=== PATIENT | female | born 1940 | race Caucasian/White ===

== ENCOUNTER → 2017-04-11 | Outpatient (CLI) | payer MEDICARE, OTHER ==
[2017-04-11 16:28] LABS: Basophils # (A) 0.1 k/uL (0-0.2); Basophils % (A) 1 %; CH 31.7; CHCM 34.2; Eosinophils # (A) 0.3 k/uL (0-0.7); Eosinophils % (A) 4 %; HCT 37.7 % (34.0-46.0); HDW 2.63; HGB 12.8 gm/dL (11.4-16.0); Luc % (Auto) 2; Lymphocytes # (A) 2.8 k/uL (1.0-4.8); Lymphocytes % (A) 29 %; MCH 31.7 pg (25.0-35.0); MCV 93.2 fL (80.0-100.0); Mean Platelet Volume 7.6; Monocytes # (A) 0.4 k/uL (0-1.0); Monocytes % (A) 4 %; Neutrophils # (A) 5.7 k/uL (1.3-7.7); Neutrophils % (A) 60 %; RBC 4.05 m/uL (3.80-5.40); RDW 12.9 % (11.5-15.5); WBC 9.5 k/uL (3.8-10.6); WBC (Perox) 10.11
[2017-04-11 16:34] LABS: Calcium 9.4 mg/dL (8.4-10.2); Magnesium 2.3 mg/dL (1.6-2.3); Potassium 4.2 mmol/L (3.5-5.1)
== END ==
LOC: LABWHC1 15:55
PROVIDERS: ATTEND Internal Medicine
DX: R19.7 Diarrhea, unspecified (principal)
CPT/HCPCS: 36415; 80048; 83735; 84450; 84460; 85025; 87045; 87046; 87328; 87329

== ENCOUNTER → 2017-05-02 | Outpatient (CLI) | payer MEDICARE, OTHER ==
--- NOTE | 2017-05-02 16:53 | US ---
EXAMINATION TYPE: US abdomen complete DATE OF EXAM: 05/02/2017 COMPARISON: NONE CLINICAL HISTORY: R94.5 abnormal liver study results. EXAM MEASUREMENTS: Liver Length: 14.2 cm Gallbladder Wall: 0.3 cm CBD: 0.5 cm Spleen: 10.2 cm Right Kidney: 10.4 x4.3 x 4.3 cm Left Kidney: 10.8 x 4.9 x 5.4 cm Pancreas: visualized portions wnl Liver: There is some mild fatty infiltration liver with diminished attenuation Gallbladder: small stones/sludge seen without shadowing Evidence for sonographic Ornelas's sign: No CBD: wnl Spleen: wnl Right Kidney: cyst measures 1.9 x 1.7 x 1.9 cm Left Kidney: No hydronephrosis or masses seen Upper IVC: wnl Abd Aorta: wnl IMPRESSION: 1. Gallbladder sludge and/or small stones. 2. Mild fatty infiltration of liver
== END | disposition home or self-care (01) ==
LOC: RADUSWWP 06:55
PROVIDERS: ATTEND Internal Medicine
DX: K82.9 Disease of gallbladder, unspecified (principal); K76.0 Fatty (change of) liver, not elsewhere classified
CPT/HCPCS: 76700

== ENCOUNTER → 2017-05-10 | Outpatient (CLI) | payer MEDICARE, OTHER ==
--- NOTE | 2017-05-10 17:28 | NM ---
EXAMINATION TYPE: NM hepatobiliary w EF DATE OF EXAM: 05/10/2017 COMPARISON: NONE HISTORY: Gallstone ileus. TECHNIQUE: After the intravenous administration of 5.5 mCi Tc 99m Mebrofenin hepatobiliary scintigrap hy is performed. Immediate images post injection. FINDINGS: There is satisfactory initial accumulation of tracer by the liver. The gallbladder is visualized wit hin 46 minutes. The small bowel activity is noted within 24 minutes. At one hour 8 ounces of oral e nsure plus is given to mimic CCK and gallbladder ejection fraction is calculated at 66 %, in the norm al range. Therefore there is no scintigraphic evidence of cystic or common bile duct obstruction to suggest acute cholecystitis or gallbladder dyskinesia. IMPRESSION: NORMAL NASAL MEDICINE ABOUT A BILIARY SCAN WITH EJECTION FRACTION CALCULATION.
== END | disposition home or self-care (01) ==
LOC: RADNMMAIN 14:24
PROVIDERS: ATTEND Internal Medicine
DX: K56.3 Gallstone ileus (principal)
CPT/HCPCS: 78226; A9537

== ENCOUNTER → 2017-11-22 | Outpatient (CLI) | payer MEDICARE, OTHER ==
--- NOTE | 2017-11-22 15:42 | XR ---
EXAMINATION TYPE: XR chest 2V DATE OF EXAM: 11/22/2017 COMPARISON: Chest x-ray September 12, 2016 HISTORY: Chest pain TECHNIQUE: Frontal and lateral views of the chest are obtained. FINDINGS: There is chronic minimal change without suspicious focal air space opacity, pleural effusi on, or pneumothorax seen. The cardiac silhouette size remains within normal limits with atherosclero tic aorta. The osseous structures are demineralized. Underlying scoliosis is noted. Multilevel spur ring is redemonstrated. IMPRESSION: No acute cardiopulmonary process. No significant change from prior.
== END | disposition home or self-care (01) ==
LOC: RADXRMAIN 15:22
PROVIDERS: ATTEND Internal Medicine
DX: R07.9 Chest pain, unspecified (principal)
CPT/HCPCS: 71046

== ENCOUNTER → 2018-04-02 | Outpatient (CLI) | payer MEDICARE, OTHER ==
--- NOTE | 2018-04-02 13:49 | XR ---
Cervical spine HISTORY: Neck pain, spondylosis 5 views of the cervical spine and 6 images There is multilevel spondylosis. Cervical vertebral bodies show preserved height, alignment, bone min eralization is mildly reduced. Loss of disc height hasn't at C5-6 and C6-7. Facet arthropathy changes are noted. Mild foraminal encroachment present at C5-6 and C6-7. Odontoid view is limited. Calcifica tions likely present within the carotid arteries. IMPRESSION: Degenerative disc disease, facet arthropathy.
== END ==
LOC: RADXRMAIN 13:16
PROVIDERS: ATTEND Internal Medicine
DX: M50.30 Other cervical disc degeneration, unspecified cervical region (principal); M46.92 Unspecified inflammatory spondylopathy, cervical region
CPT/HCPCS: 72050

== ENCOUNTER → 2018-04-12 | Outpatient (CLI) | payer MEDICARE, OTHER ==
--- NOTE | 2018-04-12 14:00 | MR ---
EXAMINATION TYPE: MR cervical spine wo con DATE OF EXAM: 04/12/2018 COMPARISON: CTA neck 10/05/2016, cervical spine 04/02/2018 HISTORY: Spondylosis with Myelopathy cervical region TECHNIQUE: Multiplanar, multisequence images of the cervical spine were acquired. C2-C3: There is a chronic odontoid fracture present. Alignment is near anatomic. Loss of disc height and signal is present, there is associated spondylosis. No significant spinal stenosis. No significan t disc herniation or foraminal encroachment. C3-C4: No significant foraminal encroachment or central stenosis. No sizable disc herniation. There i s some loss of disc signal compatible disc desiccation and degenerative disc disease. C4-C5: Loss of disc signal is compatible with disc desiccation, minimal posterior broad-based disc bu lge causes slight anterior mass effect on the thecal sac, there is only mild central stenosis. Latera l extension of endplate disc complex encroaches mildly on the foramina. C5-C6: Posterior broad-based disc bulge causes anterior mass effect on the thecal sac and likely cont act the anterior cervical cord, there is some deformity of the cord suspected, lateral extension of d isc complex causes bilateral foraminal encroachment. There is loss of disc height and signal, endplat e discogenic marrow signal changes present with associated spondylosis. C6-C7: Posterior extension of endplate disc complex may contact the anterior cervical cord, lateral e xtension of endplate disc complex causes bilateral foraminal encroachment left greater than right. Th ere is moderate central stenosis. C7-T1: Broad-based posterior disc bulge causes minimal anterior mass effect on the thecal sac. No sig nificant foraminal encroachment or central stenosis. Cervical segments are intact. There is normal alignment. Cervical spinal cord is of normal signal. Craniovertebral junction relationships are within normal limits. Lipoma present in the posterior le ft neck musculature. IMPRESSION: Degenerative disc disease, multilevel foraminal encroachment. Facet arthropathy. Chronic odontoid fra cture is present at the base of the dens.
== END | disposition home or self-care (01) ==
LOC: RADMRIMAIN 09:52
PROVIDERS: ATTEND Internal Medicine
DX: S12.110A Anterior displaced Type II dens fracture, initial encounter for closed fracture (principal); M50.00 Cervical disc disorder with myelopathy, unspecified cervical region; M46.92 Unspecified inflammatory spondylopathy, cervical region
CPT/HCPCS: 72141

== ENCOUNTER → 2018-11-29 | Outpatient (CLI) | payer MEDICARE ==
[~2018-11-29] MED LIST: REGADENOSON 0.4 MG/5 ML SYRINGE IV ONE
--- NOTE | 2018-11-29 11:51 | NM ---
EXAMINATION TYPE: NM stress lexiscan cardiolite DATE OF EXAM: 11/29/2018 COMPARISON: Prior cardiac stress test September 18, 2013 HISTORY: Chest pain per order. Family history of heart attack, personal history of hypertension, hype rcholesteremia, and diabetes. TECHNIQUE: After the intravenous administration of 10.4 mCi Tc 99m Sestamibi - Cardiolite resting SP ECT images acquired 50 minutes post injection. The patient received 0.4mg Lexiscan, 25.7 mCi Tc 99m Sestamibi - Stress images obtained [address] injection FINDINGS: Review of stress and rest SPECT images demonstrates no distinct perfusion abnormality. Gated analysi s shows normal wall motion with an estimated left ventricular ejection fraction of 72 %. IMPRESSION: No scintigraphic evidence for reversible ischemia. No significant change from prior.
--- NOTE | 2018-11-30 07:44 | EST ---
EXERCISE STRESS DATE OF SERVICE: 11/29/2018 AGE: 78 SEX: Female HT: 63" WT: 175 pounds PROTOCOL: Lexiscan Cardiolite STAGE: DURATION OF EXERCISE: HEART RATE REST: 86 BLOOD PRESSURE REST: 170/80 MAXIMUM HEART RATE ACHIEVED: 99 MAXIMUM BLOOD PRESSURE: 175/74 85% MPHR: 120 100% MPHR: 141 METS: INDICATIONS: Chest pain. CLINICAL INFORMATION: Baseline EKG revealed normal sinus rhythm with poor R-wave progression over precordial leads. With Lexiscan administration, the heart rate changed from 86 to 99 beats per minute. Blood pressure changed from 170/80 to 175/74. EKG remained unremarkable and patient did not have any significant symptoms. By EKG criteria, this is an unremarkable Lexiscan stress test with minor resting EKG changes. The nuclear scan results which are more pertinent, will be reported by the radiologist. ALINA / LALO: [id number] /
== END | disposition home or self-care (01) ==
LOC: RADNMMAIN 07:28
PROVIDERS: ATTEND Internal Medicine
DX: R07.9 Chest pain, unspecified (principal)
CPT/HCPCS: 93017; 78452; A9500; J2785

== ENCOUNTER → 2019-03-29 | Outpatient (CLI) | payer MEDICARE, OTHER ==
--- NOTE | 2019-03-29 11:10 | XR ---
EXAMINATION TYPE: XR knee complete RT DATE OF EXAM: 03/29/2019 CLINICAL HISTORY: pain TECHNIQUE: Three views of the right knee are obtained. COMPARISON: None. FINDINGS: There is no acute fracture/dislocation. The tri-compartment joint spaces appear mildly na rrowed. The overlying soft tissue appears unremarkable. IMPRESSION: There is no acute fracture or dislocation.ICD 10 NO FRACTURE, INITIAL EVALUATION
== END ==
LOC: RADXRMAIN 10:06
PROVIDERS: ATTEND Internal Medicine
DX: M25.561 Pain in right knee (principal)

== ENCOUNTER → 2020-04-06 | Outpatient (CLI) | payer MEDICARE, OTHER ==
[2020-04-06 11:23] LABS: Basophils % (A) 0 %; Eosinophils # (A) 0.3 k/uL (0-0.7); Eosinophils % (A) 4 %; HCT 40.8 % (34.0-46.0); HGB 13.4 gm/dL (11.4-16.0); Lymphocytes # (A) 1.6 k/uL (1.0-4.8); Lymphocytes % (A) 19 %; MCH 31.2 pg (25.0-35.0); MCHC 32.9 g/dL (31.0-37.0); MCV 94.8 fL (80.0-100.0); Monocytes # (A) 0.3 k/uL (0-1.0); Monocytes % (A) 3 %; Neutrophils % (A) 72 %; Platelet Count 272 k/uL (150-450); WBC 8.3 k/uL (3.8-10.6)
[2020-04-06 16:28] LABS: Albumin 4.5 g/dL (3.80-4.90); Albumin/Globulin Ratio 2.5 (1.60-3.17); Anion Gap 9.8 mmol/L (4.00-12.00); Calcium 9.9 mg/dL (8.7-10.3); Carbon Dioxide 25.2 mmol/L (21.6-31.8); Chol/HDL Ratio 2.62; Globulin 1.8 g/dL (1.6-3.3); LDL Cholesterol,Calculated 57.4 mg/dL (0.0-131.0); Non-African American GFR(CKD) 60.4 (60.0-200.0); Potassium 4.4 mmol/L (3.5-5.5); Total Bilirubin 0.5 mg/dL (0.2-1.2); Total Protein 6.3 g/dL (6.2-8.2); VLDL Calculation 31.6 mg/dL (5.00-40.00)
== END | disposition home or self-care (01) ==
LOC: LABWHC1 10:09
PROVIDERS: ATTEND Internal Medicine
DX: I10 Essential (primary) hypertension (principal); E78.2 Mixed hyperlipidemia; E11.9 Type 2 diabetes mellitus without complications
CPT/HCPCS: 36415; 80053; 80061; 83036; 84443; 85025

== ENCOUNTER → 2020-07-20 | Outpatient (CLI) | payer MEDICARE, OTHER ==
--- NOTE | 2020-07-20 16:43 | XR ---
EXAMINATION TYPE: XR cervical spine w flex/ext DATE OF EXAM: 07/20/2020 COMPARISON: 04/02/2018 HISTORY: Right-sided neck pain, history of arthritis TECHNIQUE: 5 view cervical spine supplemented with flexion and extension views. FINDINGS: Note is made of some calcification likely within the right carotid bifurcation region. Face t degenerative changes are present. There is severe foraminal stenosis at C5-6 on the right. Slightly less severe foraminal stenosis is present C3-6-7 on the right. Moderate foraminal narrowing at C4-5 is present on the right. Moderate foraminal narrowing at C5-6 C6-7 on the left is evident. Disc space narrowing is present C5-6 C6-7. There is a grade 1 spondylolisthesis of C4 anteriorly on C5 of 0.5 c m anterior listhesis. The prevertebral space appears normal. Anterior vertebral body spurring is pres ent throughout the cervical spine. Flexion and extension the vertebral body alignment is unchanged from neutral position. 2 views of the odontoid remaining limited. IMPRESSION: 1. Spondylolisthesis of C4 anteriorly on C5. 2. Vertebral body alignment remains stable in flexion and extension views. 3. Advanced degenerative disc changes C5-6 C6-7. 3. Severe foraminal stenosis on the right at C5-6 C6-7 and moderate on the left C5-6 C6-7.
== END | disposition home or self-care (01) ==
LOC: RADXRMAIN 11:18
PROVIDERS: ATTEND Internal Medicine
DX: M48.02 Spinal stenosis, cervical region (principal); M43.12 Spondylolisthesis, cervical region; M50.30 Other cervical disc degeneration, unspecified cervical region
CPT/HCPCS: 72052

== ENCOUNTER → 2020-08-19 | Outpatient (CLI) | payer MEDICARE, OTHER ==
[2020-08-19 08:29] VITALS: BP 152/78; PULSE 88; RESP 20; TEMP 98.2
--- NOTE | 2020-08-19 08:45 | P.PAINCN ---
History of Present Illness - Reason for Consult Consult date: 08/19/20 - History of Present Illness This is the initial consultation visit for this 79 years old female with a chronic history of neck pain, started more than few years ago, she denies any initiating event, no history of trauma or heavy lifting or falling, but she report, that over the last few weeks she started complaining of neck pain with radiation to the right upper extremity associated with numbness and tingling sensation, the pain is constant and increases with any activity interference the quality of life, she is currently on [place] 5/325 when necessary, and she continued to have severe pain, she denies any motor or sensory deficit she denies any fever or night sweats, and no change in the bowel movement or urination Past Medical History Past Medical History: Diabetes Mellitus, GERD/Reflux, Hyperlipidemia, Hypertension, Osteoarthritis (OA) History of Any Multi-Drug Resistant Organisms: None Reported Past Surgical History: Appendectomy, Hysterectomy, Joint Replacement, Orthopedic Surgery, Tonsillectomy Additional Past Surgical History / Comment(s): LT. HIP REPL. Past Anesthesia/Blood Transfusion Reactions: Motion Sickness Additional Past Anesthesia/Blood Transfusion Reaction / Comm: slow to wake up Past Psychological History: No Psychological Hx Reported Smoking Status: Never smoker Past Alcohol Use History: None Reported Past Drug Use History: None Reported - Past Family History Mother Family Medical History: Chest Pain / Angina, Myocardial Infarction ([place]) Additional Family Medical History / Comment(s): PTS MOTHER Medications and Allergies Home Medications Medication Instructions Recorded Confirmed Type Aspirin 81 mg PO HS 06/11/14 08/19/20 History Simvastatin 40 mg PO HS 06/11/14 08/19/20 History metFORMIN HCL [Glucophage] 500 mg PO BID 06/11/14 08/19/20 History Losartan/Hydrochlorothiazide 1 tab PO DAILY 09/12/16 08/19/20 History [Losartan-Hctz 100-25 mg Tab] Biotin 10,000 mcg PO DAILY 08/19/20 08/19/20 History Cholecalciferol [Vitamin D3 (25 2,000 unit PO DAILY 08/19/20 08/19/20 History Mcg = 1000 Iu)] Cyanocobalamin (Vitamin B-12) 1,000 mcg PO DAILY 08/19/20 08/19/20 History [Vitamin B-12] HYDROcodone/APAP 5-325MG [[place] 1 tab PO Q6HR PRN 08/19/20 08/19/20 History 5-325] Triamterene-Hctz 37.5-25Mg 1 cap PO DAILY 08/19/20 08/19/20 History [Dyazide 37.5-25 Capsule] Valsartan 160 mg PO DAILY 08/19/20 08/19/20 History Allergies Allergy/AdvReac Type Severity Reaction Status Date / Time No Known Allergies Allergy Verified 08/19/20 08:19 Physical Exam Vitals: Vital Signs Temp Pulse Resp BP Pulse Ox 08/19/20 08:21 98.2 F 88 20 152/78 97 Intake and Output 08/18/20 08/19/20 08/19/20 22:59 06:59 14:59 Other: Weight 79.832 kg Physical Examinations : -Constitutiona : Cooperative , not in acute distress . -HEENT : nech : supple , no Lymphadenopathy , normal thyroid size . : eyes : no ptosis , no icterus, no photophobia . : ENT : normal of hearing , normal oropharynx , no Thrush . - Respiratory : Chest clear to auscultations Bilaterally , no wheezing , no Rhonchi . - Cardiovascula : regular rate and rhythem , S1 , S2 , no S3 , no S4. - Gastrointestina : abdomen soft no tenderness , bowel sounds , no organomegally . - Genitourinary : Defferred . - neurologic : Cranial nerve II to XII intact , no focal neurological deffecit . -psychatric : alert , oriented X 3 , appropriate affect , intact judgment and insight . -Lymphatic : no Lymphadenopathy . - musculoskeltal : Cervical Spine motor stregnth in the deltoid and biceps, normal right side , normal Left side motor stregnth biceps and the wrist extensors normal right side ,normal left side . motor stregnth in the triceps muscle . normal Right side , normal Left side deep tendon reflexes normal at the biceps , normal at Brachioradialis , normal at triceps. cervical facet loading test= Positive Bilaterally Spurling test= positive on the right side Neck distraction test= positive on the right side. Rocky sign= positive on the right side. Lumber spine moter stegnth lower extremities ,thigh and legs 5/5 Right side , 5/5 Left side Results Comments: MRI of the cervical spine multilevel cervical degenerative disc disease and multilevel cervical spondylosis with facet arthropathy Assessment and Plan Plan: Assessment and plan=1-cervical radiculopathy. 2-cervical degenerative disc disease. 3-cervical spondylosis with cervical facet arthropathy without myelopathy. Patient could benefit from cervical epidural steroid injection at C7-T1 (right paramedian approach ) Procedure risk and benefits and alternatives discussed with the patient she agreed with the preceding Time with Patient: Greater than 30 PQRS Measure Charge Sheet Measure #130: Documentation of Current Meds in Medical Chart: Patient's medications documented in chart Measure #226: Tobacco Use: Screen & Cessation Intervention: Pt not a tobacco user Measure #111: Pneumonia Vaccination: Pneumococcal vaccine NOT administered or previously given Measure #47: Advance Care Plan: Advance care planning discussed & documented, pt chose/unable to give Measure #412: Opioid Treatment Agreement: No documentation of signed opioid treatment agreement Measure #408: Opioid Therapy Follow-up Evaluation: Patient had NO f/u eval minimum every 3 months during opioid therapy Measure #317: Preventitive Care & Scrn High Bld Press & F/U: Pre-hypertensive or hypertensive BP documented, pt will f/u with PCP Measure #128: Body Mass Index (BMI) Screening & Follow-up: BMI documented ABOVE normal parameters - f/u documented Measure #131: Pain Assessment & Follow-up: Pain positive & plan documented, Follow-up scheduled Measure #431: Unhealthy Alcohol Use Preventative Care & Scrn: Patient not identified as an unhealthy alcohol user PQRS Narrative: Smoking Status Never smoker Blood Pressure 152/78 Pain Intensity [Neck] 5 Pain Intensity [Right Arm] 6 Scale Used Numeric (1 - 10) Hx Alcohol Use (MH) No Home Medications: Ambulatory Orders Aspirin 81 mg PO HS 06/11/14 Simvastatin 40 mg PO HS 06/11/14 metFORMIN HCL [Glucophage] 500 mg PO BID 06/11/14 Losartan/Hydrochlorothiazide [Losartan-Hctz 100-25 mg Tab] 1 tab PO DAILY 09/12/16 Biotin 10,000 mcg PO DAILY 08/19/20 Cholecalciferol [Vitamin D3 (25 Mcg = 1000 Iu)] 2,000 unit PO DAILY 08/19/20 Cyanocobalamin (Vitamin B-12) [Vitamin B-12] 1,000 mcg PO DAILY 08/19/20 HYDROcodone/APAP 5-325MG [[place] 5-325] 1 tab PO Q6HR PRN 08/19/20 Triamterene-Hctz 37.5-25Mg [Dyazide 37.5-25 Capsule] 1 cap PO DAILY 08/19/20 Valsartan 160 mg PO DAILY 08/19/20
== END | disposition home or self-care (01) ==
LOC: PNWHC3 08:11
PROVIDERS: ATTEND Specialist
DX: M47.22 Other spondylosis with radiculopathy, cervical region (principal); M50.10 Cervical disc disorder with radiculopathy, unspecified cervical region; M46.92 Unspecified inflammatory spondylopathy, cervical region; E11.9 Type 2 diabetes mellitus without complications; K21.9 Gastro-esophageal reflux disease without esophagitis; E78.5 Hyperlipidemia, unspecified; I10 Essential (primary) hypertension; M19.90 Unspecified osteoarthritis, unspecified site; Z79.82 Long term (current) use of aspirin; Z79.84 Long term (current) use of oral hypoglycemic drugs; Z79.899 Other long term (current) drug therapy
CPT/HCPCS: 99211

== ENCOUNTER 2020-09-08 11:59 | Day surgery (SDC) | payer MEDICARE, OTHER ==
[2020-09-04 14:11] VITALS: BMI 31.1
[~2020-09-08 11:59] MED LIST changes: +LACTATED RINGERS 1,000 ML IV SCH; -REGADENOSON 0.4 MG/5 ML SYRINGE IV ONE
[2020-09-08 12:14] VITALS: RESP 18; TEMP 98
[2020-09-08] MEDS ORDERED: LACTATED RINGERS 1,000 ML IV ONE (12:14)
[2020-09-08] MEDS ORDERED: LIDOCAINE 1% (10MG/ML) FOR IV START INTRADERMA ONE (12:15)
[2020-09-08 12:24] LABS: Glucose,Whole Blood 113 mg/dL (75-99)
[2020-09-08] MEDS ORDERED: fentaNYL (PF) 50 MCG/ML 2 ML AMP ONE (13:04)
[2020-09-08] MEDS ORDERED: DEXAMETHASONE SOD PHOSPHATE 10 MG/ML 1 ML VIAL ONE (13:04)
[2020-09-08] MEDS ORDERED: MIDAZOLAM 2 MG/2 ML VIAL ONE (13:04)
[2020-09-08] MEDS ORDERED: IOPAMIDOL M200 10 ML VIAL ONE (13:04)
--- NOTE | 2020-09-08 13:15 | P.PCN ---
Date of Procedure: 09/08/20 Procedure(s) Performed: . PROCEDURE 1. Cervical epidural steroid injection under fluoroscopic guidance, C7-T1 (fluoroscopy images available in the radiology department ) 2. Cervical epidurogram. PREOPERATIVE DIAGNOSIS: 1- Cervical Degenerative Disc Diseases 2- Cervical radiculopathy., 3-cervical spondylosis with cervical Facet arthropathy without myelopathy POSTOPERATIVE DIAGNOSIS: : 1- Cervical Degenerative Disc Diseases , 2- Cervical radiculopathy. 3-,cervical spondylosis with cervical Facet arthropathy without myelopathy ANESTHESIA: Local anesthesia with lidocaine 1 % , and moderate sedation, with Versed 1 mg and Fentanyl 50 mcg. EBL 0 PROCEDURE INDICATION: The patient with neck pain and radiculitis unresponsive to conservative treatment consents for procedure. PROCEDURE DESCRIPTION / TECHNIQUE: The patient was seen and identified in the preoperative area. Risks, benefits, complications, including but not limited to infections ,bleeding , allergic reactions to the medications ,and not complete pain releife, and alternatives were discussed with the patient, the patient agreed to proceed with the procedure and signed the consent. Patient was taken to the OR and time out was completed. The patient was placed in the prone position on the procedure table. A pillow w as placed under the patients chest to increase the cervical interlaminar space. The cervical area was prepped and draped in the usual sterile fashion. Vital signs were closely monitored during the procedure. Conscious sedation was used during the procedure to decrease patients anxiety. Using anterior-posterior fluoroscopy, the C7-T1 interlaminar space was identified and the skin over this site was marked and then infiltrated with 1% lidocaine subcutaneously. Subsequently, a 20-gauge 3-1/2-inch Tuohy epidural needle was inserted and advanced toward the epidural space by means of the ``hanging-drop technique and guided by AP and lateral fluoroscopy. The correct needle position in the epidural space was verified with the injection of 2 mL of the water soluble contrast dye Isovue-200 and observing an excellent epidurogram with the epidural spread of the dye, after negative aspiration for blood and CSF and in the absence of paresthesias. Again after negative aspiration, mixture containing 10 mg Dexamethasone and 2 ml of preservative- free normal saline injected and a washout of epidurogram was seen. Needle was withdrawn intact, skin was cleansed, and bandages were applied. Complications= none. Disposition= patient was placed in supine position and transferred to the recovery room area in stable condition and there was no evidence of upper or lower extremity motor or sensory deficit after the procedure patient was discharged from recovery room after discharge criteria met and home discharge instructions was given by the staff and patient will follow with the pain clinic in 2-4 weeks
[2020-09-08 13:24] VITALS: PULSE 73
[2020-09-08 13:46] VITALS: BP 135/77
[2020-09-08] MEDS ORDERED: IV FLUID CONTINUATION 1,000 ML IV ONE (13:47)
--- NOTE | 2020-09-08 14:52 | FL ---
EXAMINATION TYPE: FL guided pain mgmt statistic DATE OF EXAM: 09/08/2020 FLUOROSCOPY Fluoroscopy time of 2 seconds was used during cervical epidural steroid injection. 1 image/s documen t/s the procedure.
== END 2020-09-08 13:57 | disposition home or self-care (01) ==
LOC: ORPAIN 11:59
PROVIDERS: ATTEND Specialist
DX: M47.22 Other spondylosis with radiculopathy, cervical region (principal); M50.10 Cervical disc disorder with radiculopathy, unspecified cervical region
CPT/HCPCS: 62321; J2250; J1100; J3010; Q9966

== ENCOUNTER 2020-10-06 11:44 | Day surgery (SDC) | payer MEDICARE, OTHER ==
[2020-10-05 09:39] VITALS: BMI 31.1
[2020-10-06 12:08] VITALS: TEMP 97.2
[2020-10-06] MEDS ORDERED: SODIUM CHLORIDE 0.9% (PF) 10 ML VIAL ONE (12:15)
[2020-10-06] MEDS ORDERED: IOPAMIDOL-370 125ML BTL ONE (12:15)
[2020-10-06] MEDS ORDERED: DEXAMETHASONE SOD PHOSPHATE 10 MG/ML 1 ML VIAL ONE (12:15)
--- NOTE | 2020-10-06 12:32 | P.PCN ---
Date of Procedure: 10/06/20 Description of Procedure: Diagnosis: Cervical radiculopathy Cervical degenerative disc disease POSTOPERATIVE DIAGNOSIS: Diagnoses: Cervical radiculopathy Cervical degenerative disc disease PROCEDURE Cervical Epidural steroid injection under fluoroscopic guidance at the C7-T1 interspace using right paramedian approach Cervical epidurogram ANESTHESIA: Local with 1% lidocaine 3 ml Fluoroscopy was used for the procedure and images were saved in the radiology portion of the chart. EBL: Minimal PROCEDURE INDICATION: The patient presents with cervical radicular symptoms unresponsive to conservative treatment. This is the second cervical epidural steroid injection. PROCEDURE DESCRIPTION / TECHNIQUE: The patient was seen and identified in the preoperative area. Risks, benefits, complications including but not limited to infections ,bleeding ,allergic reaction to the medications ,nerve damage and incomplete pain relief, and alternatives were discussed with the patient. The patient agreed to proceed with the procedure and signed the consent. IV was started, and vital signs were sta ble. Patient was taken to the OR and time out was completed. The patient was placed in the prone position on procedure table and a pillow was placed under the chest area. The cervical area was prepped and draped in the usual sterile fashion. Conscious sedation was used during the procedure to decrease patients anxiety. Vital signs was monitored during the entire procedure. Using anterior-posterior fluoroscopy, the C7-T1 interlaminar space was identified and the skin over this site was marked and then infiltrated with 1% lidocaine subcutaneously. Subsequently, a 20-gauge Tuohy epidural needle was inserted and advanced toward the epidural space using the loss of resistance technique and guided by AP and 50 oblique fluoroscopy. The correct needle position in the epidural space was verified. After negative aspiration for blood and CSF and in the absence of paresthesias, Isovue 200 2 mL's was injected under live fluoroscopy with good epidural spread. After negative aspiration, a 5 ml mixture containing 10 mg of dexamethasone, 4 mL of preservative free normal saline. Needle was withdrawn intact, skin was cleansed, and bandages were applied. COMPLICATIONS: None DISPOSITION / PLANS: The patient was placed in a supine position and transferred to the recovery area in a stable condition for observation. There was no evidence of lower extremity motor or sensory deficit after the procedure. Patient was discharged from the recovery room after meeting discharge criteria. Home discharge instructions were given to the patient by the staff. The patient will be scheduled a follow up in the clinic in 2-4 weeks.
--- NOTE | 2020-10-06 12:42 | FL ---
Fluoroscopy INDICATION: Pain FINDINGS: Fluoroscopy time: 20 seconds. Images obtained: 2. IMPRESSIONS: 1. Documentation of fluoroscopy.
[2020-10-06 12:44] VITALS: RESP 20
[2020-10-06 12:55] VITALS: BP 161/76; PULSE 70
== END 2020-10-06 12:58 | disposition home or self-care (01) ==
LOC: ORPAIN 11:44
PROVIDERS: ATTEND Anesthesiology
DX: M50.10 Cervical disc disorder with radiculopathy, unspecified cervical region (principal)
CPT/HCPCS: 62321; J1100; Q9967

== ENCOUNTER → 2020-11-04 | Outpatient (CLI) | payer MEDICARE, OTHER ==
[2020-11-04 11:27] VITALS: BP 144/80; PULSE 78; RESP 18; TEMP 98.3
--- NOTE | 2020-11-04 12:00 | P.PN ---
Subjective Progress Note Date: 11/04/20 This is follow up visit for this 80 years old female with a chronic history of neck pain, started more than few years ago, she denies any initiating event, she is diagnosed with cervical radiculopathy and cervical degenerative disc disease and cervical spondylosis and cervical facet arthropathy, recently we have done cervical epidural steroid injections 2 she reported that she had only short- term benefit after each injection she gets relief only for 2-3 days, and she continued to have severe pain, she denies any motor or sensory deficit she denies any fever or night sweats, and no change in the bowel movement or urination Objective - Vital Signs Vital signs: Vital Signs Temp 98.3 F 11/04/20 11:21 Pulse 78 11/04/20 11:21 Resp 18 11/04/20 11:21 BP 144/80 11/04/20 11:21 Pulse Ox 96 11/04/20 11:21 - Exam -Constitutiona : Cooperative , not in acute distress . -HEENT : nech : supple , no Lymphadenopathy , normal t hyroid size . : eyes : no ptosis , no icterus, no photophobia . - neurologic : Cranial nerve II to XII intact , no focal neurological deffecit . -psychatric : alert , oriented X 3 , appropriate affect , intact judgment and insight . -Lymphatic : no Lymphadenopathy . - musculoskeltal : Cervical Spine motor stregnth in the deltoid and biceps, normal right side , normal Left side motor stregnth biceps and the wrist extensors normal right side ,normal left side . motor stregnth in the triceps muscle . normal Right side , normal Left side deep tendon reflexes normal at the biceps , normal at Brachioradialis , normal at triceps. cervical facet loading test= Positive Bilaterally Spurling test= positive on the right side Neck distraction test= positive on the right side. Rocky sign= positive on the right side. Lumber spine moter stegnth lower extremities ,thigh and legs 5/5 Right side , 5/5 Left side Assessment and Plan Plan: Assessment and plan= 1-cervical radiculopathy. 2-cervical degenerative disc disease. 3-cervical spondylosis with cervical facet arthropathy without myelopathy. Patient had short term benefit from cervical epidural steroid injection x2 Patient to be good candidate for diagnostic medial branch blocks of the Area on the right side C3, C4, C5,, C6 and possible RFA if she had positive results Time with Patient: Greater than 30 PQRS Measure Charge Sheet Measure #130: Documentation of Current Meds in Medical Chart: Patient's medications documented in chart Measure #226: Tobacco Use: Screen & Cessation Intervention: Pt not a tobacco user Measure #111: Pneumonia Vaccination: Pneumococcal vaccine NOT administered or previously given Measure #47: Advance Care Plan: Advance care planning discussed & documented, pt chose/unable to give Measure #412: Opioid Treatment Agreement: No documentation of signed opioid treatment agreement Measure #408: Opioid Therapy Follow-up Evaluation: Patient had NO f/u eval minimum every 3 months during opioid therapy Measure #317: Preventitive Care & Scrn High Bld Press & F/U: Pre-hypertensive or hypertensive BP documented, pt will f/u with PCP Measure #128: Body Mass Index (BMI) Screening & Follow-up: BMI documented ABOVE normal parameters - f/u documented Measure #131: Pain Assessment & Follow-up: Pain positive & plan documented, Follow-up scheduled Measure #431: Unhealthy Alcohol Use Preventative Care & Scrn: Patient not identified as an unhealthy alcohol user PQRS Narrative: Time with Patient: Less than 30
== END | disposition home or self-care (01) ==
LOC: PNWHC3 10:33
PROVIDERS: ATTEND Specialist
DX: M50.10 Cervical disc disorder with radiculopathy, unspecified cervical region (principal); M47.22 Other spondylosis with radiculopathy, cervical region
CPT/HCPCS: 99211

== ENCOUNTER 2020-12-03 08:09 | Day surgery (SDC) | payer MEDICARE, OTHER ==
[2020-11-27 14:06] VITALS: BMI 21.9
[2020-12-03 08:42] VITALS: RESP 16; TEMP 97.8
[2020-12-03 08:42] LABS: Glucose,Whole Blood 133 mg/dL (75-99)
[2020-12-03] MEDS ORDERED: LIDOCAINE 1% (10MG/ML) FOR IV START INTRADERMA ONE (08:42)
[2020-12-03] MEDS ORDERED: ROPIVACAINE 5MG/ML 20ML VIAL ONE (09:01)
[2020-12-03] MEDS ORDERED: methylPREDNISolone ACETATE 40 MG/ML 1 ML VIAL ONE (09:01)
[2020-12-03] MEDS ORDERED: MIDAZOLAM 2 MG/2 ML VIAL ONE (09:01)
[2020-12-03] MEDS ORDERED: fentaNYL (PF) 50 MCG/ML 2 ML AMP ONE (09:01)
--- NOTE | 2020-12-03 09:22 | P.PCN ---
Date of Procedure: 12/03/20 Procedure(s) Performed: PREOPERATIVE DIAGNOSIS: Cervical Spondylosis with Facet Arthropathy.without myelopathy POSTOPERATIVE DIAGNOSIS: Cervical Spondylosis Facet Arthropathy. Without myelopathy PROCEDURES: Diagnostic right. C3, C4 , C5 , and C6 medial branch blocks, with fluoroscopic guidance (fluoroscopy images available in radiology department ) ( to target the facet joint at right C3-4 , C4- 5 , C5- 6 ) ANESTHESIA: moderate sedation with Versed 2 mg , and fentanyl 50 micrograms EBL: Minimal PROCEDURE INDICATION: The patient with neck pain secondary to cervical arthropathy unresponsive to more conservative treatments. PROCEDURE DESCRIPTION / TECHNIQUE: The patient was seen and identified in the preoperative area. Risks, benefits, complications, and alternatives were discussed with the patient, the patient agreed to proceed with the procedure and signed the consent. IV was started. Vital signs remained stable throughout the procedure. Patient was taken to the OR and time out was completed. The patient was placed i n the prone position on the procedure table. A pillow was placed under the patients chest to increase the cervical interlaminar space. The cervical area was prepped and draped in the usual sterile fashion. Critical pause was taken. Vital signs were closely monitored during the procedure. Conscious sedation was used during the procedure to decrease patients anxiety. Using cross-table lateral fluoroscopy, the centroid of the trapezoid of right C3, C4 , C5 and C6, was identified, marked, and localized with 1% lidocaine 1 ml at each level for skin and Sub Q infiltrations . Subsequently, a 25 G 4 spinal needle was advanced guided by fluoroscopy to the centroid of the trapezoid of Right C3, C4 , C5, C6 . [place] tip position was confirmed at the centroid of the trapezoids of Right C3 , C4 , C5 ,C6 with anteroposterior fluoroscopy. Subsequently, 2 ml of preservative-free Ropivacaine 0.5% mixed with Depo-Medrol 40 mg and half ml of the mixture was injected after negative aspiration for blood and CSF. [place] was then removed intact. COMPLICATIONS: No acute complications. DISPOSITION / PLANS: The patient was placed in a supine position and transferred to the recovery area in a stable condition for observation and was discharged from the recovery room after meeting discharge criteria. Home discharge instructions given to the patient by the staff. The patient was reexamined prior to discharge. The patient will schedule a follow up in the clinic in 2-4 weeks.
[2020-12-03] MEDS ORDERED: IV FLUID CONTINUATION 800 ML IV ONE (09:26)
--- NOTE | 2020-12-03 09:51 | FL ---
EXAMINATION TYPE: FL guided pain mgmt statistic DATE OF EXAM: 12/03/2020 CLINICAL HISTORY: Neck pain. TECHNIQUE: Fluoroscopy. COMPARISON: None. FINDINGS: Fluoroscopic guidance was provided during pain relief procedure performed by Dr. Butler . A total of 10 seconds of fluoroscopic time was utilized during the procedure and two spot images a re acquired. Images acquired shows needle localization at several levels in the mid cervical spine. IMPRESSION: As Above.
[2020-12-03 09:52] VITALS: BP 127/74; PULSE 74
== END 2020-12-03 09:46 | disposition home or self-care (01) ==
LOC: ORPAIN 08:09
PROVIDERS: ATTEND Specialist
DX: M47.812 Spondylosis without myelopathy or radiculopathy, cervical region (principal); E11.9 Type 2 diabetes mellitus without complications
CPT/HCPCS: 64490; 64491; 64492; J2250; J1030; J3010; J2795

== ENCOUNTER 2020-12-17 09:07 | Day surgery (SDC) | payer MEDICARE, OTHER ==
[2020-12-15 11:30] VITALS: BMI 30.9
[2020-12-17 09:24] VITALS: TEMP 96.8
[2020-12-17 09:30] LABS: Glucose,Whole Blood 116 mg/dL (75-99)
[2020-12-17] MEDS ORDERED: LACTATED RINGERS 1,000 ML IV ONE (09:30)
[2020-12-17] MEDS ORDERED: LIDOCAINE 1% (10MG/ML) FOR IV START INTRADERMA ONE (09:30)
[2020-12-17] MEDS ORDERED: MIDAZOLAM 2 MG/2 ML VIAL ONE (10:00)
[2020-12-17] MEDS ORDERED: ROPIVACAINE 5MG/ML 20ML VIAL ONE (10:00)
[2020-12-17] MEDS ORDERED: DEXAMETHASONE SOD PHOSPHATE 10 MG/ML 1 ML VIAL ONE (10:00)
--- NOTE | 2020-12-17 10:16 | P.PCN ---
Date of Procedure: 12/17/20 Surgeon: Jenae Caraballo Pathology: none sent Condition: stable Disposition: PACU Description of Procedure: PREOPERATIVE DIAGNOSIS: Cervical Spondylosis with Facet Arthropathy.without myelopathy POSTOPERATIVE DIAGNOSIS: Cervical Spondylosis Facet Arthropathy. Without myelopathy PROCEDURES: Diagnostic right. C3, C4 , C5 , and C6 medial branch blocks, with fluoroscopic guidance (fluoroscopy images available in radiology department ) ( to target the facet joint at right C3-4 , C4- 5 , C5- 6 ) ANESTHESIA: moderate sedation with Versed 2 mg EBL: Minimal PROCEDURE INDICATION: The patient with neck pain secondary to cervical arthropathy unresponsive to more conservative treatments. PROCEDURE DESCRIPTION / TECHNIQUE: The patient was seen and identified in the preoperative area. Risks, benefits, complications, and alternatives were discussed with the patient, the patient agreed to proceed with the procedure and signed the consent. IV was started. Vital signs remained stable throughout the procedure. Patient was taken to the OR and time out was completed. The patient was placed in the supine position on the procedure table. . The cervical area was prepped and draped in the usual sterile fashion. Critical pause was taken. Vital signs were closely monitored during the procedure. Conscious sedation was used during the procedure to decrease patients anxiety. Using cross-table lateral fluoroscopy, the center of the trapezoid of right C3, C4 , C5 and C6, was identified, marked, and localized with 1% lidocaine 1 ml at each level for skin and Sub Q infiltrations . Subsequently, a 25 G 4 spinal needle was advanced guided by fluoroscopy to the centroid of the trapezoid of Right C3, C4 , C5, C6 . [place] tip position was confirmed at the centroid of the trapezoids of Right C3 , C4 , C5 ,C6 with anteroposterior fluoroscopy. Subsequently, 2 ml of preservative-free Ropivacaine 0.5% mixed with decadron 10 mg and half ml of the mixture was injected after negative aspiration for blood and CSF in each needle. [place] were then removed intact. COMPLICATIONS: No acute complications. DISPOSITION / PLANS: The patient was placed in a supine position and transferred to the recovery area in a stable condition for observation and was discharged from the recovery room after meeting discharge criteria. Home discharge instruc tions given to the patient by the staff. The patient was reexamined prior to discharge. The patient will schedule a follow up in the clinic in 2-4 weeks.
[2020-12-17] MEDS ORDERED: IV FLUID CONTINUATION 1,000 ML IV ONE ×3 (10:17)
[2020-12-17 10:35] VITALS: BP 137/76; PULSE 83; RESP 16
--- NOTE | 2020-12-17 12:40 | FL ---
EXAMINATION TYPE: FL guided pain mgmt statistic DATE OF EXAM: 12/17/2020 FLUOROSCOPY Fluoroscopy time of 8 seconds was used during right-sided cervical facet injection. 3 image/s docume nt/s the procedure.
== END 2020-12-17 10:52 | disposition home or self-care (01) ==
LOC: ORPAIN 09:07
PROVIDERS: ATTEND Anesthesiology
DX: M47.812 Spondylosis without myelopathy or radiculopathy, cervical region (principal); I10 Essential (primary) hypertension; E11.9 Type 2 diabetes mellitus without complications
CPT/HCPCS: 64490; 64491; 64492; J2250; J1100; J2795; 99152

== ENCOUNTER → 2021-01-11 | Outpatient (CLI) | payer MEDICARE, OTHER ==
[2021-01-11 10:58] VITALS: BP 165/91; PULSE 94; RESP 16; TEMP 97.7
--- NOTE | 2021-01-11 11:02 | P.PN ---
Subjective Progress Note Date: 01/11/21 This is an 80-year-old lady with history of chronic neck pain with radiation to the right shoulder. The patient received cervical epidural steroid injection which did not improve her pain however she did have a diagnostic cervical medial branch block for levels C3, C4, C5, and C6 on the right side which gave her at least 70% of pain relief as she states. Right now is much better than before .Patient denies new-onset weakness, bowel/bladder incontinence, or any other signs or symptoms of cauda equina syndrome. There are no signs of acute intoxication, and no indications of medication diversion or overuse. In addition to above, 13-point review of systems is also negative for chest pain, shortness of breath, changes in vision, changes in hearing, new onset weakness, abdominal pain, diarrhea, extreme fatigue, malaise, fever, skin changes, homicidal or suicidal ideation, or bowel or bladder incontinence. Vital Signs: Reviewed in EMR Gen: AAOx3, NAD HEENT: PERRLA,hearing grossly normal Pulm: resp unlabored Neck: supple, trachea midline Neuro exam of the upper extremities: Normal muscle strength bilaterally and symmetrically Straight leg raising test: Raphael's test: Range of motion of the cervical spine: Decreased right neck rotation due to pain on the right side of her neck Facet loading test: Tenderness in the paravertebral musculature: Positive tenderness in the cervical paravertebral musculature on the right side Neuro: CN II-XII grossly intact, Imaging: Reviewed in EMR/chart Assessment: Cervical spondylosis without myelopathy Plan: 1. Explanation: Opioid and psychological risk scores were reviewed. Diagnoses, prognoses, and multiple treatment options including but not limited to physical therapy, interventional therapies, adjuvant medical therapies, narcotic medication therapies, and surgery were discussed with the patient and all questions were answered to the patient's satisfaction. 2. Opioid agreement: Signed with the patient and the patient is warned not to use opioids while driving or before driving and not to combine opioids with benzodiazepines or alcohol. 3. Counseling: The patient was counseled extensively on SMOKING CESSATION, BODY MASS INDEX, EXERCISE. Specifically, the patient was instructed regarding the importance of smoking cessation, obesity, and exercise in the context of both chronic pain and overall health. 4. Procedures: We will schedule the patient to have right cervical medial branch RFA on levels C3, C4, C5, and C6. We will postpone this procedure until her pain starts to get worse. 5. Consultations: None 6. Investigations: None 7. Medications: None 8. Disposition: We will proceed with the above-mentioned procedure 9. Maps were reviewed and were appropriate. Objective - Vital Signs Vital signs: Vital Signs Temp 97.7 F 01/11/21 10:53 Pulse 94 01/11/21 10:53 Resp 16 01/11/21 10:53 BP 165/91 01/11/21 10:53 Pulse Ox 96 01/11/21 10:53
== END | disposition home or self-care (01) ==
LOC: PNWHC3 10:38
PROVIDERS: ATTEND Anesthesiology
DX: M47.812 Spondylosis without myelopathy or radiculopathy, cervical region (principal)
CPT/HCPCS: 99211

== ENCOUNTER 2021-04-05 08:35 | Day surgery (SDC) | payer MEDICARE, OTHER ==
[2021-03-31 13:27] VITALS: BMI 30.9
[~2021-04-05 08:35] MED LIST changes: +ALPRAZolam 0.25 MG TAB PO PRN; +ALPRAZolam 0.5 MG TAB PO PRN; +ASPIRIN 325 MG TAB PO STA; +ATORVASTATIN 80 MG TAB PO STA; +HEPARIN SODIUM,PORCINE 10,000 UNIT in SODIUM CHLORIDE 0.9% 1,000 ML IRRIGATION PRN; +HEPARIN SODIUM,PORCINE 2,500 UNIT in SODIUM CHLORIDE 0.9% 250 ML IRRIGATION PRN; -LACTATED RINGERS 1,000 ML IV SCH; +NITROGLYCERIN SL TABS 0.4 MG TAB SUBLINGUAL PRN; +SODIUM CHLORIDE 0.9% 1,000 ML in EMPTY BAG 1 BAG IV ONE
[2021-04-05] MEDS ORDERED: SODIUM CHLORIDE 0.9% 1,000 ML IV ONE (08:44)
[2021-04-05 09:01] VITALS: RESP 16; TEMP 98.1
[2021-04-05 09:01] LABS: Glucose,Whole Blood 132 mg/dL (75-99)
[2021-04-05] MEDS ORDERED: LIDOCAINE 1% INJ 10MG/ML (20 ML MDV) ONE (11:08)
[2021-04-05] MEDS ORDERED: VERAPAMIL 2.5 MG/ML 2 ML AMP ONE (11:08)
[2021-04-05] MEDS: MIDAZOLAM 2 MG/2 ML VIAL IV ONE ×2 (11:20→11:25)
[2021-04-05] MEDS ORDERED: LIDOCAINE 1% INJ 10MG/ML (20 ML MDV) SQ ONE (11:23)
[2021-04-05] MEDS: VERAPAMIL SYRINGE (5 MG/10 ML) INTRAARTER ONE ×2 (11:25→11:38)
[2021-04-05] MEDS ORDERED: HEPARIN SODIUM 1,000 UN/ML (10ML VL) ONE (11:27)
[2021-04-05] MEDS ORDERED: IOPAMIDOL-370 100ML BTL INJ ONE (11:38)
[2021-04-05] MEDS ORDERED: RX INFO: IV CONTRAST WAS GIVEN 1 EACH MISC MISCELLANE PRN (11:53)
[2021-04-05] MEDS ORDERED: SODIUM CHLORIDE 0.9% 1,000 ML IV SCH (12:00)
--- NOTE | 2021-04-05 14:09 | US ---
EXAMINATION TYPE: US carotid duplex BILAT DATE OF EXAM: 04/05/2021 COMPARISON: NONE CLINICAL HISTORY: preop cardiac surgery. Exam done portable. EXAM MEASUREMENTS: RIGHT: Peak Systolic Velocity (PSV) cm/sec ----- Right CCA: 74.3 ----- Right ICA: 95.2 ----- Right ECA: 86.0 ICA/CCA ratio: 1.3 RIGHT: End Diastole cm/sec ----- Right CCA: 8.5 ----- Right ICA: 20.2 ----- Right ECA: 0.0 LEFT: Peak Systolic Velocity (PSV) cm/sec ----- Left CCA: 76.3 ----- Left ICA: 111.3 ----- Left ECA: 51.3 ICA/CCA ratio: 1.5 LEFT: End Diastole cm/sec ----- Left CCA: 10.4 ----- Left ICA: 24.6 ----- Left ECA: 4.5 VERTEBRALS (direction of flow): Right Vertebral: Antegrade Left Vertebral: Antegrade Rhythm: Normal No significant stenosis. No elevated velocities Grayscale images show no significant plaque. Velocity measurements and ratios within normal limits. IMPRESSION: No hemodynamically significant stenosis in either internal carotid artery. Criteria for Assigning % of Stenosis / Diameter reduction (Estimation based on the indirect measurements of the internal carotid artery velocities (ICA PSV). 1. Normal (no stenosis)=ICA PSV < 125 cm/s: ratio < 2.0: ICA EDV<40 cm/s. 2. Less than 50% stenosis=ICA PSV < 125 cm/s: ratio < 2.0: ICA EDV<40 cm/s. 3. 50 to 69% stenosis=ICA PSV of 125 to 230 cm/s: ration 2.0 ? 4.0: ICA EDV 40-100 cm/s. 4. Greater than 70% stenosis to near occlusion= ICA PSV > 230 cm/s: ratio > 4.0: ICA EDV > 100 cm/s. 5. Near occlusion= ICA PSV velocities may be low or undetectable: variable ratio and ICA EDV. 6. Total occlusion=unable to detect flow.
--- NOTE | 2021-04-05 14:30 | P.CNPUL ---
History of Present Illness Consult date: 04/05/21 Requesting physician: Frederic Mercado Reason for consult: other Chief complaint: Preop clearance. History of present illness: Pulmonary consult dated 04/05/2021. 80-year-old female, with history of hypertension and hyperlipidemia, we'll apparently was initially seen by cardiology for shortness of breath. She had these complaints with minimal exertion. She denied any exertional chest pain. She might have some heaviness as well as shortness of breath. Anyway, she had a catheterization today, the results of which are not known. The actual results of the catheterization are not currently dictated. She apparently is going to have surgery 1 day next week. The cardiothoracic surgeon, asked me to see the patient for she was discharged from the extended stay area. The patient has no history of any lung issues. She is a lifelong nonsmoker. She denies any asthma, COPD, emphysema, chronic bronchitis, etc. She does not cough or wheeze. She does bring up any phlegm. Does not history of hemoptysis. She had a preoperative spirometry, which showed excellent lung function. Based on the FEV1, and the MVV, the patient is not at any increased operative risk for general anesthetic. I also took the time to explain our role in the process, including getting her off life support machine after surgery, and then seeing her on a daily basis until discharge to make sure that her lung health is excellent. Review of Systems REVIEW OF SYSTEMS: CONSTITUTIONAL: [Negative.] NEUROLOGIC: [ Negative.] HEENT: [ Negative.] CARDIAC: Exertional chest heaviness. PULMONARY: Exertional shortness of breath. GI: [Negative.] : [Negative.] RHEUMATOLOGIC: [ Negative.] IMMUNOLOGIC: [ Negative.] ENDOCRINE: [Negative. ] DERMATOLOGIC: [Negative.] Past Medical History Past Medical History: Diabetes Mellitus, Deep Vein Thrombosis (DVT), GERD/Reflux, Hyperlipidemia, Hypertension, Osteoarthritis (OA) Additional Past Medical History / Comment(s): "borderline cholesterol","prediabetes",DVT at age 20s or 30s History of Any Multi-Drug Resistant Organisms: None Reported Past Surgical History: Appendectomy, Hysterectomy, Joint Replacement, Orthopedic Surgery, Tonsillectomy Additional Past Surgical History / Comment(s): LT. HIP REPLACEMENT, ORIF rt ankle, Leopoldo cataracts,partial hysterectomy Past Anesthesia/Blood Transfusion Reactions: Previous Problems w/ Anesthesia, Motion Sickness Additional Past Anesthesia/Blood Transfusion Reaction / Comment(s): slow to wake up Smoking Status: Never smoker - Past Family History Mother Family Medical History: No Reported History Additional Family Medical History / Comment(s): . Medications and Allergies Home Medications Medication Instructions Recorded Confirmed Type Aspirin 81 mg PO HS 06/11/14 04/05/21 History Simvastatin 40 mg PO HS 06/11/14 04/05/21 History metFORMIN HCL [Glucophage] 500 mg PO BID 06/11/14 04/05/21 History Biotin 10,000 mcg PO DAILY 08/19/20 04/05/21 History Cholecalciferol [Vitamin D3 (25 2,000 unit PO DAILY 08/19/20 04/05/21 History Mcg = 1000 Iu)] Cyanocobalamin (Vitamin B-12) 1,000 mcg PO DAILY 08/19/20 04/05/21 History [Vitamin B-12] HYDROcodone/APAP 5-325MG [[place] 1 tab PO Q6HR PRN 08/19/20 03/31/21 History 5-325] Valsartan [Diovan] 160 mg PO DAILY 03/31/21 04/05/21 History Allergies Allergy/AdvReac Type Severity Reaction Status Date / Time No Known Allergies Allergy Verified 03/31/21 13:20 Physical Exam Osteopathic Statement: *. No significant issues noted on an osteopathic structural exam other than those noted in the History and Physical/Consult. Vitals: Vital Signs Temp Pulse Resp BP BP Pulse Ox 04/05/21 08:56 98.1 F 74 16 193/84 223/95 99 Intake and Output 04/04/21 04/05/21 04/05/21 22:59 06:59 14:59 Intake Total 350 Balance 350 Intake: IV 350 Other: Weight 79.6 kg No acute distress, oriented 3. HEENT examination is grossly unremarkable. Mucous membranes are moist. No oral lesions. Neck supple. Full range of motion. No adenopathy thyromegaly or neck vein distention. Cardiovascular examination reveals regular rhythm rate. S1-S2 normal. No S3 or S4. No discernible murmur noted. Heart rate 74 bpm. Lungs reveal clear breath sounds. Her sounds are equal bilaterally. No a dventitious lung sounds including wheezes rhonchi or crackles. Room air saturation 99%. Abdomen soft bowel sounds are heard. No masses or tenderness. Extremities are intact. No cyanosis clubbing or edema. Skin is without rash or lesion. Neurologic examination is brief but nonfocal. Results - Laboratory Findings Abnormal lab findings: Abnormal Labs 04/05/21 08:57 POC Glucose (mg/dL) 132 H Assessment and Plan Assessment: Symptomatic coronary artery disease with anticipated bypass grafting next week. Catheterization report is pending. No history of any lung disease including emphysema, asthma, chronic bronchitis, or COPD. History of lifelong nontobacco use. History of hypertension. History of hyperlipidemia. History of diabetes mellitus. Preoperative spirometry, that would suggest the patient's at no increased operative risk for general anesthetic based on the FEV1 and the MVV. Plan: Plan dated 04/05/2021. The patient's bedside spirometry was reviewed. Based on the FEV1, the MVV, the patient's no increased operative risk. She is a lifelong nontobacco user. She has no history of any lung disease. I explained our role in the process including getting her off the ventilator, after the operation, and then also following her on a daily basis, to make sure she doesn't develop any lung issues such as pneumonia, pleural effusion, atelectasis, or lobar collapse. I did make sure that the surgeon knew that she was at no increased operative risk. Time with Patient: Greater than 30
--- NOTE | 2021-04-05 15:53 | XR ---
EXAMINATION TYPE: XR chest 2V DATE OF EXAM: 04/05/2021 COMPARISON: 11/22/2017 HISTORY: Preoperative study for CABG TECHNIQUE: Frontal and lateral views of the chest are obtained. FINDINGS: Heart size is within normal limits. Low lung volumes. Multiple overlying leads. Atheroscle rotic aortic knob. Mild chronic interstitial prominence suggestive of chronic interstitial lung saini es. This has increased since prior exam. No focal consolidation, pneumothorax or pleural effusion. IMPRESSION: 1. Low lung volumes. Multiple overlying leads. 2. Minimal chronic interstitial lung prominence may represent chronic interstitial lung changes.
[2021-04-05 15:56] LABS: INR 0.9 (<1.2); Partial Thromboplastin Time 23.5 sec (22.0-30.0); Prothrombin Time 10.2 sec (9.0-12.0)
--- NOTE | 2021-04-05 17:37 | P.GSCN ---
History of Present Illness Consult date: 04/05/21 Reason for Consult: Symptomatic multivessel coronary artery disease. Requesting physician: Frederic Mercado History of present illness: This is an 80-year-old female patient who follows with Dr. Mary Shipman on an outpatient basis for her primary care service. She also follows with Dr. Mercado from [facility] for her cardiology needs. She has a past medical history significant for hypertension, hyperlipidemia, diabetes mellitus type 2 and family history of early onset coronary artery disease with both of her brothers passing away from [facility] in their early 50s. Recently, the patient has had symptoms of shortness of breath with walking and has had to take frequent rest periods. The patient reports that her shortness of breath has progressively been getting worse over the last couple of months. She denies any complaints of chest pain, nausea, vomiting, dizziness, orthopnea, presyncope or syncope. Due to her complaints of shortness of breath she underwent a nuclear Lexiscan Cardiolite stress test at Dr. Harris's office on 03/16/2021 which showed abnormal myocardial perfusion imaging with evidence of partially reversible defect involving the distal anterior/apical segment of the LV. It also showed an overall normal left ventricular systolic function with an ejection fraction of 62%. For further evaluation on 03/18/2021 she underwent a 2-D echocardiogram which demonstrated a normal left ventricular size with mildly decreased systolic function with an ejection fraction of 45%, mild aortic valve regurgitation, mild mitral valve regurgitation and mild tricuspid valve regurgitation. The 2-D echo cardiogram also demonstrated a moderately increased pulmonary artery systolic pressure of 48 mmHg. Subsequently, due to the patient's progressive complaints of shortness of breath and her stress test results she was recommended to undergo a cardiac catheterization which was performed today 04/05/[address] Mercado. The heart catheterization results showed multivessel coronary artery disease. Due to the findings on the heart catheterization a consult was placed to Dr. Eliud Vazquez from cardiothoracic surgery for further evaluation and treatment recommendations including myocardial revascularization surgery. Review of Systems A 14 point review of systems was completed and was negative except as mentioned in the HPI. Past Medical History Past Medical History: Diabetes Mellitus, Deep Vein Thrombosis (DVT), GERD/Reflux, Hyperlipidemia, Hypertension, Osteoarthritis (OA) Additional Past Medical History / Comment(s): "borderline cholesterol","prediabetes",DVT at age 20s or 30s History of Any Multi-Drug Resistant Organisms: None Reported Past Surgical History: Appendectomy, Hysterectomy, Joint Replacement, Orthopedic Surgery, Tonsillectomy Additional Past Surgical History / Comment(s): LT. HIP REPLACEMENT, ORIF rt ankle, Leopoldo cataracts,partial hysterectomy Past Anesthesia/Blood Transfusion Reactions: Previous Problems w/ Anesthesia, Motion Sickness Additional Past Anesthesia/Blood Transfusion Reaction / Comm: slow to wake up Past Psychological History: No Psychological Hx Reported Smoking Status: Never smoker Past Alcohol Use History: Rare Past Drug Use History: None Reported - Past Family History Mother Family Medical History: Myocardial Infarction (CO) Additional Family Medical History / Comment(s): Her mother at age 69 from a CO Brother(s) Family Medical History: Myocardial Infarction (CO) Additional Family Medical History / Comment(s): Two of her brothers in their early 50's from CO's. Daughter(s) Family Medical History: CVA/TIA (father from a CVA at age 86.) Medications and Allergies Home Medications Medication Instructions Recorded Confirmed Type Aspirin 81 mg PO HS 06/11/14 04/05/21 History Simvastatin 40 mg PO HS 06/11/14 04/05/21 History metFORMIN HCL [Glucophage] 500 mg PO BID 06/11/14 04/05/21 History Biotin 10,000 mcg PO DAILY 08/19/20 04/05/21 History Cholecalciferol [Vitamin D3 (25 2,000 unit PO DAILY 08/19/20 04/05/21 History Mcg = 1000 Iu)] Cyanocobalamin (Vitamin B-12) 1,000 mcg PO DAILY 08/19/20 04/05/21 History [Vitamin B-12] HYDROcodone/APAP 5-325MG [[place] 1 tab PO Q6HR PRN 08/19/20 03/31/21 History 5-325] Valsartan [Diovan] 160 mg PO DAILY 03/31/21 04/05/21 History Allergies Allergy/AdvReac Type Severity Reaction Status Date / Time No Known Allergies Allergy Verified 03/31/21 13:20 Surgical - Exam Vital Signs Temp Pulse Resp BP Pulse Ox 98.1 F 74 16 223/95 99 04/05/21 08:56 04/05/21 08:56 04/05/21 08:56 04/05/21 08:56 04/05/21 08:56 CONSTITUTIONAL: Laying in bed in the extended stay, appears comfortable, cooperative, no apparent acute distress. HEENT: Pupils are round and equally reacting to light. No scleral icterus. No JVD, neck is supple. Normocephalic. Mucous membranes are pink and moist. RESPIRATORY: Lungs sounds essentially clear throughout. No wheezes, rhonchi or crackles. Respirations are symmetrical, and nonlabored. CARDIOVASCULAR: S1, S2 present, negative for S3, gallop or murmur. Regular rate and rhythm, sinus rhythm on remote telemetry heart rate 74 BPM. Palpable peripheral pulses bilaterally. GASTROINTESTINAL: Abdomen soft, nontender, nondistended. Active bowel sounds present 4 quadrants. Tolerating diet. No guarding or rigidity no organomegaly appreciated. INTEGUMENTARY: Skin is warm and dry. No clubbing or cyanosis is present. NEUROLOGIC: Cranial nerves II through XII intact. No focal deficits. MUSKULOSKELETAL: Able to move all extremities, strength equal bilaterally. PSYCHIATRIC: Alert and oriented to person place and time, appropriate affect, intact judgment and insight. Results - Labs Abnormal Lab Results - Last 24 Hours (Table) 04/05/21 04/05/21 Range/Units 08:57 15:11 POC Glucose (mg/dL) 132 H (75-99) mg/dL Crossmatch See Detail - Imaging Chest x-ray: report reviewed, image reviewed Additional studies: Cardiac catheterization films and 2-D echocardiogram results reviewed by Dr. Eliud Vazquez. Assessment and Plan Assessment: 1. Symptomatic multivessel coronary artery disease 2. History of hypertension 3. History of hyperlipidemia 4. History of diabetes mellitus type 2 with a most recent hemoglobin A1c of 5.9% 5. Lifetime nonsmoker 6. History of early onset coronary artery disease with both of her brothers having myocardial infarctions in their early 50s Plan: The patient was seen and examined at her bedside in the extended stay unit. Her chart and diagnostics were reviewed. She was seen and examined by Dr. Eliud Vazquez from cardiothoracic surgery. Preoperative testing and preoperative teaching was initiated. Treatment options were discussed with the patient by Dr. Vazquez including myocardial revascularization surgery. Risks and benefits of myocardial revascularization were discussed with the patient including the STS risk score. Knowing and understanding the risks of myocardial r evascularization surgery the patient wishes to proceed with the surgical option and will be scheduled for myocardial revascularization surgery on 04/13/2021 with left internal mammary artery, and endoscopic vein harvest. Continue to maximize medical therapy with aspirin, statin and beta jannette. A 5 m walk test will be completed once the patient is ambulatory. Dr. Goldman from pulmonary medicine has been consulted for preoperative pulmonary clearance. Continue to encourage use of her incentive spirometry 10 times every hour while awake. More recommendations to follow based on patient's clinical course. We will repeat her 2-D echocardiogram today for evaluation of her LV function and valves. Thank you Dr. Mercado for this consult and we look forward to working with you in the care of this patient. Time with Patient: Greater than 30
--- NOTE | 2021-04-05 18:28 | CC ---
CARDIAC CATHETERIZATION REPORT DATE OF SERVICE: 04/05/2021 PERFORMING PHYSICIAN: Frederic Mercado M.D. PROCEDURES PERFORMED: 1. Selective right and left coronary angiogram. 2. Left heart catheterization. INDICATION: This is an 80-year-old female patient with hypertension and dyslipidemia who was seen in the office recently for shortness of breath with exertion. She underwent a myocardial perfusion imaging stress test that revealed an anterior ischemia. Because of that, heart catheterization was performed. Also she underwent an echocardiogram with Doppler and that revealed mildly impaired LV function with EF around 45%. Because of that, heart catheterization was advised. APPROACH: Right radial artery. COMPLICATIONS: None. LEVEL OF SEDATION: Moderate, with sedation length of 16 minutes. PROCEDURE DESCRIPTION: After obtaining informed consent, the patient was brought to the cardiac lab instructor. The right radial artery was cannulated using micropuncture technique, and the micropuncture wire passed easily. Then I placed a 6-Irish sheath. I gave the patient 2 mg of verapamil IA and 6000 units of heparin IV. Selective right and left coronary angiogram was performed with JR4 and JL3.5 catheters. Left heart catheterization was performed using the JR4 catheter which crossed the aortic valve. Then I did pull back across the valve. The procedure was completed without any complication. SELECTIVE CORONARY ANGIOGRAM: 1. The right coronary artery is a moderate-caliber vessel. It is a dominant vessel. The RCA has mild to moderate diffuse disease only. Distally it bifurcates into PDA and PLV branches, and both appeared to be angiographically normal. 2. The left main is a large left main. The distal left main has an eccentric plaque that appeared to be in the range of 50% to 60% and was identified mainly on the AP caudal and SYRIAN caudal view. The left main gives rise to the left circumflex as well as LAD. 3. The left circumflex is a large-caliber vessel. It is a codominant vessel. The ostial left circumflex is involved in the plaque from the left main and the ostial left circumflex appeared to be diseased in the range of 80% to 90%. The mid left circumflex appeared to have mild disease only and gives rise to the first obtuse marginal branch, which has intermediate ostial lesion. The distal left circumflex appeared to have mild disease only and bifurcates into PDA and PLV branches; both appeared to have mild disease only. 4. The LAD. The proximal LAD appeared to have mild disease only. It gives rise to the first diagonal branch which is a moderate-caliber vessel with moderate disease in the mid portion. The mid LAD after the first diagonal branch appeared to be subtotally occluded. The LAD seems to be underfilled and seems to be slightly smaller. The LAD distally appeared to have mild disease only with possible competitive flow from the right coronary artery. 5. HEMODYNAMICS: The LVEDP was about 12 mmHg without significant gradient across the aortic valve. CONCLUSION: 1. Calcified right and left coronary systems. 2. Complex calcified lesion involving the distal left main coronary artery and involving the ostial LCX. The lesion in the left main appeared to be in the range of 50% to 60%. and the ostial left circumflex about 80% to 90%. 3. Subtotally occluded mid left anterior descending artery. 4. Normal LVEDP. POST-PROCEDURE MANAGEMENT: 1. We will consult surgeon for evaluation for coronary artery bypass grafting. 2. Aggressive cholesterol control. 3. Follow up with the patient. MMODL / IJN: [id number] /
[2021-04-05 20:15] VITALS: BP 162/80; PULSE 79
[2021-04-05] MEDS ORDERED: ATORVASTATIN 80 MG TAB PO SCH (21:00)
[2021-04-06] MEDS ORDERED: METOPROLOL SUCCINATE (ER) 25 MG TAB.ER.24H PO SCH (09:00)
--- NOTE | 2021-04-06 11:14 | ECHOF ---
Referral Reason:preop cabg MEASUREMENTS -------- HEIGHT: 160.0 cm WEIGHT: 79.4 kg BP: RVIDd: 3.5 cm (< 3.3) IVSd: 1.3 cm (0.6 - 1.1) LVIDd: 3.8 cm (3.9 - 5.3) LVPWd: 1.3 cm (0.6 - 1.1) IVSs: 1.9 cm LVIDs: 2.2 cm LVPWs: 1.7 cm LAESV Index (A-L): 19.72 ml/m Ao Diam: 2.5 cm (2.0 - 3.7) AV Cusp: 1.5 cm (1.5 - 2.6) MV EXCURSION: 15.856 mm (> 18.000) MV EF SLOPE: 63 mm/s (70 - 150) EPSS: 0.3 cm MV E Shad: 0.75 m/s MV DecT: 214 ms MV A Shad: 1.13 m/s MV E/A Ratio: 0.67 RAP: 5.00 mmHg RVSP: 24.12 mmHg FINDINGS -------- Sinus rhythm. This was a technically difficult study with suboptimal views. The left ventricular size is normal. There is mild concentric left ventricular hypertrophy. Overa ll left ventricular systolic function is mild-moderately impaired with, an EF between 40 - 45 %. Mi d anteroseptal LV wall motion is hypokinetic. Apical lateral LV wall motion is hypokinetic. Api eric inferior LV wall motion is hypokinetic. Apical septum LV wall motion is hypokinetic. The right ventricle is mildly enlarged. Normal LA size by volume 22+/-6 ml/m2. The right atrial size is normal. 5.0mg of Lumason was utilized for enhancement of images Interatrial and interventricular septum intact. The aortic valve was not well visualized. There is no evidence of aortic regurgitation. There is no evidence of aortic stenosis. Mild mitral regurgitation is present. Mild tricuspid regurgitation present. There is no evidence of pulmonary hypertension. The right v entricular systolic pressure, as measured by Doppler, is 24.12mmHg. There is no pulmonic regurgitation present. The aortic root size is normal. IVC Not well visulized. There is no pericardial effusion. CONCLUSIONS -------- 1. The left ventricular size is normal. 2. There is mild concentric left ventricular hypertrophy. 3. Overall left ventricular systolic function is mild-moderately impaired with, an EF between 40 - 45 %. 4. Mid anteroseptal LV wall motion is hypokinetic. 5. Apical lateral LV wall motion is hypokinetic. 6. Apical inferior LV wall motion is hypokinetic. 7. Apical septum LV wall motion is hypokinetic. 8. The right ventricle is mildly enlarged. 9. Mild mitral regurgitation is present. 10. Mild tricuspid regurgitation present. [employer]: Dolores Coon RDCS
--- NOTE | 2021-04-07 09:39 | P.VSCSTY ---
Greater Saphenous Vein Mapping This is bilateral lower extremity greater saphenous vein mapping. Date of service: 04/05/2021 Vein quality and ultrasound appearance: We see no intraluminal thrombus or wall changes.. Vein size groin right : 6.5 x 6.5 groin left: 6.8 x 5.8 High thigh right: 6.8 x 5.9 high thigh left: 5.0 x 4.1 Mid thigh right: 3.2 x 3.1 mid thigh left: 3.2 x 2.9 Above-knee right: 3.0 x 3.2 above- knee left: 3.5 x 3.3 Below knee right: 2.8 x 2.3 below-knee left:2.3 x 2.5 Mid calf right: 2.7 x 2.4 mid calf left: 2.4 x 2.1 Ankle right: 1.9 x 1.8 ankle left: 1.9 x 1.6 Impression: Usable bilateral greater saphenous vein. Ankle level is a bit small on both sides..
== END 2021-04-05 17:35 | disposition home or self-care (01) ==
LOC: CATHCVL 08:35
PROVIDERS: ATTEND Internal Medicine Interventional Cardiology
DX: I25.110 Atherosclerotic heart disease of native coronary artery with unstable angina pectoris (principal); I25.84 Coronary atherosclerosis due to calcified coronary lesion; R94.39 Abnormal result of other cardiovascular function study; R93.1 Abnormal findings on diagnostic imaging of heart and coronary circulation; I10 Essential (primary) hypertension; E11.51 Type 2 diabetes mellitus with diabetic peripheral angiopathy without gangrene; Z20.822 Contact with and (suspected) exposure to COVID-19; E78.00 Pure hypercholesterolemia, unspecified; E78.5 Hyperlipidemia, unspecified; K21.9 Gastro-esophageal reflux disease without esophagitis; M19.90 Unspecified osteoarthritis, unspecified site; Z82.49 Family history of ischemic heart disease and other diseases of the circulatory system; Z86.718 Personal history of other venous thrombosis and embolism; Z90.89 Acquired absence of other organs; Z90.710 Acquired absence of both cervix and uterus; Z96.642 Presence of left artificial hip joint; Z98.890 Other specified postprocedural states; Z98.42 Cataract extraction status, left eye; Z98.41 Cataract extraction status, right eye; Z82.3 Family history of stroke; Z79.84 Long term (current) use of oral hypoglycemic drugs; Z79.82 Long term (current) use of aspirin; Z79.899 Other long term (current) drug therapy
CPT/HCPCS: 94150; 93458; 83735; 85610; 85730; 87635; 71046; 93970; 93880; C8929; C1894; J2250; J2001; J1644; Q9950; Q9967; 86850; 86900; 86901; 86920; 93306

== ENCOUNTER → 2021-04-09 | Outpatient (CLI) | payer MEDICARE, OTHER ==
[2021-04-09 12:49] LABS: Appearance,Urine Cloudy (Clear); Bacteria,Urine Rare /hpf; Bilirubin,Urine Negative (Negative); Blood,Urine Negative (Negative); Color,Urine Light Yellow; Glucose,Urine (UA) Negative (Negative); Ketones,Urine Negative (Negative); Leukocyte Esterase,Urine Moderate (Negative); Mucus,Urine Rare /hpf; Nitrite,Urine Positive (Negative); PH, Urine 5.5 (5.0-8.0); Protein,Urine Negative (Negative); Specific Gravity,Urine 1.014 (1.001-1.035); Squamous Epithelial Cell,Urine 1 /hpf (0-4); Urobilinogen,Urine <2.0 mg/dL (<2.0); WBC,Urine 28 /hpf (0-5)
--- NOTE | 2021-04-09 15:11 | P.PN ---
Progress Note - Text Progress Note Date: 04/09/21 A 5 m walk test was completed with the patient, time 1:2.05 seconds, time 2: 2.15 seconds, time 3: 2.38 seconds. An STS risk score was calculated in discussed with the patient by Dr. Eliud Vazquez.
[2021-04-09 21:25] LABS: Hepatitis A Antibody IgM Non-Reactive (Non-Reactive); Hepatitis B Core IgM Non-Reactive (Non-Reactive); Hepatitis B Surface Antigen Non-Reactive (Non-Reactive); Hepatitis C IgG Antibody Non-Reactive (Non-Reactive)
== END | disposition home or self-care (01) ==
LOC: LABPAT 11:07
PROVIDERS: ATTEND Surgery
DX: I25.10 Atherosclerotic heart disease of native coronary artery without angina pectoris (principal); Z79.899 Other long term (current) drug therapy; Z79.01 Long term (current) use of anticoagulants; Z87.440 Personal history of urinary (tract) infections
CPT/HCPCS: 36415; 80074; 81001; 86850; 86900; 86901; 86920; 87070; 87077; 87086; 87186

== ENCOUNTER 2021-04-13 05:34 | Inpatient (IN) | payer MEDICARE, OTHER ==
[~2021-04-13 05:34] MED LIST changes: +ALBUMIN HUMAN 25% 50 ML IV ONE; +ALBUMIN HUMAN 5% 500 ML IVPB ONE; -ALPRAZolam 0.25 MG TAB PO PRN; -ALPRAZolam 0.5 MG TAB PO PRN; +ASPIRIN 325 MG TAB PO ONE; -ASPIRIN 325 MG TAB PO STA; +ATORVASTATIN 10 MG TAB PO ONE; -ATORVASTATIN 80 MG TAB PO STA; +CALCIUM CHLORIDE 100 MG/ML 10 ML SYRINGE IV ONE; +CHLORHEXIDINE GLUCONATE 15 ML CUP MUCOUS MEM ONE; +CLEVIDIPINE BUTYRATE 25 MG in EMPTY BAG 1 BAG IV ONE; +ELECTROLYTE-A SOLUTION 1,000 ML with POTASSIUM CHLORIDE 100 MEQ, MAGNESIUM SULFATE 16 M... IV SCH; +HEPARIN SODIUM 1,000 UN/ML (10ML VL) IV ONE; -HEPARIN SODIUM,PORCINE 10,000 UNIT in SODIUM CHLORIDE 0.9% 1,000 ML IRRIGATION PRN; -HEPARIN SODIUM,PORCINE 2,500 UNIT in SODIUM CHLORIDE 0.9% 250 ML IRRIGATION PRN; +HEPARIN SODIUM,PORCINE 5,000 UNIT in SODIUM CHLORIDE 0.9% 500 ML 500 ML IV ONE; +INSULIN REGULAR 100 UNIT in SODIUM CHLORIDE 0.9% 100 ML IV ONE; +LACTATED RINGERS 1,000 ML IV ONE; +MAGNESIUM SULFATE MG 500 MG/ML IV ONE; +MANNITOL 25% 12.5 GM/50 ML VIAL IV ONE; +METOPROLOL TARTRATE 12.5 MG TAB PO ONE; +NITROGLYCERIN SL TABS 0.4 MG TAB SUBLINGUAL ONE; -NITROGLYCERIN SL TABS 0.4 MG TAB SUBLINGUAL PRN; +NITROGLYCERIN-D5W PMX 25 MG/250 ML BTL IV ONE; +NITROGLYCERIN-D5W PMX 50 MG in DEXTROSE/WATER 1 250ML.BAG IV ONE; +NOREPINEPHRINE 4 MG in SODIUM CHLORIDE 0.9% 250 ML IV ONE; +PAPAVERINE 360 MG in SODIUM CHLORIDE 0.9% 90 ML IV ONE; +PHENYLEPHRINE 10 MG/ML VIAL IV ONE; +PHENYLEPHRINE 40 MG in SODIUM CHLORIDE 0.9% 250 ML IV ONE; +PROTAMINE SULFATE 10 MG/ML 25 ML VIAL IV ONE; +PROTAMINE SULFATE 250 MG in EMPTY BAG 1 BAG IV ONE; +SODIUM BICARB 8.4% 50 ML SYR (1 MEQ/ML) IV ONE; +SODIUM CHLORIDE 0.9% 1,000 ML IV ONE; -SODIUM CHLORIDE 0.9% 1,000 ML in EMPTY BAG 1 BAG IV ONE; +TRANEXAMIC ACID 2,000 MG in SODIUM CHLORIDE 0.9% 80 ML IV ONE; +propofoL 1,000 MG/100 ML VIAL IV ONE
[2021-04-13] MEDS ORDERED: ELECTROLYTE-A SOLUTION 1,000 ML with POTASSIUM CHLORIDE 40 MEQ, MAGNESIUM SULFATE 16 ME... IV SCH ×5 (06:00)
[2021-04-13 06:26] LABS: Glucose,Whole Blood 148 mg/dL (75-99)
[2021-04-13] MEDS ORDERED: LIDOCAINE 1% (10MG/ML) FOR IV START INTRADERMA ONE (06:26)
[2021-04-13] MEDS ORDERED: CALCIUM CHLORIDE 100 MG/ML 10 ML SYRINGE ONE (08:04)
[2021-04-13] MEDS ORDERED: HEPARIN SODIUM,PORCINE 10,000 UNIT/ML 1 ML VIAL ONE (08:04)
[2021-04-13] MEDS ORDERED: SODIUM CHLORIDE 0.9% 250 ML BAG ONE (08:04)
[2021-04-13] MEDS ORDERED: LIDOCAINE 2% SYG (PF) 100 MG/5 ML ONE (08:04)
[2021-04-13] MEDS ORDERED: fentaNYL (PF) 50 MCG/ML 2 ML AMP ONE (08:04)
[2021-04-13] MEDS ORDERED: VECURONIUM 10 MG VIAL IV ONE (08:04)
[2021-04-13] MEDS ORDERED: TRANEXAMIC ACID 1,000 MG/10 ML VIAL ONE (08:04)
[2021-04-13] MEDS ORDERED: MIDAZOLAM 2 MG/2 ML VIAL ONE (08:04)
[2021-04-13] MEDS ORDERED: PHENYLEPHRINE-0.9% NACL SYG 1,000 MCG/10 ML SYRINGE ONE (08:04)
[2021-04-13] MEDS ORDERED: fentaNYL (PF) 50 MCG/ML 50 ML VIAL ONE (08:04)
[2021-04-13] MEDS ORDERED: ALBUMIN HUMAN 5% (25gm) 500 ML VIAL IVPB ONE (08:04)
[2021-04-13] MEDS ORDERED: MAGNESIUM SULFATE 4 MEQ/ML 10ML VIAL ONE (08:04)
[2021-04-13] MEDS ORDERED: PROTAMINE SULFATE 10 MG/ML 25 ML VIAL IV ONE (08:04)
[2021-04-13 08:33] LABS: ABG Base Excess -2.7 mmol/L; ABG Glucose Whole Blood 144 mg/dL (75-99); ABG HCO3 23 mmol/L (21-25); ABG Hematocrit 34 % (34.0-46.0); ABG Ionized Calcium 4.8 mg/dL (4.5-5.3); ABG Lactic Acid Whole Blood 1.6 mmol/L (0.5-1.6); ABG PCO2 41 mmHg (35-45); ABG PH 7.35 (7.35-7.45); ABG Potassium Whole Blood 4.3 mmol/L (3.4-4.5); ABG Sodium Whole Blood 142 mmol/L (135-146); ABG TCO2 24 mmol/L (19-24)
[2021-04-13] MEDS: ceFAZolin 1,000 MG in SODIUM CHLORIDE 0.9% IRRIGATIO 1,000 ML IRRIGATION ONE ×2 (10:24→14:36)
[2021-04-13 10:37] LABS: ABG Base Excess -3.1 mmol/L; ABG Glucose Whole Blood 130 mg/dL (75-99); ABG HCO3 22 mmol/L (21-25); ABG Hematocrit 30 % (34.0-46.0); ABG Ionized Calcium 4.6 mg/dL (4.5-5.3); ABG Lactic Acid Whole Blood 1.7 mmol/L (0.5-1.6); ABG PCO2 38 mmHg (35-45); ABG PH 7.37 (7.35-7.45); ABG PO2 182 mmHg (83-108); ABG Potassium Whole Blood 4.3 mmol/L (3.4-4.5); ABG Sodium Whole Blood 140 mmol/L (135-146); ABG TCO2 23 mmol/L (19-24)
[2021-04-13 11:46] LABS: ABG Base Excess -4.7 mmol/L; ABG Glucose Whole Blood 150 mg/dL (75-99); ABG HCO3 22 mmol/L (21-25); ABG Hematocrit 27 % (34.0-46.0); ABG Ionized Calcium 4.5 mg/dL (4.5-5.3); ABG Lactic Acid Whole Blood 1.2 mmol/L (0.5-1.6); ABG Oxygen Saturation 99.8 % (94-97); ABG PCO2 44 mmHg (35-45); ABG PO2 204 mmHg (83-108); ABG Potassium Whole Blood 4.1 mmol/L (3.4-4.5); ABG Sodium Whole Blood 141 mmol/L (135-146); ABG TCO2 23 mmol/L (19-24)
[2021-04-13 12:08] LABS: ABG Base Excess -1.8 mmol/L; ABG Glucose Whole Blood 135 mg/dL (75-99); ABG HCO3 23 mmol/L (21-25); ABG Lactic Acid Whole Blood 1.4 mmol/L (0.5-1.6); ABG PCO2 38 mmHg (35-45); ABG PH 7.39 (7.35-7.45); ABG Potassium Whole Blood 3.9 mmol/L (3.4-4.5); ABG Sodium Whole Blood 140 mmol/L (135-146); ABG TCO2 24 mmol/L (19-24)
[2021-04-13 12:42] LABS: ABG Glucose Whole Blood 141 mg/dL (75-99); ABG HCO3 24 mmol/L (21-25); ABG Ionized Calcium 4.1 mg/dL (4.5-5.3); ABG Oxygen Saturation 99.9 % (94-97); ABG PCO2 44 mmHg (35-45); ABG PH 7.34 (7.35-7.45); ABG PO2 225 mmHg (83-108); ABG Potassium Whole Blood 5.4 mmol/L (3.4-4.5); ABG Sodium Whole Blood 140 mmol/L (135-146); ABG TCO2 25 mmol/L (19-24)
[2021-04-13 13:11] LABS: ABG Base Excess -0.8 mmol/L; ABG Glucose Whole Blood 147 mg/dL (75-99); ABG HCO3 25 mmol/L (21-25); ABG Ionized Calcium 4.1 mg/dL (4.5-5.3); ABG PCO2 43 mmHg (35-45); ABG PH 7.36 (7.35-7.45); ABG PO2 310 mmHg (83-108); ABG Potassium Whole Blood 5.4 mmol/L (3.4-4.5); ABG Sodium Whole Blood 141 mmol/L (135-146); ABG TCO2 26 mmol/L (19-24)
[2021-04-13 14:13] LABS: ABG PO2 >420 mmHg (83-108)
[2021-04-13 14:15] LABS: ABG Hematocrit 22 % (34.0-46.0); ABG PO2 >420 mmHg (83-108)
[2021-04-13 14:16] LABS: ABG Hematocrit 21 % (34.0-46.0)
[2021-04-13 14:18] LABS: ABG Hematocrit 20 % (34.0-46.0); ABG Lactic Acid Whole Blood 2.2 mmol/L (0.5-1.6)
[2021-04-13] MEDS ORDERED: VANCOMYCIN 1,000 MG VIAL MISCELLANE ONE (14:30)
[2021-04-13 14:36] LABS: ABG Base Excess -3.2 mmol/L; ABG Glucose Whole Blood 190 mg/dL (75-99); ABG HCO3 22 mmol/L (21-25); ABG Ionized Calcium 4.7 mg/dL (4.5-5.3); ABG PCO2 40 mmHg (35-45); ABG PH 7.35 (7.35-7.45); ABG PO2 335 mmHg (83-108); ABG Potassium Whole Blood 4.4 mmol/L (3.4-4.5); ABG Sodium Whole Blood 143 mmol/L (135-146); ABG TCO2 23 mmol/L (19-24)
[2021-04-13 14:43] LABS: ABG Hematocrit 22 % (34.0-46.0); ABG Lactic Acid Whole Blood 2.2 mmol/L (0.5-1.6)
[2021-04-13] MEDS ORDERED: Potassium Replacement Protocol 1 EACH MISC MISCELLANE PRN (14:59)
[2021-04-13] MEDS ORDERED: Phosphorus Replacement Protoco 1 EACH MISC MISCELLANE PRN (14:59)
[2021-04-13] MEDS ORDERED: BENZOCAINE/MENTHOL LOZENG 1 EACH LOZENGE MUCOUS MEM PRN (14:59)
[2021-04-13] MEDS ORDERED: MORPHINE SULFATE 2 MG/ML SYRINGE IVP PRN (14:59)
[2021-04-13] MEDS ORDERED: AMIODARONE 360 MG in DEXTROSE 5% IN WATER 200 ML IV PRN ×2 (14:59)
[2021-04-13] MEDS ORDERED: Magnesium Replacement Protocol 1 EACH MISC MISCELLANE PRN (14:59)
[2021-04-13] MEDS ORDERED: CALCIUM GLUCONATE 2 GM in SODIUM CHLORIDE 0.9% 100 ML IVPB PRN (14:59)
[2021-04-13] MEDS ORDERED: IPRATROPIUM-ALBUTEROL 3 ML NEB INHALATION PRN (14:59)
[2021-04-13] MEDS ORDERED: hydrALAZINE HCL 20 MG/ML 1 ML VIAL IVP PRN (14:59)
[2021-04-13] MEDS ORDERED: METOCLOPRAMIDE 5 MG/ML 2 ML VIAL IVP PRN (14:59)
[2021-04-13] MEDS ORDERED: DEXMEDETOMIDINE/0.9% NACL(PMX) 400 MCG in EMPTY BAG 1 BAG IV SCH (15:00)
[2021-04-13] MEDS ORDERED: NITROGLYCERIN-D5W PMX 50 MG in DEXTROSE/WATER 1 250ML.BAG IV SCH (15:00)
[2021-04-13 15:26] LABS: Glucose,Whole Blood 217 mg/dL (75-99)
[2021-04-13] MEDS: SODIUM CHLORIDE 0.9% 1,000 ML IV SCH (15:30)
[2021-04-13] MEDS: INSULIN REGULAR 100 UNIT in SODIUM CHLORIDE 0.9% 100 ML IV SCH (15:35)
[2021-04-13] MEDS: ALBUMIN HUMAN 5% 250 ML in EMPTY BAG 1 BAG IVPB PRN ×2 (15:40→16:10)
--- NOTE | 2021-04-13 16:03 | P.CNPUL ---
History of Present Illness Consult date: 04/13/21 Requesting physician: Eliud Vazquez Chief complaint: Symptomatic multivessel coronary artery disease History of present illness: 80-year-old white female patient of Dr. Shipman, overweight recently saw in consultation during her previous admission when she was hospitalized for symptoms of exertional shortness of breath that was progressive in nature. And patient had a nuclear Lexiscan Cardiolite stress test at Dr. Mercado's office on 03/16/2021 that showed abnormal myocardial perfusion imaging with evidence of partially reversible defect involving the distal anterior/apical segment of the LV. 2-D echocardiogram was completed on 03/18/2021 that showed a preserved left ventricular systolic function with an ejection fraction of 45%, mild aortic valve regurg, mild MR, and mild TR. Patient underwent cardiac catheterization by Dr. Mercado on 04/05/2021 that showed multivessel coronary artery disease, and due to the findings of the heart catheterization, patient was referred to CT surgery for myocardial revascularization surgery. On 04/13/2021 patient underwent MENESES to the LAD, SVG to the RCA, SVG to the OM 1 with endoscopic vein harvesting of bilateral lower extremities, and exclusion of the left atrial appendage and intraoperative transesophageal echocardiogram. Preop FEV1 was reviewed showing FEV1 of 1.96 L or 106% of predicted with FVC of 2.3 L or 92% of predicted, FEV1 to FVC ratio 115, and MVV of 73.5, consistent with normal spirometry. Patient is a lifetime nonsmoker, her past medical history significant for diabetes mellitus type 2, hypertension, hyperlipidemia, GERD, osteoarthritis, and previous history of DVT. Patient is seen in the postoperative period in the intensive care unit intubated and sedated. Patient is currently on assist control with a rate of 12, tidal vital was 400, FiO2 of 100% and PEEP of 8. Her rate was increased to 20 at the bedside Postoperative blood gas and chest x-ray is pending, hemodynamically patient is requiring small amount of Bladimir-Synephrine currently infusing at 0.06 mics/per kilo per minute. On nitroglycerin is at 5 mics per kilo per minute, Diprivan and is at 20 mics per kilo per minute, and 0.9 normal saline at 50 ML per hour, PA pressures 28/11, CVP is 8, cardiac output is 4.4, and cardiac index is 2.4. Intraoperatively patient received 3 L and crystalloids, 1.2 L in Cell Saver and 1.5 L of 5% albumin. Currently blood pressure is 79/38. External pacemaker set to VVI backup mode with a rate of 80, and intrinsic rhythm is sinus rhythm Review of Systems All systems: negative Constitutional: Denies chills, Denies fever Eyes: denies blurred vision, denies pain Ears, nose, mouth and throat: Denies headache, Denies sore throat Cardiovascular: Reports decreased exercise tolerance, Reports dyspnea on exertion, Denies chest pain, Denies shortness of breath Respiratory: Denies cough Gastrointestinal: Denies abdominal pain, Denies diarrhea, Denies nausea, Denies vomiting Genitourinary: Denies dysuria, Denies hematuria Musculoskeletal: Denies myalgias Integumentary: Denies pruritus, Denies rash Neurological: Denies numbness, Denies weakness Psychiatric: Denies anxiety, Denies depression Endocrine: Denies fatigue, Denies weight change Past Medical History Past Medical History: Diabetes Mellitus, Deep Vein Thrombosis (DVT), GERD/Reflux, Hyperlipidemia, Hypertension, Osteoarthritis (OA) Additional Past Medical History / Comment(s): "borderline cholesterol", DVT in her 20's or 30's, SOB w/exertion @times recently, fully vaccinated for covid History of Any Multi-Drug Resistant Organisms: None Reported Past Surgical History: Appendectomy, Heart Catheterization, Hysterectomy, Joint Replacement, Orthopedic Surgery, Tonsillectomy Additional Past Surgical History / Comment(s): LT. HIP REPLACEMENT, ORIF rt ankle, Leopoldo cataracts Past Anesthesia/Blood Transfusion Reactions: Previous Problems w/ Anesthesia, Motion Sickness Additional Past Anesthesia/Blood Transfusion Reaction / Comment(s): slow to wake up Smoking Status: Never smoker - Past Family History Mother Family Medical History: Myocardial Infarction (PA) Additional Family Medical History / Comment(s): Her mother at age 69 from a PA Brother(s) Family Medical History: Myocardial Infarction (PA) Additional Family Medical History / Comment(s): Two of her brothers in their early 50's from PA's. Daughter(s) Family Medical History: CVA/TIA Medications and Allergies Home Medications Medication Instructions Recorded Confirmed Type Aspirin 81 mg PO 06/11/14 04/13/21 History Simvastatin 40 mg PO 06/11/14 04/13/21 History metFORMIN HCL [Glucophage] 500 mg PO BID 06/11/14 04/13/21 History Biotin 10,000 mcg PO DAILY 08/19/20 04/13/21 History Cholecalciferol [Vitamin D3 (25 2,000 unit PO DAILY 08/19/20 04/13/21 History Mcg = 1000 Iu)] Cyanocobalamin (Vitamin B-12) 1,000 mcg PO DAILY 08/19/20 04/13/21 History [Vitamin B-12] HYDROcodone/APAP 5-325MG [[place] 1 tab PO Q6HR PRN 08/19/20 04/13/21 History 5-325] Valsartan [Diovan] 160 mg PO DAILY 03/31/21 04/13/21 History Metoprolol Succinate [Toprol XL] 12.5 mg PO DAILY #7 tab 04/06/21 04/13/21 Rx Ciprofloxacin HCl [Cipro] 500 mg PO BID 04/13/21 04/13/21 History Allergies Allergy/AdvReac Type Severity Reaction Status Date / Time No Known Allergies Allergy Verified 04/13/21 06:08 Physical Exam Vitals: Vital Signs Temp Pulse Resp BP BP Pulse Ox 04/13/21 06:06 97.8 F 71 16 183/73 177/78 97 Intake and Output 04/13/21 04/13/21 04/13/21 06:59 14:59 22:59 Intake Total 300 53 Output Total 1900 Balance 300 -1847 Intake: IV 300 53 Output: Urine 700 Estimated Blood Loss 1200 Other: Weight 79.7 kg GENERAL EXAM: Sedated, intubated 80-year-old white female on assist-control mode of ventilation with FiO2 100% and PEEP of 8, comfortable in no apparent distress. HEAD: Normocephalic/atraumatic. EYES: Normal reaction of pupils, equal size. Conjunctiva pink, sclera white. NOSE: Clear with pink turbinates. THROAT: No erythema or exudates. NECK: No masses, no JVD, no thyroid enlargement, no adenopathy. CHEST: No chest wall deformity. Symmetrical expansion. Midsternal incision clean dry and intact, covered with a surgical dressing, chest tube sites are clean dry and intact. 2 mediastinal and left pleural chest tubes in place with no evidence of air leak, to wall suction, and small amount of sanguinous output in the Pleur-evac's LUNGS: Equal air entry with no crackles, wheeze, rhonchi or dullness. CVS: Regular rate and rhythm, normal S1 and S2, no gallops, no murmurs, no rubs ABDOMEN: Soft, nontender. No hepatosplenomegaly, normal bowel sounds, no guarding or rigidity. EXTREMITIES: No clubbing, no edema, no cyanosis, 2+ pulses and upper and lower extremities. Incisions on bilateral lower extremities are clean dry and intact, patient has a SCDs on bilateral lower extremities MUSCULOSKELETAL: Muscle strength and tone normal. SPINE: No scoliosis or deformity SKIN: No rashes CENTRAL NERVOUS SYSTEM: Sedated, intubated No focal deficits, tone is normal in all 4 extremities. Results - Laboratory Findings ABG ABG pH 7.35 (7.35-7.45) 04/13/21 14:38 ABG pCO2 40 mmHg (35-45) 04/13/21 14:38 ABG pO2 335 mmHg (83-108) H 04/13/21 14:38 ABG O2 Saturation 100.0 % (94-97) H 04/13/21 14:38 PT/INR, D-dimer PT Cancelled 04/05/21 15:11 INR Cancelled 04/05/21 15:11 Abnormal lab findings: Abnormal Labs 04/05/21 04/13/21 04/13/21 15:11 06:24 08:35 ABG pH ABG pO2 >420 H ABG Total CO2 ABG O2 Saturation 100.0 H ABG Hematocrit ABG Potassium ABG Ionized Calcium ABG Glucose 144 H ABG Lactic Acid Hemoglobin 11.2 L POC Glucose (mg/dL) 148 H Arterial Blood Potassium Arterial Blood Glucose 144 H Crossmatch See Detail 04/13/21 04/13/21 04/13/21 10:39 11:47 12:10 ABG pH 7.30 L ABG pO2 182 H 204 H >420 H ABG Total CO2 ABG O2 Saturation 100.0 H 99.8 H 100.0 H ABG Hematocrit 30 L 27 L 22 L ABG Potassium ABG Ionized Calcium 4.0 L ABG Glucose 130 H 150 H 135 H ABG Lactic Acid 1.7 H Hemoglobin 9.7 L 8.9 L 7.0 L* POC Glucose (mg/dL) Arterial Blood Potassium Arterial Blood Glucose 130 H 150 H 135 H Crossmatch 04/13/21 04/13/21 04/13/21 12:44 13:13 14:38 ABG pH 7.34 L ABG pO2 225 H 310 H 335 H ABG Total CO2 25 H 26 H ABG O2 Saturation 99.9 H 100.0 H 100.0 H ABG Hematocrit 21 L 20 L* 22 L ABG Potassium 5.4 H 5.4 H ABG Ionized Calcium 4.1 L 4.1 L ABG Glucose 141 H 147 H 190 H ABG Lactic Acid 2.0 H 2.2 H* 2.2 H* Hemoglobin 6.8 L* 6.6 L* 7.1 L POC Glucose (mg/dL) Arterial Blood Potassium 5.4 H 5.4 H Arterial Blood Glucose 141 H 147 H 190 H Crossmatch - Diagnostic Findings Chest x-ray: report reviewed, image reviewed Additional studies: Echocardiogram reviewed, PFT reviewed, chest x-ray reviewed Assessment and Plan Plan: Assessment: #1. Symptomatic multivessel coronary artery disease, status post three-vessel bypass grafting with MENESES to the LAD, SVG to the RCA, and SVG to the OM 1, with endoscopic vein harvest in bilateral lower extremities, and exclusion of the le ft atrial appendage and intraoperative CHANDRA, postop day 0 #2. Routine postoperative ventilator management, and we anticipate extubating within 6 hours of all our exit time. #3. Postoperative blood loss anemia, normal outcome of coronary artery bypass grafting #4. Diabetes modest type II #5. Hypertension #6. Hyperlipidemia #7. Lifetime nonsmoker, preop FEV1 was 1.96 L or 106% of predicted, normal PFT #8. History of familial early onset coronary artery disease Plan: Postop blood gas and chest x-ray pending Increased rate to 20 Hemodynamically patient is requiring small amount of vasopressor support, we will give another 5% albumin Postoperative lab work is pending, patient will likely require blood transfusion We'll proceed with waking the patient up and proceeding with spontaneous breathing trial and extubation Continue with breathing treatments every 4 hours while on the vent and 4 times a day after extubation Incentive spirometer to the bedside after extubation GI and DVT prophylaxis per CT surgery Continue close monitoring in the intensive care unit Follow-up labs and chest x-ray in the morning I performed a history & physical examination of the patient and discussed their management with my nurse practitioner, Mackenzie Leroy. I reviewed the nurse practitioner's note and agree with the documented findings and plan of care. Lung sounds are positive for diminished breath sounds. The findings and the impression was discussed with the patient. I attest to the documentation by the nurse practitioner. Time with Patient: Greater than 30
[2021-04-13 16:04] LABS: Basophils % (A) 0 %; Eosinophils # (A) 0.1 k/uL (0-0.7); Eosinophils % (A) 1 %; HCT 20.8 % (34.0-46.0); Lymphocytes # (A) 1.5 k/uL (1.0-4.8); Lymphocytes % (A) 19 %; MCH 31.9 pg (25.0-35.0); MCHC 33.6 g/dL (31.0-37.0); MCV 94.8 fL (80.0-100.0); Mean Platelet Volume 8.3; Monocytes # (A) 0.2 k/uL (0-1.0); Monocytes % (A) 3 %; Neutrophils # (A) 5.9 k/uL (1.3-7.7); Neutrophils % (A) 76 %; RDW 12.8 % (11.5-15.5); WBC 7.7 k/uL (3.8-10.6)
[2021-04-13 16:04] LABS: ABG Base Excess -3.6 mmol/L; ABG HCO3 22 mmol/L (21-25); ABG Oxygen Saturation 99.8 % (94-97); ABG PCO2 39 mmHg (35-45); ABG PH 7.36 (7.35-7.45); ABG PO2 >400 mmHg (83-108); ABG TCO2 23 mmol/L (19-24)
[2021-04-13 16:04] LABS: Ionized Calcium 4.9 mg/dL (4.5-5.3)
[2021-04-13 16:06] LABS: Allen Test Performed? No
[2021-04-13 16:10] LABS: ALT 12 U/L (4-34); AST 38 U/L (14-36); African American GFR (CKD) >90 (>60 ml/min/1.73 sqM); Albumin 3.2 g/dL (3.5-5.0); Alkaline Phosphatase 28 U/L (38-126); Anion Gap 7 mmol/L; Blood Urea Nitrogen 16 mg/dL (7-17); Calcium 8.1 mg/dL (8.4-10.2); Carbon Dioxide 22 mmol/L (22-30); Chloride 112 mmol/L (98-107); Glucose 182 mg/dL (74-99); Magnesium 2.8 mg/dL (1.6-2.3); Non-African American GFR(CKD) 84 (>60 ml/min/1.73 sqM); Sodium 141 mmol/L (137-145); Total Bilirubin 0.5 mg/dL (0.2-1.3); Total Protein 4.6 g/dL (6.3-8.2)
[2021-04-13 16:14] LABS: Potassium 4.3 mmol/L (3.5-5.1)
[2021-04-13 16:17] LABS: INR 1.2 (<1.2); Partial Thromboplastin Time 32.5 sec (22.0-30.0); Prothrombin Time 12.6 sec (9.0-12.0)
[2021-04-13 16:17] LABS: Glucose,Whole Blood 161 mg/dL (75-99)
[2021-04-13 16:22] LABS: Platelet Count 88 k/uL (150-450)
[2021-04-13] MEDS: CLEVIDIPINE BUTYRATE 25 MG in EMPTY BAG 1 BAG IV SCH ×2 (16:23→17:40)
[2021-04-13] MEDS: IPRATROPIUM-ALBUTEROL 3 ML NEB INHALATION SCH ×2 (16:28→19:23)
--- NOTE | 2021-04-13 16:32 | XR ---
EXAMINATION TYPE: XR chest 1V portable DATE OF EXAM: 04/13/2021 COMPARISON: 04/05/2021 HISTORY: Postoperative cardiac surgery TECHNIQUE: Single frontal view of the chest is obtained. FINDINGS: Status post median sternotomy. Endotracheal tube and enteric catheter are seen. Right inter nal jugular Whitakers-Geovanny catheter is seen. Heart size is within normal limits. Atherosclerotic aorta. Pa tchy left basilar airspace opacity with [id number] pleural effusion. No right pleural effusion . No pneumothorax. IMPRESSION: 1. Endotracheal tube, enteric catheter and Whitakers-Geovanny catheter are seen. 2. Status post median sternotomy. 3. Left basilar airspace opacity with small to moderate left pleural effusion.
--- NOTE | 2021-04-13 16:46 | P.ANPRN ---
Procedure Note - Anesthesia - CHANDRA Intraop Pre Bypass CHANDRA Intraop - Anesthesia Indication: Coronary artery bypass grafting, ischemia monitoring Date of Procedure: 04/13/21 Pre-operative Diagnosis: Coronary artery disease Post-operative Diagnosis: Coronary artery disease Surgeon: Eliud Vazquez Ejection Fraction: Normal (50-55%) Regional Wall Motion Abnormalities: Other (Mile Inferoseptal hypokinesia) Left Ventricle Hypertrophy: Yes (Mild) R. Ventricle Function: Normal Anatomy: Trileaflet Aortic Stenosis: None Aortic Regurgitation: None Mitral Stenosis: None Mitral Regurgitation: Trace Tricuspid Stenosis: None Tricuspid Regurgitation: Trace Pulmonic Stenosis: None Pulmonic Regurgitation: Trace R. Atrial Dilation: No R. 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 Atrial Dilation: No Aortic Dissection: No Aortic Calcification: None Plural Effusion: None - CHANDRA Intraop Post Bypass CHANDRA Intraop Post Bypass Procedure Performed: Coronary artery bypass grafting Ejection Fraction: Normal (50-55%) Regional Wall Motion Abnormalities: Other (Mild inferoseptal hypokinesis) R. Ventricle Function: Normal Aortic Valve: Unchanged Mitral Valve: Unchanged Tricuspid: Unchanged Pulmonic: Unchanged Aortic Dissection: No
[2021-04-13 16:59] LABS: Glucose,Whole Blood 128 mg/dL (75-99)
[2021-04-13] MEDS: HEPARIN SODIUM,PORCINE/PF 5,000 UNIT/0.5 ML SYRINGE SQ SCH ×2 (17:20→23:55)
[2021-04-13 17:55] LABS: Basophils % (A) 0 %; Eosinophils # (A) 0.1 k/uL (0-0.7); Eosinophils % (A) 1 %; Lymphocytes # (A) 0.8 k/uL (1.0-4.8); Lymphocytes % (A) 12 %; MCH 33.3 pg (25.0-35.0); MCHC 35.7 g/dL (31.0-37.0); MCV 93.4 fL (80.0-100.0); Monocytes # (A) 0.3 k/uL (0-1.0); Monocytes % (A) 4 %; Neutrophils # (A) 5.4 k/uL (1.3-7.7); Neutrophils % (A) 82 %; RBC 2.06 m/uL (3.80-5.40); RDW 12.7 % (11.5-15.5); WBC 6.6 k/uL (3.8-10.6)
[2021-04-13 18:00] LABS: HCT 19.3 % (34.0-46.0); HGB 6.9 gm/dL (11.4-16.0); Platelet Count 81 k/uL (150-450)
[2021-04-13 18:18] LABS: Glucose,Whole Blood 197 mg/dL (75-99)
[2021-04-13] MEDS: ACETAMINOPHEN IV (For NPO) 1,000 MG in EMPTY BAG 1 BAG IVPB SCH ×2 (18:28→23:55)
[2021-04-13 19:17] LABS: Glucose,Whole Blood 201 mg/dL (75-99)
[2021-04-13 20:10] LABS: Glucose,Whole Blood 201 mg/dL (75-99)
[2021-04-13] MEDS ORDERED: METOPROLOL TARTRATE 12.5 MG TAB PO SCH (21:00)
[2021-04-13 21:18] LABS: Glucose,Whole Blood 187 mg/dL (75-99)
[2021-04-13 21:42] LABS: ABG Base Excess -3.4 mmol/L; ABG HCO3 23 mmol/L (21-25); ABG Oxygen Saturation 97.7 % (94-97); ABG PCO2 43 mmHg (35-45); ABG PH 7.33 (7.35-7.45); ABG PO2 102 mmHg (83-108); ABG TCO2 24 mmol/L (19-24); Allen Test Performed? Yes
[2021-04-13 22:12] LABS: Glucose,Whole Blood 174 mg/dL (75-99)
[2021-04-13 22:19] LABS: Basophils % (A) 0 %; Eosinophils % (A) 0 %; HCT 25.7 % (34.0-46.0); Lymphocytes # (A) 0.4 k/uL (1.0-4.8); Lymphocytes % (A) 4 %; MCH 30.2 pg (25.0-35.0); MCV 91.6 fL (80.0-100.0); Mean Platelet Volume 10.9; Monocytes # (A) 0.2 k/uL (0-1.0); Monocytes % (A) 2 %; Neutrophils # (A) 8.8 k/uL (1.3-7.7); Neutrophils % (A) 93 %; Platelet Count 96 k/uL (150-450); WBC 9.5 k/uL (3.8-10.6)
[2021-04-13 22:31] LABS: HGB 8.5 gm/dL (11.4-16.0)
[2021-04-13 23:27] LABS: Glucose,Whole Blood 122 mg/dL (75-99)
[2021-04-14] MEDS: HYDROcodone/APAP 5-325MG 1 EACH TAB PO PRN ×3 (00:20→17:07)
[2021-04-14 00:34] LABS: Glucose,Whole Blood 140 mg/dL (75-99)
[2021-04-14 02:04] LABS: Glucose,Whole Blood 111 mg/dL (75-99)
[2021-04-14 02:50] LABS: Glucose,Whole Blood 122 mg/dL (75-99)
[2021-04-14] MEDS ORDERED: HYDROcodone/APAP 5-325MG 1 EACH TAB PO PRN (02:50)
[2021-04-14 04:27] LABS: Glucose,Whole Blood 133 mg/dL (75-99)
[2021-04-14 04:35] LABS: Basophils % (A) 0 %; Eosinophils % (A) 0 %; HCT 23.6 % (34.0-46.0); HGB 8.2 gm/dL (11.4-16.0); Lymphocytes # (A) 0.4 k/uL (1.0-4.8); Lymphocytes % (A) 4 %; MCH 31.4 pg (25.0-35.0); MCHC 34.8 g/dL (31.0-37.0); MCV 90.4 fL (80.0-100.0); Mean Platelet Volume 10.5; Monocytes # (A) 0.3 k/uL (0-1.0); Monocytes % (A) 4 %; Neutrophils # (A) 7.7 k/uL (1.3-7.7); Neutrophils % (A) 91 %; RBC 2.61 m/uL (3.80-5.40); RDW 14.6 % (11.5-15.5); WBC 8.4 k/uL (3.8-10.6)
[2021-04-14 04:37] LABS: Platelet Count 90 k/uL (150-450)
[2021-04-14 04:48] LABS: ALT 12 U/L (4-34); AST 43 U/L (14-36); African American GFR (CKD) >90 (>60 ml/min/1.73 sqM); Albumin 3.5 g/dL (3.5-5.0); Alkaline Phosphatase 38 U/L (38-126); Anion Gap 6 mmol/L; Blood Urea Nitrogen 14 mg/dL (7-17); Calcium 8.5 mg/dL (8.4-10.2); Carbon Dioxide 23 mmol/L (22-30); Chloride 112 mmol/L (98-107); Glucose 121 mg/dL (74-99); Magnesium 2.2 mg/dL (1.6-2.3); Non-African American GFR(CKD) 82 (>60 ml/min/1.73 sqM); Potassium 4.1 mmol/L (3.5-5.1); Sodium 141 mmol/L (137-145); Total Bilirubin 0.4 mg/dL (0.2-1.3); Total Protein 4.9 g/dL (6.3-8.2)
[2021-04-14 05:14] LABS: Glucose,Whole Blood 118 mg/dL (75-99)
[2021-04-14 05:54] LABS: Glucose,Whole Blood 118 mg/dL (75-99)
[2021-04-14] MEDS: ALBUMIN HUMAN 5% 250 ML in EMPTY BAG 1 BAG IVPB PRN (06:30)
[2021-04-14] MEDS ORDERED: ACETAMINOPHEN TAB 325 MG TAB PO PRN (06:51)
[2021-04-14] MEDS ORDERED: METOCLOPRAMIDE 5 MG/ML 2 ML VIAL IVP STA (07:02)
[2021-04-14 07:04] LABS: Glucose,Whole Blood 114 mg/dL (75-99)
[2021-04-14] MEDS: IPRATROPIUM-ALBUTEROL 3 ML NEB INHALATION SCH ×4 (07:26→20:22)
--- NOTE | 2021-04-14 07:56 | P.PN ---
Subjective Progress Note Date: 04/14/21 Principal diagnosis: Symptomatic multivessel coronary artery disease. Previous medical history of hypertension, hyperlipidemia, type 2 diabetes, lifetime nonsmoker, remote history of DVT, family history of premature coronary artery disease with both brothers from myocardial infarction in their early 50s. Preoperative E. coli urinary tract infection POD #1 coronary artery bypass graft 3 with left internal mammary artery to the left anterior descending artery, reverse saphenous vein graft to the first obtuse marginal coronary artery, reverse saphenous vein graft to the right coronary artery, exclusion of the left atrial appendage using a 35 mm AtriClip, bilateral endoscopic vein harvesting, graft flow measurements using the [employer] system, intraoperative transesophageal echocardiogram and epi-aortic scanning Postoperative acute blood loss anemia and thrombocytopenia, expected given hemodilution and cardiopulmonary bypass pump Confusion, felt to be secondary to cardiopulmonary bypass pump versus slow to wake up from anesthesia which the patient does have a history of The patient is currently sitting up in a recliner in no acute distress in the i ntensive care unit. She was successfully extubated last night at 21:55. She denies any pain or shortness of breath at this time. The patient is a bit confused, however she does move all extremities, has equal strength bilaterally, and follows all commands appropriately. She remains in normal sinus rhythm and hemodynamically stable. Currently she is off any pressors or inotropes. She was on and off Cleviprex last night for hypertension. She did get 1 unit packed red blood cells last night for a hemoglobin 6.9, currently 8.2 this morning. She is actively using incentive spirometer when encouraged, only obtaining 500 mL. Mediastinal, left pleural chest tube, right internal jugular [place]/Cordis, right radial arterial lines all remaining present. No other new concerns. Objective - Vital Signs Vital signs: Vital Signs Temp 98.6 F 04/14/21 04:00 Pulse 81 04/14/21 07:00 Resp 10 L 04/14/21 07:00 BP 129/51 04/13/21 20:55 Pulse Ox 94 L 04/14/21 07:00 Intake & Output 04/13/21 04/14/21 04/14/21 18:59 06:59 18:59 Intake Total 650.697 5143.215 63.646 Output Total 2600 1305 50 Balance -2201.641 1033.215 13.646 Weight 83.8 kg Intake: IV 369 1208 59 .9NS 180 550 50 .9NS Cardiac Output 50 150 0.9NS Pressure Bag 36 108 9 ACETAMINOPHEN IV (For NPO 100 ) 1,000 mg In Empty Bag 1 bag @ 400 mls/hr IVPB Q6HR [facility] Rx#:[id number] Albumin Human 5% 250 ml 250 In Empty Bag 1 bag @ 250 mls/hr IVPB Q1HR PRN Rx#: [id number] ceFAZolin 2 gm In Sodium 50 Chloride 0.9% 50 ml @ 100 mls/hr IVPB Q8HR [facility] Rx# :[id number] Intake, IV Titration 29.359 100.215 4.646 Amount Clevidipine Butyrate 25 5.733 42.267 mg In Empty Bag 1 bag @ 1 MG/HR 2 mls/hr IV .Q24H [facility] Rx#:[id number] Insulin Regular 100 unit 5.892 57.948 4.646 In Sodium Chloride 0.9% 100 ml @ Per Protocol IV .Q0M [facility] Rx#:[id number] propofoL 1,000 mg In 17.734 Empty Bag 1 bag @ Titrate IV .Q0M [facility] Rx#: [id number] Oral 720 Blood Product 0 310 Rc As-1 Unit 0 310 [id number] Output: Chest Tube Drainage 430 120 Left Pleural Chest Tube 240 50 Mediastinal Chest Tube X 190 70 2 Urine 970 1185 50 Estimated Blood Loss 1200 Other: Voiding Method Indwelling Catheter Indwelling Catheter ABP, PAP, CO, CI - Last Documented Arterial Blood Pressure 147/55 Pulmonary Artery Pressure 25/10 Cardiac Output 4.9 Cardiac Index 2.7 - Exam CONSTITUTIONAL: Appears comfortable, cooperative, no acute distress RESPIRATORY: Lungs sounds diminished bilaterally. Respirations even, nonl abored. Currently on 10 L high flow nasal cannula with oxygen saturation 96%. Able to achieve 500 mL on incentive spirometry. Weak cough. CARDIOVASCULAR: S1, S2 present. Regular rate and rhythm, sinus rhythm on telemetry. Sternum stable. Palpable peripheral pulses bilaterally. No edema present. No calf pain or tenderness noted. Heart hugger in place with patient demonstrating appropriate use. Antiembolism stockings, SCDs present. GASTROINTESTINAL: Abdomen soft, nontender, nondistended. Hypoactive bowel sounds present 4 quadrants. Tolerating clear liquids. Positive belching, negative flatus. GENITOURINARY: Cramer present draining clear, yellow urine. Output overnight 50-125 mL per hour, 1135 mL in the last 12 hours INTEGUMENTARY: Skin is warm and dry with evidence of good perfusion. Anterior chest incision well approximated and covered with dry intact dressing. Bila teral EVH sites well approximated without redness or drainage. NEUROLOGIC: Cranial nerves II through XII intact MUSKULOSKELETAL: Able to move all extremities, strength equal bilaterally, gait normal PSYCHIATRIC: Alert and oriented to person only INVASIVE LINES AND TUBES: Mediastinal/left pleural chest tubes present and connected to wall suction, no air leaks present. Mediastinal tube with 50 mL serosanguineous drainage overnight, 400 mL since surgery. Left pleural chest tube with 40 mL serosanguineous drainage overnight, 400 mL since surgery. Atrial epicardial pacemaker wires present, grounded. Right internal jugular [place]/Cordis, right radial arterial line present. Last CO/CI 4.9/2.7, PA 24/8, CVP 4. - Allied health notes Allied health notes reviewed: nursing - Labs CBC & Chem 7: 04/14/21 04:25 04/14/21 04:25 Labs: Abnormal Lab Results - Last 24 Hours (Table) 04/05/21 04/13/21 04/13/21 Range/Units 15:11 08:35 10:39 RBC (3.80-5.40) m/uL Hgb (11.4-16.0) gm/dL Hct (34.0-46.0) % Plt Count (150-450) k/uL Neutrophils # (1.3-7.7) k/uL Lymphocytes # (1.0-4.8) k/uL PT (9.0-12.0) sec INR (<1.2) APTT (22.0-30.0) sec Fibrinogen (200-500) mg/dL ABG pH (7.35-7.45) ABG pO2 >420 H 182 H (83-108) mmHg ABG Total CO2 (19-24) mmol/L ABG O2 Saturation 100.0 H 100.0 H (94-97) % ABG Hematocrit 30 L (34.0-46.0) % ABG Potassium (3.4-4.5) mmol/L ABG Ionized Calcium (4.5-5.3) mg/dL ABG Glucose 144 H 130 H (75-99) mg/dL ABG Lactic Acid 1.7 H (0.5-1.6) mmol/L Hemoglobin 11.2 L 9.7 L (11.4-16.0) gm/dL Chloride (98-107) mmol/L Glucose (74-99) mg/dL POC Glucose (mg/dL) (75-99) mg/dL Calcium (8.4-10.2) mg/dL Magnesium (1.6-2.3) mg/dL AST (14-36) U/L Alkaline Phosphatase (38-126) U/L Total Protein (6.3-8.2) g/dL Albumin (3.5-5.0) g/dL Arterial Blood Potassium (3.4-4.5) mmol/L Arterial Blood Glucose 144 H 130 H (75-99) mg/dL Crossmatch See Detail 04/13/21 04/13/21 04/13/21 Range/Units 11:47 12:10 12:44 RBC (3.80-5.40) m/uL Hgb (11.4-16.0) gm/dL Hct (34.0-46.0) % Plt Count (150-450) k/uL Neutrophils # (1.3-7.7) k/uL Lymphocytes # (1.0-4.8) k/uL PT (9.0-12.0) sec INR (<1.2) APTT (22.0-30.0) sec Fibrinogen (200-500) mg/dL ABG pH 7.30 L 7.34 L (7.35-7.45) ABG pO2 204 H >420 H 225 H (83-108) mmHg ABG Total CO2 25 H (19-24) mmol/L ABG O2 Saturation 99.8 H 100.0 H 99.9 H (94-97) % ABG Hematocrit 27 L 22 L 21 L (34.0-46.0) % ABG Potassium 5.4 H (3.4-4.5) mmol/L ABG Ionized Calcium 4.0 L 4.1 L (4.5-5.3) mg/dL ABG Glucose 150 H 135 H 141 H (75-99) mg/dL ABG Lactic Acid 2.0 H (0.5-1.6) mmol/L Hemoglobin 8.9 L 7.0 L* 6.8 L* (11.4-16.0) gm/dL Chloride (98-107) mmol/L Glucose (74-99) mg/dL POC Glucose (mg/dL) (75-99) mg/dL Calcium (8.4-10.2) mg/dL Magnesium (1.6-2.3) mg/dL AST (14-36) U/L Alkaline Phosphatase (38-126) U/L Total Protein (6.3-8.2) g/dL Albumin (3.5-5.0) g/dL Arterial Blood Potassium 5.4 H (3.4-4.5) mmol/L Arterial Blood Glucose 150 H 135 H 141 H (75-99) mg/dL Crossmatch 04/13/21 04/13/21 04/13/21 Range/Units 13:13 14:38 14:59 RBC 2.20 L (3.80-5.40) m/uL Hgb 7.0 L (11.4-16.0) gm/dL Hct 20.8 L (34.0-46.0) % Plt Count 88 L (150-450) k/uL Neutrophils # (1.3-7.7) k/uL Lymphocytes # (1.0-4.8) k/uL PT (9.0-12.0) sec INR (<1.2) APTT (22.0-30.0) sec Fibrinogen (200-500) mg/dL ABG pH (7.35-7.45) ABG pO2 310 H 335 H (83-108) mmHg ABG Total CO2 26 H (19-24) mmol/L ABG O2 Saturation 100.0 H 100.0 H (94-97) % ABG Hematocrit 20 L* 22 L (34.0-46.0) % ABG Potassium 5.4 H (3.4-4.5) mmol/L ABG Ionized Calcium 4.1 L (4.5-5.3) mg/dL ABG Glucose 147 H 190 H (75-99) mg/dL ABG Lactic Acid 2.2 H* 2.2 H* (0.5-1.6) mmol/L Hemoglobin 6.6 L* 7.1 L (11.4-16.0) gm/dL Chloride (98-107) mmol/L Glucose (74-99) mg/dL POC Glucose (mg/dL) (75-99) mg/dL Calcium (8.4-10.2) mg/dL Magnesium (1.6-2.3) mg/dL AST (14-36) U/L Alkaline Phosphatase (38-126) U/L Total Protein (6.3-8.2) g/dL Albumin (3.5-5.0) g/dL Arterial Blood Potassium 5.4 H (3.4-4.5) mmol/L Arterial Blood Glucose 147 H 190 H (75-99) mg/dL Crossmatch 04/13/21 04/13/21 04/13/21 Range/Units 15:22 16:00 16:00 RBC (3.80-5.40) m/uL Hgb (11.4-16.0) gm/dL Hct (34.0-46.0) % Plt Count (150-450) k/uL Neutrophils # (1.3-7.7) k/uL Lymphocytes # (1.0-4.8) k/uL PT 12.6 H (9.0-12.0) sec INR 1.2 H (<1.2) APTT 32.5 H (22.0-30.0) sec Fibrinogen (200-500) mg/dL ABG pH (7.35-7.45) ABG pO2 (83-108) mmHg ABG Total CO2 (19-24) mmol/L ABG O2 Saturation (94-97) % ABG Hematocrit (34.0-46.0) % ABG Potassium (3.4-4.5) mmol/L ABG Ionized Calcium (4.5-5.3) mg/dL ABG Glucose (75-99) mg/dL ABG Lactic Acid (0.5-1.6) mmol/L Hemoglobin (11.4-16.0) gm/dL Chloride 112 H (98-107) mmol/L Glucose 182 H (74-99) mg/dL POC Glucose (mg/dL) 217 H (75-99) mg/dL Calcium 8.1 L (8.4-10.2) mg/dL Magnesium 2.8 H (1.6-2.3) mg/dL AST 38 H (14-36) U/L Alkaline Phosphatase 28 L (38-126) U/L Total Protein 4.6 L (6.3-8.2) g/dL Albumin 3.2 L (3.5-5.0) g/dL Arterial Blood Potassium (3.4-4.5) mmol/L Arterial Blood Glucose (75-99) mg/dL Crossmatch 04/13/21 04/13/21 04/13/21 Range/Units 16:01 16:06 16:57 RBC (3.80-5.40) m/uL Hgb (11.4-16.0) gm/dL Hct (34.0-46.0) % Plt Count (150-450) k/uL Neutrophils # (1.3-7.7) k/uL Lymphocytes # (1.0-4.8) k/uL PT (9.0-12.0) sec INR (<1.2) APTT (22.0-30.0) sec Fibrinogen (200-500) mg/dL ABG pH (7.35-7.45) ABG pO2 >400 H (83-108) mmHg ABG Total CO2 (19-24) mmol/L ABG O2 Saturation 99.8 H (94-97) % ABG Hematocrit (34.0-46.0) % ABG Potassium (3.4-4.5) mmol/L ABG Ionized Calcium (4.5-5.3) mg/dL ABG Glucose (75-99) mg/dL ABG Lactic Acid (0.5-1.6) mmol/L Hemoglobin (11.4-16.0) gm/dL Chloride (98-107) mmol/L Glucose (74-99) mg/dL POC Glucose (mg/dL) 161 H 128 H (75-99) mg/dL Calcium (8.4-10.2) mg/dL Magnesium (1.6-2.3) mg/dL AST (14-36) U/L Alkaline Phosphatase (38-126) U/L Total Protein (6.3-8.2) g/dL Albumin (3.5-5.0) g/dL Arterial Blood Potassium (3.4-4.5) mmol/L Arterial Blood Glucose (75-99) mg/dL Crossmatch 04/13/21 04/13/21 04/13/21 Range/Units 17:35 17:35 18:17 RBC 2.06 L (3.80-5.40) m/uL Hgb 6.9 L* (11.4-16.0) gm/dL Hct 19.3 L* (34.0-46.0) % Plt Count 81 L (150-450) k/uL Neutrophils # (1.3-7.7) k/uL Lymphocytes # 0.8 L (1.0-4.8) k/uL PT (9.0-12.0) sec INR (<1.2) APTT (22.0-30.0) sec Fibrinogen 193 L (200-500) mg/dL ABG pH (7.35-7.45) ABG pO2 (83-108) mmHg ABG Total CO2 (19-24) mmol/L ABG O2 Saturation (94-97) % ABG Hematocrit (34.0-46.0) % ABG Potassium (3.4-4.5) mmol/L ABG Ionized Calcium (4.5-5.3) mg/dL ABG Glucose (75-99) mg/dL ABG Lactic Acid (0.5-1.6) mmol/L Hemoglobin (11.4-16.0) gm/dL Chloride (98-107) mmol/L Glucose (74-99) mg/dL POC Glucose (mg/dL) 197 H (75-99) mg/dL Calcium (8.4-10.2) mg/dL Magnesium (1.6-2.3) mg/dL AST (14-36) U/L Alkaline Phosphatase (38-126) U/L Total Protein (6.3-8.2) g/dL Albumin (3.5-5.0) g/dL Arterial Blood Potassium (3.4-4.5) mmol/L Arterial Blood Glucose (75-99) mg/dL Crossmatch 04/13/21 04/13/21 04/13/21 Range/Units 19:05 20:08 21:16 RBC (3.80-5.40) m/uL Hgb (11.4-16.0) gm/dL Hct (34.0-46.0) % Plt Count (150-450) k/uL Neutrophils # (1.3-7.7) k/uL Lymphocytes # (1.0-4.8) k/uL PT (9.0-12.0) sec INR (<1.2) APTT (22.0-30.0) sec Fibrinogen (200-500) mg/dL ABG pH (7.35-7.45) ABG pO2 (83-108) mmHg ABG Total CO2 (19-24) mmol/L ABG O2 Saturation (94-97) % ABG Hematocrit (34.0-46.0) % ABG Potassium (3.4-4.5) mmol/L ABG Ionized Calcium (4.5-5.3) mg/dL ABG Glucose (75-99) mg/dL ABG Lactic Acid (0.5-1.6) mmol/L Hemoglobin (11.4-16.0) gm/dL Chloride (98-107) mmol/L Glucose (74-99) mg/dL POC Glucose (mg/dL) 201 H 201 H 187 H (75-99) mg/dL Calcium (8.4-10.2) mg/dL Magnesium (1.6-2.3) mg/dL AST (14-36) U/L Alkaline Phosphatase (38-126) U/L Total Protein (6.3-8.2) g/dL Albumin (3.5-5.0) g/dL Arterial Blood Potassium (3.4-4.5) mmol/L Arterial Blood Glucose (75-99) mg/dL Crossmatch 04/13/21 04/13/21 04/13/21 Range/Units 21:40 22:05 22:10 RBC 2.80 L (3.80-5.40) m/uL Hgb 8.5 L D (11.4-16.0) gm/dL Hct 25.7 L (34.0-46.0) % Plt Count 96 L (150-450) k/uL Neutrophils # 8.8 H (1.3-7.7) k/uL Lymphocytes # 0.4 L (1.0-4.8) k/uL PT (9.0-12.0) sec INR (<1.2) APTT (22.0-30.0) sec Fibrinogen (200-500) mg/dL ABG pH 7.33 L (7.35-7.45) ABG pO2 (83-108) mmHg ABG Total CO2 (19-24) mmol/L ABG O2 Saturation 97.7 H (94-97) % ABG Hematocrit (34.0-46.0) % ABG Potassium (3.4-4.5) mmol/L ABG Ionized Calcium (4.5-5.3) mg/dL ABG Glucose (75-99) mg/dL ABG Lactic Acid (0.5-1.6) mmol/L Hemoglobin (11.4-16.0) gm/dL Chloride (98-107) mmol/L Glucose (74-99) mg/dL POC Glucose (mg/dL) 174 H (75-99) mg/dL Calcium (8.4-10.2) mg/dL Magnesium (1.6-2.3) mg/dL AST (14-36) U/L Alkaline Phosphatase (38-126) U/L Total Protein (6.3-8.2) g/dL Albumin (3.5-5.0) g/dL Arterial Blood Potassium (3.4-4.5) mmol/L Arterial Blood Glucose (75-99) mg/dL Crossmatch 04/13/21 04/14/21 04/14/21 Range/Units 23:26 00:33 02:03 RBC (3.80-5.40) m/uL Hgb (11.4-16.0) gm/dL Hct (34.0-46.0) % Plt Count (150-450) k/uL Neutrophils # (1.3-7.7) k/uL Lymphocytes # (1.0-4.8) k/uL PT (9.0-12.0) sec INR (<1.2) APTT (22.0-30.0) sec Fibrinogen (200-500) mg/dL ABG pH (7.35-7.45) ABG pO2 (83-108) mmHg ABG Total CO2 (19-24) mmol/L ABG O2 Saturation (94-97) % ABG Hematocrit (34.0-46.0) % ABG Potassium (3.4-4.5) mmol/L ABG Ionized Calcium (4.5-5.3) mg/dL ABG Glucose (75-99) mg/dL ABG Lactic Acid (0.5-1.6) mmol/L Hemoglobin (11.4-16.0) gm/dL Chloride (98-107) mmol/L Glucose (74-99) mg/dL POC Glucose (mg/dL) 122 H 140 H 111 H (75-99) mg/dL Calcium (8.4-10.2) mg/dL Magnesium (1.6-2.3) mg/dL AST (14-36) U/L Alkaline Phosphatase (38-126) U/L Total Protein (6.3-8.2) g/dL Albumin (3.5-5.0) g/dL Arterial Blood Potassium (3.4-4.5) mmol/L Arterial Blood Glucose (75-99) mg/dL Crossmatch 04/14/21 04/14/21 04/14/21 Range/Units 02:49 04:25 04:25 RBC 2.61 L (3.80-5.40) m/uL Hgb 8.2 L (11.4-16.0) gm/dL Hct 23.6 L (34.0-46.0) % Plt Count 90 L (150-450) k/uL Neutrophils # (1.3-7.7) k/uL Lymphocytes # 0.4 L (1.0-4.8) k/uL PT (9.0-12.0) sec INR (<1.2) APTT (22.0-30.0) sec Fibrinogen (200-500) mg/dL ABG pH (7.35-7.45) ABG pO2 (83-108) mmHg ABG Total CO2 (19-24) mmol/L ABG O2 Saturation (94-97) % ABG Hematocrit (34.0-46.0) % ABG Potassium (3.4-4.5) mmol/L ABG Ionized Calcium (4.5-5.3) mg/dL ABG Glucose (75-99) mg/dL ABG Lactic Acid (0.5-1.6) mmol/L Hemoglobin (11.4-16.0) gm/dL Chloride 112 H (98-107) mmol/L Glucose 121 H (74-99) mg/dL POC Glucose (mg/dL) 122 H (75-99) mg/dL Calcium (8.4-10.2) mg/dL Magnesium (1.6-2.3) mg/dL AST 43 H (14-36) U/L Alkaline Phosphatase (38-126) U/L Total Protein 4.9 L (6.3-8.2) g/dL Albumin (3.5-5.0) g/dL Arterial Blood Potassium (3.4-4.5) mmol/L Arterial Blood Glucose (75-99) mg/dL Crossmatch 04/14/21 04/14/21 04/14/21 Range/Units 04:25 05:13 05:52 RBC (3.80-5.40) m/uL Hgb (11.4-16.0) gm/dL Hct (34.0-46.0) % Plt Count (150-450) k/uL Neutrophils # (1.3-7.7) k/uL Lymphocytes # (1.0-4.8) k/uL PT (9.0-12.0) sec INR (<1.2) APTT (22.0-30.0) sec Fibrinogen (200-500) mg/dL ABG pH (7.35-7.45) ABG pO2 (83-108) mmHg ABG Total CO2 (19-24) mmol/L ABG O2 Saturation (94-97) % ABG Hematocrit (34.0-46.0) % ABG Potassium (3.4-4.5) mmol/L ABG Ionized Calcium (4.5-5.3) mg/dL ABG Glucose (75-99) mg/dL ABG Lactic Acid (0.5-1.6) mmol/L Hemoglobin (11.4-16.0) gm/dL Chloride (98-107) mmol/L Glucose (74-99) mg/dL POC Glucose (mg/dL) 133 H 118 H 118 H (75-99) mg/dL Calcium (8.4-10.2) mg/dL Magnesium (1.6-2.3) mg/dL AST (14-36) U/L Alkaline Phosphatase (38-126) U/L Total Protein (6.3-8.2) g/dL Albumin (3.5-5.0) g/dL Arterial Blood Potassium (3.4-4.5) mmol/L Arterial Blood Glucose (75-99) mg/dL Crossmatch 04/14/21 Range/Units 07:02 RBC (3.80-5.40) m/uL Hgb (11.4-16.0) gm/dL Hct (34.0-46.0) % Plt Count (150-450) k/uL Neutrophils # (1.3-7.7) k/uL Lymphocytes # (1.0-4.8) k/uL PT (9.0-12.0) sec INR (<1.2) APTT (22.0-30.0) sec Fibrinogen (200-500) mg/dL ABG pH (7.35-7.45) ABG pO2 (83-108) mmHg ABG Total CO2 (19-24) mmol/L ABG O2 Saturation (94-97) % ABG Hematocrit (34.0-46.0) % ABG Potassium (3.4-4.5) mmol/L ABG Ionized Calcium (4.5-5.3) mg/dL ABG Glucose (75-99) mg/dL ABG Lactic Acid (0.5-1.6) mmol/L Hemoglobin (11.4-16.0) gm/dL Chloride (98-107) mmol/L Glucose (74-99) mg/dL POC Glucose (mg/dL) 114 H (75-99) mg/dL Calcium (8.4-10.2) mg/dL Magnesium (1.6-2.3) mg/dL AST (14-36) U/L Alkaline Phosphatase (38-126) U/L Total Protein (6.3-8.2) g/dL Albumin (3.5-5.0) g/dL Arterial Blood Potassium (3.4-4.5) mmol/L Arterial Blood Glucose (75-99) mg/dL Crossmatch - Imaging and Cardiology Chest x-ray: image reviewed Assessment and Plan Assessment: 1. Symptomatic multivessel coronary artery disease, status post three-vessel CABG 2. Hypertension 3. Hyperlipidemia, treated, cholesterol 182, LDL 93 4. Type 2 diabetes, preoperative hemoglobin A1c 5.9% 5. Lifetime nonsmoker, preoperative FEV1 106% of predicted 6. Remote history of DVT 7. Family history of premature coronary artery disease with both brothers from myocardial infarction in their early 50s 8. Preoperative E. coli urinary tract infection, treated with Cipro 9. Postoperative acute blood loss anemia and thrombocytopenia, expected 10. Confusion, felt to be secondary to cardiopulmonary bypass pump versus slow to wake up from anesthesia which the patient does have a history of Plan: 1. Continue to maximize medical therapy with low dose aspirin, statin, Plavix, beta jannette therapy. Will increase beta jannette as tolerated, increased to 25 mm grams twice daily today 2. Discontinue IV nitro 3. Wean O2 as tolerated. Encourage incentive spirometry use 10 times every hour while awake. Bronchodilators per pulmonology 4. Increase activity, ambulate as tolerated. PT/OT/cardiac rehab consulted 5. GI/DVT prophylaxis 6. Will monitor daily labs and x-rays. Electrolyte replacement per protocol. No further blood transfusions at this time 7. Insulin management per primary care service. Patient will need tight blood sugar control to promote healing, union of sternal bone 8. Pain control with current medication regimen. Will add toradol. Avoid narcotics 9. Reorient as needed 10. Continue mediastinal/left pleural chest tubes for another 24 hours 11. Continue Cramer catheter for another 24 hours for strict accurate intake and output. Daily weight 12. Will reintroduce Cipro for UTI 13. Discontinue [place]. Connect Cordis to continuous CVP monitoring 14. More recommendations to follow Time with Patient: Greater than 30
--- NOTE | 2021-04-14 08:14 | XR ---
EXAMINATION TYPE: XR chest 1V portable DATE OF EXAM: 04/14/2021 COMPARISON: 04/13/2021 HISTORY: Postoperative cardiac surgery TECHNIQUE: Single frontal view of the chest is obtained. FINDINGS: There is a right-sided [place]-Geovanny catheter in place. Multiple overlying leads. Status post median sternotomy. Low lung volumes. Heart size is mildly enlarged. There are are increased perihilar interstitial airspace opacities suggestive of most suggestive of pulmonary edema. Left basilar airsp jeremy opacity with small pleural effusion. Probable tiny right pleural effusion. No pneumothorax. IMPRESSION: 1. Status post median sternotomy. Increased perihilar and interstitial airspace opacities suggestive of most suggestive of pulmonary edema. Left basilar airspace opacity with small left pleural effusion . Probable tiny right pleural effusion.
[2021-04-14 08:27] LABS: Glucose,Whole Blood 140 mg/dL (75-99)
[2021-04-14] MEDS ORDERED: bisacodyL 10 MG SUPP RECTAL PRN (09:00)
[2021-04-14] MEDS: CLOPIDOGREL 75 MG TAB PO SCH (09:00)
[2021-04-14] MEDS: KETOROLAC 15 MG/ML 1 ML VIAL IVP SCH ×3 (09:00→17:08)
[2021-04-14] MEDS: HEPARIN SODIUM,PORCINE/PF 5,000 UNIT/0.5 ML SYRINGE SQ SCH ×2 (09:00→15:11)
[2021-04-14] MEDS ORDERED: ASPIRIN 325 MG TAB PO SCH (09:00)
[2021-04-14] MEDS: ASPIRIN 81 MG PO SCH (09:00)
[2021-04-14] MEDS: CHOLECALCIFEROL 25 MCG (1000 IU) TABLET PO SCH (09:00)
[2021-04-14] MEDS: METOPROLOL TARTRATE 25 MG TAB PO SCH ×2 (09:00→22:06)
[2021-04-14] MEDS ORDERED: PANTOPRAZOLE 40 MG/10 ML VIAL IVP SCH (09:00)
[2021-04-14] MEDS ORDERED: MAGNESIUM HYDROXIDE 2,400 MG/10 ML CUP PO PRN (09:00)
[2021-04-14] MEDS: CYANOCOBALAMIN 500 MCG TAB PO SCH (09:00)
[2021-04-14] MEDS: ATORVASTATIN 40 MG TAB PO SCH (09:00)
[2021-04-14] MEDS: CIPROFLOXACIN HCL 500 MG TAB PO SCH ×2 (09:01→22:06)
[2021-04-14 09:34] LABS: Glucose,Whole Blood 148 mg/dL (75-99)
--- NOTE | 2021-04-14 09:43 | P.PN ---
Subjective Progress Note Date: 04/14/21 Principal diagnosis: Coronary artery disease, status post triple-vessel bypass grafting with a MENESES to the LAD, saphenous vein grafts to the RCA and OM1. 80-year-old white female patient of Dr. Shipman, overweight recently saw in consultation during her previous admission when she was hospitalized for symptoms of exertional shortness of breath that was progressive in nature. And patient had a nuclear Lexiscan Cardiolite stress test at Dr. Mercado's office on 03/16/2021 that showed abnormal myocardial perfusion imaging with evidence of partially reversible defect involving the distal anterior/apical segment of the LV. 2-D echocardiogram was completed on 03/18/2021 that showed a preserved left ventricular systolic function with an ejection fraction of 45%, mild aortic valv e regurg, mild MR, and mild TR. Patient underwent cardiac catheterization by Dr. Mercado on 04/05/2021 that showed multivessel coronary artery disease, and due to the findings of the heart catheterization, patient was referred to CT surgery for myocardial revascularization surgery. On 04/13/2021 patient underwent MENESES to the LAD, SVG to the RCA, SVG to the OM 1 with endoscopic vein harvesting of bilateral lower extremities, and exclusion of the left atrial appendage and intraoperative transesophageal echocardiogram. Preop FEV1 was reviewed showing FEV1 of 1.96 L or 106% of predicted with FVC of 2.3 L or 92% of predicted, FEV1 to FVC ratio 115, and MVV of 73.5, consistent with normal spirometry. Patient is a lifetime nonsmoker, her past medical history significant for diabetes mellitus type 2, hypertension, hyperlipidemia, GERD, osteoarthritis, and previous history of DVT. Patient is seen in the postoperative period in the intensive care unit intubated and sedated. Patient is currently on assist control with a rate of 12, tidal vital was 400, FiO2 of 100% and PEEP of 8. Her rate was increased to 20 at the bedside Postoperative blood gas and chest x-ray is pending, hemodynamically patient is requiring small amount of Bladimir-Synephrine currently infusing at 0.06 mics/per kilo per minute. On nitroglycerin is at 5 mics per kilo per minute, Diprivan and is at 20 mics per kilo per minute, and 0.9 normal saline at 50 ML per hour, PA pressures 28/11, CVP is 8, cardiac output is 4.4, and cardiac index is 2.4. Intraoperatively patient received 3 L and crystalloids, 1.2 L in Cell Saver and 1.5 L of 5% albumin. Currently blood pressure is 79/38. External pacemaker set to VVI backup mode with a rate of 80, and intrinsic rhythm is sinus rhythm The patient is seen today 04/14/2021 in follow-up in the intensive care unit. She is currently sitting up in a chair at the bedside. Awake and alert in no acute distress. A and O 3. She had some issues with confusion throughout the night. Currently maintaining O2 saturations up to 100% on 10 L high flow nasal cannula. She was extubated at 21:55 PM last night. Chest x-ray does reveal some atelectasis bilaterally left greater than right. Mediastinal and left pleural chest tubes are in place. Equally at 400 ML's output. She's been afebrile. Currently hemodynamically stable. She did have some postop issues with hypotension requiring pressors and then hypertension requiring clevidipine. She was anemic with a hemoglobin of 6.9 and received 1 unit of packed red blood cells. Current hemoglobin 8.2. Cardiac output 5.0, index 3.1. PA pressures 34/14. She has her own intrinsic rhythm which is sinus mechanism currently. Pacer wires remain in place with backup pacing. White count 8.4. Hemoglobin 8.2. Platelet count 90,000. Sodium 141. Potassium 4.1. Creatinine 0.68. Glucose 121. AST 43. ALT 12. Albumin 3.5. She did receive albumin this morning. She has 0.9 normal saline at 50 MLS per hour. Clevidipine on hold. Insulin drip on hold. She is on Cipro for UTI. Remains on bronchodilators. Continue to work with the incentive spirometer. Heparin for DVT prophylaxis. Objective - Vital Signs Vital signs: Vital Signs Temp 98.2 F 04/14/21 08:00 Pulse 85 04/14/21 08:00 Resp 12 04/14/21 08:00 BP 129/51 04/13/21 20:55 Pulse Ox 99 04/14/21 08:00 Intake & Output 04/13/21 04/14/21 04/14/21 18:59 06:59 18:59 Intake Total 320.652 4228.215 142.646 Output Total 2600 1305 380 Balance -2201.641 1033.215 -237.354 Weight 83.8 kg Intake: IV 369 1208 138 .9NS 180 550 100 .9NS Cardiac Output 50 150 20 0.9NS Pressure Bag 36 108 18 ACETAMINOPHEN IV (For NPO 100 ) 1,000 mg In Empty Bag 1 bag @ 400 mls/hr IVPB Q6HR [facility] Rx#:[id number] Albumin Human 5% 250 ml 250 In Empty Bag 1 bag @ 250 mls/hr IVPB Q1HR PRN Rx#: [id number] ceFAZolin 2 gm In Sodium 50 Chloride 0.9% 50 ml @ 100 mls/hr IVPB Q8HR [facility] Rx# :[id number] Intake, IV Titration 29.359 100.215 4.646 Amount Clevidipine Butyrate 25 5.733 42.267 mg In Empty Bag 1 bag @ 1 MG/HR 2 mls/hr IV .Q24H [facility] Rx#:[id number] Insulin Regular 100 unit 5.892 57.948 4.646 In Sodium Chloride 0.9% 100 ml @ Per Protocol IV .Q0M [facility] Rx#:[id number] propofoL 1,000 mg In 17.734 Empty Bag 1 bag @ Titrate IV .Q0M [facility] Rx#: [id number] Oral 720 Blood Product 0 310 Rc As-1 Unit 0 310 [id number] Output: Chest Tube Drainage 430 120 300 Left Pleural Chest Tube 240 50 140 Mediastinal Chest Tube X 190 70 160 2 Urine 970 1185 80 Estimated Blood Loss 1200 Other: Voiding Method Indwelling Catheter Indwelling Catheter ABP, PAP, CO, CI - Last Documented Arterial Blood Pressure 135/55 Pulmonary Artery Pressure 29/8 Cardiac Output 5.6 Cardiac Index 3.1 - Exam GENERAL EXAM: Awake, alert pleasant 80-year-old female on 10 L high flow nasal cannula, currently comfortable in no apparent distress. HEAD: Normocephalic/atraumatic. EYES: Normal reaction of pupils, equal size. Conjunctiva pink, sclera white. NOSE: Clear with pink turbinates. THROAT: No erythema or exudates. NECK: Right IJ [place]-Geovanny catheter in place per No masses, no JVD, no thyroid enlargement, no adenopathy. CHEST: No chest wall deformity. Symmetrical expansion. Midsternal incision clean dry and intact, covered with a surgical dressing, chest tube sites are clean dry and intact. 2 mediastinal and left pleural chest tubes in place with no evidence of air leak, to wall suction, and 400 ML's of sanguinous output in the Pleur-evac's 2 LUNGS: Equal air entry with crackles in the posterior bases left greater than right CVS: Regular rate and rhythm, normal S1 and S2, no gallops, no murmurs, no rubs ABDOMEN: Soft, nontender. No hepatosplenomegaly, normal bowel sounds, no guarding or rigidity. EXTREMITIES: No clubbing, no edema, no cyanosis, 2+ pulses and upper and lower extremities. Right radial arterial line in place. Incisions on bilateral lower extremities are clean dry and intact, patient has a SCDs on bilateral lower extremities MUSCULOSKELETAL: Muscle strength and tone normal. SPINE: No scoliosis or deformity SKIN: No rashes CENTRAL NERVOUS SYSTEM: Currently awake and alert oriented 3. No focal deficits, tone is normal in all 4 extremities. - Labs CBC & Chem 7: 04/14/21 04:25 04/14/21 04:25 Labs: Abnormal Lab Results - Last 24 Hours (Table) 04/05/21 04/13/21 04/13/21 Range/Units 15:11 08:35 10:39 RBC (3.80-5.40) m/uL Hgb (11.4-16.0) gm/dL Hct (34.0-46.0) % Plt Count (150-450) k/uL Neutrophils # (1.3-7.7) k/uL Lymphocytes # (1.0-4.8) k/uL PT (9.0-12.0) sec INR (<1.2) APTT (22.0-30.0) sec Fibrinogen (200-500) mg/dL ABG pH (7.35-7.45) ABG pO2 >420 H 182 H (83-108) mmHg ABG Total CO2 (19-24) mmol/L ABG O2 Saturation 100.0 H 100.0 H (94-97) % ABG Hematocrit 30 L (34.0-46.0) % ABG Potassium (3.4-4.5) mmol/L ABG Ionized Calcium (4.5-5.3) mg/dL ABG Glucose 144 H 130 H (75-99) mg/dL ABG Lactic Acid 1.7 H (0.5-1.6) mmol/L Hemoglobin 11.2 L 9.7 L (11.4-16.0) gm/dL Chloride (98-107) mmol/L Glucose (74-99) mg/dL POC Glucose (mg/dL) (75-99) mg/dL Calcium (8.4-10.2) mg/dL Magnesium (1.6-2.3) mg/dL AST (14-36) U/L Alkaline Phosphatase (38-126) U/L Total Protein (6.3-8.2) g/dL Albumin (3.5-5.0) g/dL Arterial Blood Potassium (3.4-4.5) mmol/L Arterial Blood Glucose 144 H 130 H (75-99) mg/dL Crossmatch See Detail 04/13/21 04/13/21 04/13/21 Range/Units 11:47 12:10 12:44 RBC (3.80-5.40) m/uL Hgb (11.4-16.0) gm/dL Hct (34.0-46.0) % Plt Count (150-450) k/uL Neutrophils # (1.3-7.7) k/uL Lymphocytes # (1.0-4.8) k/uL PT (9.0-12.0) sec INR (<1.2) APTT (22.0-30.0) sec Fibrinogen (200-500) mg/dL ABG pH 7.30 L 7.34 L (7.35-7.45) ABG pO2 204 H >420 H 225 H (83-108) mmHg ABG Total CO2 25 H (19-24) mmol/L ABG O2 Saturation 99.8 H 100.0 H 99.9 H (94-97) % ABG Hematocrit 27 L 22 L 21 L (34.0-46.0) % ABG Potassium 5.4 H (3.4-4.5) mmol/L ABG Ionized Calcium 4.0 L 4.1 L (4.5-5.3) mg/dL ABG Glucose 150 H 135 H 141 H (75-99) mg/dL ABG Lactic Acid 2.0 H (0.5-1.6) mmol/L Hemoglobin 8.9 L 7.0 L* 6.8 L* (11.4-16.0) gm/dL Chloride (98-107) mmol/L Glucose (74-99) mg/dL POC Glucose (mg/dL) (75-99) mg/dL Calcium (8.4-10.2) mg/dL Magnesium (1.6-2.3) mg/dL AST (14-36) U/L Alkaline Phosphatase (38-126) U/L Total Protein (6.3-8.2) g/dL Albumin (3.5-5.0) g/dL Arterial Blood Potassium 5.4 H (3.4-4.5) mmol/L Arterial Blood Glucose 150 H 135 H 141 H (75-99) mg/dL Crossmatch 04/13/21 04/13/21 04/13/21 Range/Units 13:13 14:38 14:59 RBC 2.20 L (3.80-5.40) m/uL Hgb 7.0 L (11.4-16.0) gm/dL Hct 20.8 L (34.0-46.0) % Plt Count 88 L (150-450) k/uL Neutrophils # (1.3-7.7) k/uL Lymphocytes # (1.0-4.8) k/uL PT (9.0-12.0) sec INR (<1.2) APTT (22.0-30.0) sec Fibrinogen (200-500) mg/dL ABG pH (7.35-7.45) ABG pO2 310 H 335 H (83-108) mmHg ABG Total CO2 26 H (19-24) mmol/L ABG O2 Saturation 100.0 H 100.0 H (94-97) % ABG Hematocrit 20 L* 22 L (34.0-46.0) % ABG Potassium 5.4 H (3.4-4.5) mmol/L ABG Ionized Calcium 4.1 L (4.5-5.3) mg/dL ABG Glucose 147 H 190 H (75-99) mg/dL ABG Lactic Acid 2.2 H* 2.2 H* (0.5-1.6) mmol/L Hemoglobin 6.6 L* 7.1 L (11.4-16.0) gm/dL Chloride (98-107) mmol/L Glucose (74-99) mg/dL POC Glucose (mg/dL) (75-99) mg/dL Calcium (8.4-10.2) mg/dL Magnesium (1.6-2.3) mg/dL AST (14-36) U/L Alkaline Phosphatase (38-126) U/L Total Protein (6.3-8.2) g/dL Albumin (3.5-5.0) g/dL Arterial Blood Potassium 5.4 H (3.4-4.5) mmol/L Arterial Blood Glucose 147 H 190 H (75-99) mg/dL Crossmatch 04/13/21 04/13/21 04/13/21 Range/Units 15:22 16:00 16:00 RBC (3.80-5.40) m/uL Hgb (11.4-16.0) gm/dL Hct (34.0-46.0) % Plt Count (150-450) k/uL Neutrophils # (1.3-7.7) k/uL Lymphocytes # (1.0-4.8) k/uL PT 12.6 H (9.0-12.0) sec INR 1.2 H (<1.2) APTT 32.5 H (22.0-30.0) sec Fibrinogen (200-500) mg/dL ABG pH (7.35-7.45) ABG pO2 (83-108) mmHg ABG Total CO2 (19-24) mmol/L ABG O2 Saturation (94-97) % ABG Hematocrit (34.0-46.0) % ABG Potassium (3.4-4.5) mmol/L ABG Ionized Calcium (4.5-5.3) mg/dL ABG Glucose (75-99) mg/dL ABG Lactic Acid (0.5-1.6) mmol/L Hemoglobin (11.4-16.0) gm/dL Chloride 112 H (98-107) mmol/L Glucose 182 H (74-99) mg/dL POC Glucose (mg/dL) 217 H (75-99) mg/dL Calcium 8.1 L (8.4-10.2) mg/dL Magnesium 2.8 H (1.6-2.3) mg/dL AST 38 H (14-36) U/L Alkaline Phosphatase 28 L (38-126) U/L Total Protein 4.6 L (6.3-8.2) g/dL Albumin 3.2 L (3.5-5.0) g/dL Arterial Blood Potassium (3.4-4.5) mmol/L Arterial Blood Glucose (75-99) mg/dL Crossmatch 04/13/21 04/13/21 04/13/21 Range/Units 16:01 16:06 16:57 RBC (3.80-5.40) m/uL Hgb (11.4-16.0) gm/dL Hct (34.0-46.0) % Plt Count (150-450) k/uL Neutrophils # (1.3-7.7) k/uL Lymphocytes # (1.0-4.8) k/uL PT (9.0-12.0) sec INR (<1.2) APTT (22.0-30.0) sec Fibrinogen (200-500) mg/dL ABG pH (7.35-7.45) ABG pO2 >400 H (83-108) mmHg ABG Total CO2 (19-24) mmol/L ABG O2 Saturation 99.8 H (94-97) % ABG Hematocrit (34.0-46.0) % ABG Potassium (3.4-4.5) mmol/L ABG Ionized Calcium (4.5-5.3) mg/dL ABG Glucose (75-99) mg/dL ABG Lactic Acid (0.5-1.6) mmol/L Hemoglobin (11.4-16.0) gm/dL Chloride (98-107) mmol/L Glucose (74-99) mg/dL POC Glucose (mg/dL) 161 H 128 H (75-99) mg/dL Calcium (8.4-10.2) mg/dL Magnesium (1.6-2.3) mg/dL AST (14-36) U/L Alkaline Phosphatase (38-126) U/L Total Protein (6.3-8.2) g/dL Albumin (3.5-5.0) g/dL Arterial Blood Potassium (3.4-4.5) mmol/L Arterial Blood Glucose (75-99) mg/dL Crossmatch 04/13/21 04/13/21 04/13/21 Range/Units 17:35 17:35 18:17 RBC 2.06 L (3.80-5.40) m/uL Hgb 6.9 L* (11.4-16.0) gm/dL Hct 19.3 L* (34.0-46.0) % Plt Count 81 L (150-450) k/uL Neutrophils # (1.3-7.7) k/uL Lymphocytes # 0.8 L (1.0-4.8) k/uL PT (9.0-12.0) sec INR (<1.2) APTT (22.0-30.0) sec Fibrinogen 193 L (200-500) mg/dL ABG pH (7.35-7.45) ABG pO2 (83-108) mmHg ABG Total CO2 (19-24) mmol/L ABG O2 Saturation (94-97) % ABG Hematocrit (34.0-46.0) % ABG Potassium (3.4-4.5) mmol/L ABG Ionized Calcium (4.5-5.3) mg/dL ABG Glucose (75-99) mg/dL ABG Lactic Acid (0.5-1.6) mmol/L Hemoglobin (11.4-16.0) gm/dL Chloride (98-107) mmol/L Glucose (74-99) mg/dL POC Glucose (mg/dL) 197 H (75-99) mg/dL Calcium (8.4-10.2) mg/dL Magnesium (1.6-2.3) mg/dL AST (14-36) U/L Alkaline Phosphatase (38-126) U/L Total Protein (6.3-8.2) g/dL Albumin (3.5-5.0) g/dL Arterial Blood Potassium (3.4-4.5) mmol/L Arterial Blood Glucose (75-99) mg/dL Crossmatch 04/13/21 04/13/21 04/13/21 Range/Units 19:05 20:08 21:16 RBC (3.80-5.40) m/uL Hgb (11.4-16.0) gm/dL Hct (34.0-46.0) % Plt Count (150-450) k/uL Neutrophils # (1.3-7.7) k/uL Lymphocytes # (1.0-4.8) k/uL PT (9.0-12.0) sec INR (<1.2) APTT (22.0-30.0) sec Fibrinogen (200-500) mg/dL ABG pH (7.35-7.45) ABG pO2 (83-108) mmHg ABG Total CO2 (19-24) mmol/L ABG O2 Saturation (94-97) % ABG Hematocrit (34.0-46.0) % ABG Potassium (3.4-4.5) mmol/L ABG Ionized Calcium (4.5-5.3) mg/dL ABG Glucose (75-99) mg/dL ABG Lactic Acid (0.5-1.6) mmol/L Hemoglobin (11.4-16.0) gm/dL Chloride (98-107) mmol/L Glucose (74-99) mg/dL POC Glucose (mg/dL) 201 H 201 H 187 H (75-99) mg/dL Calcium (8.4-10.2) mg/dL Magnesium (1.6-2.3) mg/dL AST (14-36) U/L Alkaline Phosphatase (38-126) U/L Total Protein (6.3-8.2) g/dL Albumin (3.5-5.0) g/dL Arterial Blood Potassium (3.4-4.5) mmol/L Arterial Blood Glucose (75-99) mg/dL Crossmatch 04/13/21 04/13/21 04/13/21 Range/Units 21:40 22:05 22:10 RBC 2.80 L (3.80-5.40) m/uL Hgb 8.5 L D (11.4-16.0) gm/dL Hct 25.7 L (34.0-46.0) % Plt Count 96 L (150-450) k/uL Neutrophils # 8.8 H (1.3-7.7) k/uL Lymphocytes # 0.4 L (1.0-4.8) k/uL PT (9.0-12.0) sec INR (<1.2) APTT (22.0-30.0) sec Fibrinogen (200-500) mg/dL ABG pH 7.33 L (7.35-7.45) ABG pO2 (83-108) mmHg ABG Total CO2 (19-24) mmol/L ABG O2 Saturation 97.7 H (94-97) % ABG Hematocrit (34.0-46.0) % ABG Potassium (3.4-4.5) mmol/L ABG Ionized Calcium (4.5-5.3) mg/dL ABG Glucose (75-99) mg/dL ABG Lactic Acid (0.5-1.6) mmol/L Hemoglobin (11.4-16.0) gm/dL Chloride (98-107) mmol/L Glucose (74-99) mg/dL POC Glucose (mg/dL) 174 H (75-99) mg/dL Calcium (8.4-10.2) mg/dL Magnesium (1.6-2.3) mg/dL AST (14-36) U/L Alkaline Phosphatase (38-126) U/L Total Protein (6.3-8.2) g/dL Albumin (3.5-5.0) g/dL Arterial Blood Potassium (3.4-4.5) mmol/L Arterial Blood Glucose (75-99) mg/dL Crossmatch 04/13/21 04/14/21 04/14/21 Range/Units 23:26 00:33 02:03 RBC (3.80-5.40) m/uL Hgb (11.4-16.0) gm/dL Hct (34.0-46.0) % Plt Count (150-450) k/uL Neutrophils # (1.3-7.7) k/uL Lymphocytes # (1.0-4.8) k/uL PT (9.0-12.0) sec INR (<1.2) APTT (22.0-30.0) sec Fibrinogen (200-500) mg/dL ABG pH (7.35-7.45) ABG pO2 (83-108) mmHg ABG Total CO2 (19-24) mmol/L ABG O2 Saturation (94-97) % ABG Hematocrit (34.0-46.0) % ABG Potassium (3.4-4.5) mmol/L ABG Ionized Calcium (4.5-5.3) mg/dL ABG Glucose (75-99) mg/dL ABG Lactic Acid (0.5-1.6) mmol/L Hemoglobin (11.4-16.0) gm/dL Chloride (98-107) mmol/L Glucose (74-99) mg/dL POC Glucose (mg/dL) 122 H 140 H 111 H (75-99) mg/dL Calcium (8.4-10.2) mg/dL Magnesium (1.6-2.3) mg/dL AST (14-36) U/L Alkaline Phosphatase (38-126) U/L Total Protein (6.3-8.2) g/dL Albumin (3.5-5.0) g/dL Arterial Blood Potassium (3.4-4.5) mmol/L Arterial Blood Glucose (75-99) mg/dL Crossmatch 04/14/21 04/14/21 04/14/21 Range/Units 02:49 04:25 04:25 RBC 2.61 L (3.80-5.40) m/uL Hgb 8.2 L (11.4-16.0) gm/dL Hct 23.6 L (34.0-46.0) % Plt Count 90 L (150-450) k/uL Neutrophils # (1.3-7.7) k/uL Lymphocytes # 0.4 L (1.0-4.8) k/uL PT (9.0-12.0) sec INR (<1.2) APTT (22.0-30.0) sec Fibrinogen (200-500) mg/dL ABG pH (7.35-7.45) ABG pO2 (83-108) mmHg ABG Total CO2 (19-24) mmol/L ABG O2 Saturation (94-97) % ABG Hematocrit (34.0-46.0) % ABG Potassium (3.4-4.5) mmol/L ABG Ionized Calcium (4.5-5.3) mg/dL ABG Glucose (75-99) mg/dL ABG Lactic Acid (0.5-1.6) mmol/L Hemoglobin (11.4-16.0) gm/dL Chloride 112 H (98-107) mmol/L Glucose 121 H (74-99) mg/dL POC Glucose (mg/dL) 122 H (75-99) mg/dL Calcium (8.4-10.2) mg/dL Magnesium (1.6-2.3) mg/dL AST 43 H (14-36) U/L Alkaline Phosphatase (38-126) U/L Total Protein 4.9 L (6.3-8.2) g/dL Albumin (3.5-5.0) g/dL Arterial Blood Potassium (3.4-4.5) mmol/L Arterial Blood Glucose (75-99) mg/dL Crossmatch 04/14/21 04/14/21 04/14/21 Range/Units 04:25 05:13 05:52 RBC (3.80-5.40) m/uL Hgb (11.4-16.0) gm/dL Hct (34.0-46.0) % Plt Count (150-450) k/uL Neutrophils # (1.3-7.7) k/uL Lymphocytes # (1.0-4.8) k/uL PT (9.0-12.0) sec INR (<1.2) APTT (22.0-30.0) sec Fibrinogen (200-500) mg/dL ABG pH (7.35-7.45) ABG pO2 (83-108) mmHg ABG Total CO2 (19-24) mmol/L ABG O2 Saturation (94-97) % ABG Hematocrit (34.0-46.0) % ABG Potassium (3.4-4.5) mmol/L ABG Ionized Calcium (4.5-5.3) mg/dL ABG Glucose (75-99) mg/dL ABG Lactic Acid (0.5-1.6) mmol/L Hemoglobin (11.4-16.0) gm/dL Chloride (98-107) mmol/L Glucose (74-99) mg/dL POC Glucose (mg/dL) 133 H 118 H 118 H (75-99) mg/dL Calcium (8.4-10.2) mg/dL Magnesium (1.6-2.3) mg/dL AST (14-36) U/L Alkaline Phosphatase (38-126) U/L Total Protein (6.3-8.2) g/dL Albumin (3.5-5.0) g/dL Arterial Blood Potassium (3.4-4.5) mmol/L Arterial Blood Glucose (75-99) mg/dL Crossmatch 04/14/21 04/14/21 Range/Units 07:02 08:25 RBC (3.80-5.40) m/uL Hgb (11.4-16.0) gm/dL Hct (34.0-46.0) % Plt Count (150-450) k/uL Neutrophils # (1.3-7.7) k/uL Lymphocytes # (1.0-4.8) k/uL PT (9.0-12.0) sec INR (<1.2) APTT (22.0-30.0) sec Fibrinogen (200-500) mg/dL ABG pH (7.35-7.45) ABG pO2 (83-108) mmHg ABG Total CO2 (19-24) mmol/L ABG O2 Saturation (94-97) % ABG Hematocrit (34.0-46.0) % ABG Potassium (3.4-4.5) mmol/L ABG Ionized Calcium (4.5-5.3) mg/dL ABG Glucose (75-99) mg/dL ABG Lactic Acid (0.5-1.6) mmol/L Hemoglobin (11.4-16.0) gm/dL Chloride (98-107) mmol/L Glucose (74-99) mg/dL POC Glucose (mg/dL) 114 H 140 H (75-99) mg/dL Calcium (8.4-10.2) mg/dL Magnesium (1.6-2.3) mg/dL AST (14-36) U/L Alkaline Phosphatase (38-126) U/L Total Protein (6.3-8.2) g/dL Albumin (3.5-5.0) g/dL Arterial Blood Potassium (3.4-4.5) mmol/L Arterial Blood Glucose (75-99) mg/dL Crossmatch Assessment and Plan Assessment: 1 Symptomatic multivessel coronary artery disease, status post three-vessel bypass grafting with MENESES to the LAD, SVG to the RCA, and SVG to the OM 1, with endoscopic vein harvest in bilateral lower extremities, and exclusion of the left atrial appendage and intraoperative CHANDRA, postop day #1 2 Routine postoperative ventilator management, extubated at 21:55 04/13/2021. Currently on 10 L high flow nasal cannula.. 3 Postoperative blood loss anemia, hemoglobin 6.9, status post 1 unit packed red blood cells. Current hemoglobin 8.2. Normal outcome of coronary artery bypass grafting 4 Diabetes mellitus type II 5 Initial hypotension requiring pressors, subsequent hypertension requiring clevidipine. Currently on hold 6 Hyperlipidemia 7 Urinary tract infection, preop, E. 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 Hines Chest x-ray and labs reviewed Titrate the FiO2 as tolerated Encouraged increased use the incentive spirometer and cough and deep breathing exercises Increase her activity as tolerated Continue heparin for DVT prophylaxis Continue bronchodilators We will continue to follow and make further recommendations based on her clinical status I, the cosigning physician, performed a history & physical examination of the patient. Lungs sounds with crackles in the posterior bases left greater than r ight. Maintaining good O2 saturations in the 90s on 10 L high flow nasal cannula. I discussed the assessment and plan of care with my nurse practitioner, Marlena Naylor. I attest to the above note as dictated by her.
--- NOTE | 2021-04-14 10:05 | P.CRDCN ---
History of Present Illness Consult date: 04/14/21 History of present illness: HISTORY OF PRESENT ILLNESS: This is a 80-year-old female with a past medical history significant for diabetes mellitus, DVT, GERD, hypertension, and hyperlipidemia. Patient follows in the office with Dr. Mercado. We have been asked to see the patient in consultation for post cardiac surgery care. Patient is status post CABG 3: MENESES to LAD, reverse saphenous vein graft to first appears marginal artery, and reverse saphenous vein graft to the right coronary artery. Postop day #1. Patient examined at the bedside. Patient was extubated yesterday morning. She is currently on nasal cannula with oxygen saturations greater than 92%. She is sitting up in the chair. She denies chest pain or pressure. Denies shortness of breath. Pain is currently well controlled. Patient is currently confused and only alert and oriented 1. Her narcotics have been discontinued. Patient was hypertensive overnight and did require Cleviprex which is off at this time. She is hemodynamically stable and not requiring vasopressor support. Telemetry reveals sinus mechanism Chest xray status post median sternotomy. Increased perihilar and interstitial airspace opacities suggestive of pulmonary edema. Left basilar airspace opacities with small left pleural effusion. Probable tiny right pleural effusion. Laboratory data: WBC 8.4. Hemoglobin 8.2. Platelet count 90. Sodium 141. Potassium 4.1. BUN 14. Creatinine 0.68. Magnesium 2.2. Current home cardiac medications include aspirin 81 mg daily, metoprolol succinate 12.5 mg daily, simvastatin 40 mg daily and valsartan 160 mg daily Most recent echocardiogram obtained on 04/05/2021 reveals ejection fraction 40- 45%, mild mitral regurgitation, and mild tricuspid regurgitation Cardiac catheterization history: 04/05/2021 revealing calcified right and left coronary systems. Complex calcified lesion involving the distal left main coronary artery and ostial LCX. The lesion in the left main appeared to be in the range of 50-60% and ostial left circumflex about 80-90%. Subtotally occluded mid left anterior descending artery. REVIEW OF SYSTEMS: At the time of my exam: CONSTITUTIONAL: Denies fever or chills. HEENT: Denies blurred vision, vision changes, or eye pain. Denies hemoptysis CARDIOVASCULAR: Denies chest pain. Denies orthopnea. Denies PND. Denies palpitations RESPIRATORY: Denies shortness of breath. GASTROINTESTINAL: Denies abdominal pain. Denies nausea or vomiting. HEMATOLOGIC: Denies bleeding disorders. GENITOURINARY: Denies any blood in urine. SKIN: Denies pruitis. Denies rash. PHYSICAL EXAM: VITAL SIGNS: Reviewed. GENERAL: Well-developed in no acute distress. HEENT: Head is normocephalic. Pupils are equal, round. Sclerae anicteric. Mucous membranes of the mouth are moist. Neck supple. No JVD or thyromegaly LUNGS: Respirations even and unlabored. Lungs diminished bilaterally. Chest tubes noted. HEART: Regular rate and rhythm. S1 and S2 heard. Dressing to sternum clean dry and intact. Heart hugger present. ABDOMEN: Soft. Nondistended. Nontender. EXTREMITIES: Normal range of motion. No clubbing or cyanosis. Peripheral pulses intact. No lower extremity edema NEUROLOGIC: Awake and alert. Oriented x 1. ASSESSMENT: Multivessel coronary artery disease, status post CABG 3 Postoperative acute blood loss anemia Confusion Hypertension Hyperlipidemia Diabetes mellitus History of DVT Family history of premature coronary artery disease PLAN: Continue postoperative management per cardiac versus surgery Continue current cardiac medications including aspirin, Plavix, atorvastatin, and metoprolol Encourage use of incentive spirometer Increase activity as tolerated Further recommendations pending patient's course Nurse practitioner note has been reviewed by physician. Signing provider agrees with the documented findings, assessment, and plan of care. Past Medical History Past Medical History: Diabetes Mellitus, Deep Vein Thrombosis (DVT), GERD/Reflux, Hyperlipidemia, Hypertension, Osteoarthritis (OA) Additional Past Medical History / Comment(s): "borderline cholesterol", DVT in her 20's or 30's, SOB w/exertion @times recently, fully vaccinated for covid History of Any Multi-Drug Resistant Organisms: None Reported Past Surgical History: Appendectomy, Heart Catheterization, Hysterectomy, Joint Replacement, Orthopedic Surgery, Tonsillectomy Additional Past Surgical History / Comment(s): LT. HIP REPLACEMENT, ORIF rt ankle, Leopoldo cataracts Past Anesthesia/Blood Transfusion Reactions: Previous Problems w/ Anesthesia, Motion Sickness Additional Past Anesthesia/Blood Transfusion Reaction / Comment(s): slow to wake up Smoking Status: Never smoker - Past Family History Mother Family Medical History: Myocardial Infarction ([place]) Additional Family Medical History / Comment(s): Her mother at age 69 from a [place] Brother(s) Family Medical History: Myocardial Infarction ([place]) Additional Family Medical History / Comment(s): Two of her brothers in their early 50's from [place]'s. Daughter(s) Family Medical History: CVA/TIA Medications and Allergies Home Medications Medication Instructions Recorded Confirmed Type Aspirin 81 mg PO HS 06/11/14 04/13/21 History Simvastatin 40 mg PO HS 06/11/14 04/13/21 History metFORMIN HCL [Glucophage] 500 mg PO BID 06/11/14 04/13/21 History Biotin 10,000 mcg PO DAILY 08/19/20 04/13/21 History Cholecalciferol [Vitamin D3 (25 2,000 unit PO DAILY 08/19/20 04/13/21 History Mcg = 1000 Iu)] Cyanocobalamin (Vitamin B-12) 1,000 mcg PO DAILY 08/19/20 04/13/21 History [Vitamin B-12] HYDROcodone/APAP 5-325MG [[place] 1 tab PO Q6HR PRN 08/19/20 04/13/21 History 5-325] Valsartan [Diovan] 160 mg PO DAILY 03/31/21 04/13/21 History Metoprolol Succinate [Toprol XL] 12.5 mg PO DAILY #7 tab 04/06/21 04/13/21 Rx Ciprofloxacin HCl [Cipro] 500 mg PO BID 04/13/21 04/13/21 History Allergies Allergy/AdvReac Type Severity Reaction Status Date / Time No Known Allergies Allergy Verified 04/13/21 06:08 Physical Exam Vitals: Vital Signs Temp Pulse Resp BP Pulse Ox 04/14/21 09:00 86 11 L 100 04/14/21 08:30 82 10 L 100 04/14/21 08:00 98.2 F 85 12 99 04/14/21 07:33 82 04/14/21 07:30 84 14 100 04/14/21 07:26 84 04/14/21 07:00 81 10 L 94 L 04/14/21 06:30 85 11 L 94 L 04/14/21 06:00 105 H 16 93 L 04/14/21 05:30 97 13 93 L 04/14/21 05:00 100 12 99 04/14/21 04:30 89 11 L 100 04/14/21 04:00 98.6 F 87 10 L 100 04/14/21 03:30 89 16 100 04/14/21 03:00 93 10 L 100 04/14/21 02:30 97 12 99 04/14/21 02:00 90 12 100 04/14/21 01:30 87 15 95 04/14/21 01:00 90 13 100 04/14/21 00:30 109 H 13 86 L 04/14/21 00:00 92 13 92 L 04/13/21 23:30 88 14 100 04/13/21 23:00 91 15 100 04/13/21 22:30 89 13 100 04/13/21 22:00 92 20 86 L 04/13/21 21:30 96 20 95 04/13/21 21:00 93 20 95 04/13/21 20:55 98.4 F 88 20 129/51 94 L 04/13/21 20:30 92 20 94 L 04/13/21 20:00 36.9 F L 92 20 95 04/13/21 19:40 92 04/13/21 19:30 96 20 98 04/13/21 19:26 93 04/13/21 19:02 98.1 F 90 20 132/47 95 04/13/21 19:00 90 21 95 04/13/21 18:32 97.7 F 92 25 H 139/51 97 04/13/21 18:30 93 21 95 04/13/21 18:22 97.2 F L 92 25 H 136/52 94 L 04/13/21 18:00 86 21 97 04/13/21 17:40 86 21 100 04/13/21 17:20 82 21 100 04/13/21 17:00 81 20 100 04/13/21 16:40 78 20 100 04/13/21 16:36 77 04/13/21 16:29 79 04/13/21 16:20 95.9 F L 80 20 100 04/13/21 16:10 79 20 140/74 100 04/13/21 16:00 79 20 90/50 100 04/13/21 15:50 96.3 F L 89 20 86/53 100 04/13/21 15:40 80 16 100 04/13/21 15:30 80 12 100 04/13/21 15:20 80 12 100 Intake and Output 0504/14/21 04/14/21 22:59 06:59 14:59 Intake Total 935.611 1107.531 142.646 Output Total 1355 650 380 Balance -735.191 7794.531 -237.354 Intake: IV 562 912 138 .9NS 380 350 100 .9NS Cardiac Output 110 90 20 0.9NS Pressure Bag 72 72 18 ACETAMINOPHEN IV (For NPO 100 ) 1,000 mg In Empty Bag 1 bag @ 400 mls/hr IVPB Q6HR [facility] Rx#:[id number] Albumin Human 5% 250 ml 250 In Empty Bag 1 bag @ 250 mls/hr IVPB Q1HR PRN Rx#: [id number] ceFAZolin 2 gm In Sodium 50 Chloride 0.9% 50 ml @ 100 mls/hr IVPB Q8HR [facility] Rx# :[id number] Intake, IV Titration 62.043 67.531 4.646 Amount Clevidipine Butyrate 25 16.466 31.534 mg In Empty Bag 1 bag @ 1 MG/HR 2 mls/hr IV .Q24H [facility] Rx#:[id number] Insulin Regular 100 unit 27.843 35.997 4.646 In Sodium Chloride 0.9% 100 ml @ Per Protocol IV .Q0M [facility] Rx#:[id number] propofoL 1,000 mg In 17.734 Empty Bag 1 bag @ Titrate IV .Q0M [facility] Rx#: [id number] Oral 720 Blood Product 310 Rc As-1 Unit 310 [id number] Output: Chest Tube Drainage 460 90 300 Left Pleural Chest Tube 250 40 140 Mediastinal Chest Tube X 210 50 160 2 Urine 895 560 80 Other: Voiding Method Indwelling Catheter Indwelling Catheter Weight 83.8 kg ABP, PAP, CO, CI - Last 8 Hours Arterial Blood Pressure 150/57 Arterial Blood Pressure 135/49 Arterial Blood Pressure 135/55 Arterial Blood Pressure 147/55 Arterial Blood Pressure 126/48 Arterial Blood Pressure 147/64 Arterial Blood Pressure 164/57 Arterial Blood Pressure 144/62 Arterial Blood Pressure 150/61 Arterial Blood Pressure 134/55 Arterial Blood Pressure 124/52 Arterial Blood Pressure 149/56 Arterial Blood Pressure 135/56 Arterial Blood Pressure 146/54 Pulmonary Artery Pressure 32/11 Pulmonary Artery Pressure 30/10 Pulmonary Artery Pressure 29/8 Pulmonary Artery Pressure 25/10 Pulmonary Artery Pressure 21/6 Pulmonary Artery Pressure 36/17 Pulmonary Artery Pressure 31/17 Pulmonary Artery Pressure 37/17 Pulmonary Artery Pressure 30/12 Pulmonary Artery Pressure 27/13 Pulmonary Artery Pressure 27/10 Pulmonary Artery Pressure 32/13 Pulmonary Artery Pressure 31/14 Pulmonary Artery Pressure 27/12 Cardiac Output 5.6 Cardiac Output 4.9 Cardiac Output 4.9 Cardiac Output 6.2 Cardiac Index 3.1 Cardiac Index 2.7 Cardiac Index 2.7 Cardiac Index 3.4 Results 04/14/21 04:25 04/14/21 04:25 Cardiac Enzymes 04/13/21 04/14/21 Range/Units 16:00 04:25 AST 38 H 43 H (14-36) U/L Coagulation 04/13/21 Range/Units 16:00 PT 12.6 H (9.0-12.0) sec APTT 32.5 H (22.0-30.0) sec CBC 04/13/21 04/13/21 04/13/21 Range/Units 14:59 17:35 22:05 WBC 7.7 6.6 9.5 (3.8-10.6) k/uL RBC 2.20 L 2.06 L 2.80 L (3.80-5.40) m/uL Hgb 7.0 L 6.9 L* 8.5 L D (11.4-16.0) gm/dL Hct 20.8 L 19.3 L* 25.7 L (34.0-46.0) % Plt Count 88 L 81 L 96 L (150-450) k/uL 04/14/21 Range/Units 04:25 WBC 8.4 (3.8-10.6) k/uL RBC 2.61 L (3.80-5.40) m/uL Hgb 8.2 L (11.4-16.0) gm/dL Hct 23.6 L (34.0-46.0) % Plt Count 90 L (150-450) k/uL Comprehensive Metabolic Panel 04/13/21 04/14/21 Range/Units 16:00 04:25 Sodium 141 141 (137-145) mmol/L Potassium 4.3 4.1 (3.5-5.1) mmol/L Chloride 112 H 112 H (98-107) mmol/L Carbon Dioxide 22 23 (22-30) mmol/L BUN 16 14 (7-17) mg/dL Creatinine 0.65 0.68 (0.52-1.04) mg/dL Glucose 182 H 121 H (74-99) mg/dL Calcium 8.1 L 8.5 (8.4-10.2) mg/dL AST 38 H 43 H (14-36) U/L ALT 12 12 (4-34) U/L Alkaline Phosphatase 28 L 38 (38-126) U/L Total Protein 4.6 L 4.9 L (6.3-8.2) g/dL Albumin 3.2 L 3.5 (3.5-5.0) g/dL Current Medications Generic Name Dose Route Start Last Admin Trade Name Freq PRN Reason Stop Dose Admin Acetaminophen 650 mg 04/14/21 06:51 Acetaminophen Tab 325 Mg Tab PO Q4HR PRN Fever and/ or Pain Albuterol/Ipratropium 3 ml 04/13/21 14:59 Ipratropium-Albuterol 3 Ml Neb INHALATION RT-Q2H PRN Shortness Of Breath Or Wheezing Albuterol/Ipratropium 3 ml 04/14/21 08:00 04/14/21 07:26 Ipratropium-Albuterol 3 Ml Neb INHALATION 3 ml RT-QID [facility] Administration Aspirin 81 mg 04/14/21 09:00 04/14/21 09:00 Aspirin 81 Mg PO 81 mg DAILY [facility] Administration Atorvastatin Calcium 40 mg 04/14/21 09:00 04/14/21 09:00 Atorvastatin 40 Mg Tab PO 40 mg DAILY [facility] Administration Benzocaine/Menthol 1 each 04/13/21 14:59 Benzocaine/Menthol Lozeng 1 Each Lozenge MUCOUS MEM Q2H PRN Sore Throat Bisacodyl 10 mg 04/14/21 09:00 Bisacodyl 10 Mg Supp RECTAL DAILY PRN Constipation Cholecalciferol 50 mcg 04/14/21 09:00 04/14/21 09:00 Cholecalciferol 25 Mcg (1000 Iu) Tablet PO 50 mcg DAILY [facility] Administration Ciprofloxacin 500 mg 04/14/21 09:00 04/14/21 09:01 Ciprofloxacin Hcl 500 Mg Tab PO 500 mg BID [facility] Administration Clopidogrel Bisulfate 75 mg 04/14/21 09:00 04/14/21 09:00 Clopidogrel 75 Mg Tab PO 75 mg DAILY [facility] Administration Cyanocobalamin 1,000 mcg 04/14/21 09:00 04/14/21 09:00 Cyanocobalamin 500 Mcg Tab PO 1,000 mcg DAILY [facility] Administration Heparin Sodium (Porcine) 5,000 unit 04/13/21 16:00 04/14/21 09:00 Heparin Sodium,Porcine/Pf 5,000 Unit/0.5 Ml Syringe SQ 5,000 unit Q8HR [facility] Administration Amiodarone HCl 150 mg/ 103 mls @ 618 mls/hr 04/13/21 14:59 Dextrose/Water IV .Q10M PRN A.FIB/FLUTTER Protocol Sodium Chloride 1,000 mls @ 20 mls/hr 04/13/21 15:00 04/13/21 15:30 Saline 0.9% IV 50 mls/hr .Q24H [facility] Administration Albumin Human 250 ml/ IV 250 mls @ 250 mls/hr 04/13/21 14:59 04/14/21 06:30 Solution IVPB 04/15/21 15:00 250 mls/hr Q1HR PRN Administration For Volume Amiodarone HCl 360 mg/ 207.2 mls @ 34.533 mls/hr 04/13/21 14:59 Dextrose/Water IV .Q6H PRN A.FIB/FLUTTER Protocol 1 MG/MIN Amiodarone HCl 450 mg/ 250 mls @ 16.667 mls/hr 04/13/21 14:59 Dextrose/Water IV .Q15H PRN A.FIB/FLUTTER Protocol 0.5 MG/MIN Clevidipine 25 mg/ IV Solution 50 mls @ 2 mls/hr 04/13/21 15:00 04/14/21 06:00 IV 0 mg/hr .Q24H [facility] 0 mls/hr Titration Protocol 1 MG/HR Insulin Human Regular 100 unit 101 mls @ 0 mls/hr 04/13/21 15:00 04/14/21 09:33 / Sodium Chloride IV 4.5 units/hr .Q0M [facility] 4.545 mls/hr Titration Protocol Per Protocol Ketorolac Tromethamine 15 mg 04/14/21 08:30 04/14/21 09:00 Ketorolac 15 Mg/Ml 1 Ml Vial IVP 04/19/21 08:31 15 mg Q6HR [facility] Administration Magnesium Hydroxide 2,400 mg 04/14/21 09:00 Magnesium Hydroxide 2,400 Mg/10 Ml Cup PO BID PRN Constipation Metoclopramide HCl 10 mg 04/13/21 14:59 Metoclopramide 5 Mg/Ml 2 Ml Vial IVP Q4H PRN Nausea And Vomiting Metoprolol Tartrate 25 mg 04/14/21 09:00 04/14/21 09:00 Metoprolol Tartrate 25 Mg Tab PO 25 mg BID [facility] Administration Miscellaneous Information 1 each 04/13/21 14:59 Magnesium Replacement Protocol 1 Each Mis MISCELLANE DAILY PRN Per Protocol Protocol Miscellaneous Information 1 each 04/13/21 14:59 Phosphorus Replacement Protoco 1 Each [facility] MISCELLANE DAILY PRN Per Protocol Protocol Miscellaneous Information 1 each 04/13/21 14:59 Potassium Replacement Protocol 1 Each [facility] MISCELLANE DAILY PRN Per Protocol Protocol Ondansetron HCl 4 mg 04/13/21 14:59 Ondansetron 4 Mg/2 Ml Vial IVP Q6HR PRN Nausea And Vomiting Pantoprazole Sodium 40 mg 04/14/21 09:00 04/14/21 09:02 Pantoprazole 40 Mg/10 Ml Vial IVP 04/14/21 10:00 40 mg DAILY [facility] Administration Pantoprazole Sodium 40 mg 04/15/21 07:30 Pantoprazole 40 Mg Tablet PO [id number]-[id number] [facility] Senna/Docusate Sodium 2 each 04/14/21 21:00 Sennosides-Docusate Sodium 1 Each Tab PO HS [facility] Sodium Chloride 10 ml 04/13/21 21:00 04/14/21 09:02 Sodium Chloride 0.9% Flush 10 Ml Syringe IV 10 ml BID [facility] Administration Intake and Output 04/13/21 04/14/21 04/14/21 22:59 06:59 14:59 Intake Total 708.698 5224.531 142.646 Output Total 1355 650 380 Balance -525.991 7803.531 -237.354 Intake: IV 562 912 138 .9NS 380 350 100 .9NS Cardiac Output 110 90 20 0.9NS Pressure Bag 72 72 18 ACETAMINOPHEN IV (For NPO 100 ) 1,000 mg In Empty Bag 1 bag @ 400 mls/hr IVPB Q6HR [facility] Rx#:[id number] Albumin Human 5% 250 ml 250 In Empty Bag 1 bag @ 250 mls/hr IVPB Q1HR PRN Rx#: [id number] ceFAZolin 2 gm In Sodium 50 Chloride 0.9% 50 ml @ 100 mls/hr IVPB Q8HR [facility] Rx# :[id number] Intake, IV Titration 62.043 67.531 4.646 Amount Clevidipine Butyrate 25 16.466 31.534 mg In Empty Bag 1 bag @ 1 MG/HR 2 mls/hr IV .Q24H [facility] Rx#:[id number] Insulin Regular 100 unit 27.843 35.997 4.646 In Sodium Chloride 0.9% 100 ml @ Per Protocol IV .Q0M [facility] Rx#:[id number] propofoL 1,000 mg In 17.734 Empty Bag 1 bag @ Titrate IV .Q0M [facility] Rx#: [id number] Oral 720 Blood Product 310 Rc As-1 Unit 310 [id number] Output: Chest Tube Drainage 460 90 300 Left Pleural Chest Tube 250 40 140 Mediastinal Chest Tube X 210 50 160 2 Urine 895 560 80 Other: Voiding Method Indwelling Catheter Indwelling Catheter Weight 83.8 kg 04/14/21 04:25 04/14/21 04:25
[2021-04-14] MEDS: SODIUM CHLORIDE 0.9% 1,000 ML IV SCH (10:27)
[2021-04-14 10:33] LABS: Glucose,Whole Blood 133 mg/dL (75-99)
--- NOTE | 2021-04-14 10:33 | OP ---
OPERATIVE REPORT DATE OF SURGERY: 04/13/2021 SURGEON: Dr. Eliud Vazquez ASSISTANTS: 1. Aura Martin. 2. Armando Montoya. PREOPERATIVE DIAGNOSIS: Triple-vessel coronary artery disease with subtotal occluded left anterior descending artery and left main disease, mild left ventricular dysfunction, hypertension, hyperlipidemia. POSTOPERATIVE DIAGNOSIS: Triple-vessel coronary artery disease with subtotal occluded left anterior descending artery and left main disease, mild left ventricular dysfunction, hypertension, hyperlipidemia. PROCEDURE: 1. Triple-vessel coronary artery bypass grafting using the left internal mammary artery to the left anterior descending artery, reverse saphenous vein graft from the aorta to the inferior branching of the first obtuse marginal artery, saphenous vein graft from the aorta to the right coronary artery. 2. Excision of the left atrial appendage using a 35 mm AtriClip. 3. Bilateral endoscopic greater saphenous vein harvesting. 4. Intraoperative graft flow measurement using the Adap.tv-Stim system. 5. Intraoperative transesophageal echocardiogram and epiaortic scanning. INDICATION FOR SURGERY: The patient is an an 80-year-old lady worked up for basically dyspnea on exertion and found to have a mild to moderate left ventricular dysfunction with ejection fraction estimated at 45%. Cardiac catheterization followed and that showed 67% distal left main disease with subtotally occluded left anterior descending artery and moderate disease in the right coronary artery. The patient is brought in today for elective coronary artery bypass grafting. The STS risk was discussed with her. She understood it and agreed to proceed. DESCRIPTION OF THE PROCEDURE: The patient in supine position. Right internal jugular [place] catheter and right radial arterial line were placed. She was brought to the operating room where she had normal PA pressure and good cardiac index. Subsequently general endotracheal anesthesia was induced uneventfully. The chest, abdomen, both lower extremities were prepped and draped using ChloraPrep after insertion of a Cramer catheter. The patient received 2 grams of cefazolin intravenously. The patient had a documented preoperative UTI and she was started on ciprofloxacin and the E coli is sensitive to cefazolin. Transesophageal echocardiogram showed mild left ventricular dysfunction and no significant valvular abnormality. Midline sternotomy was performed and no bone wax was used. We used Ostene. The left hemisternum was elevated and the left internal mammary artery was harvested in a somewhat skeletonized fashion. The left pleura was intentionally opened in this process and was drained with a 19-Canadian Tommy drain. The right pleura remained grossly intact. Initially, the left greater saphenous vein was harvested endoscopically after administration of 2500 units of heparin. The branches were tied. After preparation of the vein appeared to be of fair quality with the potential usable segment at the level of the thigh. For that reason, we elected to harvest the right greater saphenous vein between groin to below-knee level and that took some time. Eventually that vein was prepared and appeared to be of better quality with a good segment of vein available from it. Mediastinal fat was transected between 2 ties and epiaortic scanning revealed no protruding atheroma in the ascending aorta and no thickening of the wall. The pericardium was opened in an inverted T-fashion and a pericardial cradle was created. Findings included a normal-size aorta and normal size heart with possible diffuse scattered calcific coronary artery disease. After systemic heparinization after placement of respective pledgeted pursestring, aortic cannulation of the proximal arch with a 21-Canadian soft flow cannula, venous cannulation via the right atrial appendage with a 3-stage 29-Canadian cannula was performed. Antegrade as well as retrograde cardioplegia catheters were placed. There was a mention of a large coronary sinus on CHANDRA. However, the patient did not have persistent left superior vena cava. Cardioplegia bypass was initiated and patient's temperature was allowed to drift down to 34 degrees Celsius. With the heart empty and beating, we looked at the target. The LAD in its mid to distal aspect was identified and was a good target. To mention again that was subtotally occluded, not well assessed on cardiac catheterization. The right coronary artery was identified in the groove and we elected to bypass it in view of diffuse wall disease in it and at least a mild to moderate stenosis on catheterization after the takeoff of the acute marginal artery. Looking at the lateral wall, the inferior branching of the first obtuse marginal artery which was the best target was selected. It was not an option to tackle the second marginal or the posterolateral branch of the circumflex artery for paucity of conduit. However, that supplied the same area as the potentially bypassed first obtuse marginal artery. Aorta was clamped and during aortic clamping myocardial protection was achieved. An initial dose of 1 L of antegrade cold blood cardioplegia followed by 300 mL of retrograde cold blood cardioplegia. All subsequent doses were given retrograde at 15 minutes intervals. The first distal anastomosis was between a good segment of vein and the inferior branching of the first obtuse marginal artery which was around 1.5 mm in diameter thin- walled using Prolene 7-0 in continuous fashion. The second distal anastomosis was between another segment of vein and the right coronary artery which was opened was around 1.75 mm in diameter thin-walled using Prolene 7-0 in continuous fashion. The third and last distal anastomosis was between the left internal mammary artery that passed in a groove in the left pleuropericardial fat and anastomosed to the mid to distal aspect of the left anterior descending artery using Prolene 7-0 in continuous fashion. I used a 1 mm shunt in each distal anastomosis, which was removed before completing the anastomosis, respectively. Satisfied with the distal anastomosis, rewarming was started as we punched out 2 buttons of 4 mm each of the ascending aorta and performed the 2 proximal anastomoses of the 2 vein graft using running Prolene 6-0. The left atrial appendage had been excluded by deploying a 35 mm AtriClip at its base before starting the distal anastomosis. Warm blood retrograde was given during the performance of the last proximal anastomosis as well as allowing flow reestablishment in the left internal mammary artery. The patient was given lidocaine and magnesium. De-airing maneuvers were followed and with the patient in Trendelenburg position and the aortic root on maximum, we unclamped the aorta. The patient regained spontaneous sinus rhythm. After period of reperfusion after preliminary graft flow measurements showing patent graft, we were able to wean off cardioplegia bypass without the need of any inotropic or vasopressor support. At this point, we proceeded at a formal graft flow measurement. A 4 mm probe was selected. The flow into the vein to the RCA was 32 mL/minute, pulsatility index of 2.2, diastolic filling of 40%, showing a well-functioning . The second graft measured was a vein to the obtuse marginal artery. The flow was 79 mL/minute, pulsatility index of 1.7, diastolic filling of 55%, showing an excellent functioning graft. The flow into the left internal mammary artery to the left anterior descending artery was 33 mL/minute, pulsatility index of 1.5 and diastolic filling of 64% showing excellent functioning graft. With that, all pump suckers were stopped. Then, test dose and full dose protamine was given. FloSeal was placed on all anastomosis. Two monopolar atrial pacing wires were affixed to the pursestring of the right atrium. No ventricular pacing wire was placed. Two 19-Canadian Tommy drains were left substernally. CHANDRA showed normal LV function. The pericardial fat was approximated over the aorta and the heart. After ensuring adequate hemostasis and hemodynamic and after placement of a vancomycin paste between the sternal edges. The sternum was approximated using 5 [id number] [place] cable. Thorough irrigation with cefazolin followed. The rest of the closure proceeded in layers. Skin glue was applied. The patient was transferred to the ICU in stable condition. We will do low-dose nitroglycerin with a cardiac index of 2.5, normal sinus rhythm at 75 and a mean arterial pressure of 70 with a PA pressure of 25/12. ALINA / LALO: [id number] /
[2021-04-14 11:00] LABS: Glucose,Whole Blood 146 mg/dL (75-99)
[2021-04-14 11:05] VITALS: BMI 32.7
[2021-04-14 11:58] LABS: Glucose,Whole Blood 146 mg/dL (75-99)
[2021-04-14 13:14] LABS: Glucose,Whole Blood 102 mg/dL (75-99)
--- NOTE | 2021-04-14 14:27 | P.CONS ---
History of Present Illness - Reason for Consult Consult date: 04/13/21 Medical management Requesting physician: Eliud Vazquez - Chief Complaint Post CABG - History of Present Illness HISTORY OF PRESENT ILLNESS: This is an 80-year-old female one of my patient with a previous medical history significant for hypertension and hypertensive cardiovascular disease, hyperlipidemia, history of diabetes mellitus type 2, history of spondylosis of the cervical spine, patient developed to have a significant shortness of breath with exertion ended up seeing Dr. Mercado from cardiology who recommended to have a Lexiscan stress test which came back positive for an area of stress-induced ischemia and echocardiogram showed minimal decrease in the LV function with ejection fraction of 45%, this was followed by left heart catheterization that showed distal left main disease as well as proximal LAD disease, she was referred for coronary artery bypass grafting which was done today by Dr. Vazquez with MENESES to LAD, SVG to RCA, and SVG to the first obtuse marginal branch, and she was admitted to intensive care unit, currently is being seen in the ICU, she is currently intubated, lightly sedated, opens her eyes response to verbal supply, she does not appear to be in acute distress, her hemoglobin has dropped and she did receive 1 unit of packed cells, she would be extubated later on this evening. REVIEW OF SYSTEMS: patient is currently intubated on the ventilator. PAST MEDICAL HISTORY: hypertension and hypertensive cardio vascular disease. hyperlipidemia. Diabetes mellitus type 2. Spondylosis of the cervical spine GERD. History of DVT. PAST SURGICAL HISTORY: Tonsillectomy. Appendectomy. Hysterectomy. Left total hip arthroplasty. Right ankle ORIF. Bilateral cataract surgery Left heart catheterization. Colonoscopy per SOCIAL HISTORY: Patient is a lifelong nonsmoker, she denies any alcohol use or abuse, she lives with her . FAMILY HISTORY: Mother at age of 69 from [place], patient had 2 brothers who in their 50s from [place] as well, patient has 3 daughters one of them had a TIA and she suffers from hypertension hyperlipidemia and the other one with multiple sclerosis PHYSICAL EXAMINATION: General: 80-year-old female laying down in bed does not appear to be in acute distress she is on the ventilator. HEENT: Head is atraumatic, normocephalic, pupils were equal round reactive to light and recommendation, extraocular muscle movement were intact, sclera nonicteric, conjunctivae were pale, mucous membranes of the mouth are somewhat dry. Neck: Supple, no JVP, normal carotid upstroke bilaterally, no lymphadenopathy. Chest: Decreased breath sounds at the bases, few rhonchi, no whee expiratory wheezes, no chest wall tenderness, no intercostal retractions, there is [address], there is pacer wire, mid sternum is covered with dressing. Heart: First heart sound is normal, second heart sounds normal, there is a rub, there is systolic ejection murmur 2/6 located in the left sternal border. Abdomen: Soft, nontender, nondistended, positive bowel sounds Extremities: There is no edema no calf tenderness DP +2 bilaterally, bilateral Mohsen wraps. Neurologic examination: patient is drowsy opens her eyes response to verba stimuli, moves her upper and lower extremities. ASSESSMENT AND PLAN: 1. Postoperative day #0 status post CABG 3 with MENESES to LAD, SVG to RCA, SVG to OM1. Continue current treatment treatment plan as per cardiothoracic surgery, cardiology and ICU, patient is likely would be extubated in the next few hours. 2. Acute vent dependent respiratory failure secondary to CABG 3. Continue aggressive pulmonary toileting, continue the weaning parameter, patient will be extubated later on. 3. Acute blood loss anemia expected outcome of surgery. Monitor the patient hemoglobin, transfuse for hemoglobin less than 7. 4. Hypertension and hypertensive cardiovascular disease. Currently on Cleviprex drip . 5. Hyperlipidemia. Patient will be restarted back and her statin 3 6. Diabetes mellitus type 2 currently on insulin drip. 7. Spondylosis of the cervical spine status post epidural injection. 8. GERD with GI prophylaxis. Continue PPI. 9. History of DVT. Continue DVT prophylaxis. 10. Thank you for the consult we'll follow the patient with you.. Past Medical History Past Medical History: Diabetes Mellitus, Deep Vein Thrombosis (DVT), GERD/Reflux, Hyperlipidemia, Hypertension, Osteoarthritis (OA) Additional Past Medical History / Comment(s): "borderline cholesterol", DVT in her 20's or 30's, SOB w/exertion @times recently, fully vaccinated for covid History of Any Multi-Drug Resistant Organisms: None Reported Past Surgical History: Appendectomy, Heart Catheterization, Hysterectomy, Joint Replacement, Orthopedic Surgery, Tonsillectomy Additional Past Surgical History / Comment(s): LT. HIP REPLACEMENT, ORIF rt ankle, Leopoldo cataracts Past Anesthesia/Blood Transfusion Reactions: Previous Problems w/ Anesthesia, Motion Sickness Additional Past Anesthesia/Blood Transfusion Reaction / Comm: slow to wake up Smoking Status: Never smoker - Past Family History Mother Family Medical History: Myocardial Infarction ([place]) Additional Family Medical History / Comment(s): Her mother at age 69 from a [place] Brother(s) Family Medical History: Myocardial Infarction (MD) Additional Family Medical History / Comment(s): Two of her brothers in their early 50's from [place]'s. Daughter(s) Family Medical History: CVA/TIA Medications and Allergies Home Medications Medication Instructions Recorded Confirmed Type Aspirin 81 mg PO HS 06/11/14 04/13/21 History Simvastatin 40 mg PO HS 06/11/14 04/13/21 History metFORMIN HCL [Glucophage] 500 mg PO BID 06/11/14 04/13/21 History Biotin 10,000 mcg PO DAILY 08/19/20 04/13/21 History Cholecalciferol [Vitamin D3 (25 2,000 unit PO DAILY 08/19/20 04/13/21 History Mcg = 1000 Iu)] Cyanocobalamin (Vitamin B-12) 1,000 mcg PO DAILY 08/19/20 04/13/21 History [Vitamin B-12] HYDROcodone/APAP 5-325MG [[facility] tab PO Q6HR PRN 08/19/20 04/13/21 History 5-325] Valsartan [Diovan] 160 mg PO DAILY 03/31/21 04/13/21 History Metoprolol Succinate [Toprol XL] 12.5 mg PO DAILY #7 tab 04/06/21 04/13/21 Rx Ciprofloxacin HCl [Cipro] 500 mg PO BID 04/13/21 04/13/21 History Allergies Allergy/AdvReac Type Severity Reaction Status Date / Time No Known Allergies Allergy Verified 04/13/21 06:08 Physical Exam Vitals: Vital Signs Temp Pulse Pulse Resp BP BP BP 04/13/21 17:00 81 20 04/13/21 16:40 78 20 04/13/21 16:36 77 04/13/21 16:29 79 04/13/21 16:20 95.9 F L 80 20 04/13/21 16:10 79 20 140/74 04/13/21 16:00 79 20 90/50 04/13/21 15:50 96.3 F L 89 20 86/53 04/13/21 15:40 80 16 04/13/21 15:30 80 12 04/13/21 15:20 80 12 04/13/21 06:06 97.8 F 71 16 183/73 177/78 Pulse Ox 04/13/21 17:00 100 04/13/21 16:40 100 04/13/21 16:36 04/13/21 16:29 04/13/21 16:20 100 04/13/21 16:10 100 04/13/21 16:00 100 04/13/21 15:50 100 04/13/21 15:40 100 04/13/21 15:30 100 04/13/21 15:20 100 04/13/21 06:06 97 Intake and Output 04/13/21 04/13/21 04/13/21 06:59 14:59 22:59 Intake Total 300 103 229.036 Output Total 1900 480 Balance 300 -1797 -250.964 Intake: IV 300 103 207 .9NS 150 .9NS Cardiac Output 30 0.9NS Pressure Bag 27 Intake, IV Titration 22.036 Amount Insulin Regular 100 unit 4.461 In Sodium Chloride 0.9% 100 ml @ Per Protocol IV .Q0M [facility] Rx#:[id number] propofoL 1,000 mg In 17.575 Empty Bag 1 bag @ Titrate IV .Q0M [facility] Rx#: [id number] Output: Chest Tube Drainage 360 Left Pleural Chest Tube 190 Mediastinal Chest Tube X 170 2 Urine 700 120 Estimated Blood Loss 1200 Other: Weight 79.7 kg ABP, PAP, CO, CI - Last 8 Hours Arterial Blood Pressure 110/49 Arterial Blood Pressure 114/53 Arterial Blood Pressure 132/56 Arterial Blood Pressure 103/41 Arterial Blood Pressure 97/39 Arterial Blood Pressure 76/40 Arterial Blood Pressure 79/38 Arterial Blood Pressure 92/43 Arterial Blood Pressure 100/40 Pulmonary Artery Pressure 29/16 Pulmonary Artery Pressure 31/17 Pulmonary Artery Pressure 32/17 Pulmonary Artery Pressure 29/16 Pulmonary Artery Pressure 29/12 Pulmonary Artery Pressure 20/10 Pulmonary Artery Pressure 24/12 Pulmonary Artery Pressure 25/13 Pulmonary Artery Pressure 20/8 Cardiac Output 3.8 Cardiac Output 4.4 Cardiac Output 4.4 Cardiac Output 4.4 Cardiac Index 2.1 Cardiac Index 2.4 Cardiac Index 2.4 Cardiac Index 2.4 Results CBC & Chem 7: 04/14/21 04:25 04/14/21 04:25 Labs: Abnormal Lab Results - Last 24 Hours (Table) 04/05/21 04/13/21 04/13/21 Range/Units 15:11 06:24 08:35 RBC (3.80-5.40) m/uL Hgb (11.4-16.0) gm/dL Hct (34.0-46.0) % Plt Count (150-450) k/uL PT (9.0-12.0) sec INR (<1.2) APTT (22.0-30.0) sec ABG pH (7.35-7.45) ABG pO2 >420 H (83-108) mmHg ABG Total CO2 (19-24) mmol/L ABG O2 Saturation 100.0 H (94-97) % ABG Hematocrit (34.0-46.0) % ABG Potassium (3.4-4.5) mmol/L ABG Ionized Calcium (4.5-5.3) mg/dL ABG Glucose 144 H (75-99) mg/dL ABG Lactic Acid (0.5-1.6) mmol/L Hemoglobin 11.2 L (11.4-16.0) gm/dL Chloride (98-107) mmol/L Glucose (74-99) mg/dL POC Glucose (mg/dL) 148 H (75-99) mg/dL Calcium (8.4-10.2) mg/dL Magnesium (1.6-2.3) mg/dL AST (14-36) U/L Alkaline Phosphatase (38-126) U/L Total Protein (6.3-8.2) g/dL Albumin (3.5-5.0) g/dL Arterial Blood Potassium (3.4-4.5) mmol/L Arterial Blood Glucose 144 H (75-99) mg/dL Crossmatch See Detail 04/13/21 04/13/21 04/13/21 Range/Units 10:39 11:47 12:10 RBC (3.80-5.40) m/uL Hgb (11.4-16.0) gm/dL Hct (34.0-46.0) % Plt Count (150-450) k/uL PT (9.0-12.0) sec INR (<1.2) APTT (22.0-30.0) sec ABG pH 7.30 L (7.35-7.45) ABG pO2 182 H 204 H >420 H (83-108) mmHg ABG Total CO2 (19-24) mmol/L ABG O2 Saturation 100.0 H 99.8 H 100.0 H (94-97) % ABG Hematocrit 30 L 27 L 22 L (34.0-46.0) % ABG Potassium (3.4-4.5) mmol/L ABG Ionized Calcium 4.0 L (4.5-5.3) mg/dL ABG Glucose 130 H 150 H 135 H (75-99) mg/dL ABG Lactic Acid 1.7 H (0.5-1.6) mmol/L Hemoglobin 9.7 L 8.9 L 7.0 L* (11.4-16.0) gm/dL Chloride (98-107) mmol/L Glucose (74-99) mg/dL POC Glucose (mg/dL) (75-99) mg/dL Calcium (8.4-10.2) mg/dL Magnesium (1.6-2.3) mg/dL AST (14-36) U/L Alkaline Phosphatase (38-126) U/L Total Protein (6.3-8.2) g/dL Albumin (3.5-5.0) g/dL Arterial Blood Potassium (3.4-4.5) mmol/L Arterial Blood Glucose 130 H 150 H 135 H (75-99) mg/dL Crossmatch 04/13/21 04/13/21 04/13/21 Range/Units 12:44 13:13 14:38 RBC (3.80-5.40) m/uL Hgb (11.4-16.0) gm/dL Hct (34.0-46.0) % Plt Count (150-450) k/uL PT (9.0-12.0) sec INR (<1.2) APTT (22.0-30.0) sec ABG pH 7.34 L (7.35-7.45) ABG pO2 225 H 310 H 335 H (83-108) mmHg ABG Total CO2 25 H 26 H (19-24) mmol/L ABG O2 Saturation 99.9 H 100.0 H 100.0 H (94-97) % ABG Hematocrit 21 L 20 L* 22 L (34.0-46.0) % ABG Potassium 5.4 H 5.4 H (3.4-4.5) mmol/L ABG Ionized Calcium 4.1 L 4.1 L (4.5-5.3) mg/dL ABG Glucose 141 H 147 H 190 H (75-99) mg/dL ABG Lactic Acid 2.0 H 2.2 H* 2.2 H* (0.5-1.6) mmol/L Hemoglobin 6.8 L* 6.6 L* 7.1 L (11.4-16.0) gm/dL Chloride (98-107) mmol/L Glucose (74-99) mg/dL POC Glucose (mg/dL) (75-99) mg/dL Calcium (8.4-10.2) mg/dL Magnesium (1.6-2.3) mg/dL AST (14-36) U/L Alkaline Phosphatase (38-126) U/L Total Protein (6.3-8.2) g/dL Albumin (3.5-5.0) g/dL Arterial Blood Potassium 5.4 H 5.4 H (3.4-4.5) mmol/L Arterial Blood Glucose 141 H 147 H 190 H (75-99) mg/dL Crossmatch 04/13/21 04/13/21 04/13/21 Range/Units 14:59 15:22 16:00 RBC 2.20 L (3.80-5.40) m/uL Hgb 7.0 L (11.4-16.0) gm/dL Hct 20.8 L (34.0-46.0) % Plt Count 88 L (150-450) k/uL PT 12.6 H (9.0-12.0) sec INR 1.2 H (<1.2) APTT 32.5 H (22.0-30.0) sec ABG pH (7.35-7.45) ABG pO2 (83-108) mmHg ABG Total CO2 (19-24) mmol/L ABG O2 Saturation (94-97) % ABG Hematocrit (34.0-46.0) % ABG Potassium (3.4-4.5) mmol/L ABG Ionized Calcium (4.5-5.3) mg/dL ABG Glucose (75-99) mg/dL ABG Lactic Acid (0.5-1.6) mmol/L Hemoglobin (11.4-16.0) gm/dL Chloride (98-107) mmol/L Glucose (74-99) mg/dL POC Glucose (mg/dL) 217 H (75-99) mg/dL Calcium (8.4-10.2) mg/dL Magnesium (1.6-2.3) mg/dL AST (14-36) U/L Alkaline Phosphatase (38-126) U/L Total Protein (6.3-8.2) g/dL Albumin (3.5-5.0) g/dL Arterial Blood Potassium (3.4-4.5) mmol/L Arterial Blood Glucose (75-99) mg/dL Crossmatch 04/13/21 04/13/21 04/13/21 Range/Units 16:00 16:01 16:06 RBC (3.80-5.40) m/uL Hgb (11.4-16.0) gm/dL Hct (34.0-46.0) % Plt Count (150-450) k/uL PT (9.0-12.0) sec INR (<1.2) APTT (22.0-30.0) sec ABG pH (7.35-7.45) ABG pO2 >400 H (83-108) mmHg ABG Total CO2 (19-24) mmol/L ABG O2 Saturation 99.8 H (94-97) % ABG Hematocrit (34.0-46.0) % ABG Potassium (3.4-4.5) mmol/L ABG Ionized Calcium (4.5-5.3) mg/dL ABG Glucose (75-99) mg/dL ABG Lactic Acid (0.5-1.6) mmol/L Hemoglobin (11.4-16.0) gm/dL Chloride 112 H (98-107) mmol/L Glucose 182 H (74-99) mg/dL POC Glucose (mg/dL) 161 H (75-99) mg/dL Calcium 8.1 L (8.4-10.2) mg/dL Magnesium 2.8 H (1.6-2.3) mg/dL AST 38 H (14-36) U/L Alkaline Phosphatase 28 L (38-126) U/L Total Protein 4.6 L (6.3-8.2) g/dL Albumin 3.2 L (3.5-5.0) g/dL Arterial Blood Potassium (3.4-4.5) mmol/L Arterial Blood Glucose (75-99) mg/dL Crossmatch 04/13/21 Range/Units 16:57 RBC (3.80-5.40) m/uL Hgb (11.4-16.0) gm/dL Hct (34.0-46.0) % Plt Count (150-450) k/uL PT (9.0-12.0) sec INR (<1.2) APTT (22.0-30.0) sec ABG pH (7.35-7.45) ABG pO2 (83-108) mmHg ABG Total CO2 (19-24) mmol/L ABG O2 Saturation (94-97) % ABG Hematocrit (34.0-46.0) % ABG Potassium (3.4-4.5) mmol/L ABG Ionized Calcium (4.5-5.3) mg/dL ABG Glucose (75-99) mg/dL ABG Lactic Acid (0.5-1.6) mmol/L Hemoglobin (11.4-16.0) gm/dL Chloride (98-107) mmol/L Glucose (74-99) mg/dL POC Glucose (mg/dL) 128 H (75-99) mg/dL Calcium (8.4-10.2) mg/dL Magnesium (1.6-2.3) mg/dL AST (14-36) U/L Alkaline Phosphatase (38-126) U/L Total Protein (6.3-8.2) g/dL Albumin (3.5-5.0) g/dL Arterial Blood Potassium (3.4-4.5) mmol/L Arterial Blood Glucose (75-99) mg/dL Crossmatch
[2021-04-14 15:06] LABS: Glucose,Whole Blood 114 mg/dL (75-99)
[2021-04-14] MEDS ORDERED: FUROSEMIDE 10 MG/ML 2 ML VIAL IV STA (15:08)
[2021-04-14] MEDS ORDERED: hydrALAZINE HCL 20 MG/ML 1 ML VIAL IVP STA (16:01)
[2021-04-14 16:15] LABS: Glucose,Whole Blood 178 mg/dL (75-99)
[2021-04-14] MEDS ORDERED: ACETAMINOPHEN TAB 500 MG TAB PO PRN (16:56)
[2021-04-14 17:15] LABS: Glucose,Whole Blood 172 mg/dL (75-99)
[2021-04-14] MEDS: SIMETHICONE 80 MG CHEWABLE PO SCH ×2 (17:49→22:06)
[2021-04-14 18:07] LABS: Glucose,Whole Blood 187 mg/dL (75-99)
[2021-04-14] MEDS: INSULIN REGULAR 100 UNIT in SODIUM CHLORIDE 0.9% 100 ML IV SCH (18:09)
[2021-04-14 18:56] LABS: Glucose,Whole Blood 135 mg/dL (75-99)
[2021-04-14 21:30] LABS: Glucose,Whole Blood 82 mg/dL (75-99)
[2021-04-14] MEDS: SENNOSIDES-DOCUSATE SODIUM 1 EACH TAB PO SCH (22:06)
[2021-04-14 22:13] LABS: Glucose,Whole Blood 113 mg/dL (75-99)
[2021-04-14] MEDS ORDERED: propofoL 100 ML IV ONE (23:02)
[2021-04-14 23:19] LABS: Glucose,Whole Blood 119 mg/dL (75-99)
[2021-04-15] MEDS: KETOROLAC 15 MG/ML 1 ML VIAL IVP SCH ×4 (01:04→18:58)
[2021-04-15] MEDS: HEPARIN SODIUM,PORCINE/PF 5,000 UNIT/0.5 ML SYRINGE SQ SCH ×3 (01:04→16:23)
[2021-04-15 01:08] LABS: Glucose,Whole Blood 134 mg/dL (75-99)
[2021-04-15 01:58] LABS: Glucose,Whole Blood 117 mg/dL (75-99)
[2021-04-15 03:00] LABS: Glucose,Whole Blood 90 mg/dL (75-99)
[2021-04-15 04:44] LABS: Glucose,Whole Blood 118 mg/dL (75-99)
[2021-04-15 04:56] LABS: Basophils % (A) 0 %; Eosinophils # (A) 0.3 k/uL (0-0.7); Eosinophils % (A) 2 %; HGB 8.1 gm/dL (11.4-16.0); Lymphocytes # (A) 1.4 k/uL (1.0-4.8); Lymphocytes % (A) 11 %; MCH 29.6 pg (25.0-35.0); MCHC 32.4 g/dL (31.0-37.0); MCV 91.4 fL (80.0-100.0); Monocytes # (A) 0.4 k/uL (0-1.0); Monocytes % (A) 3 %; Neutrophils # (A) 10.2 k/uL (1.3-7.7); Neutrophils % (A) 82 %; Platelet Count 117 k/uL (150-450); RBC 2.73 m/uL (3.80-5.40); RDW 15.6 % (11.5-15.5); WBC 12.4 k/uL (3.8-10.6)
[2021-04-15 05:18] LABS: Ionized Calcium 5.2 mg/dL (4.5-5.3)
[2021-04-15 05:27] LABS: Albumin 3.5 g/dL (3.5-5.0); Calcium 8.9 mg/dL (8.4-10.2); Potassium 4.2 mmol/L (3.5-5.1); Total Bilirubin 0.5 mg/dL (0.2-1.3); Total Protein 5.2 g/dL (6.3-8.2)
[2021-04-15 05:55] LABS: Glucose,Whole Blood 118 mg/dL (75-99)
[2021-04-15 07:02] LABS: Glucose,Whole Blood 130 mg/dL (75-99)
--- NOTE | 2021-04-15 07:08 | P.PN ---
Subjective Progress Note Date: 04/14/21 HISTORY OF PRESENT ILLNESS: This is an 80-year-old female one of my patient with a previous medical history significant for hypertension and hypertensive cardiovascular disease, hyp erlipidemia, history of diabetes mellitus type 2, history of spondylosis of the cervical spine, patient developed to have a significant shortness of breath with exertion ended up seeing Dr. Mercado from cardiology who recommended to have a Lexiscan stress test which came back positive for an area of stress-induced ischemia and echocardiogram showed minimal decrease in the LV function with ejection fraction of 45%, this was followed by left heart catheterization that showed distal left main disease as well as proximal LAD disease, she was referred for coronary artery bypass grafting which was done today by Dr. Vazquez with MENESES to LAD, SVG to RCA, and SVG to the first obtuse marginal branch, and she was admitted to intensive care unit, currently is being seen in the ICU, she is currently intubated, lightly sedated, opens her eyes response to verbal supply, she does not appear to be in acute distress, her hemoglobin has dropped and she did receive 1 unit of packed cells, she would be extubated later on this evening. 04/14: Patient was successfully extubated yesterday afternoon but her pulse ox dropped down and she was increased to 15 L from 4 L and is now at 10 L at the time of this evaluation. She received 1 unit of packed RBCs and 1 dose of albumin. Patient did have mental status changes last evening which could be related to medications. All sedating medications are on hold. She has had 200 mL out of each chest tube serosanguineous drainage. Patient denies any problems with pain. She is awake appears to be alert but very flat. Patient has been afebrile, heart rate 84, blood pressure 147/55 and pulse ox 94%. numerical control operator sinus rhythm. Repeat blood work reveals WBC 8.4, hemoglobin 8.2, platelet count 90. Sodium 141, potassium 4.1, chloride 112, CO2 23, BUN 14 and creatinine 0.68. Blood sugars are running between 114 1121. Insulin drip is on pause. AST 43, ALT 12, alkaline phosphatase 38, total protein 4.9 and albumin 3.5. Chest x-ray this morning reveals status post median sternotomy. Increased perihilar and interstitial airspace opacities suggestive of pulmonary edema. Left basilar airspace opacities with small left pleural effusion. Portable tiny right pleural effusion. Patient's been started on clear liquid diet. REVIEW OF SYSTEMS: Constitutional: No fever, no chills, no night sweats. No weight change. No weakness, fatigue or lethargy. No daytime sleepiness. EENT: No headache. No blurred vision or double vision, no loss of vision. No loss of Hearing, no ringing in the ears, no dizziness. No nasal drainage or congestion. No epistaxis. No sore throat. Lungs: No shortness of breath, cough, no sputum production. No wheezing. Cardiovascular: No chest pain, no lower extremity edema. No palpitations. No paroxysmal nocturnal dyspnea. No orthopnea. No lightheadedness or dizziness. No syncopal episodes. Abdominal: No abdominal pain. No nausea, vomiting. No diarrhea. No constipation. No bloody or tarry stools.. No loss of appetite. Genitourinary: No dysuria, increased frequency, urgency. No urinary retention. Musculoskeletal: No myalgias. No muscle weakness, no gait dysfunction, no frequent falls. No back pain. No neck pain. Integumentary: No wounds, no lesions. No rash or pruritus. No unusual bruising. No change in hair or nails. Neurologic: No aphasia. No facial droop. No change in mentation. No head injury. No headache. No paralysis. No paresthesia. Psychiatric: No depression. No anxiety. No mood swings. Endocrine: No abnormal blood sugars. No weight change. No excessive sweating or thirst. No cold intolerance. PHYSICAL EXAMINATION: General: 80-year-old female laying down in bed does not appear to be in acute distress she is on the ventilator. HEENT: Head is atraumatic, normocephalic, pupils were equal round reactive to light and recommendation, extraocular muscle movement were intact, sclera nonicteric, conjunctivae were pale, mucous membranes of the mouth are somewhat dry. Neck: Supple, no JVP, normal carotid upstroke bilaterally, no lymphadenopathy. Chest: Decreased breath sounds at the bases, few rhonchi, no whee expiratory wheezes, no chest wall tenderness, no intercostal retractions, there is [address], there is pacer wire, mid sternum is covered with dressing. Heart: First heart sound is normal, second heart sounds normal, there is a rub, there is systolic ejection murmur 2/6 located in the left sternal border. Abdomen: Soft, nontender, nondistended, positive bowel sounds Extremities: There is no edema no calf tenderness DP +2 bilaterally, bilateral Mohsen wraps. Neurologic examination: patient is drowsy opens her eyes response to verba stimuli, moves her upper and lower extremities. ASSESSMENT AND PLAN: 1. Postoperative day #1 status post CABG 3 with MENESES to LAD, SVG to RCA, SVG to OM1. Continue current treatment treatment plan as per cardiothoracic jones rgery, cardiology and ICU, patient is likely would be extubated in the next few hours. 2. Acute vent dependent respiratory failure secondary to CABG 3. Continue aggressive pulmonary toileting, continue the weaning parameter, patient will be extubated later on. 3. Acute blood loss anemia expected outcome of surgery. Monitor the patient hemoglobin, transfuse for hemoglobin less than 7. 4. Hypertension and hypertensive cardiovascular disease. Currently on Cleviprex drip . 5. Hyperlipidemia. Patient will be restarted back and her statin 3 6. Diabetes mellitus type 2 currently on insulin drip. 7. Spondylosis of the cervical spine status post epidural injection. 8. GERD with GI prophylaxis. Continue PPI. 9. History of DVT. Continue DVT prophylaxis. DISCHARGE PLAN: TBD Impression and plan of care have been directed as dictated by the signing ph ysician. Sandy Gaston nurse practitioner acting as scribe for signing physician. Objective - Vital Signs Vital signs: Vital Signs Temp 98.6 F 04/14/21 04:00 Pulse 81 04/14/21 07:00 Resp 10 L 04/14/21 07:00 BP 129/51 04/13/21 20:55 Pulse Ox 94 L 04/14/21 07:00 Intake & Output 04/13/21 04/14/21 04/14/21 18:59 06:59 18:59 Intake Total 601.751 6838.215 63.646 Output Total 2600 1305 50 Balance -2201.641 1033.215 13.646 Weight 83.8 kg Intake: IV 369 1208 59 .9NS 180 550 50 .9NS Cardiac Output 50 150 0.9NS Pressure Bag 36 108 9 ACETAMINOPHEN IV (For NPO 100 ) 1,000 mg In Empty Bag 1 bag @ 400 mls/hr IVPB Q6HR [facility] Rx#:[id number] Albumin Human 5% 250 ml 250 In Empty Bag 1 bag @ 250 mls/hr IVPB Q1HR PRN Rx#: [id number] ceFAZolin 2 gm In Sodium 50 Chloride 0.9% 50 ml @ 100 mls/hr IVPB Q8HR [facility] Rx# :[id number] Intake, IV Titration 29.359 100.215 4.646 Amount Clevidipine Butyrate 25 5.733 42.267 mg In Empty Bag 1 bag @ 1 MG/HR 2 mls/hr IV .Q24H [facility] Rx#:[id number] Insulin Regular 100 unit 5.892 57.948 4.646 In Sodium Chloride 0.9% 100 ml @ Per Protocol IV .Q0M [facility] Rx#:[id number] propofoL 1,000 mg In 17.734 Empty Bag 1 bag @ Titrate IV .Q0M [facility] Rx#: [id number] Oral 720 Blood Product 0 310 Rc As-1 Unit 0 310 [id number] Output: Chest Tube Drainage 430 120 Left Pleural Chest Tube 240 50 Mediastinal Chest Tube X 190 70 2 Urine 970 1185 50 Estimated Blood Loss 1200 Other: Voiding Method Indwelling Catheter Indwelling Catheter ABP, PAP, CO, CI - Last Documented Arterial Blood Pressure 147/55 Pulmonary Artery Pressure 25/10 Cardiac Output 4.9 Cardiac Index 2.7 - Labs CBC & Chem 7: 04/15/21 04:30 04/15/21 04:30 Labs: Abnormal Lab Results - Last 24 Hours (Table) 04/05/21 04/13/21 04/13/21 Range/Units 15:11 08:35 10:39 RBC (3.80-5.40) m/uL Hgb (11.4-16.0) gm/dL Hct (34.0-46.0) % Plt Count (150-450) k/uL Neutrophils # (1.3-7.7) k/uL Lymphocytes # (1.0-4.8) k/uL PT (9.0-12.0) sec INR (<1.2) APTT (22.0-30.0) sec Fibrinogen (200-500) mg/dL ABG pH (7.35-7.45) ABG pO2 >420 H 182 H (83-108) mmHg ABG Total CO2 (19-24) mmol/L ABG O2 Saturation 100.0 H 100.0 H (94-97) % ABG Hematocrit 30 L (34.0-46.0) % ABG Potassium (3.4-4.5) mmol/L ABG Ionized Calcium (4.5-5.3) mg/dL ABG Glucose 144 H 130 H (75-99) mg/dL ABG Lactic Acid 1.7 H (0.5-1.6) mmol/L Hemoglobin 11.2 L 9.7 L (11.4-16.0) gm/dL Chloride (98-107) mmol/L Glucose (74-99) mg/dL POC Glucose (mg/dL) (75-99) mg/dL Calcium (8.4-10.2) mg/dL Magnesium (1.6-2.3) mg/dL AST (14-36) U/L Alkaline Phosphatase (38-126) U/L Total Protein (6.3-8.2) g/dL Albumin (3.5-5.0) g/dL Arterial Blood Potassium (3.4-4.5) mmol/L Arterial Blood Glucose 144 H 130 H (75-99) mg/dL Crossmatch See Detail 04/13/21 04/13/21 04/13/21 Range/Units 11:47 12:10 12:44 RBC (3.80-5.40) m/uL Hgb (11.4-16.0) gm/dL Hct (34.0-46.0) % Plt Count (150-450) k/uL Neutrophils # (1.3-7.7) k/uL Lymphocytes # (1.0-4.8) k/uL PT (9.0-12.0) sec INR (<1.2) APTT (22.0-30.0) sec Fibrinogen (200-500) mg/dL ABG pH 7.30 L 7.34 L (7.35-7.45) ABG pO2 204 H >420 H 225 H (83-108) mmHg ABG Total CO2 25 H (19-24) mmol/L ABG O2 Saturation 99.8 H 100.0 H 99.9 H (94-97) % ABG Hematocrit 27 L 22 L 21 L (34.0-46.0) % ABG Potassium 5.4 H (3.4-4.5) mmol/L ABG Ionized Calcium 4.0 L 4.1 L (4.5-5.3) mg/dL ABG Glucose 150 H 135 H 141 H (75-99) mg/dL ABG Lactic Acid 2.0 H (0.5-1.6) mmol/L Hemoglobin 8.9 L 7.0 L* 6.8 L* (11.4-16.0) gm/dL Chloride (98-107) mmol/L Glucose (74-99) mg/dL POC Glucose (mg/dL) (75-99) mg/dL Calcium (8.4-10.2) mg/dL Magnesium (1.6-2.3) mg/dL AST (14-36) U/L Alkaline Phosphatase (38-126) U/L Total Protein (6.3-8.2) g/dL Albumin (3.5-5.0) g/dL Arterial Blood Potassium 5.4 H (3.4-4.5) mmol/L Arterial Blood Glucose 150 H 135 H 141 H (75-99) mg/dL Crossmatch 04/13/21 04/13/21 04/13/21 Range/Units 13:13 14:38 14:59 RBC 2.20 L (3.80-5.40) m/uL Hgb 7.0 L (11.4-16.0) gm/dL Hct 20.8 L (34.0-46.0) % Plt Count 88 L (150-450) k/uL Neutrophils # (1.3-7.7) k/uL Lymphocytes # (1.0-4.8) k/uL PT (9.0-12.0) sec INR (<1.2) APTT (22.0-30.0) sec Fibrinogen (200-500) mg/dL ABG pH (7.35-7.45) ABG pO2 310 H 335 H (83-108) mmHg ABG Total CO2 26 H (19-24) mmol/L ABG O2 Saturation 100.0 H 100.0 H (94-97) % ABG Hematocrit 20 L* 22 L (34.0-46.0) % ABG Potassium 5.4 H (3.4-4.5) mmol/L ABG Ionized Calcium 4.1 L (4.5-5.3) mg/dL ABG Glucose 147 H 190 H (75-99) mg/dL ABG Lactic Acid 2.2 H* 2.2 H* (0.5-1.6) mmol/L Hemoglobin 6.6 L* 7.1 L (11.4-16.0) gm/dL Chloride (98-107) mmol/L Glucose (74-99) mg/dL POC Glucose (mg/dL) (75-99) mg/dL Calcium (8.4-10.2) mg/dL Magnesium (1.6-2.3) mg/dL AST (14-36) U/L Alkaline Phosphatase (38-126) U/L Total Protein (6.3-8.2) g/dL Albumin (3.5-5.0) g/dL Arterial Blood Potassium 5.4 H (3.4-4.5) mmol/L Arterial Blood Glucose 147 H 190 H (75-99) mg/dL Crossmatch 04/13/21 04/13/21 04/13/21 Range/Units 15:22 16:00 16:00 RBC (3.80-5.40) m/uL Hgb (11.4-16.0) gm/dL Hct (34.0-46.0) % Plt Count (150-450) k/uL Neutrophils # (1.3-7.7) k/uL Lymphocytes # (1.0-4.8) k/uL PT 12.6 H (9.0-12.0) sec INR 1.2 H (<1.2) APTT 32.5 H (22.0-30.0) sec Fibrinogen (200-500) mg/dL ABG pH (7.35-7.45) ABG pO2 (83-108) mmHg ABG Total CO2 (19-24) mmol/L ABG O2 Saturation (94-97) % ABG Hematocrit (34.0-46.0) % ABG Potassium (3.4-4.5) mmol/L ABG Ionized Calcium (4.5-5.3) mg/dL ABG Glucose (75-99) mg/dL ABG Lactic Acid (0.5-1.6) mmol/L Hemoglobin (11.4-16.0) gm/dL Chloride 112 H (98-107) mmol/L Glucose 182 H (74-99) mg/dL POC Glucose (mg/dL) 217 H (75-99) mg/dL Calcium 8.1 L (8.4-10.2) mg/dL Magnesium 2.8 H (1.6-2.3) mg/dL AST 38 H (14-36) U/L Alkaline Phosphatase 28 L (38-126) U/L Total Protein 4.6 L (6.3-8.2) g/dL Albumin 3.2 L (3.5-5.0) g/dL Arterial Blood Potassium (3.4-4.5) mmol/L Arterial Blood Glucose (75-99) mg/dL Crossmatch 04/13/21 04/13/21 04/13/21 Range/Units 16:01 16:06 16:57 RBC (3.80-5.40) m/uL Hgb (11.4-16.0) gm/dL Hct (34.0-46.0) % Plt Count (150-450) k/uL Neutrophils # (1.3-7.7) k/uL Lymphocytes # (1.0-4.8) k/uL PT (9.0-12.0) sec INR (<1.2) APTT (22.0-30.0) sec Fibrinogen (200-500) mg/dL ABG pH (7.35-7.45) ABG pO2 >400 H (83-108) mmHg ABG Total CO2 (19-24) mmol/L ABG O2 Saturation 99.8 H (94-97) % ABG Hematocrit (34.0-46.0) % ABG Potassium (3.4-4.5) mmol/L ABG Ionized Calcium (4.5-5.3) mg/dL ABG Glucose (75-99) mg/dL ABG Lactic Acid (0.5-1.6) mmol/L Hemoglobin (11.4-16.0) gm/dL Chloride (98-107) mmol/L Glucose (74-99) mg/dL POC Glucose (mg/dL) 161 H 128 H (75-99) mg/dL Calcium (8.4-10.2) mg/dL Magnesium (1.6-2.3) mg/dL AST (14-36) U/L Alkaline Phosphatase (38-126) U/L Total Protein (6.3-8.2) g/dL Albumin (3.5-5.0) g/dL Arterial Blood Potassium (3.4-4.5) mmol/L Arterial Blood Glucose (75-99) mg/dL Crossmatch 04/13/21 04/13/21 04/13/21 Range/Units 17:35 17:35 18:17 RBC 2.06 L (3.80-5.40) m/uL Hgb 6.9 L* (11.4-16.0) gm/dL Hct 19.3 L* (34.0-46.0) % Plt Count 81 L (150-450) k/uL Neutrophils # (1.3-7.7) k/uL Lymphocytes # 0.8 L (1.0-4.8) k/uL PT (9.0-12.0) sec INR (<1.2) APTT (22.0-30.0) sec Fibrinogen 193 L (200-500) mg/dL ABG pH (7.35-7.45) ABG pO2 (83-108) mmHg ABG Total CO2 (19-24) mmol/L ABG O2 Saturation (94-97) % ABG Hematocrit (34.0-46.0) % ABG Potassium (3.4-4.5) mmol/L ABG Ionized Calcium (4.5-5.3) mg/dL ABG Glucose (75-99) mg/dL ABG Lactic Acid (0.5-1.6) mmol/L Hemoglobin (11.4-16.0) gm/dL Chloride (98-107) mmol/L Glucose (74-99) mg/dL POC Glucose (mg/dL) 197 H (75-99) mg/dL Calcium (8.4-10.2) mg/dL Magnesium (1.6-2.3) mg/dL AST (14-36) U/L Alkaline Phosphatase (38-126) U/L Total Protein (6.3-8.2) g/dL Albumin (3.5-5.0) g/dL Arterial Blood Potassium (3.4-4.5) mmol/L Arterial Blood Glucose (75-99) mg/dL Crossmatch 04/13/21 04/13/21 04/13/21 Range/Units 19:05 20:08 21:16 RBC (3.80-5.40) m/uL Hgb (11.4-16.0) gm/dL Hct (34.0-46.0) % Plt Count (150-450) k/uL Neutrophils # (1.3-7.7) k/uL Lymphocytes # (1.0-4.8) k/uL PT (9.0-12.0) sec INR (<1.2) APTT (22.0-30.0) sec Fibrinogen (200-500) mg/dL ABG pH (7.35-7.45) ABG pO2 (83-108) mmHg ABG Total CO2 (19-24) mmol/L ABG O2 Saturation (94-97) % ABG Hematocrit (34.0-46.0) % ABG Potassium (3.4-4.5) mmol/L ABG Ionized Calcium (4.5-5.3) mg/dL ABG Glucose (75-99) mg/dL ABG Lactic Acid (0.5-1.6) mmol/L Hemoglobin (11.4-16.0) gm/dL Chloride (98-107) mmol/L Glucose (74-99) mg/dL POC Glucose (mg/dL) 201 H 201 H 187 H (75-99) mg/dL Calcium (8.4-10.2) mg/dL Magnesium (1.6-2.3) mg/dL AST (14-36) U/L Alkaline Phosphatase (38-126) U/L Total Protein (6.3-8.2) g/dL Albumin (3.5-5.0) g/dL Arterial Blood Potassium (3.4-4.5) mmol/L Arterial Blood Glucose (75-99) mg/dL Crossmatch 04/13/21 04/13/21 04/13/21 Range/Units 21:40 22:05 22:10 RBC 2.80 L (3.80-5.40) m/uL Hgb 8.5 L D (11.4-16.0) gm/dL Hct 25.7 L (34.0-46.0) % Plt Count 96 L (150-450) k/uL Neutrophils # 8.8 H (1.3-7.7) k/uL Lymphocytes # 0.4 L (1.0-4.8) k/uL PT (9.0-12.0) sec INR (<1.2) APTT (22.0-30.0) sec Fibrinogen (200-500) mg/dL ABG pH 7.33 L (7.35-7.45) ABG pO2 (83-108) mmHg ABG Total CO2 (19-24) mmol/L ABG O2 Saturation 97.7 H (94-97) % ABG Hematocrit (34.0-46.0) % ABG Potassium (3.4-4.5) mmol/L ABG Ionized Calcium (4.5-5.3) mg/dL ABG Glucose (75-99) mg/dL ABG Lactic Acid (0.5-1.6) mmol/L Hemoglobin (11.4-16.0) gm/dL Chloride (98-107) mmol/L Glucose (74-99) mg/dL POC Glucose (mg/dL) 174 H (75-99) mg/dL Calcium (8.4-10.2) mg/dL Magnesium (1.6-2.3) mg/dL AST (14-36) U/L Alkaline Phosphatase (38-126) U/L Total Protein (6.3-8.2) g/dL Albumin (3.5-5.0) g/dL Arterial Blood Potassium (3.4-4.5) mmol/L Arterial Blood Glucose (75-99) mg/dL Crossmatch 04/13/21 04/14/21 04/14/21 Range/Units 23:26 00:33 02:03 RBC (3.80-5.40) m/uL Hgb (11.4-16.0) gm/dL Hct (34.0-46.0) % Plt Count (150-450) k/uL Neutrophils # (1.3-7.7) k/uL Lymphocytes # (1.0-4.8) k/uL PT (9.0-12.0) sec INR (<1.2) APTT (22.0-30.0) sec Fibrinogen (200-500) mg/dL ABG pH (7.35-7.45) ABG pO2 (83-108) mmHg ABG Total CO2 (19-24) mmol/L ABG O2 Saturation (94-97) % ABG Hematocrit (34.0-46.0) % ABG Potassium (3.4-4.5) mmol/L ABG Ionized Calcium (4.5-5.3) mg/dL ABG Glucose (75-99) mg/dL ABG Lactic Acid (0.5-1.6) mmol/L Hemoglobin (11.4-16.0) gm/dL Chloride (98-107) mmol/L Glucose (74-99) mg/dL POC Glucose (mg/dL) 122 H 140 H 111 H (75-99) mg/dL Calcium (8.4-10.2) mg/dL Magnesium (1.6-2.3) mg/dL AST (14-36) U/L Alkaline Phosphatase (38-126) U/L Total Protein (6.3-8.2) g/dL Albumin (3.5-5.0) g/dL Arterial Blood Potassium (3.4-4.5) mmol/L Arterial Blood Glucose (75-99) mg/dL Crossmatch 04/14/21 04/14/21 04/14/21 Range/Units 02:49 04:25 04:25 RBC 2.61 L (3.80-5.40) m/uL Hgb 8.2 L (11.4-16.0) gm/dL Hct 23.6 L (34.0-46.0) % Plt Count 90 L (150-450) k/uL Neutrophils # (1.3-7.7) k/uL Lymphocytes # 0.4 L (1.0-4.8) k/uL PT (9.0-12.0) sec INR (<1.2) APTT (22.0-30.0) sec Fibrinogen (200-500) mg/dL ABG pH (7.35-7.45) ABG pO2 (83-108) mmHg ABG Total CO2 (19-24) mmol/L ABG O2 Saturation (94-97) % ABG Hematocrit (34.0-46.0) % ABG Potassium (3.4-4.5) mmol/L ABG Ionized Calcium (4.5-5.3) mg/dL ABG Glucose (75-99) mg/dL ABG Lactic Acid (0.5-1.6) mmol/L Hemoglobin (11.4-16.0) gm/dL Chloride 112 H (98-107) mmol/L Glucose 121 H (74-99) mg/dL POC Glucose (mg/dL) 122 H (75-99) mg/dL Calcium (8.4-10.2) mg/dL Magnesium (1.6-2.3) mg/dL AST 43 H (14-36) U/L Alkaline Phosphatase (38-126) U/L Total Protein 4.9 L (6.3-8.2) g/dL Albumin (3.5-5.0) g/dL Arterial Blood Potassium (3.4-4.5) mmol/L Arterial Blood Glucose (75-99) mg/dL Crossmatch 04/14/21 04/14/21 04/14/21 Range/Units 04:25 05:13 05:52 RBC (3.80-5.40) m/uL Hgb (11.4-16.0) gm/dL Hct (34.0-46.0) % Plt Count (150-450) k/uL Neutrophils # (1.3-7.7) k/uL Lymphocytes # (1.0-4.8) k/uL PT (9.0-12.0) sec INR (<1.2) APTT (22.0-30.0) sec Fibrinogen (200-500) mg/dL ABG pH (7.35-7.45) ABG pO2 (83-108) mmHg ABG Total CO2 (19-24) mmol/L ABG O2 Saturation (94-97) % ABG Hematocrit (34.0-46.0) % ABG Potassium (3.4-4.5) mmol/L ABG Ionized Calcium (4.5-5.3) mg/dL ABG Glucose (75-99) mg/dL ABG Lactic Acid (0.5-1.6) mmol/L Hemoglobin (11.4-16.0) gm/dL Chloride (98-107) mmol/L Glucose (74-99) mg/dL POC Glucose (mg/dL) 133 H 118 H 118 H (75-99) mg/dL Calcium (8.4-10.2) mg/dL Magnesium (1.6-2.3) mg/dL AST (14-36) U/L Alkaline Phosphatase (38-126) U/L Total Protein (6.3-8.2) g/dL Albumin (3.5-5.0) g/dL Arterial Blood Potassium (3.4-4.5) mmol/L Arterial Blood Glucose (75-99) mg/dL Crossmatch 04/14/21 Range/Units 07:02 RBC (3.80-5.40) m/uL Hgb (11.4-16.0) gm/dL Hct (34.0-46.0) % Plt Count (150-450) k/uL Neutrophils # (1.3-7.7) k/uL Lymphocytes # (1.0-4.8) k/uL PT (9.0-12.0) sec INR (<1.2) APTT (22.0-30.0) sec Fibrinogen (200-500) mg/dL ABG pH (7.35-7.45) ABG pO2 (83-108) mmHg ABG Total CO2 (19-24) mmol/L ABG O2 Saturation (94-97) % ABG Hematocrit (34.0-46.0) % ABG Potassium (3.4-4.5) mmol/L ABG Ionized Calcium (4.5-5.3) mg/dL ABG Glucose (75-99) mg/dL ABG Lactic Acid (0.5-1.6) mmol/L Hemoglobin (11.4-16.0) gm/dL Chloride (98-107) mmol/L Glucose (74-99) mg/dL POC Glucose (mg/dL) 114 H (75-99) mg/dL Calcium (8.4-10.2) mg/dL Magnesium (1.6-2.3) mg/dL AST (14-36) U/L Alkaline Phosphatase (38-126) U/L Total Protein (6.3-8.2) g/dL Albumin (3.5-5.0) g/dL Arterial Blood Potassium (3.4-4.5) mmol/L Arterial Blood Glucose (75-99) mg/dL Crossmatch
[2021-04-15] MEDS ORDERED: FUROSEMIDE 10 MG/ML 2 ML VIAL IV STA (07:26)
[2021-04-15] MEDS: DEXTROSE 5% IN WATER 100 ML with AMIODARONE 150 MG IV PRN ×2 (07:39→09:03)
--- NOTE | 2021-04-15 07:48 | XR ---
EXAMINATION TYPE: XR chest 1V portable DATE OF EXAM: 04/15/2021 COMPARISON: 04/14/2021 HISTORY: Postoperative cardiac surgery TECHNIQUE: Single frontal view of the chest is obtained. FINDINGS: [place]-Geovanny catheter has been removed. Few overlying leads. Status post median sternotomy. Lo w lung volumes. Heart size is mildly enlarged, stable. Atherosclerotic aorta. The previously seen per ihilar interstitial airspace opacities suggestive have decreased. Stable prominent Left basilar airsp jeremy opacity with small pleural effusion. Probable tiny right pleural effusion. No pneumothorax. IMPRESSION: 1. Status post median sternotomy. Perihilar interstitial airspace opacities have significantly decrea sed. Prominent stable left basilar airspace opacity with small left pleural effusion. Probable tiny r ight pleural effusion.
[2021-04-15] MEDS: IPRATROPIUM-ALBUTEROL 3 ML NEB INHALATION SCH ×4 (07:55→20:55)
[2021-04-15] MEDS: CLOPIDOGREL 75 MG TAB PO SCH (08:01)
[2021-04-15] MEDS: CYANOCOBALAMIN 500 MCG TAB PO SCH (08:01)
[2021-04-15] MEDS: SIMETHICONE 80 MG CHEWABLE PO SCH ×3 (08:01→21:02)
[2021-04-15] MEDS: CIPROFLOXACIN HCL 500 MG TAB PO SCH ×2 (08:01→21:01)
[2021-04-15] MEDS: CHOLECALCIFEROL 25 MCG (1000 IU) TABLET PO SCH (08:01)
[2021-04-15] MEDS: ASPIRIN 81 MG PO SCH (08:01)
[2021-04-15] MEDS: METOPROLOL TARTRATE 50 MG TAB PO SCH ×2 (08:01→21:01)
[2021-04-15] MEDS: ATORVASTATIN 40 MG TAB PO SCH (08:01)
[2021-04-15] MEDS: PANTOPRAZOLE 40 MG TABLET PO SCH (08:01)
[2021-04-15 08:22] LABS: Glucose,Whole Blood 154 mg/dL (75-99)
--- NOTE | 2021-04-15 08:30 | P.PN ---
Subjective Progress Note Date: 04/15/21 Principal diagnosis: Symptomatic multivessel coronary artery disease with subtotal occluded left anterior descending artery and left main disease. Previous medical history of hypertension, hyperlipidemia, type 2 diabetes, lifetime nonsmoker, remote history of DVT, family history of premature coronary artery disease with both brothers from myocardial infarction in their early 50s. Preoperative E. coli urinary tract infection POD #2 triple-vessel coronary artery bypass grafting using the left internal mammary artery to the left anterior descending artery, reverse saphenous vein graft from the aorta to the inferior branching of the first obtuse marginal coronary artery, reverse saphenous vein graft from the aorta to the right coronary artery, exclusion of the left atrial appendage using a 35 mm AtriClip, bilateral endoscopic vein harvesting, intraoperative graft flow measurements using the zulily system, intraoperative transesophageal echocardiogram and epi-aortic scanning Postoperative acute blood loss anemia and thrombocytopenia, expected given he modilution and cardiopulmonary bypass pump Confusion, felt to be secondary to cardiopulmonary bypass pump versus slow to wake up from anesthesia which the patient does have a history of Atrial fibrillation, known common occurrence after open heart surgery The patient is currently sitting up in a recliner in no acute distress in the intensive care unit eating breakfast. States pain is controlled on current medication regimen, denies shortness of breath at this time. She was confused yesterday morning but did recover during the day, currently alert and oriented 3, moves all extremities, equal strength bilaterally. She went into atrial fibrillation with rapid ventricular responses morning, amiodarone to be initiated. She is actively using incentive spirometer when encouraged, only obt aining 500 mL. She did ambulate in her room yesterday with physical therapy and tolerated well. Mediastinal, left pleural chest tube, right internal jugular Cordis, right radial arterial line remains present. No other new concerns. Objective - Vital Signs Vital signs: Vital Signs Temp 97.9 F 04/15/21 04:00 Pulse 92 04/15/21 07:00 Resp 19 04/15/21 07:00 BP 150/70 04/15/21 06:30 Pulse Ox 98 04/15/21 07:00 Intake & Output 04/14/21 04/15/21 04/15/21 18:59 06:59 18:59 Intake Total 830.109 841.626 0 Output Total 1285 630 Balance -454.891 211.626 0 Weight 83.8 kg 85.1 kg Intake: IV 798 692 .9NS 600 650 .9NS Cardiac Output 20 0.9NS Pressure Bag 78 42 ceFAZolin 2 gm In Sodium 100 Chloride 0.9% 50 ml @ 100 mls/hr IVPB Q8HR [facility] Rx# :[id number] Intake, IV Titration 32.109 29.626 0 Amount Insulin Regular 100 unit 32.109 29.626 0 In Sodium Chloride 0.9% 100 ml @ Per Protocol IV .Q0M [facility] Rx#:[id number] Oral 120 Output: Chest Tube Drainage 530 90 Left Pleural Chest Tube 270 60 Mediastinal Chest Tube X 260 30 2 Urine 755 540 Other: Voiding Method Indwelling Catheter Indwelling Catheter # Voids 0 ABP, PAP, CO, CI - Last Documented Arterial Blood Pressure 165/67 Pulmonary Artery Pressure 32/11 Cardiac Output 5.6 Cardiac Index 3.1 - Exam CONSTITUTIONAL: Appears comfortable, cooperative, no acute distress RESPIRATORY: Lungs sounds diminished bilaterally. Respirations even, nonlabored. Currently on 4 L nasal cannula with oxygen saturation 94%. Able to achieve 500 mL on incentive spirometry. Strong cough. CARDIOVASCULAR: S1, S2 present. Irregular rate and rhythm, atrial fibrillation on telemetry. Sternum stable. Palpable peripheral pulses bilaterally. No edema present. No calf pain or tenderness noted. Heart hugger in place with patient demonstrating appropriate use. Antiembolism stockings, SCDs present. GASTROINTESTINAL: Abdomen soft, nontender, nondistended. Active bowel sounds present 4 quadrants. Tolerating diet. Positive flatus GENITOURINARY: Cramer present draining clear, yellow urine. Output overnight 20-50 mL per hour, 1295 mL in the last 24 hours INTEGUMENTARY: Skin is warm and dry with evidence of good perfusion. Anterior chest incision well approximated and covered with dry intact dressing. Bilateral EVH sites well approximated without redness or drainage. NEUROLOGIC: Cranial nerves II through XII intact MUSKULOSKELETAL: Able to move all extremities, strength equal bilaterally, gait normal PSYCHIATRIC: Alert and oriented to person place and time, appropriate affect, intact judgment and insight INVASIVE LINES AND TUBES: Mediastinal/left pleural chest tubes present and connected to wall suction, no air leaks present. Mediastinal tube with 20 mL serosanguineous drainage overnight, 150 mL in the last 24 hours. Left pleural chest tube with 40 mL serosanguineous drainage overnight, 200 mL in the last 24 hours. Atrial epicardial pacemaker wires present, grounded. Right internal jugular Cordis, right radial arterial line present. - Allied health notes Allied health notes reviewed: nursing - Labs CBC & Chem 7: 04/15/21 04:30 04/15/21 04:30 Labs: Abnormal Lab Results - Last 24 Hours (Table) 04/14/21 04/14/21 04/14/21 Range/Units 08:25 09:34 10:23 WBC (3.8-10.6) k/uL RBC (3.80-5.40) m/uL Hgb (11.4-16.0) gm/dL Hct (34.0-46.0) % RDW (11.5-15.5) % Plt Count (150-450) k/uL Neutrophils # (1.3-7.7) k/uL Chloride (98-107) mmol/L BUN (7-17) mg/dL Glucose (74-99) mg/dL POC Glucose (mg/dL) 140 H 148 H 133 H (75-99) mg/dL Total Protein (6.3-8.2) g/dL 04/14/21 04/14/21 04/14/21 Range/Units 10:58 11:57 13:12 WBC (3.8-10.6) k/uL RBC (3.80-5.40) m/uL Hgb (11.4-16.0) gm/dL Hct (34.0-46.0) % RDW (11.5-15.5) % Plt Count (150-450) k/uL Neutrophils # (1.3-7.7) k/uL Chloride (98-107) mmol/L BUN (7-17) mg/dL Glucose (74-99) mg/dL POC Glucose (mg/dL) 146 H 146 H 102 H (75-99) mg/dL Total Protein (6.3-8.2) g/dL 04/14/21 04/14/21 04/14/21 Range/Units 15:05 16:13 17:14 WBC (3.8-10.6) k/uL RBC (3.80-5.40) m/uL Hgb (11.4-16.0) gm/dL Hct (34.0-46.0) % RDW (11.5-15.5) % Plt Count (150-450) k/uL Neutrophils # (1.3-7.7) k/uL Chloride (98-107) mmol/L BUN (7-17) mg/dL Glucose (74-99) mg/dL POC Glucose (mg/dL) 114 H 178 H 172 H (75-99) mg/dL Total Protein (6.3-8.2) g/dL 04/14/21 04/14/21 04/14/21 Range/Units 18:05 18:54 22:12 WBC (3.8-10.6) k/uL RBC (3.80-5.40) m/uL Hgb (11.4-16.0) gm/dL Hct (34.0-46.0) % RDW (11.5-15.5) % Plt Count (150-450) k/uL Neutrophils # (1.3-7.7) k/uL Chloride (98-107) mmol/L BUN (7-17) mg/dL Glucose (74-99) mg/dL POC Glucose (mg/dL) 187 H 135 H 113 H (75-99) mg/dL Total Protein (6.3-8.2) g/dL 04/14/21 04/15/21 04/15/21 Range/Units 23:18 01:08 01:56 WBC (3.8-10.6) k/uL RBC (3.80-5.40) m/uL Hgb (11.4-16.0) gm/dL Hct (34.0-46.0) % RDW (11.5-15.5) % Plt Count (150-450) k/uL Neutrophils # (1.3-7.7) k/uL Chloride (98-107) mmol/L BUN (7-17) mg/dL Glucose (74-99) mg/dL POC Glucose (mg/dL) 119 H 134 H 117 H (75-99) mg/dL Total Protein (6.3-8.2) g/dL 04/15/21 04/15/21 04/15/21 Range/Units 04:30 04:30 04:42 WBC 12.4 H (3.8-10.6) k/uL RBC 2.73 L (3.80-5.40) m/uL Hgb 8.1 L (11.4-16.0) gm/dL Hct 25.0 L (34.0-46.0) % RDW 15.6 H (11.5-15.5) % Plt Count 117 L (150-450) k/uL Neutrophils # 10.2 H (1.3-7.7) k/uL Chloride 112 H (98-107) mmol/L BUN 18 H (7-17) mg/dL Glucose 104 H (74-99) mg/dL POC Glucose (mg/dL) 118 H (75-99) mg/dL Total Protein 5.2 L (6.3-8.2) g/dL 04/15/21 04/15/21 Range/Units 05:54 07:01 WBC (3.8-10.6) k/uL RBC (3.80-5.40) m/uL Hgb (11.4-16.0) gm/dL Hct (34.0-46.0) % RDW (11.5-15.5) % Plt Count (150-450) k/uL Neutrophils # (1.3-7.7) k/uL Chloride (98-107) mmol/L BUN (7-17) mg/dL Glucose (74-99) mg/dL POC Glucose (mg/dL) 118 H 130 H (75-99) mg/dL Total Protein (6.3-8.2) g/dL - Imaging and Cardiology Chest x-ray: report reviewed, image reviewed Assessment and Plan Assessment: 1. Symptomatic multivessel coronary artery disease with subtotal occluded left anterior descending artery and left main disease, status post three-vessel CABG 2. Mild left ventricular dysfunction 3. Hypertension 4. Hyperlipidemia, treated, cholesterol 182, LDL 93 5. Type 2 diabetes, preoperative hemoglobin A1c 5.9% 6. Lifetime nonsmoker, preoperative FEV1 106% of predicted 7. Remote history of DVT 8. Family history of premature coronary artery disease with both brothers from myocardial infarction in their early 50s 9. Preoperative E. coli urinary tract infection, treated with Cipro 10. Postoperative acute blood loss anemia and thrombocytopenia, expected 11. Confusion, felt to be secondary to cardiopulmonary bypass pump versus slow to wake up from anesthesia which the patient does have a history of 12. Atrial fibrillation, known common occurrence after open heart surgery Plan: 1. Continue to maximize medical therapy with low dose aspirin, statin, Plavix, beta jannette therapy. Will increase beta jannette as tolerated, increased to 50 mgs twice daily today 2. Initiate IV amiodarone for A. fib, will transition to oral amiodarone later today. No anticoagulation at this point 3. Wean O2 as tolerated. Encourage incentive spirometry use 10 times every hour while awake. Bronchodilators per pulmonology 4. Increase activity, ambulate as tolerated. PT/OT/cardiac rehab consulted 5. GI/DVT prophylaxis 6. Will monitor daily labs and x-rays. Electrolyte replacement per protocol. No further blood transfusions at this time. We'll give 20 mg IV push Lasix today 7. Insulin management per primary care service. Patient will need tight blood sugar control to promote healing, union of sternal bone 8. Pain control with current medication regimen. 9. Will discontinue all chest tubes today 10. Discontinue Cramer catheter after diuresis. The bladder scan and straight cathed for greater than 300 mL residual 11. Strict accurate intake and output. Daily weight 12. Continue Cordis, arterial line for another 24 hours 13. More recommendations to follow Time with Patient: Greater than 30
[2021-04-15 09:06] LABS: Glucose,Whole Blood 152 mg/dL (75-99)
[2021-04-15] MEDS: HYDROcodone/APAP 5-325MG 1 EACH TAB PO PRN ×2 (09:49→21:01)
--- NOTE | 2021-04-15 09:59 | P.PN ---
Subjective Progress Note Date: 04/15/21 Principal diagnosis: Coronary artery disease, status post triple-vessel bypass grafting with a MENESES to the LAD, saphenous vein grafts to the RCA and OM1. 80-year-old white female patient of Dr. Shipman, overweight recently saw in consultation during her previous admission when she was hospitalized for symptoms of exertional shortness of breath that was progressive in nature. And patient had a nuclear Lexiscan Cardiolite stress test at Dr. Mercado's office on 03/16/2021 that showed abnormal myocardial perfusion imaging with evidence of partially reversible defect involving the distal anterior/apical segment of the LV. 2-D echocardiogram was completed on 03/18/2021 that showed a preserved left ventricular systolic function with an ejection fraction of 45%, mild aortic valv e regurg, mild MR, and mild TR. Patient underwent cardiac catheterization by Dr. Mercado on 04/05/2021 that showed multivessel coronary artery disease, and due to the findings of the heart catheterization, patient was referred to CT surgery for myocardial revascularization surgery. On 04/13/2021 patient underwent MENESES to the LAD, SVG to the RCA, SVG to the OM 1 with endoscopic vein harvesting of bilateral lower extremities, and exclusion of the left atrial appendage and intraoperative transesophageal echocardiogram. Preop FEV1 was reviewed showing FEV1 of 1.96 L or 106% of predicted with FVC of 2.3 L or 92% of predicted, FEV1 to FVC ratio 115, and MVV of 73.5, consistent with normal spirometry. Patient is a lifetime nonsmoker, her past medical history significant for diabetes mellitus type 2, hypertension, hyperlipidemia, GERD, osteoarthritis, and previous history of DVT. Patient is seen in the postoperative period in the intensive care unit intubated and sedated. Patient is currently on assist control with a rate of 12, tidal vital was 400, FiO2 of 100% and PEEP of 8. Her rate was increased to 20 at the bedside Postoperative blood gas and chest x-ray is pending, hemodynamically patient is requiring small amount of Bladimir-Synephrine currently infusing at 0.06 mics/per kilo per minute. On nitroglycerin is at 5 mics per kilo per minute, Diprivan and is at 20 mics per kilo per minute, and 0.9 normal saline at 50 ML per hour, PA pressures 28/11, CVP is 8, cardiac output is 4.4, and cardiac index is 2.4. Intraoperatively patient received 3 L and crystalloids, 1.2 L in Cell Saver and 1.5 L of 5% albumin. Currently blood pressure is 79/38. External pacemaker set to VVI backup mode with a rate of 80, and intrinsic rhythm is sinus rhythm The patient is seen today 04/14/2021 in follow-up in the intensive care unit. She is currently sitting up in a chair at the bedside. Awake and alert in no acute distress. A and O 3. She had some issues with confusion throughout the night. Currently maintaining O2 saturations up to 100% on 10 L high flow nasal cannula. She was extubated at 21:55 PM last night. Chest x-ray does reveal some atelectasis bilaterally left greater than right. Mediastinal and left pleural chest tubes are in place. Equally at 400 ML's output. She's been afebrile. Currently hemodynamically stable. She did have some postop issues with hypotension requiring pressors and then hypertension requiring clevidipine. She was anemic with a hemoglobin of 6.9 and received 1 unit of packed red blood cells. Current hemoglobin 8.2. Cardiac output 5.0, index 3.1. PA pressures 34/14. She has her own intrinsic rhythm which is sinus mechanism currently. Pacer wires remain in place with backup pacing. White count 8.4. Hemoglobin 8.2. Platelet count 90,000. Sodium 141. Potassium 4.1. Creatinine 0.68. Glucose 121. AST 43. ALT 12. Albumin 3.5. She did receive albumin this morning. She has 0.9 normal saline at 50 MLS per hour. Clevidipine on hold. Insulin drip on hold. She is on Cipro for UTI. Remains on bronchodilators. Continue to work with the incentive spirometer. Heparin for DVT prophylaxis. The patient is seen today 04/15/2021 in follow-up in the intensive care unit. She is awake and alert in no acute distress. Alert and oriented 3 this morning. Sitting up in a chair at the bedside. Maintaining O2 saturations in the mid 90s on 4 L high flow nasal cannula. She's been afebrile. Chest x-ray reveals some perihilar interstitial airspace opacities improved compared to yesterday. There is still some left basilar airspace opacity and a small left effusion. Tiny right pleural effusion. Receiving Lasix 20 mg IVP 1. She did develop atrial fibrillation with rapid ventricular response this morning. She's been bolused with amiodarone and currently on a drip at 1 mg per minute. She is on a insulin drip currently at 5 units per hour. 0.9 normal saline at 20 ML's per hour. Cramer catheter due to come out after diuresis. Chest tubes May, today per CT services. She will remain on heparin for DVT prophylaxis. SCDs in place. Continued on bronchodilators. She needs increased encouragement regarding the incentive spirometer. Currently pulling only 500 ML's. Working with physical therapy. Up ambulating with assistance. She remains on Cipro for UTI preop. White count 12.4. Hemoglobin 8.1. Platelets 117,000. Sodium 139. Potassium 4.2. Creatinine 0.84. Glucose 104. Albumin 3.5. Objective - Vital Signs Vital signs: Vital Signs Temp 97.9 F 04/15/21 08:00 Pulse 133 H 04/15/21 09:00 Resp 20 04/15/21 09:00 BP 139/80 04/15/21 09:00 Pulse Ox 97 04/15/21 09:00 Intake & Output 04/14/21 04/15/21 04/15/21 18:59 06:59 18:59 Intake Total 830.109 841.626 175.636 Output Total 1285 630 60 Balance -454.891 211.626 115.636 Weight 83.8 kg 85.1 kg Intake: IV 798 692 52 .9NS 600 650 40 .9NS Cardiac Output 20 0.9NS Pressure Bag 78 42 12 ceFAZolin 2 gm In Sodium 100 Chloride 0.9% 50 ml @ 100 mls/hr IVPB Q8HR [facility] Rx# :[id number] Intake, IV Titration 32.109 29.626 3.636 Amount Insulin Regular 100 unit 32.109 29.626 3.636 In Sodium Chloride 0.9% 100 ml @ Per Protocol IV .Q0M [facility] Rx#:[id number] Oral 120 120 Output: Chest Tube Drainage 530 90 60 Left Pleural Chest Tube 270 60 30 Mediastinal Chest Tube X 260 30 30 2 Urine 755 540 0 Other: Voiding Method Indwelling Catheter Indwelling Catheter # Voids 0 ABP, PAP, CO, CI - Last Documented Arterial Blood Pressure 165/67 Pulmonary Artery Pressure 32/11 Cardiac Output 5.6 Cardiac Index 3.1 - Exam GENERAL EXAM: Awake, alert pleasant 80-year-old female on 4 L high flow nasal cannula, currently comfortable in no apparent distress. HEAD: Normocephalic/atraumatic. EYES: Normal reaction of pupils, equal size. Conjunctiva pink, sclera white. NOSE: Clear with pink turbinates. THROAT: No erythema or exudates. NECK: Right IJ [place]-Geovanny catheter in place. No masses, no JVD, no thyroid enlargement, no adenopathy. CHEST: No chest wall deformity. Symmetrical expansion. Midsternal incision clean dry and intact, covered with a surgical dressing, chest tube sites are clean dry and intact. 2 mediastinal and left pleural chest tubes in place with no evidence of air leak, to wall suction, and minimal output in the Pleur-evac's 2 LUNGS: Equal air entry with crackles in the posterior bases left greater than right CVS: Irregular rate and rhythm, normal S1 and S2, no gallops, no murmurs, no rubs ABDOMEN: Soft, nontender. No hepatosplenomegaly, normal bowel sounds, no guarding or rigidity. EXTREMITIES: No clubbing, no edema, no cyanosis, 2+ pulses and upper and lower extremities. Right radial arterial line in place. Incisions on bilateral lower extremities are clean dry and intact, patient has a SCDs on bilateral lower extremities MUSCULOSKELETAL: Muscle strength and tone normal. SPINE: No scoliosis or deformity SKIN: No rashes CENTRAL NERVOUS SYSTEM: Currently awake and alert oriented 3. No focal deficits, tone is normal in all 4 extremities. - Labs CBC & Chem 7: 04/15/21 04:30 04/15/21 04:30 Labs: Abnormal Lab Results - Last 24 Hours (Table) 04/14/21 04/14/21 04/14/21 Range/Units 10:23 10:58 11:57 WBC (3.8-10.6) k/uL RBC (3.80-5.40) m/uL Hgb (11.4-16.0) gm/dL Hct (34.0-46.0) % RDW (11.5-15.5) % Plt Count (150-450) k/uL Neutrophils # (1.3-7.7) k/uL Chloride (98-107) mmol/L BUN (7-17) mg/dL Glucose (74-99) mg/dL POC Glucose (mg/dL) 133 H 146 H 146 H (75-99) mg/dL Total Protein (6.3-8.2) g/dL 04/14/21 04/14/21 04/14/21 Range/Units 13:12 15:05 16:13 WBC (3.8-10.6) k/uL RBC (3.80-5.40) m/uL Hgb (11.4-16.0) gm/dL Hct (34.0-46.0) % RDW (11.5-15.5) % Plt Count (150-450) k/uL Neutrophils # (1.3-7.7) k/uL Chloride (98-107) mmol/L BUN (7-17) mg/dL Glucose (74-99) mg/dL POC Glucose (mg/dL) 102 H 114 H 178 H (75-99) mg/dL Total Protein (6.3-8.2) g/dL 04/14/21 04/14/21 04/14/21 Range/Units 17:14 18:05 18:54 WBC (3.8-10.6) k/uL RBC (3.80-5.40) m/uL Hgb (11.4-16.0) gm/dL Hct (34.0-46.0) % RDW (11.5-15.5) % Plt Count (150-450) k/uL Neutrophils # (1.3-7.7) k/uL Chloride (98-107) mmol/L BUN (7-17) mg/dL Glucose (74-99) mg/dL POC Glucose (mg/dL) 172 H 187 H 135 H (75-99) mg/dL Total Protein (6.3-8.2) g/dL 04/14/21 04/14/21 04/15/21 Range/Units 22:12 23:18 01:08 WBC (3.8-10.6) k/uL RBC (3.80-5.40) m/uL Hgb (11.4-16.0) gm/dL Hct (34.0-46.0) % RDW (11.5-15.5) % Plt Count (150-450) k/uL Neutrophils # (1.3-7.7) k/uL Chloride (98-107) mmol/L BUN (7-17) mg/dL Glucose (74-99) mg/dL POC Glucose (mg/dL) 113 H 119 H 134 H (75-99) mg/dL Total Protein (6.3-8.2) g/dL 04/15/21 04/15/21 04/15/21 Range/Units 01:56 04:30 04:30 WBC 12.4 H (3.8-10.6) k/uL RBC 2.73 L (3.80-5.40) m/uL Hgb 8.1 L (11.4-16.0) gm/dL Hct 25.0 L (34.0-46.0) % RDW 15.6 H (11.5-15.5) % Plt Count 117 L (150-450) k/uL Neutrophils # 10.2 H (1.3-7.7) k/uL Chloride 112 H (98-107) mmol/L BUN 18 H (7-17) mg/dL Glucose 104 H (74-99) mg/dL POC Glucose (mg/dL) 117 H (75-99) mg/dL Total Protein 5.2 L (6.3-8.2) g/dL 04/15/21 04/15/21 04/15/21 Range/Units 04:42 05:54 07:01 WBC (3.8-10.6) k/uL RBC (3.80-5.40) m/uL Hgb (11.4-16.0) gm/dL Hct (34.0-46.0) % RDW (11.5-15.5) % Plt Count (150-450) k/uL Neutrophils # (1.3-7.7) k/uL Chloride (98-107) mmol/L BUN (7-17) mg/dL Glucose (74-99) mg/dL POC Glucose (mg/dL) 118 H 118 H 130 H (75-99) mg/dL Total Protein (6.3-8.2) g/dL 04/15/21 04/15/21 Range/Units 08:21 09:05 WBC (3.8-10.6) k/uL RBC (3.80-5.40) m/uL Hgb (11.4-16.0) gm/dL Hct (34.0-46.0) % RDW (11.5-15.5) % Plt Count (150-450) k/uL Neutrophils # (1.3-7.7) k/uL Chloride (98-107) mmol/L BUN (7-17) mg/dL Glucose (74-99) mg/dL POC Glucose (mg/dL) 154 H 152 H (75-99) mg/dL Total Protein (6.3-8.2) g/dL Assessment and Plan Assessment: 1 Symptomatic multivessel coronary artery disease, status post three-vessel bypass grafting with MENESES to the LAD, SVG to the RCA, and SVG to the OM 1, with endoscopic vein harvest in bilateral lower extremities, and exclusion of the left atrial appendage and intraoperative CHANDRA, postop day #2 2 Routine postoperative ventilator management, extubated at 21:55 04/13/2021. Currently on 4 L high flow nasal cannula.. 3 Postoperative blood loss anemia, hemoglobin 6.9, status post 1 unit packed red blood cells. Current hemoglobin 8.1. Normal outcome of coronary artery bypass grafting 4 New-onset atrial fibrillation with rapid ventricular response, expected outcome of surgery, currently on amiodarone drip, increased beta jannette 5 Diabetes mellitus type II 6 Hyperlipidemia 7 Urinary tract infection, preop, E. 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 Hines Chest x-ray and labs reviewed Lasix 20 mg IVP times one per CT services Amiodarone drip for new onset A. fib RVR Titrate the FiO2 as tolerated Encouraged increased use the incentive spirometer Increase her activity as tolerated Continue heparin for DVT prophylaxis Continue bronchodilators We will continue to follow and make further recommendations based on her clinical status I, the cosigning physician, performed a history & physical examination of the patient. Lungs sounds with crackles in the posterior bases left greater than right. Maintaining good O2 saturations in the 90s on 10 L high flow nasal cannula. I discussed the assessment and plan of care with my nurse practitioner, Marlena Naylor. I attest to the above note as dictated by her.
[2021-04-15 10:01] LABS: Glucose,Whole Blood 144 mg/dL (75-99)
--- NOTE | 2021-04-15 10:43 | P.PN ---
Subjective Progress Note Date: 04/15/21 HISTORY OF PRESENT ILLNESS: This is an 80-year-old female one of my patient with a previous medical history significant for hypertension and hypertensive cardiovascular disease, hyp erlipidemia, history of diabetes mellitus type 2, history of spondylosis of the cervical spine, patient developed to have a significant shortness of breath with exertion ended up seeing Dr. Mercado from cardiology who recommended to have a Lexiscan stress test which came back positive for an area of stress-induced ischemia and echocardiogram showed minimal decrease in the LV function with ejection fraction of 45%, this was followed by left heart catheterization that showed distal left main disease as well as proximal LAD disease, she was referred for coronary artery bypass grafting which was done today by Dr. Vazquez with MENESES to LAD, SVG to RCA, and SVG to the first obtuse marginal branch, and she was admitted to intensive care unit, currently is being seen in the ICU, she is currently intubated, lightly sedated, opens her eyes response to verbal supply, she does not appear to be in acute distress, her hemoglobin has dropped and she did receive 1 unit of packed cells, she would be extubated later on this evening. 04/14: Patient was successfully extubated yesterday afternoon but her pulse ox dropped down and she was increased to 15 L from 4 L and is now at 10 L at the time of this evaluation. She received 1 unit of packed RBCs and 1 dose of albumin. Patient did have mental status changes last evening which could be related to medications. All sedating medications are on hold. She has had 200 mL out of each chest tube serosanguineous drainage. Patient denies any problems with pain. She is awake appears to be alert but very flat. Patient has been afebrile, heart rate 84, blood pressure 147/55 and pulse ox 94%. monitoring engineer sinus rhythm. Repeat blood work reveals WBC 8.4, hemoglobin 8.2, platelet count 90. Sodium 141, potassium 4.1, chloride 112, CO2 23, BUN 14 and creatinine 0.68. Blood sugars are running between 114 1121. Insulin drip is on pause. AST 43, ALT 12, alkaline phosphatase 38, total protein 4.9 and albumin 3.5. Chest x-ray this morning reveals status post median sternotomy. Increased perihilar and interstitial airspace opacities suggestive of pulmonary edema. Left basilar airspace opacities with small left pleural effusion. Portable tiny right pleural effusion. Patient's been started on clear liquid diet. 04/15: Patient remains in intensive care unit. She has been afebrile, heart rate 92, respiratory rate 19-34, blood pressure 150/70, pulse ox 90% on 4 L nasal cannula. She went into atrial fibrillation this morning and started on amiodarone drip. Repeat blood work reveals WBC 12.4, hemoglobin 8.1, platelet count 117. Sodium 139, potassium 4.2, chloride 112, CO2 23, BUN 18 and creatinine 0.84. Blood sugars are running between 90 and 130. Insulin drip is on hold. Liver function tests are normal. Repeat chest x-ray reveals status post median sternotomy. Perihilar interstitial airspace opacities have significantly decreased. Prominent stable left basilar airspace opacity with small left pleural effusion. Probable tiny right pleural effusion. Patient's mental status is improved from yesterday. She is interacting normally. She states she is not eating very much. She states her chest pain is controlled. No leg pain. She denies passing gas or having a bowel movement. Cramer catheter was removed this morning. Chest tubes are scheduled to come out today. She did receive a dose of IV Lasix 20 mg. REVIEW OF SYSTEMS: Constitutional: No fever, no chills, no night sweats. No weight change. Reports weakness, reports fatigue no lethargy. No daytime sleepiness. EENT: No headache. No blurred vision or double vision, no loss of vision. No loss of Hearing, no ringing in the ears, no dizziness. No nasal drainage or congestion. No epistaxis. No sore throat. Lungs: Denies shortness of breath, cough, no sputum production. No wheezing. Cardiovascular: Minimal chest pain, no lower extremity edema. No palpitations. No paroxysmal nocturnal dyspnea. No orthopnea. No lightheadedness or dizziness. No syncopal episodes. Abdominal: No abdominal pain. No nausea, vomiting. No diarrhea. No constipation. No bloody or tarry stools reports loss of appetite. Genitourinary: No dysuria, increased frequency, urgency. No urinary retention. Musculoskeletal: No myalgias. No muscle weakness, no gait dysfunction, no frequent falls. No back pain. No neck pain. Integumentary: No wounds, no lesions. No rash or pruritus. No unusual bruising. No change in hair or nails. Neurologic: No aphasia. No facial droop. No change in mentation. No head injury. No headache. No paralysis. No paresthesia. Psychiatric: No depression. No anxiety. No mood swings. Endocrine: No abnormal blood sugars. No weight change. PHYSICAL EXAMINATION: General: 80-year-old female sitting in recliner does not appear to be in acute distress. HEENT: Head is atraumatic, normocephalic, pupils were equal round reactive to light and recommendation, extraocular muscle movement were intact, sclera nonicteric, conjunctivae were pale, mucous membranes of the mouth are slightly dry. Neck: Supple, no JVP, normal carotid upstroke bilaterally, no lymphadenopathy. Chest: Decreased breath sounds at the bases, few rhonchi, no whee expiratory wheezes, no chest wall tenderness, no intercostal retractions, there is [address], there is pacer wire, mid sternum is covered with dressing. Heart: First heart sound is normal, second heart sounds normal, there is a rub, there is systolic ejection murmur 2/6 located in the left sternal border. Abdomen: Soft, nontender, nondistended, positive bowel sounds Extremities: There is no edema no calf tenderness DP +2 bilaterally, bilateral Mohsen wraps. Neurologic examination: patient is awake alert and oriented 3, upper extremity strength is 4/5, lower extremity strength 5/5. ASSESSMENT AND PLAN: 1. Postoperative day #2 status post CABG 3 with MENESES to LAD, SVG to RCA, SVG to OM1. Continue current treatment treatment plan as per cardiothoracic surgery, cardiology and ICU, patient has been successfully extubated. Continue aspirin 81 mg daily, Lipitor 40 mg daily, Plavix 75 mg daily, Lopressor 25 mg twice daily. 2. Acute vent dependent respiratory failure secondary to CABG 3. Continue aggressive pulmonary toileting. 3. Acute blood loss anemia expected outcome of surgery. Monitor the patient hemoglobin, transfuse for hemoglobin less than 7. Patient is status post transfusion of 1 unit of packed RBCs. 4. New onset A. fib with RVR, paroxysmal atrial fibrillation. Patient was started on amiodarone drip, continue Lopressor. 5. Hypertension and hypertensive cardiovascular disease. Continue Lopressor 25 mg twice daily. 6. Hyperlipidemia. Continue Lipitor 40 mg daily. 7. Diabetes mellitus type 2 currently on insulin drip. Blood sugars have been well controlled. 8. Spondylosis of the cervical spine status post epidural injection. 9. GERD with GI prophylaxis. Continue PPI. 10. History of DVT. Continue DVT prophylaxis. DISCHARGE PLAN: Home with [facility] Impression and plan of care have been directed as dictated by the signing physician. Sandy Gaston nurse practitioner acting as scribe for signing phys ician. Objective - Vital Signs Vital signs: Vital Signs Temp 97.9 F 04/15/21 04:00 Pulse 92 04/15/21 07:00 Resp 19 04/15/21 07:00 BP 150/70 04/15/21 06:30 Pulse Ox 98 04/15/21 07:00 Intake & Output 04/14/21 04/15/21 04/15/21 18:59 06:59 18:59 Intake Total 830.109 841.626 Output Total 1285 630 Balance -454.891 211.626 Weight 83.8 kg 85.1 kg Intake: IV 798 692 .9NS 600 650 .9NS Cardiac Output 20 0.9NS Pressure Bag 78 42 ceFAZolin 2 gm In Sodium 100 Chloride 0.9% 50 ml @ 100 mls/hr IVPB Q8HR [facility] Rx# :[id number] Intake, IV Titration 32.109 29.626 Amount Insulin Regular 100 unit 32.109 29.626 In Sodium Chloride 0.9% 100 ml @ Per Protocol IV .Q0M [facility] Rx#:[id number] Oral 120 Output: Chest Tube Drainage 530 90 Left Pleural Chest Tube 270 60 Mediastinal Chest Tube X 260 30 2 Urine 755 540 Other: Voiding Method Indwelling Catheter Indwelling Catheter # Voids 0 ABP, PAP, CO, CI - Last Documented Arterial Blood Pressure 165/67 Pulmonary Artery Pressure 32/11 Cardiac Output 5.6 Cardiac Index 3.1 - Labs CBC & Chem 7: 04/15/21 04:30 04/15/21 04:30 Labs: Abnormal Lab Results - Last 24 Hours (Table) 04/14/21 04/14/21 04/14/21 Range/Units 08:25 09:34 10:23 WBC (3.8-10.6) k/uL RBC (3.80-5.40) m/uL Hgb (11.4-16.0) gm/dL Hct (34.0-46.0) % RDW (11.5-15.5) % Plt Count (150-450) k/uL Neutrophils # (1.3-7.7) k/uL Chloride (98-107) mmol/L BUN (7-17) mg/dL Glucose (74-99) mg/dL POC Glucose (mg/dL) 140 H 148 H 133 H (75-99) mg/dL Total Protein (6.3-8.2) g/dL 04/14/21 04/14/21 04/14/21 Range/Units 10:58 11:57 13:12 WBC (3.8-10.6) k/uL RBC (3.80-5.40) m/uL Hgb (11.4-16.0) gm/dL Hct (34.0-46.0) % RDW (11.5-15.5) % Plt Count (150-450) k/uL Neutrophils # (1.3-7.7) k/uL Chloride (98-107) mmol/L BUN (7-17) mg/dL Glucose (74-99) mg/dL POC Glucose (mg/dL) 146 H 146 H 102 H (75-99) mg/dL Total Protein (6.3-8.2) g/dL 04/14/21 04/14/21 04/14/21 Range/Units 15:05 16:13 17:14 WBC (3.8-10.6) k/uL RBC (3.80-5.40) m/uL Hgb (11.4-16.0) gm/dL Hct (34.0-46.0) % RDW (11.5-15.5) % Plt Count (150-450) k/uL Neutrophils # (1.3-7.7) k/uL Chloride (98-107) mmol/L BUN (7-17) mg/dL Glucose (74-99) mg/dL POC Glucose (mg/dL) 114 H 178 H 172 H (75-99) mg/dL Total Protein (6.3-8.2) g/dL 04/14/21 04/14/21 04/14/21 Range/Units 18:05 18:54 22:12 WBC (3.8-10.6) k/uL RBC (3.80-5.40) m/uL Hgb (11.4-16.0) gm/dL Hct (34.0-46.0) % RDW (11.5-15.5) % Plt Count (150-450) k/uL Neutrophils # (1.3-7.7) k/uL Chloride (98-107) mmol/L BUN (7-17) mg/dL Glucose (74-99) mg/dL POC Glucose (mg/dL) 187 H 135 H 113 H (75-99) mg/dL Total Protein (6.3-8.2) g/dL 04/14/21 04/15/21 04/15/21 Range/Units 23:18 01:08 01:56 WBC (3.8-10.6) k/uL RBC (3.80-5.40) m/uL Hgb (11.4-16.0) gm/dL Hct (34.0-46.0) % RDW (11.5-15.5) % Plt Count (150-450) k/uL Neutrophils # (1.3-7.7) k/uL Chloride (98-107) mmol/L BUN (7-17) mg/dL Glucose (74-99) mg/dL POC Glucose (mg/dL) 119 H 134 H 117 H (75-99) mg/dL Total Protein (6.3-8.2) g/dL 04/15/21 04/15/21 04/15/21 Range/Units 04:30 04:30 04:42 WBC 12.4 H (3.8-10.6) k/uL RBC 2.73 L (3.80-5.40) m/uL Hgb 8.1 L (11.4-16.0) gm/dL Hct 25.0 L (34.0-46.0) % RDW 15.6 H (11.5-15.5) % Plt Count 117 L (150-450) k/uL Neutrophils # 10.2 H (1.3-7.7) k/uL Chloride 112 H (98-107) mmol/L BUN 18 H (7-17) mg/dL Glucose 104 H (74-99) mg/dL POC Glucose (mg/dL) 118 H (75-99) mg/dL Total Protein 5.2 L (6.3-8.2) g/dL 04/15/21 04/15/21 Range/Units 05:54 07:01 WBC (3.8-10.6) k/uL RBC (3.80-5.40) m/uL Hgb (11.4-16.0) gm/dL Hct (34.0-46.0) % RDW (11.5-15.5) % Plt Count (150-450) k/uL Neutrophils # (1.3-7.7) k/uL Chloride (98-107) mmol/L BUN (7-17) mg/dL Glucose (74-99) mg/dL POC Glucose (mg/dL) 118 H 130 H (75-99) mg/dL Total Protein (6.3-8.2) g/dL
[2021-04-15] MEDS: SODIUM CHLORIDE 0.9% 1,000 ML IV SCH (10:50)
[2021-04-15 11:18] LABS: Glucose,Whole Blood 122 mg/dL (75-99)
--- NOTE | 2021-04-15 11:36 | P.PN ---
Subjective Progress Note Date: 04/15/21 HISTORY OF PRESENT ILLNESS: This is a 80-year-old female with a past medical history significant for diabetes mellitus, DVT, GERD, hypertension, and hyperlipidemia. Patient follows in the office with Dr. Mercado. We have been asked to see the patient in consultation for post cardiac surgery care. Patient is status post CABG 3: MENESES to LAD, reverse saphenous vein graft to first appears marginal artery, and reverse saphenous vein graft to the right coronary artery. Postop day #1. Patient examined at the bedside. Patient was extubated yesterday morning. She is currently on nasal cannula with oxygen saturations greater than 92%. She is sitting up in the chair. She denies chest pain or pressure. Denies shortness of breath. Pain is currently well controlled. Patient is currently confused and only alert and oriented 1. Her narcotics have been discontinued. Patient was hypertensive overnight and did require Cleviprex which is off at this time. She is hemodynamically stable and not requiring vasopressor support. Telemetry reveals sinus mechanism Chest xray status post median sternotomy. Increased perihilar and interstitial airspace opacities suggestive of pulmonary edema. Left basilar airspace opacities with small left pleural effusion. Probable tiny right pleural effusion. Laboratory data: WBC 8.4. Hemoglobin 8.2. Platelet count 90. Sodium 141. Pot assium 4.1. BUN 14. Creatinine 0.68. Magnesium 2.2. Current home cardiac medications include aspirin 81 mg daily, metoprolol succinate 12.5 mg daily, simvastatin 40 mg daily and valsartan 160 mg daily Most recent echocardiogram obtained on 04/05/2021 reveals ejection fraction 40- 45%, mild mitral regurgitation, and mild tricuspid regurgitation Cardiac catheterization history: 04/05/2021 revealing calcified right and left coronary systems. Complex calcified lesion involving the distal left main coronary artery and ostial LCX. The lesion in the left main appeared to be in the range of 50-60% and ostial left circumflex about 80-90%. Subtotally occluded mid left anterior descending artery. 04/15/2021 Patient examined this morning in the intensive care unit. Patient is sitting up in the chair. She denies chest pain or pressure. She denies shortness of breath. She is on nasal cannula with oxygen saturations greater than 92%. Patient went into atrial fibrillation with RVR this morning. Patient was started on IV amiodarone. Patient remains in atrial fibrillation with controlled ventricular rate. Her beta jannette was increased this morning per cardiothoracic surgery. PHYSICAL EXAM: VITAL SIGNS: Reviewed. GENERAL: Well-developed in no acute distress. HEENT: Head is normocephalic. Pupils are equal, round. Sclerae anicteric. Mucous membranes of the mouth are moist. Neck supple. No JVD or thyromegaly LUNGS: Respirations even and unlabored. Lungs diminished bilaterally. Chest tubes noted. HEART: Irregular rate and rhythm. S1 and S2 heard. Dressing to sternum clean dry and intact. Heart hugger present. EXTREMITIES: Normal range of motion. No clubbing or cyanosis. Peripheral pulses intact. No lower extremity edema ASSESSMENT: Multivessel coronary artery disease, status post CABG 3 Postoperative acute blood loss anemia Confusion Hypertension Hyperlipidemia Diabetes mellitus History of DVT Family history of premature coronary artery disease New-onset paroxysmal atrial fibrillation with RVR PLAN: Continue postoperative management per CTS Continue current cardiac medications including aspirin, Plavix, atorvastatin, and metoprolol Metoprolol increased this morning per CTS Continue IV amio If patient does not convert to SR, she will require anticoagulation from a cardiac standpoint. Continue telemetry monitoring. Encourage use of incentive spirometer Increase activity as tolerated Further recommendations pending patient's course Nurse practitioner note has been reviewed by physician. Signing provider agrees with the documented findings, assessment, and plan of care. Objective - Vital Signs Vital signs: Vital Signs Temp 97.9 F 04/15/21 08:00 Pulse 93 04/15/21 11:24 Resp 11 L 04/15/21 11:00 BP 129/74 04/15/21 11:00 Pulse Ox 96 04/15/21 11:00 Intake & Output 04/14/21 04/15/21 04/15/21 18:59 06:59 18:59 Intake Total 830.109 841.626 242.365 Output Total 1285 630 660 Balance -454.891 211.626 -417.635 Weight 83.8 kg 85.1 kg Intake: IV 798 692 104 .9NS 600 650 80 .9NS Cardiac Output 20 0.9NS Pressure Bag 78 42 24 ceFAZolin 2 gm In Sodium 100 Chloride 0.9% 50 ml @ 100 mls/hr IVPB Q8HR [facility] Rx# :[id number] Intake, IV Titration 32.109 29.626 18.365 Amount Insulin Regular 100 unit 32.109 29.626 18.365 In Sodium Chloride 0.9% 100 ml @ Per Protocol IV .Q0M [facility] Rx#:[id number] Oral 120 120 Output: Chest Tube Drainage 530 90 60 Left Pleural Chest Tube 270 60 30 Mediastinal Chest Tube X 260 30 30 2 Urine 755 540 600 Other: Voiding Method Indwelling Catheter Indwelling Catheter # Voids 0 ABP, PAP, CO, CI - Last Documented Arterial Blood Pressure 165/67 Pulmonary Artery Pressure 32/11 Cardiac Output 5.6 Cardiac Index 3.1 - Labs CBC & Chem 7: 04/15/21 04:30 04/15/21 04:30 Labs: Abnormal Lab Results - Last 24 Hours (Table) 04/14/21 04/14/21 04/14/21 Range/Units 11:57 13:12 15:05 WBC (3.8-10.6) k/uL RBC (3.80-5.40) m/uL Hgb (11.4-16.0) gm/dL Hct (34.0-46.0) % RDW (11.5-15.5) % Plt Count (150-450) k/uL Neutrophils # (1.3-7.7) k/uL Chloride (98-107) mmol/L BUN (7-17) mg/dL Glucose (74-99) mg/dL POC Glucose (mg/dL) 146 H 102 H 114 H (75-99) mg/dL Total Protein (6.3-8.2) g/dL 04/14/21 04/14/21 04/14/21 Range/Units 16:13 17:14 18:05 WBC (3.8-10.6) k/uL RBC (3.80-5.40) m/uL Hgb (11.4-16.0) gm/dL Hct (34.0-46.0) % RDW (11.5-15.5) % Plt Count (150-450) k/uL Neutrophils # (1.3-7.7) k/uL Chloride (98-107) mmol/L BUN (7-17) mg/dL Glucose (74-99) mg/dL POC Glucose (mg/dL) 178 H 172 H 187 H (75-99) mg/dL Total Protein (6.3-8.2) g/dL 04/14/21 04/14/21 04/14/21 Range/Units 18:54 22:12 23:18 WBC (3.8-10.6) k/uL RBC (3.80-5.40) m/uL Hgb (11.4-16.0) gm/dL Hct (34.0-46.0) % RDW (11.5-15.5) % Plt Count (150-450) k/uL Neutrophils # (1.3-7.7) k/uL Chloride (98-107) mmol/L BUN (7-17) mg/dL Glucose (74-99) mg/dL POC Glucose (mg/dL) 135 H 113 H 119 H (75-99) mg/dL Total Protein (6.3-8.2) g/dL 04/15/21 04/15/21 04/15/21 Range/Units 01:08 01:56 04:30 WBC 12.4 H (3.8-10.6) k/uL RBC 2.73 L (3.80-5.40) m/uL Hgb 8.1 L (11.4-16.0) gm/dL Hct 25.0 L (34.0-46.0) % RDW 15.6 H (11.5-15.5) % Plt Count 117 L (150-450) k/uL Neutrophils # 10.2 H (1.3-7.7) k/uL Chloride (98-107) mmol/L BUN (7-17) mg/dL Glucose (74-99) mg/dL POC Glucose (mg/dL) 134 H 117 H (75-99) mg/dL Total Protein (6.3-8.2) g/dL 04/15/21 04/15/21 04/15/21 Range/Units 04:30 04:42 05:54 WBC (3.8-10.6) k/uL RBC (3.80-5.40) m/uL Hgb (11.4-16.0) gm/dL Hct (34.0-46.0) % RDW (11.5-15.5) % Plt Count (150-450) k/uL Neutrophils # (1.3-7.7) k/uL Chloride 112 H (98-107) mmol/L BUN 18 H (7-17) mg/dL Glucose 104 H (74-99) mg/dL POC Glucose (mg/dL) 118 H 118 H (75-99) mg/dL Total Protein 5.2 L (6.3-8.2) g/dL 04/15/21 04/15/21 04/15/21 Range/Units 07:01 08:21 09:05 WBC (3.8-10.6) k/uL RBC (3.80-5.40) m/uL Hgb (11.4-16.0) gm/dL Hct (34.0-46.0) % RDW (11.5-15.5) % Plt Count (150-450) k/uL Neutrophils # (1.3-7.7) k/uL Chloride (98-107) mmol/L BUN (7-17) mg/dL Glucose (74-99) mg/dL POC Glucose (mg/dL) 130 H 154 H 152 H (75-99) mg/dL Total Protein (6.3-8.2) g/dL 04/15/21 04/15/21 Range/Units 09:59 11:16 WBC (3.8-10.6) k/uL RBC (3.80-5.40) m/uL Hgb (11.4-16.0) gm/dL Hct (34.0-46.0) % RDW (11.5-15.5) % Plt Count (150-450) k/uL Neutrophils # (1.3-7.7) k/uL Chloride (98-107) mmol/L BUN (7-17) mg/dL Glucose (74-99) mg/dL POC Glucose (mg/dL) 144 H 122 H (75-99) mg/dL Total Protein (6.3-8.2) g/dL
[2021-04-15 11:55] LABS: Glucose,Whole Blood 116 mg/dL (75-99)
[2021-04-15 12:55] LABS: Glucose,Whole Blood 192 mg/dL (75-99)
[2021-04-15] MEDS: AMIODARONE 450 MG in DEXTROSE 5% IN WATER 250 ML IV PRN ×2 (13:41)
--- NOTE | 2021-04-15 13:41 | CDI ---
Documentation Clarification Form Date: 04/15/2021 01:28:42 PM From: Patricia Membreno CCS, CCDS Admit Date: 04/13/2021 05:34:00 AM Patient Name: Елена Martinez Visit Number: [id number] Discharge Date: ATTENTION: The Clinical Documentation Specialists (CDI) and [facility] Coding Staff appreciate your assistance in clarifying documentation. Please respond to the clarification below the line at the bottom and electronically sign. The CDI & [facility] Coding staff will review the response and follow-up if needed. Please note: Queries are made part of the Legal Health Record. If you have any questions, please contact the author of this message via ITS. Dr. Mary Shipman: Per the 04/14 Cardiothoracic Surgery Progress Note: Confusion, felt to be secondary to cardiopulmonary bypass pump versus slow to wake up from anesthesia which the patient does have a history of. Per the 04/15 Medical Management Progress Note: Patient did have mental status changes last evening which could be related to medications. All sedating medications are on hold Additional clarification regarding the etiology of the patient's altered mental status is requested. History/Risk Factors per the Medical Management Consult Medical History: DM, DVT, GERD, Hyperlipidemia, Hypertension, Osteoarthritis. Clinical Indicators: Presented 04/14 for Elective Surgery: CABG x4 for Triple Vessel CAD. 04/13 Postop VS: T 96.3, P 89, R 20, BP 86/53, PO 100 initially intubated on vent. 04/13 Postop LAB: Hgb 7.0 - 6.9, Hct 20.8 - 19.3, Pl Ct 88 - 81, Lymph 1.5 - 0.8, PT 12.6, INR 1.2, APTT 32.5, Fibrinogen 193, Glucose 182, Calcium 8.1, Mag 2.8, AST 38, Alk Phos 28, Total prot 4.6, Albumin 3.2 04/13 Postop ABG Blood gas: pH 7.30, pO2 204, O2 Sat 99.8, Hct 27, Gluc 150, Lactic Acid 1.2 - 2.2, Hgb 8.9 - 7.1. Treatment 04/13: IV Vancymycin, IV Albumin, IV Amiodarone, IV Calcium Gluconate, IV Dextrose/Water w/Amiodarone, IV Reglan, IV Clevidipine, IV Insulin, IV Nitro, IV Propofol, IV fluid 1,000 mls @ 20 mls/hr q24H, INH Duoneb, IV Cefazolin, IV Tylenol. Please clarify if the following was present: [ ] Hypertensive Encephalopathy [ ] Metabolic Encephalopathy [ ] Septic Encephalopathy [ ] Toxic Encephalopathy [ ] Other, please specify [ ] Unable to determine (Template Last Revised: January 2021) Toxic encephalopathy MTDD
--- NOTE | 2021-04-15 13:52 | CDI ---
Documentation Clarification Form Date: 04/15/2021 01:42:00 PM From: Patricia MembrenoLESVIA obrien, CCDS Admit Date: 04/13/2021 05:34:00 AM Patient Name: Елена Martinez Visit Number: [id number] Discharge Date: ATTENTION: The Clinical Documentation Specialists (CDI) and [facility] Coding Staff appreciate your assistance in clarifying documentation. Please respond to the clarification below the line at the bottom and electronically sign. The CDI & [facility] Coding staff will review the response and follow-up if needed. Please note: Queries are made part of the Legal Health Record. If you have any questions, please contact the author of this message via ITS. Dr. Gino Goldman: The following is documented in the 04/14 Pulmonary/Critical Care Progress Note: She did have some postop issues with hypotension requiring pressors and then hypertension requiring Clevidipine. Assessment: Initial hypotension requiring pressors, subsequent hypertension requiring Clevidipine. History/Risk Factors per the Medical Management Consult Medical History: DM, DVT, GERD, Hyperlipidemia, Hypertension, Osteoarthritis. Clinical Indicators: Presented 04/14 for Elective Surgery: CABG x4 for Triple Vessel CAD. 04/13 Postop VS: T 96.3, P 89, R 20, BP 86/53, PO 100 initially intubated on vent. 04/13 Postop LAB: Hgb 7.0 - 6.9, Hct 20.8 - 19.3, Pl Ct 88 - 81, Lymph 1.5 - 0.8, PT 12.6, INR 1.2, APTT 32.5, Fibrinogen 193, Glucose 182, Calcium 8.1, Mag 2.8, AST 38, Alk Phos 28, Total prot 4.6, Albumin 3.2 04/13 Postop ABG Blood gas: pH 7.30, pO2 204, O2 Sat 99.8, Hct 27, Gluc 150, Lactic Acid 1.2 - 2.2, Hgb 8.9 - 7.1. Treatment 04/13: IV Heparin, IV Papaverine x1, IV Vancymycin, IV Albumin, IV Amiodarone, IV Calcium Gluconate, IV Dextrose/Water w/Amiodarone, IV Reglan, IV Clevidipine, IV Insulin, IV Nitro, IV Propofol, IV fluid 1,000 mls @ 20 mls/hr q24H, INH Duoneb, IV Cefazolin, IV Tylenol. 04/13 Transfused 1 unit PRBCs for documented Acute Blood Loss Anemia. Please clarify if the following was present: [ ] Hypovolemic Shock [ ] Cardiogenic Shock [ ] Other Shock, please specify: [ ] Other, please specify [ ] Unable to determine (Template Last Revised: January 2021) I am currently not seeing this patient. LUCIED
[2021-04-15 14:09] LABS: Glucose,Whole Blood 205 mg/dL (75-99)
[2021-04-15 15:20] LABS: Glucose,Whole Blood 125 mg/dL (75-99)
[2021-04-15 17:10] LABS: Glucose,Whole Blood 117 mg/dL (75-99)
[2021-04-15 18:45] LABS: Glucose,Whole Blood 165 mg/dL (75-99)
[2021-04-15 20:24] LABS: Glucose,Whole Blood 162 mg/dL (75-99)
[2021-04-15] MEDS: SENNOSIDES-DOCUSATE SODIUM 1 EACH TAB PO SCH (21:01)
[2021-04-15] MEDS: INSULIN ASPART (NovoLOG) 100 UNIT/ML VIAL SQ SCH (21:01)
[2021-04-15] MEDS: AMIODARONE 200 MG TAB PO SCH (21:02)
[2021-04-16] MEDS: AMIODARONE 450 MG in DEXTROSE 5% IN WATER 250 ML IV PRN ×2 (04:51)
[2021-04-16 05:11] LABS: Basophils % (A) 0 %; Eosinophils # (A) 0.6 k/uL (0-0.7); Eosinophils % (A) 5 %; HGB 8.3 gm/dL (11.4-16.0); Lymphocytes # (A) 1.5 k/uL (1.0-4.8); Lymphocytes % (A) 12 %; MCH 31.8 pg (25.0-35.0); MCHC 34.4 g/dL (31.0-37.0); MCV 92.6 fL (80.0-100.0); Mean Platelet Volume 8.9; Monocytes # (A) 0.4 k/uL (0-1.0); Monocytes % (A) 3 %; Neutrophils # (A) 10.2 k/uL (1.3-7.7); Neutrophils % (A) 80 %; Platelet Count 144 k/uL (150-450); RDW 15.1 % (11.5-15.5); WBC 12.8 k/uL (3.8-10.6)
[2021-04-16] MEDS: KETOROLAC 15 MG/ML 1 ML VIAL IVP SCH ×5 (05:14→23:04)
[2021-04-16 05:22] LABS: Albumin 3.1 g/dL (3.5-5.0); Calcium 8.4 mg/dL (8.4-10.2); Potassium 4.2 mmol/L (3.5-5.1); Total Bilirubin 0.5 mg/dL (0.2-1.3); Total Protein 5.1 g/dL (6.3-8.2)
[2021-04-16 07:10] LABS: Glucose,Whole Blood 176 mg/dL (75-99)
[2021-04-16] MEDS: PANTOPRAZOLE 40 MG TABLET PO SCH (07:15)
[2021-04-16] MEDS: metFORMIN 500 MG TAB PO SCH ×2 (07:15→17:18)
[2021-04-16] MEDS: INSULIN ASPART (NovoLOG) 100 UNIT/ML VIAL SQ SCH ×4 (07:15→20:20)
[2021-04-16] MEDS ORDERED: HYDROcodone/APAP 5-325MG 1 EACH TAB PO PRN (07:22)
[2021-04-16] MEDS: IPRATROPIUM-ALBUTEROL 3 ML NEB INHALATION SCH ×4 (07:36→19:58)
--- NOTE | 2021-04-16 07:57 | XR ---
EXAMINATION TYPE: XR chest 1V portable DATE OF EXAM: 04/16/2021 COMPARISON: 04/15/2021 HISTORY: Post cardiac surgery TECHNIQUE: Single frontal view of the chest is obtained. FINDINGS: Status post median sternotomy. Overlying leads. Low lung volumes. Heart size is mildly enl arged, stable. Atherosclerotic aorta. Stable prominent Left basilar airspace opacity with probable sm all pleural effusion. Patchy upper lobe airspace opacities are new . Probable tiny right pleural effu trevor. No pneumothorax. IMPRESSION: 1. Status post median sternotomy. 2. Prominent stable left basilar airspace opacity with small left pleural effusion. Probable tiny rig ht pleural effusion. 3. Patchy bilateral upper lobe airspace opacities are new
--- NOTE | 2021-04-16 08:01 | P.PN ---
Subjective Progress Note Date: 04/16/21 HISTORY OF PRESENT ILLNESS: This is an 80-year-old female one of my patient with a previous medical history significant for hypertension and hypertensive cardiovascular disease, hyp erlipidemia, history of diabetes mellitus type 2, history of spondylosis of the cervical spine, patient developed to have a significant shortness of breath with exertion ended up seeing Dr. Mercado from cardiology who recommended to have a Lexiscan stress test which came back positive for an area of stress-induced ischemia and echocardiogram showed minimal decrease in the LV function with ejection fraction of 45%, this was followed by left heart catheterization that showed distal left main disease as well as proximal LAD disease, she was referred for coronary artery bypass grafting which was done today by Dr. Vazquez with MENESES to LAD, SVG to RCA, and SVG to the first obtuse marginal branch, and she was admitted to intensive care unit, currently is being seen in the ICU, she is currently intubated, lightly sedated, opens her eyes response to verbal supply, she does not appear to be in acute distress, her hemoglobin has dropped and she did receive 1 unit of packed cells, she would be extubated later on this evening. 04/14: Patient was successfully extubated yesterday afternoon but her pulse ox dropped down and she was increased to 15 L from 4 L and is now at 10 L at the time of this evaluation. She received 1 unit of packed RBCs and 1 dose of albumin. Patient did have mental status changes last evening which could be related to medications. All sedating medications are on hold. She has had 200 mL out of each chest tube serosanguineous drainage. Patient denies any problems with pain. She is awake appears to be alert but very flat. Patient has been afebrile, heart rate 84, blood pressure 147/55 and pulse ox 94%. monitoring specialist sinus rhythm. Repeat blood work reveals WBC 8.4, hemoglobin 8.2, platelet count 90. Sodium 141, potassium 4.1, chloride 112, CO2 23, BUN 14 and creatinine 0.68. Blood sugars are running between 114 1121. Insulin drip is on pause. AST 43, ALT 12, alkaline phosphatase 38, total protein 4.9 and albumin 3.5. Chest x-ray this morning reveals status post median sternotomy. Increased perihilar and interstitial airspace opacities suggestive of pulmonary edema. Left basilar airspace opacities with small left pleural effusion. Portable tiny right pleural effusion. Patient's been started on clear liquid diet. 04/15: Patient remains in intensive care unit. She has been afebrile, heart rate 92, respiratory rate 19-34, blood pressure 150/70, pulse ox 90% on 4 L nasal cannula. She went into atrial fibrillation this morning and started on amiodarone drip. Repeat blood work reveals WBC 12.4, hemoglobin 8.1, platelet count 117. Sodium 139, potassium 4.2, chloride 112, CO2 23, BUN 18 and creatinine 0.84. Blood sugars are running between 90 and 130. Insulin drip is on hold. Liver function tests are normal. Repeat chest x-ray reveals status post median sternotomy. Perihilar interstitial airspace opacities have significantly decreased. Prominent stable left basilar airspace opacity with small left pleural effusion. Probable tiny right pleural effusion. Patient's mental status is improved from yesterday. She is interacting normally. She states she is not eating very much. She states her chest pain is controlled. No leg pain. She denies passing gas or having a bowel movement. Cramer catheter was removed this morning. Chest tubes are scheduled to come out today. She did receive a dose of IV Lasix 20 mg. 04/16: Patient is sitting up in the recliner chair she denies any chest pain, less short of breath, she is in sinus rhythm, she was in atrial for abrasion yesterday she continues to be on amiodarone, she is requiring 2-1/2 L nasal cannula, she is utilizing the incentive spirometer, and awaiting about 90 feet yesterday, we'll continue to monitor the patient very closely, continue aggressive already totally day, continue to monitor very closely and she was switched from insulin drip yesterday to metformin 500 mg orally twice every day along with a sliding scale insulin. REVIEW OF SYSTEMS: Constitutional: No fever, no chills, no night sweats. No weight change. Reports weakness, reports fatigue no lethargy. No daytime sleepiness. HEENT: No headache. No blurred vision or double vision, no loss of vision. No loss of Hearing, no ringing in the ears, no dizziness. No nasal drainage or congestion. No epistaxis. No sore throat. Lungs: Denies shortness of breath, cough, no sputum production. No wheezing. Cardiovascular: Minimal chest pain, no lower extremity edema. No palpitations. No paroxysmal nocturnal dyspnea. No orthopnea. No lightheadedness or dizziness. No syncopal episodes. Abdominal: No abdominal pain. No nausea, vomiting. No diarrhea. No constip ation. No bloody or tarry stools reports loss of appetite. Genitourinary: No dysuria, increased frequency, urgency. No urinary retention. Musculoskeletal: No myalgias. No muscle weakness, no gait dysfunction, no frequent falls. No back pain. No neck pain. Integumentary: No wounds, no lesions. No rash or pruritus. No unusual bruising. No change in hair or nails. Neurologic: No aphasia. No facial droop. No change in mentation. No head injury. No headache. No paralysis. No paresthesia. Psychiatric: No depression. No anxiety. No mood swings. Endocrine: No abnormal blood sugars. No weight change. PHYSICAL EXAMINATION: General: 80-year-old female sitting in recliner does not appear to be in acute distress. HEENT: Head is atraumatic, normocephalic, pupils were equal round reactive to light and recommendation, extraocular muscle movement were intact, sclera nonicteric, conjunctivae were pale, mucous membranes of the mouth are slightly dry. Neck: Supple, no JVP, normal carotid upstroke bilaterally, no lymphadenopathy. Chest: Decreased breath sounds at the bases, few rhonchi, no expiratory wheezes, no chest wall tenderness, no intercostal retractions, mid sternum is covered with dressing. Heart: First heart sound is normal, second heart sounds normal, there is a rub, there is systolic ejection murmur 2/6 located in the left sternal border. Abdomen: Soft, nontender, nondistended, positive bowel sounds Extremities: There is no edema no calf tenderness DP +2 bilaterally, bilateral Mohsen wraps. Neurologic examination: patient is awake alert and oriented 3, upper extremity strength is 4/5, lower extremity strength 5/5. ASSESSMENT AND PLAN: 1. Postoperative day #3 status post CABG 3 with MENESES to LAD, SVG to RCA, SVG to OM1. Continue current treatment treatment plan as per cardiothoracic surgery, cardiology and ICU, patient has been successfully extubated. Continue aspirin 81 mg daily, Lipitor 40 mg daily, Plavix 75 mg daily, Lopressor 25 mg twice daily. 2. Acute vent dependent respiratory failure secondary to CABG 3. Continue aggressive pulmonary toileting. 3. Acute blood loss anemia expected outcome of surgery. Monitor the patient hemoglobin, transfuse for hemoglobin less than 7. Patient is status post transfusion of 1 unit of packed RBCs. 4. New onset A. fib with RVR, paroxysmal atrial fibrillation. Patient is currently in sinus rhythm continue metoprolol 50 mg orally twice every day, 5. Hypertension and hypertensive cardiovascular disease. Continue Lopressor 50 mg twice daily. 6. Hyperlipidemia. Continue Lipitor 40 mg daily. 7. Diabetes mellitus type 2 currently . Continue metformin 500 mg orally twice every day as well as sliding scale insulin. 8. Spondylosis of the cervical spine status post epidural injection. 9. GERD with GI prophylaxis. Continue PPI. 10. History of DVT. Continue DVT prophylaxis. DISCHARGE PLAN: Home with [facility] Objective - Vital Signs Vital signs: Vital Signs Temp 98.1 F 04/16/21 04:00 Pulse 78 04/16/21 07:36 Resp 31 H 04/16/21 07:00 BP 117/59 04/16/21 07:00 Pulse Ox 94 L 04/16/21 07:00 Intake & Output 04/15/21 04/16/21 04/16/21 18:59 06:59 18:59 Intake Total 841.231 670 20 Output Total 1010 350 Balance -168.769 320 20 Weight 85.7 kg Intake: IV 300 220 20 .9NS 240 220 20 0.9NS Pressure Bag 60 Intake, IV Titration 61.231 250 Amount Amiodarone 450 mg In 250 Dextrose 5% in Water 250 ml @ 0.5 MG/MIN 16.667 mls/hr IV .Q15H PRN Rx#: [id number] Insulin Regular 100 unit 61.231 In Sodium Chloride 0.9% 100 ml @ Per Protocol IV .Q0M [facility] Rx#:[id number] Oral 480 200 Output: Chest Tube Drainage 60 Left Pleural Chest Tube 30 Mediastinal Chest Tube X 30 2 Urine 950 350 Other: Voiding Method Bedside Commode Bedside Commode ABP, PAP, CO, CI - Last Documented Arterial Blood Pressure 165/67 Pulmonary Artery Pressure 32/11 Cardiac Output 5.6 Cardiac Index 3.1 - Labs CBC & Chem 7: 04/16/21 04:57 04/16/21 04:57 Labs: Abnormal Lab Results - Last 24 Hours (Table) 04/15/21 04/15/21 04/15/21 Range/Units 08:21 09:05 09:59 WBC (3.8-10.6) k/uL RBC (3.80-5.40) m/uL Hgb (11.4-16.0) gm/dL Hct (34.0-46.0) % Plt Count (150-450) k/uL Neutrophils # (1.3-7.7) k/uL Chloride (98-107) mmol/L BUN (7-17) mg/dL Glucose (74-99) mg/dL POC Glucose (mg/dL) 154 H 152 H 144 H (75-99) mg/dL Total Protein (6.3-8.2) g/dL Albumin (3.5-5.0) g/dL 04/15/21 04/15/21 04/15/21 Range/Units 11:16 11:54 12:54 WBC (3.8-10.6) k/uL RBC (3.80-5.40) m/uL Hgb (11.4-16.0) gm/dL Hct (34.0-46.0) % Plt Count (150-450) k/uL Neutrophils # (1.3-7.7) k/uL Chloride (98-107) mmol/L BUN (7-17) mg/dL Glucose (74-99) mg/dL POC Glucose (mg/dL) 122 H 116 H 192 H (75-99) mg/dL Total Protein (6.3-8.2) g/dL Albumin (3.5-5.0) g/dL 04/15/21 04/15/21 04/15/21 Range/Units 14:08 15:19 17:09 WBC (3.8-10.6) k/uL RBC (3.80-5.40) m/uL Hgb (11.4-16.0) gm/dL Hct (34.0-46.0) % Plt Count (150-450) k/uL Neutrophils # (1.3-7.7) k/uL Chloride (98-107) mmol/L BUN (7-17) mg/dL Glucose (74-99) mg/dL POC Glucose (mg/dL) 205 H 125 H 117 H (75-99) mg/dL Total Protein (6.3-8.2) g/dL Albumin (3.5-5.0) g/dL 04/15/21 04/15/21 04/16/21 Range/Units 18:44 20:23 04:57 WBC 12.8 H (3.8-10.6) k/uL RBC 2.60 L (3.80-5.40) m/uL Hgb 8.3 L (11.4-16.0) gm/dL Hct 24.0 L (34.0-46.0) % Plt Count 144 L (150-450) k/uL Neutrophils # 10.2 H (1.3-7.7) k/uL Chloride (98-107) mmol/L BUN (7-17) mg/dL Glucose (74-99) mg/dL POC Glucose (mg/dL) 165 H 162 H (75-99) mg/dL Total Protein (6.3-8.2) g/dL Albumin (3.5-5.0) g/dL 04/16/21 04/16/21 Range/Units 04:57 07:09 WBC (3.8-10.6) k/uL RBC (3.80-5.40) m/uL Hgb (11.4-16.0) gm/dL Hct (34.0-46.0) % Plt Count (150-450) k/uL Neutrophils # (1.3-7.7) k/uL Chloride 109 H (98-107) mmol/L BUN 25 H (7-17) mg/dL Glucose 159 H (74-99) mg/dL POC Glucose (mg/dL) 176 H (75-99) mg/dL Total Protein 5.1 L (6.3-8.2) g/dL Albumin 3.1 L (3.5-5.0) g/dL
[2021-04-16] MEDS ORDERED: FUROSEMIDE 10 MG/ML 2 ML VIAL IV STA (08:25)
--- NOTE | 2021-04-16 08:44 | P.PN ---
Subjective Progress Note Date: 04/16/21 Principal diagnosis: Severe CAD and status post CABG This is an 80-year-old female patient with a past medical history significant for diabetes and hypertension and dyslipidemia who I follow in the office regularly who was diagnosed recently was obstructive triple-vessel coronary artery disease. She underwent coronary artery that is grafting 3 with MENESES to LAD and SVG to OM as well as SVG to PDA of the RCA. This is postoperative. Elevation day #3. Overall the patient is doing well and she did take a good recovery. She went into atrial fibrillation but subsequently converted to normal sinus mechanism beach she was in atrial fibrillation for less than 48 hours. Currently she is on the medial by mouth. Beside that she is on dual antiplatelet therapy along with a statin and beta jannette. The blood work was reviewed and revealed a hemoglobin of 8.3. Normal kidney function. Chest x-ray was reviewed. From the cardiovascular standpoint of view, patient can be transferred to the floor for possible discharge in the next 24-48 hours. Objective - Vital Signs Vital signs: Vital Signs Temp 98.1 F 04/16/21 04:00 Pulse 80 04/16/21 07:43 Resp 31 H 04/16/21 07:00 BP 117/59 04/16/21 07:00 Pulse Ox 94 L 04/16/21 07:00 Intake & Output 04/15/21 04/16/21 04/16/21 18:59 06:59 18:59 Intake Total 841.231 670 20 Output Total 1010 350 Balance -168.769 320 20 Weight 85.7 kg Intake: IV 300 220 20 .9NS 240 220 20 0.9NS Pressure Bag 60 Intake, IV Titration 61.231 250 Amount Amiodarone 450 mg In 250 Dextrose 5% in Water 250 ml @ 0.5 MG/MIN 16.667 mls/hr IV .Q15H PRN Rx#: [id number] Insulin Regular 100 unit 61.231 In Sodium Chloride 0.9% 100 ml @ Per Protocol IV .Q0M [facility] Rx#:[id number] Oral 480 200 Output: Chest Tube Drainage 60 Left Pleural Chest Tube 30 Mediastinal Chest Tube X 30 2 Urine 950 350 Other: Voiding Method Bedside Commode Bedside Commode ABP, PAP, CO, CI - Last Documented Arterial Blood Pressure 165/67 Pulmonary Artery Pressure 32/11 Cardiac Output 5.6 Cardiac Index 3.1 - Constitutional General appearance: Present: no acute distress - Respiratory Respiratory: bilateral: diminished - Cardiovascular Rhythm: regular Heart sounds: normal: S1, S2 - Labs CBC & Chem 7: 04/16/21 04:57 04/16/21 04:57 Labs: Abnormal Lab Results - Last 24 Hours (Table) 04/15/21 04/15/21 04/15/21 Range/Units 09:05 09:59 11:16 WBC (3.8-10.6) k/uL RBC (3.80-5.40) m/uL Hgb (11.4-16.0) gm/dL Hct (34.0-46.0) % Plt Count (150-450) k/uL Neutrophils # (1.3-7.7) k/uL Chloride (98-107) mmol/L BUN (7-17) mg/dL Glucose (74-99) mg/dL POC Glucose (mg/dL) 152 H 144 H 122 H (75-99) mg/dL Total Protein (6.3-8.2) g/dL Albumin (3.5-5.0) g/dL 04/15/21 04/15/21 04/15/21 Range/Units 11:54 12:54 14:08 WBC (3.8-10.6) k/uL RBC (3.80-5.40) m/uL Hgb (11.4-16.0) gm/dL Hct (34.0-46.0) % Plt Count (150-450) k/uL Neutrophils # (1.3-7.7) k/uL Chloride (98-107) mmol/L BUN (7-17) mg/dL Glucose (74-99) mg/dL POC Glucose (mg/dL) 116 H 192 H 205 H (75-99) mg/dL Total Protein (6.3-8.2) g/dL Albumin (3.5-5.0) g/dL 04/15/21 04/15/21 04/15/21 Range/Units 15:19 17:09 18:44 WBC (3.8-10.6) k/uL RBC (3.80-5.40) m/uL Hgb (11.4-16.0) gm/dL Hct (34.0-46.0) % Plt Count (150-450) k/uL Neutrophils # (1.3-7.7) k/uL Chloride (98-107) mmol/L BUN (7-17) mg/dL Glucose (74-99) mg/dL POC Glucose (mg/dL) 125 H 117 H 165 H (75-99) mg/dL Total Protein (6.3-8.2) g/dL Albumin (3.5-5.0) g/dL 04/15/21 04/16/21 04/16/21 Range/Units 20:23 04:57 04:57 WBC 12.8 H (3.8-10.6) k/uL RBC 2.60 L (3.80-5.40) m/uL Hgb 8.3 L (11.4-16.0) gm/dL Hct 24.0 L (34.0-46.0) % Plt Count 144 L (150-450) k/uL Neutrophils # 10.2 H (1.3-7.7) k/uL Chloride 109 H (98-107) mmol/L BUN 25 H (7-17) mg/dL Glucose 159 H (74-99) mg/dL POC Glucose (mg/dL) 162 H (75-99) mg/dL Total Protein 5.1 L (6.3-8.2) g/dL Albumin 3.1 L (3.5-5.0) g/dL 04/16/21 Range/Units 07:09 WBC (3.8-10.6) k/uL RBC (3.80-5.40) m/uL Hgb (11.4-16.0) gm/dL Hct (34.0-46.0) % Plt Count (150-450) k/uL Neutrophils # (1.3-7.7) k/uL Chloride (98-107) mmol/L BUN (7-17) mg/dL Glucose (74-99) mg/dL POC Glucose (mg/dL) 176 H (75-99) mg/dL Total Protein (6.3-8.2) g/dL Albumin (3.5-5.0) g/dL Assessment and Plan Assessment: Assessment #1 severe CAD and status post CABG #2 diabetes type 2 #3 hypertension #4 dyslipidemia Plan #1 continue the current medical regimen #2 taper the dose of amiodarone probably as an outpatient #3 the patient can be transferred to the floor
[2021-04-16] MEDS: HEPARIN SODIUM,PORCINE/PF 5,000 UNIT/0.5 ML SYRINGE SQ SCH ×4 (08:56→23:04)
[2021-04-16] MEDS: METOPROLOL TARTRATE 50 MG TAB PO SCH ×2 (08:57→20:20)
[2021-04-16] MEDS: CYANOCOBALAMIN 500 MCG TAB PO SCH (08:57)
[2021-04-16] MEDS: ATORVASTATIN 40 MG TAB PO SCH (08:57)
[2021-04-16] MEDS: AMIODARONE 200 MG TAB PO SCH ×2 (08:57→20:19)
[2021-04-16] MEDS: CIPROFLOXACIN HCL 500 MG TAB PO SCH ×2 (08:57→20:20)
[2021-04-16] MEDS: CLOPIDOGREL 75 MG TAB PO SCH (08:57)
[2021-04-16] MEDS: CHOLECALCIFEROL 25 MCG (1000 IU) TABLET PO SCH (08:57)
[2021-04-16] MEDS: ASPIRIN 81 MG PO SCH (08:57)
--- NOTE | 2021-04-16 09:27 | P.PN ---
Subjective Progress Note Date: 04/16/21 Principal diagnosis: Symptomatic multivessel coronary artery disease with subtotal occluded left anterior descending artery and left main disease. Previous medical history of hypertension, hyperlipidemia, type 2 diabetes, lifetime nonsmoker, remote history of DVT, family history of premature coronary artery disease with both brothers from myocardial infarction in their early 50s. Preoperative E. coli urinary tract infection POD #3 triple-vessel coronary artery bypass grafting using the left internal mammary artery to the left anterior descending artery, reverse saphenous vein graft from the aorta to the inferior branching of the first obtuse marginal coronary artery, reverse saphenous vein graft from the aorta to the right coronary artery, exclusion of the left atrial appendage using a 35 mm AtriClip, bilateral endoscopic vein harvesting, intraoperative graft flow measurements using the [employer] system, intraoperative transesophageal echocardiogram and epi-aortic scanning Postoperative acute blood loss anemia and thrombocytopenia, expected given he modilution and cardiopulmonary bypass pump Confusion, felt to be secondary to cardiopulmonary bypass pump versus slow to wake up from anesthesia which the patient does have a history of Atrial fibrillation, known common occurrence after open heart surgery The patient is currently sitting up in a recliner in no acute distress in the intensive care unit eating breakfast. States pain is controlled on current medication regimen, denies shortness of breath at this time. Patient has had no more episodes of confusion. Remains in normal sinus rhythm and hemodynamically stable. She is actively using incentive spirometer, obtaining 750 mL. She did ambulate in the hallway yesterday with physical therapy and tolerated well. Right internal jugular Cordis remains present. No other new concerns. Objective - Vital Signs Vital signs: Vital Signs Temp 98.1 F 04/16/21 04:00 Pulse 80 04/16/21 07:43 Resp 31 H 04/16/21 07:00 BP 117/59 04/16/21 07:00 Pulse Ox 94 L 04/16/21 07:00 Intake & Output 04/15/21 04/16/21 04/16/21 18:59 06:59 18:59 Intake Total 841.231 670 20 Output Total 1010 350 Balance -168.769 320 20 Weight 85.7 kg Intake: IV 300 220 20 .9NS 240 220 20 0.9NS Pressure Bag 60 Intake, IV Titration 61.231 250 Amount Amiodarone 450 mg In 250 Dextrose 5% in Water 250 ml @ 0.5 MG/MIN 16.667 mls/hr IV .Q15H PRN Rx#: [id number] Insulin Regular 100 unit 61.231 In Sodium Chloride 0.9% 100 ml @ Per Protocol IV .Q0M [facility] Rx#:[id number] Oral 480 200 Output: Chest Tube Drainage 60 Left Pleural Chest Tube 30 Mediastinal Chest Tube X 30 2 Urine 950 350 Other: Voiding Method Bedside Commode Bedside Commode ABP, PAP, CO, CI - Last Documented Arterial Blood Pressure 165/67 Pulmonary Artery Pressure 32/11 Cardiac Output 5.6 Cardiac Index 3.1 - Exam CONSTITUTIONAL: Appears comfortable, cooperative, no acute distress RESPIRATORY: Lungs sounds diminished bilaterally. Respirations even, nonlabored. Currently on 2 L nasal cannula with oxygen saturation 97%. Able to achieve 750 mL on incentive spirometry. Strong cough. CARDIOVASCULAR: S1, S2 present. Regular rate and rhythm, sinus rhythm on telemetry. Sternum stable. Palpable peripheral pulses bilaterally. No edema present. No calf pain or tenderness noted. Heart hugger in place with patient demonstrating appropriate use. Antiembolism stockings, SCDs present. GASTROINTESTINAL: Abdomen soft, nontender, nondistended. Active bowel sounds present 4 quadrants. Tolerating diet. Positive flatus GENITOURINARY: Cramer discontinued yesterday, patient has continued to avoid clear, yellow urine INTEGUMENTARY: Skin is warm and dry with evidence of good perfusion. Anterior chest incision well approximated and covered with dry intact dressing. Bilateral EVH sites well approximated without redness or drainage. NEUROLOGIC: Cranial nerves II through XII intact MUSKULOSKELETAL: Able to move all extremities, strength equal bilaterally, gait normal PSYCHIATRIC: Alert and oriented to person place and time, appropriate affect, intact judgment and insight INVASIVE LINES AND TUBES: Atrial epicardial pacemaker wires present, grounded. Right internal jugular Cordis present, CVP 4. - Allied health notes Allied health notes reviewed: nursing - Labs CBC & Chem 7: 04/16/21 04:57 04/16/21 04:57 Labs: Abnormal Lab Results - Last 24 Hours (Table) 04/15/21 04/15/21 04/15/21 Range/Units 09:59 11:16 11:54 WBC (3.8-10.6) k/uL RBC (3.80-5.40) m/uL Hgb (11.4-16.0) gm/dL Hct (34.0-46.0) % Plt Count (150-450) k/uL Neutrophils # (1.3-7.7) k/uL Chloride (98-107) mmol/L BUN (7-17) mg/dL Glucose (74-99) mg/dL POC Glucose (mg/dL) 144 H 122 H 116 H (75-99) mg/dL Total Protein (6.3-8.2) g/dL Albumin (3.5-5.0) g/dL 04/15/21 04/15/21 04/15/21 Range/Units 12:54 14:08 15:19 WBC (3.8-10.6) k/uL RBC (3.80-5.40) m/uL Hgb (11.4-16.0) gm/dL Hct (34.0-46.0) % Plt Count (150-450) k/uL Neutrophils # (1.3-7.7) k/uL Chloride (98-107) mmol/L BUN (7-17) mg/dL Glucose (74-99) mg/dL POC Glucose (mg/dL) 192 H 205 H 125 H (75-99) mg/dL Total Protein (6.3-8.2) g/dL Albumin (3.5-5.0) g/dL 04/15/21 04/15/21 04/15/21 Range/Units 17:09 18:44 20:23 WBC (3.8-10.6) k/uL RBC (3.80-5.40) m/uL Hgb (11.4-16.0) gm/dL Hct (34.0-46.0) % Plt Count (150-450) k/uL Neutrophils # (1.3-7.7) k/uL Chloride (98-107) mmol/L BUN (7-17) mg/dL Glucose (74-99) mg/dL POC Glucose (mg/dL) 117 H 165 H 162 H (75-99) mg/dL Total Protein (6.3-8.2) g/dL Albumin (3.5-5.0) g/dL 04/16/21 04/16/21 04/16/21 Range/Units 04:57 04:57 07:09 WBC 12.8 H (3.8-10.6) k/uL RBC 2.60 L (3.80-5.40) m/uL Hgb 8.3 L (11.4-16.0) gm/dL Hct 24.0 L (34.0-46.0) % Plt Count 144 L (150-450) k/uL Neutrophils # 10.2 H (1.3-7.7) k/uL Chloride 109 H (98-107) mmol/L BUN 25 H (7-17) mg/dL Glucose 159 H (74-99) mg/dL POC Glucose (mg/dL) 176 H (75-99) mg/dL Total Protein 5.1 L (6.3-8.2) g/dL Albumin 3.1 L (3.5-5.0) g/dL - Imaging and Cardiology Chest x-ray: report reviewed, image reviewed Assessment and Plan Assessment: 1. Symptomatic multivessel coronary artery disease with subtotal occluded left anterior descending artery and left main disease, status post three-vessel CABG 2. Mild left ventricular dysfunction, EF 45% 3. Hypertension 4. Hyperlipidemia, treated, cholesterol 182, LDL 93 5. Type 2 diabetes, preoperative hemoglobin A1c 5.9% 6. Lifetime nonsmoker, preoperative FEV1 106% of predicted 7. Remote history of DVT 8. Family history of premature coronary artery disease with both brothers from myocardial infarction in their early 50s 9. Preoperative E. coli urinary tract infection, treated with Cipro 10. Postoperative acute blood loss anemia and thrombocytopenia, expected 11. Confusion, felt to be secondary to cardiopulmonary bypass pump versus slow to wake up from anesthesia which the patient does have a history of 12. Atrial fibrillation, known common occurrence after open heart surgery Plan: 1. Continue to maximize medical therapy with low dose aspirin, statin, Plavix, beta jannette therapy. Will start low-dose ARB today for afterload reduction 2. Continue amiodarone for A. fib prophylaxis. No anticoagulation at this point 3. Wean O2 as tolerated. Encourage incentive spirometry use 10 times every hour while awake. Bronchodilators per pulmonology 4. Increase activity, ambulate as tolerated. PT/OT/cardiac rehab consulted 5. GI/DVT prophylaxis 6. Will monitor daily labs and x-rays. Electrolyte replacement per protocol. No further blood transfusions at this time. We'll give 20 mg IV push Lasix today 7. Insulin management per primary care service. Patient will need tight blood sugar control to promote healing, union of sternal bone 8. Pain control with current medication regimen. 9. Will discontinue epicardial pacemaker wires today. Patient to remain on bedrest for 1 hour post-removal 10. Strict accurate intake and output. Daily weight 11. Discontinue Cordis 12. Will placed transfer orders for 3 S. cardiac stepdown unit. May transfer bed available 13. Discharge planning in progress, anticipate discharge to home with home care this weekend 14. More recommendations to follow Time with Patient: Greater than 30
--- NOTE | 2021-04-16 09:50 | P.PN ---
Subjective Progress Note Date: 04/16/21 Principal diagnosis: Coronary artery disease, status post triple-vessel bypass grafting with a MENESES to the LAD, saphenous vein grafts to the RCA and OM1. 80-year-old white female patient of Dr. Shipman, overweight recently saw in consultation during her previous admission when she was hospitalized for symptoms of exertional shortness of breath that was progressive in nature. And patient had a nuclear Lexiscan Cardiolite stress test at Dr. Mercado's office on 03/16/2021 that showed abnormal myocardial perfusion imaging with evidence of partially reversible defect involving the distal anterior/apical segment of the LV. 2-D echocardiogram was completed on 03/18/2021 that showed a preserved left ventricular systolic function with an ejection fraction of 45%, mild aortic valv e regurg, mild MR, and mild TR. Patient underwent cardiac catheterization by Dr. Mercado on 04/05/2021 that showed multivessel coronary artery disease, and due to the findings of the heart catheterization, patient was referred to CT surgery for myocardial revascularization surgery. On 04/13/2021 patient underwent MENESES to the LAD, SVG to the RCA, SVG to the OM 1 with endoscopic vein harvesting of bilateral lower extremities, and exclusion of the left atrial appendage and intraoperative transesophageal echocardiogram. Preop FEV1 was reviewed showing FEV1 of 1.96 L or 106% of predicted with FVC of 2.3 L or 92% of predicted, FEV1 to FVC ratio 115, and MVV of 73.5, consistent with normal spirometry. Patient is a lifetime nonsmoker, her past medical history significant for diabetes mellitus type 2, hypertension, hyperlipidemia, GERD, osteoarthritis, and previous history of DVT. Patient is seen in the postoperative period in the intensive care unit intubated and sedated. Patient is currently on assist control with a rate of 12, tidal vital was 400, FiO2 of 100% and PEEP of 8. Her rate was increased to 20 at the bedside Postoperative blood gas and chest x-ray is pending, hemodynamically patient is requiring small amount of Bladimir-Synephrine currently infusing at 0.06 mics/per kilo per minute. On nitroglycerin is at 5 mics per kilo per minute, Diprivan and is at 20 mics per kilo per minute, and 0.9 normal saline at 50 ML per hour, PA pressures 28/11, CVP is 8, cardiac output is 4.4, and cardiac index is 2.4. Intraoperatively patient received 3 L and crystalloids, 1.2 L in Cell Saver and 1.5 L of 5% albumin. Currently blood pressure is 79/38. External pacemaker set to VVI backup mode with a rate of 80, and intrinsic rhythm is sinus rhythm The patient is seen today 04/14/2021 in follow-up in the intensive care unit. She is currently sitting up in a chair at the bedside. Awake and alert in no acute distress. A and O 3. She had some issues with confusion throughout the night. Currently maintaining O2 saturations up to 100% on 10 L high flow nasal cannula. She was extubated at 21:55 PM last night. Chest x-ray does reveal some atelectasis bilaterally left greater than right. Mediastinal and left pleural chest tubes are in place. Equally at 400 ML's output. She's been afebrile. Currently hemodynamically stable. She did have some postop issues with hypotension requiring pressors and then hypertension requiring clevidipine. She was anemic with a hemoglobin of 6.9 and received 1 unit of packed red blood cells. Current hemoglobin 8.2. Cardiac output 5.0, index 3.1. PA pressures 34/14. She has her own intrinsic rhythm which is sinus mechanism currently. Pacer wires remain in place with backup pacing. White count 8.4. Hemoglobin 8.2. Platelet count 90,000. Sodium 141. Potassium 4.1. Creatinine 0.68. Glucose 121. AST 43. ALT 12. Albumin 3.5. She did receive albumin this morning. She has 0.9 normal saline at 50 MLS per hour. Clevidipine on hold. Insulin drip on hold. She is on Cipro for UTI. Remains on bronchodilators. Continue to work with the incentive spirometer. Heparin for DVT prophylaxis. The patient is seen today 04/15/2021 in follow-up in the intensive care unit. She is awake and alert in no acute distress. Alert and oriented 3 this morning. Sitting up in a chair at the bedside. Maintaining O2 saturations in the mid 90s on 4 L high flow nasal cannula. She's been afebrile. Chest x-ray reveals some perihilar interstitial airspace opacities improved compared to yesterday. There is still some left basilar airspace opacity and a small left effusion. Tiny right pleural effusion. Receiving Lasix 20 mg IVP 1. She did develop atrial fibrillation with rapid ventricular response this morning. She's been bolused with amiodarone and currently on a drip at 1 mg per minute. She is on a insulin drip currently at 5 units per hour. 0.9 normal saline at 20 ML's per hour. Cramer catheter due to come out after diuresis. Chest tubes May, today per CT services. She will remain on heparin for DVT prophylaxis. SCDs in place. Continued on bronchodilators. She needs increased encouragement regarding the incentive spirometer. Currently pulling only 500 ML's. Working with physical therapy. Up ambulating with assistance. She remains on Cipro for UTI preop. White count 12.4. Hemoglobin 8.1. Platelets 117,000. Sodium 139. Potassium 4.2. Creatinine 0.84. Glucose 104. Albumin 3.5. The patient is seen today 04/16/2021 in follow-up in the intensive care unit. She is sitting up in a chair at the bedside. Awake and alert in no acute distress. She is maintaining good O2 saturations in the 90s on 2 L/m per nasal cannula. Chest x-ray continues to show stable left basilar airspace opacity wi th small left effusion. Tiny right pleural effusion. Some patchy upper airway opacities. Pulling only approximately 750 MLS on the incentive spirometer. She is currently in sinus rhythm. She had an episode of recurrent atrial fibrillation. She has since been converted to oral amiodarone. Her amiodarone drip was off at 7 AM this morning. Remains on beta blockers. Pacer wires remain in. Right IJ Cordis in place. 0.9 normal saline at 20 miles per hour. Insulin drip was off at approximately 10 PM. Remains on a sliding scale before meals at bedtime. White count 12.8. Hemoglobin 8.3. Platelets 144. Sodium 1:30. Potassium 4.2. Creatinine 0.90. AST 25. ALT 8. Albumin 3.1. Remains on bronchodilators. Heparin for DVT prophylaxis. Objective - Vital Signs Vital signs: Vital Signs Temp 98.1 F 04/16/21 04:00 Pulse 80 04/16/21 07:43 Resp 31 H 04/16/21 07:00 BP 117/59 04/16/21 07:00 Pulse Ox 94 L 05/28/21 07:00 Intake & Output 04/15/21 04/16/21 04/16/21 18:59 06:59 18:59 Intake Total 841.231 670 20 Output Total 1010 350 Balance -168.769 320 20 Weight 85.7 kg Intake: IV 300 220 20 .9NS 240 220 20 0.9NS Pressure Bag 60 Intake, IV Titration 61.231 250 Amount Amiodarone 450 mg In 250 Dextrose 5% in Water 250 ml @ 0.5 MG/MIN 16.667 mls/hr IV .Q15H PRN Rx#: [id number] Insulin Regular 100 unit 61.231 In Sodium Chloride 0.9% 100 ml @ Per Protocol IV .Q0M [facility] Rx#:[id number] Oral 480 200 Output: Chest Tube Drainage 60 Left Pleural Chest Tube 30 Mediastinal Chest Tube X 30 2 Urine 950 350 Other: Voiding Method Bedside Commode Bedside Commode ABP, PAP, CO, CI - Last Documented Arterial Blood Pressure 165/67 Pulmonary Artery Pressure 32/11 Cardiac Output 5.6 Cardiac Index 3.1 - Exam GENERAL EXAM: Awake, alert, pleasant 80-year-old female on 2 L high flow nasal cannula, currently comfortable in no apparent distress. HEAD: Normocephalic/atraumatic. EYES: Normal reaction of pupils, equal size. Conjunctiva pink, sclera white. NOSE: Clear with pink turbinates. THROAT: No erythema or exudates. NECK: Right IJ Cordis in place. No masses, no JVD, no thyroid enlargement, no adenopathy. CHEST: No chest wall deformity. Symmetrical expansion. Midsternal incision clean dry and intact, covered with a surgical dressing, chest tube sites are clean dry and intact. LUNGS: Equal air entry with crackles in the posterior bases left greater than right CVS: Irregular rate and rhythm, normal S1 and S2, no gallops, no murmurs, no rubs ABDOMEN: Soft, nontender. No hepatosplenomegaly, normal bowel sounds, no guarding or rigidity. EXTREMITIES: No clubbing, no edema, no cyanosis, 2+ pulses and upper and lower extremities. Right radial arterial line in place. Incisions on bilateral lower extremities are clean dry and intact, patient has a SCDs on bilateral lower extremities MUSCULOSKELETAL: Muscle strength and tone normal. SPINE: No scoliosis or deformity SKIN: No rashes CENTRAL NERVOUS SYSTEM: Currently awake and alert oriented 3. No focal defi cits, tone is normal in all 4 extremities. - Labs CBC & Chem 7: 04/16/21 04:57 04/16/21 04:57 Labs: Abnormal Lab Results - Last 24 Hours (Table) 04/15/21 04/15/21 04/15/21 Range/Units 09:59 11:16 11:54 WBC (3.8-10.6) k/uL RBC (3.80-5.40) m/uL Hgb (11.4-16.0) gm/dL Hct (34.0-46.0) % Plt Count (150-450) k/uL Neutrophils # (1.3-7.7) k/uL Chloride (98-107) mmol/L BUN (7-17) mg/dL Glucose (74-99) mg/dL POC Glucose (mg/dL) 144 H 122 H 116 H (75-99) mg/dL Total Protein (6.3-8.2) g/dL Albumin (3.5-5.0) g/dL 04/15/21 04/15/21 04/15/21 Range/Units 12:54 14:08 15:19 WBC (3.8-10.6) k/uL RBC (3.80-5.40) m/uL Hgb (11.4-16.0) gm/dL Hct (34.0-46.0) % Plt Count (150-450) k/uL Neutrophils # (1.3-7.7) k/uL Chloride (98-107) mmol/L BUN (7-17) mg/dL Glucose (74-99) mg/dL POC Glucose (mg/dL) 192 H 205 H 125 H (75-99) mg/dL Total Protein (6.3-8.2) g/dL Albumin (3.5-5.0) g/dL 04/15/21 04/15/21 04/15/21 Range/Units 17:09 18:44 20:23 WBC (3.8-10.6) k/uL RBC (3.80-5.40) m/uL Hgb (11.4-16.0) gm/dL Hct (34.0-46.0) % Plt Count (150-450) k/uL Neutrophils # (1.3-7.7) k/uL Chloride (98-107) mmol/L BUN (7-17) mg/dL Glucose (74-99) mg/dL POC Glucose (mg/dL) 117 H 165 H 162 H (75-99) mg/dL Total Protein (6.3-8.2) g/dL Albumin (3.5-5.0) g/dL 04/16/21 04/16/21 04/16/21 Range/Units 04:57 04:57 07:09 WBC 12.8 H (3.8-10.6) k/uL RBC 2.60 L (3.80-5.40) m/uL Hgb 8.3 L (11.4-16.0) gm/dL Hct 24.0 L (34.0-46.0) % Plt Count 144 L (150-450) k/uL Neutrophils # 10.2 H (1.3-7.7) k/uL Chloride 109 H (98-107) mmol/L BUN 25 H (7-17) mg/dL Glucose 159 H (74-99) mg/dL POC Glucose (mg/dL) 176 H (75-99) mg/dL Total Protein 5.1 L (6.3-8.2) g/dL Albumin 3.1 L (3.5-5.0) g/dL Assessment and Plan Assessment: 1 Symptomatic multivessel coronary artery disease, status post three-vessel bypass grafting with MENESES to the LAD, SVG to the RCA, and SVG to the OM 1, with endoscopic vein harvest in bilateral lower extremities, and exclusion of the le ft atrial appendage and intraoperative CHANDRA, postop day #3 2 Routine postoperative ventilator management, extubated at 21:55 04/13/2021. Currently on 2 L nasal cannula.. 3 Postoperative blood loss anemia, hemoglobin 6.9, status post 1 unit packed red blood cells. Current hemoglobin 8.1. Normal outcome of coronary artery bypass grafting 4 New-onset atrial fibrillation with rapid ventricular response, expected outcome of surgery, converted to an oral amiodarone today, continued on beta blo ckers 5 Diabetes mellitus type II, insulin drip off at 10 PM last night, currently on the before meals at bedtime sliding scale 6 Hyperlipidemia 7 Urinary tract infection, preop, E. 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 Hnies Chest x-ray and labs reviewed Encouraged increased use the incentive spirometer Increase her activity as tolerated Continue heparin for DVT prophylaxis Continue bronchodilators To transfer out of the ICU today if bed available on 3 S. We will continue to follow and make further recommendations based on her clinical status I, the cosigning physician, performed a history & physical examination of the patient. Lungs sounds with crackles in the posterior bases left greater than right. Maintaining good O2 saturations in the 90s on 2 L nasal cannula. I discussed the assessment and plan of care with my nurse practitioner, Marlena Naylor. I attest to the above note as dictated by her.
[2021-04-16] MEDS: ACETYLCYSTEINE 800 MG/4 ML VIAL INHALATION SCH ×3 (10:58→19:58)
[2021-04-16] MEDS: SIMETHICONE 80 MG CHEWABLE PO SCH ×3 (11:22→20:20)
[2021-04-16 11:48] LABS: Glucose,Whole Blood 132 mg/dL (75-99)
[2021-04-16] MEDS: LOSARTAN 25 MG TAB PO SCH (11:56)
--- NOTE | 2021-04-16 15:42 | P.ANPRN ---
Procedure Note - Anesthesia - Invasive Line Right Arterial Line Time Out Performed: Yes Date of Procedure: 04/13/21 Location of Patient: PreOp Preparation: Sterile Prep, Sterile Dressing Arterial Line Location: Radial Ultrasound Used: No Purpose - Visualization and Identification of Vasculature: No Narrative: Informed consent obtained from the patient. Procedure was performed under complete aseptic precautions. The right wrist is slightly extended and placed on a roll of cloth. Radial artery palpated and appeared to have a intact collateral circulation. Front of the wrist was cleaned with ChloraPrep. It was draped and 2 mL of 1% lidocaine was infiltrated and ability into the front of the wrist. A 20-gauge two and half inch Arrow arterial catheter was inserted and a bright red blood/back was noticed. It was connected to the pressure monitoring line and the flashback was confirmed. The line was sutured into the skin. Tegaderm dressing was applied. Patient tolerated the procedure very well with no apparent complications. Right Central Line Time Out Performed: Yes Date of Procedure: 04/13/21 Location of Patient: PreOp Preparation: Sterile Prep, Sterile Dressing Ultrasound Used: Yes Purpose - Visualization and Identification of Vasculature: Yes Image Stored and Saved: Yes Narrative: Central line placement per sterile protocol utilized. Informed consent obtained. Central line placement per sterile protocol utilized. Right Internal jugular vein cannulated under aseptic precautions. 3cc 1% lidocaine infiltrated initially after cleaning with iodine based prep and draping. Ultrasound used to locate the vein and selginger technique used. 9Fr introduced sheath inserted and after the finding the needle with area relief pilot needle/catheter. After the insertion of PA Catheter the line is dressed with biopatch and tegaderm. Patient tolerated the procedure well. Central line placement per sterile protocol utilized. 8Ff PA catheter threaded through the Right IJ introducer sheath under asepsis with continuous waveform monitoring. Right [place] Time Out Performed: Yes Date of Procedure: 04/13/21 Location of Patient: PreOp Preparation: Sterile Prep, Sterile Dressing Ultrasound Used: No Narrative: Central line placement per sterile protocol utilized.
[2021-04-16 16:41] LABS: Glucose,Whole Blood 183 mg/dL (75-99)
[2021-04-16 19:57] LABS: Glucose,Whole Blood 182 mg/dL (75-99)
[2021-04-16] MEDS: SENNOSIDES-DOCUSATE SODIUM 1 EACH TAB PO SCH (20:21)
[2021-04-17 06:03] LABS: Glucose,Whole Blood 139 mg/dL (75-99)
[2021-04-17] MEDS: KETOROLAC 15 MG/ML 1 ML VIAL IVP SCH ×4 (06:30→23:00)
[2021-04-17] MEDS: INSULIN ASPART (NovoLOG) 100 UNIT/ML VIAL SQ SCH ×4 (06:30→20:31)
[2021-04-17] MEDS: metFORMIN 500 MG TAB PO SCH ×2 (06:30→17:45)
[2021-04-17] MEDS: PANTOPRAZOLE 40 MG TABLET PO SCH (06:30)
[2021-04-17 07:56] LABS: HCT 25.7 % (34.0-46.0); HGB 8.1 gm/dL (11.4-16.0); MCH 29.6 pg (25.0-35.0); MCHC 31.4 g/dL (31.0-37.0); MCV 94.2 fL (80.0-100.0); Platelet Count 188 k/uL (150-450); RBC 2.72 m/uL (3.80-5.40); RDW 15.3 % (11.5-15.5); WBC 9.9 k/uL (3.8-10.6)
[2021-04-17] MEDS: IPRATROPIUM-ALBUTEROL 3 ML NEB INHALATION SCH ×4 (07:56→19:15)
[2021-04-17] MEDS: ACETYLCYSTEINE 800 MG/4 ML VIAL INHALATION SCH ×4 (07:56→19:15)
--- NOTE | 2021-04-17 08:03 | XR ---
EXAMINATION TYPE: XR chest 2V DATE OF EXAM: 04/17/2021 COMPARISON: Prior chest x-ray 04/16/2021 HISTORY: Postop TECHNIQUE: Frontal and lateral views of the chest are obtained. FINDINGS: Patient is post median sternotomy and left atrial appendage clip placement. There are over lying artifacts. No evident pneumothorax. Blunting the costophrenic angles, patchy basilar density pe rsists. Cardiac mediastinal silhouette is stable. Aorta is dense. IMPRESSION: Probable basilar atelectasis and small effusions.
[2021-04-17 08:25] LABS: Albumin 3.2 g/dL (3.5-5.0); Calcium 8.4 mg/dL (8.4-10.2); Potassium 4.3 mmol/L (3.5-5.1); Total Bilirubin 0.6 mg/dL (0.2-1.3); Total Protein 5.2 g/dL (6.3-8.2)
[2021-04-17] MEDS: AMIODARONE 200 MG TAB PO SCH ×2 (08:44→20:31)
[2021-04-17] MEDS: CIPROFLOXACIN HCL 500 MG TAB PO SCH ×2 (08:44→20:31)
[2021-04-17] MEDS: CHOLECALCIFEROL 25 MCG (1000 IU) TABLET PO SCH (08:44)
[2021-04-17] MEDS: METOPROLOL TARTRATE 50 MG TAB PO SCH ×2 (08:44→20:31)
[2021-04-17] MEDS: ASPIRIN 81 MG PO SCH (08:44)
[2021-04-17] MEDS: CLOPIDOGREL 75 MG TAB PO SCH (08:44)
[2021-04-17] MEDS: SIMETHICONE 80 MG CHEWABLE PO SCH ×3 (08:44→20:31)
[2021-04-17] MEDS: CYANOCOBALAMIN 500 MCG TAB PO SCH (08:44)
[2021-04-17] MEDS: ATORVASTATIN 40 MG TAB PO SCH (08:44)
[2021-04-17] MEDS: HEPARIN SODIUM,PORCINE/PF 5,000 UNIT/0.5 ML SYRINGE SQ SCH ×3 (08:44→23:00)
--- NOTE | 2021-04-17 09:03 | P.PN ---
Subjective Progress Note Date: 04/17/21 Principal diagnosis: Symptomatic multivessel coronary artery disease with subtotal occluded left anterior descending artery and left main disease. Previous medical history of hypertension, hyperlipidemia, type 2 diabetes, lifetime nonsmoker, remote history of DVT, family history of premature coronary artery disease with both brothers from myocardial infarction in their early 50s. Preoperative E. coli urinary tract infection POD #4 triple-vessel coronary artery bypass grafting using the left internal mammary artery to the left anterior descending artery, reverse saphenous vein graft from the aorta to the inferior branching of the first obtuse marginal coronary artery, reverse saphenous vein graft from the aorta to the right coronary artery, exclusion of the left atrial appendage using a 35 mm AtriClip, bilateral endoscopic vein harvesting, intraoperative graft flow measurements using the [employer] system, intraoperative transesophageal echocardiogram and epi-aortic scanning Postoperative acute blood loss anemia and thrombocytopenia, expected given he modilution and cardiopulmonary bypass pump Confusion, felt to be secondary to cardiopulmonary bypass pump versus slow to wake up from anesthesia which the patient does have a history of Atrial fibrillation, known common occurrence after open heart surgery The patient is currently sitting up in bed in no acute distress on the cardiac stepdown unit. States pain is controlled on current medication regimen, denies shortness of breath at this time. Patient has had no more episodes of confusion. Remains in normal sinus rhythm and hemodynamically stable. She is actively using incentive spirometer, obtaining 750-1000 mL. She did ambulate in the hallway yesterday with physical therapy and tolerated well. No other new concerns. Objective - Vital Signs Vital signs: Vital Signs Temp 98.1 F 04/17/21 08:15 Pulse 83 04/17/21 08:15 Resp 18 04/17/21 08:15 BP 162/73 04/17/21 08:15 Pulse Ox 97 04/17/21 08:15 Intake & Output 04/16/21 04/17/21 04/17/21 18:59 06:59 18:59 Intake Total 700 560 Output Total 850 425 Balance -150 -425 560 Weight 85.2 kg Intake: IV 40 .9NS 40 Oral 660 560 Output: Urine 850 425 Other: Voiding Method Bedside Commode Toilet # Voids 1 2 # Bowel Movements 1 ABP, PAP, CO, CI - Last Documented Arterial Blood Pressure 165/67 Pulmonary Artery Pressure 32/11 Cardiac Output 5.6 Cardiac Index 3.1 - Exam CONSTITUTIONAL: Appears comfortable, cooperative, no acute distress RESPIRATORY: Lungs sounds diminished bilaterally. Respirations even, nonlabored. Currently on room air with oxygen saturation 97%. Able to achieve 750-1000 mL on incentive spirometry. Strong cough. CARDIOVASCULAR: S1, S2 present. Regular rate and rhythm, sinus rhythm on telemetry. Sternum stable. Palpable peripheral pulses bilaterally. No edema present. No calf pain or tenderness noted. Heart hugger in place with patient demonstrating appropriate use. Antiembolism stockings, SCDs present. GASTROINTESTINAL: Abdomen soft, nontender, nondistended. Active bowel sounds present 4 quadrants. Tolerating diet. Positive bowel movement GENITOURINARY: Continues to void INTEGUMENTARY: Skin is warm and dry with evidence of good perfusion. Anterior chest incision well approximated and covered with dry intact dressing. Bilateral EVH sites well approximated without redness or drainage. NEUROLOGIC: Cranial nerves II through XII intact MUSKULOSKELETAL: Able to move all extremities, strength equal bilaterally, gait normal PSYCHIATRIC: Alert and oriented to person place and time, appropriate affect, intact judgment and insight - Allied health notes Allied health notes reviewed: nursing - Labs CBC & Chem 7: 04/17/21 07:18 04/17/21 07:18 Labs: Abnormal Lab Results - Last 24 Hours (Table) 04/16/21 04/16/21 04/16/21 Range/Units 11:46 16:39 19:54 RBC (3.80-5.40) m/uL Hgb (11.4-16.0) gm/dL Hct (34.0-46.0) % Chloride (98-107) mmol/L BUN (7-17) mg/dL Creatinine (0.52-1.04) mg/dL Glucose (74-99) mg/dL POC Glucose (mg/dL) 132 H 183 H 182 H (75-99) mg/dL Total Protein (6.3-8.2) g/dL Albumin (3.5-5.0) g/dL 04/17/21 04/17/21 04/17/21 Range/Units 06:01 07:18 07:18 RBC 2.72 L (3.80-5.40) m/uL Hgb 8.1 L (11.4-16.0) gm/dL Hct 25.7 L (34.0-46.0) % Chloride 111 H (98-107) mmol/L BUN 27 H (7-17) mg/dL Creatinine 1.08 H (0.52-1.04) mg/dL Glucose 130 H (74-99) mg/dL POC Glucose (mg/dL) 139 H (75-99) mg/dL Total Protein 5.2 L (6.3-8.2) g/dL Albumin 3.2 L (3.5-5.0) g/dL - Imaging and Cardiology Chest x-ray: report reviewed, image reviewed Assessment and Plan Assessment: 1. Symptomatic multivessel coronary artery disease with subtotal occluded left anterior descending artery and left main disease, status post three-vessel CABG 2. Mild left ventricular dysfunction, EF 45% 3. Hypertension 4. Hyperlipidemia, treated, cholesterol 182, LDL 93 5. Type 2 diabetes, preoperative hemoglobin A1c 5.9% 6. Lifetime nonsmoker, preoperative FEV1 106% of predicted 7. Remote history of DVT 8. Family history of premature coronary artery disease with both brothers from myocardial infarction in their early 50s 9. Preoperative E. coli urinary tract infection, treated with Cipro 10. Postoperative acute blood loss anemia and thrombocytopenia, expected 11. Confusion, felt to be secondary to cardiopulmonary bypass pump versus slow to wake up from anesthesia which the patient does have a history of 12. Atrial fibrillation, known common occurrence after open heart surgery Plan: 1. Continue to maximize medical therapy with low dose aspirin, statin, Plavix, beta jannette therapy. Continue ARB for afterload reduction 2. Continue amiodarone for A. fib prophylaxis. No anticoagulation at this point 3. Encourage incentive spirometry use 10 times every hour while awake. Bronchodilators per pulmonology 4. Increase activity, ambulate as tolerated. PT/OT/cardiac rehab consulted 5. GI/DVT prophylaxis 6. Will monitor daily labs and x-rays. Electrolyte replacement per protocol. No further blood transfusions at this time. 7. Insulin management per primary care service. Patient will need tight blood sugar control to promote healing, union of sternal bone 8. Pain control with current medication regimen. 9. Strict accurate intake and output. Daily weight 10. Discharge planning in progress, anticipate discharge to home with home care in the next 24-48 hours 11. More recommendations to follow Time with Patient: Greater than 30
[2021-04-17] MEDS: ONDANSETRON 4 MG/2 ML VIAL IVP PRN (09:51)
--- NOTE | 2021-04-17 10:46 | P.PN ---
Subjective Progress Note Date: 04/17/21 Coronary artery disease, status post triple-vessel bypass grafting with a MENESES to the LAD, saphenous vein grafts to the RCA and OM1. 80-year-old white female patient of Dr. Shipman, overweight recently saw in consultation during her previous admission when she was hospitalized for symptoms of exertional shortness of breath that was progressive in nature. And patient had a nuclear Lexiscan Cardiolite stress test at Dr. Mercado's office on 03/16/2021 that showed abnormal myocardial perfusion imaging with evidence of partially reversible defect involving the distal anterior/apical segment of the LV. 2-D echocardiogram was completed on 03/18/2021 that showed a preserved left ventricular systolic function with an ejection fraction of 45%, mild aortic valve regurg, mild MR, and mild TR. Patient underwent cardiac catheterization by Dr. Mercado on 04/05/2021 that showed multivessel coronary artery disease, and due to the findings of the heart catheterization, patient was referred to CT surgery for myocardial revascularization surgery. On 04/13/2021 patient underwent MENESES to the LAD, SVG to the RCA, SVG to the OM 1 with endoscopic vein harvesting of bilateral lower extremities, and exclusion of the left atrial appendage and intraoperative transesophageal echocardiogram. Preop FEV1 was reviewed showing FEV1 of 1.96 L or 106% of predicted with FVC of 2.3 L or 92% of predicted, FEV1 to FVC ratio 115, and MVV of 73.5, consistent with normal spirometry. Patient is a lifetime nonsmoker, her past medical history significant for diabetes mellitus type 2, hypertension, hyperlipidemia, GERD, osteoarthritis, and previous history of DVT. Patient is seen in the postoperative period in the intensive care unit intubated and sedated. Patient is currently on assist control with a rate of 12, tidal vital was 400, FiO2 of 100% and PEEP of 8. Her rate was increased to 20 at the bedside Postoperative blood gas and chest x-ray is pending, hemodynamically patient is requiring small amount of Bladimir-Synephrine currently infusing at 0.06 mics/per kilo per minute. On nitroglycerin is at 5 mics per kilo per minute, Diprivan and is at 20 mics per kilo per minute, and 0.9 normal saline at 50 ML per hour, PA pressures 28/11, CVP is 8, cardiac output is 4.4, and cardiac index is 2.4. Intraoperatively patient received 3 L and crystalloids, 1.2 L in Cell Saver and 1.5 L of 5% albumin. Currently blood pressure is 79/38. External pacemaker set to VVI backup mode with a rate of 80, and intrinsic rhythm is sinus rhythm The patient is seen today 04/14/2021 in follow-up in the intensive care unit. She is currently sitting up in a chair at the bedside. Awake and alert in no acute distress. A and O 3. She had some issues with confusion throughout the night. Currently maintaining O2 saturations up to 100% on 10 L high flow nasal cannula. She was extubated at 21:55 PM last night. Chest x-ray does reveal some atelectasis bilaterally left greater than right. Mediastinal and left pleural chest tubes are in place. Equally at 400 ML's output. She's been afebrile. Currently hemodynamically stable. She did have some postop issues with hypotension requiring pressors and then hypertension requiring clevidipine. She was anemic with a hemoglobin of 6.9 and received 1 unit of packed red blood cells. Current hemoglobin 8.2. Cardiac output 5.0, index 3.1. PA pressures 34/14. She has her own intrinsic rhythm which is sinus mechanism currently. Pacer wires remain in place with backup pacing. White count 8.4. Hemoglobin 8.2. Platelet count 90,000. Sodium 141. Potassium 4.1. Creatinine 0.68. Glucose 121. AST 43. ALT 12. Albumin 3.5. She did receive albumin this morning. She has 0.9 normal saline at 50 MLS per hour. Clevidipine on hold. Insulin drip on hold. She is on Cipro for UTI. Remains on bronchodilators. Continue to work with the incentive spirometer. Heparin for DVT prophylaxis. The patient is seen today 04/15/2021 in follow-up in the intensive care unit. She is awake and alert in no acute distress. Alert and oriented 3 this morning. Sitting up in a chair at the bedside. Maintaining O2 saturations in the mid 90s on 4 L high flow nasal cannula. She's been afebrile. Chest x-ray reveals some perihilar interstitial airspace opacities improved compared to yesterday. There is still some left basilar airspace opacity and a small left effusion. Tiny right pleural effusion. Receiving Lasix 20 mg IVP 1. She did develop atrial fibrillation with rapid ventricular response this morning. She's been bolused with amiodarone and currently on a drip at 1 mg per minute. She is on a insulin drip currently at 5 units per hour. 0.9 normal saline at 20 ML's per hour. Cramer catheter due to come out after diuresis. Chest tubes May, today per CT services. She will remain on heparin for DVT prophylaxis. SCDs in place. Continued on bronchodilators. She needs increased encouragement regarding the incentive spirometer. Currently pulling only 500 ML's. Working with physical therapy. Up ambulating with assistance. She remains on Cipro for UTI preop. White count 12.4. Hemoglobin 8.1. Platelets 117,000. Sodium 139. Potassium 4.2. Creatinine 0.84. Glucose 104. Albumin 3.5. The patient is seen today 04/16/2021 in follow-up in the intensive care unit. She is sitting up in a chair at the bedside. Awake and alert in no acute distr ess. She is maintaining good O2 saturations in the 90s on 2 L/m per nasal cannula. Chest x-ray continues to show stable left basilar airspace opacity with small left effusion. Tiny right pleural effusion. Some patchy upper airway opacities. Pulling only approximately 750 MLS on the incentive sp irometer. She is currently in sinus rhythm. She had an episode of recurrent atrial fibrillation. She has since been converted to oral amiodarone. Her amiodarone drip was off at 7 AM this morning. Remains on beta blockers. Pacer wires remain in. Right IJ Cordis in place. 0.9 normal saline at 20 miles per hour. Insulin drip was off at approximately 10 PM. Remains on a sliding scale before meals at bedtime. White count 12.8. Hemoglobin 8.3. Platelets 144. Sodium 1:30. Potassium 4.2. Creatinine 0.90. AST 25. ALT 8. Albumin 3.1. Remains on bronchodilators. Heparin for DVT prophylaxis. 04/17/2021, the patient is being seen for a follow-up. Doing well. Using incentive spirometer. Currently on room air oxygen. Chest x-ray showed some small effusion and atelectatic changes and left lung base. No other acute abnormalities have been noted. His cardiac rhythm is back to sinus. She converted while being on amiodarone. She is currently on oral amiodarone. She is on amiodarone 400 mg by mouth twice a day and she is also metoprolol 50 mg by mouth daily. She is also on Cozaar 25 mg by mouth daily, metoprolol 50 mg by mouth twice a day. She is hemodynamically stable. Adequate urine output. Blood work from today shows a hemoglobin which is stable at 8.1. Objective - Vital Signs Vital signs: Vital Signs Temp 98.1 F 04/17/21 08:15 Pulse 83 04/17/21 08:15 Resp 18 04/17/21 08:15 BP 162/73 04/17/21 08:15 Pulse Ox 97 04/17/21 08:15 Intake & Output 04/16/21 04/17/21 04/17/21 18:59 06:59 18:59 Intake Total 700 560 Output Total 850 425 400 Balance -150 -425 160 Weight 85.2 kg Intake: IV 40 .9NS 40 Oral 660 560 Output: Urine 850 425 400 Other: Voiding Method Bedside Commode Toilet Toilet # Voids 1 2 # Bowel Movements 1 ABP, PAP, CO, CI - Last Documented Arterial Blood Pressure 165/67 Pulmonary Artery Pressure 32/11 Cardiac Output 5.6 Cardiac Index 3.1 - Exam CONSTITUTIONAL: Appears comfortable, cooperative, no acute distress RESPIRATORY: Lungs sounds diminished bilaterally. Respirations even, nonlabored. Currently on room air with oxygen saturation 97%. Able to achieve 750-1000 mL on incentive spirometry. Strong cough. CARDIOVASCULAR: S1, S2 present. Regular rate and rhythm, sinus rhythm on telemetry. Sternum stable. Palpable peripheral pulses bilaterally. No edema present. No calf pain or tenderness noted. Heart hugger in place with patient demonstrating appropriate use. Antiembolism stockings, SCDs present. GASTROINTESTINAL: Abdomen soft, nontender, nondistended. Active bowel sounds present 4 quadrants. Tolerating diet. Positive bowel movement GENITOURINARY: Continues to void INTEGUMENTARY: Skin is warm and dry with evidence of good perfusion. Anterior chest incision well approximated and covered with dry intact dressing. Bilateral EVH sites well approximated without redness or drainage. NEUROLOGIC: Cranial nerves II through XII intact MUSKULOSKELETAL: Able to move all extremities, strength equal bilaterally, gait normal PSYCHIATRIC: Alert and oriented to person place and time, appropriate affect, intact judgment and insight - Labs CBC & Chem 7: 04/17/21 07:18 04/17/21 07:18 Labs: Abnormal Lab Results - Last 24 Hours (Table) 04/16/21 04/16/21 04/16/21 Range/Units 11:46 16:39 19:54 RBC (3.80-5.40) m/uL Hgb (11.4-16.0) gm/dL Hct (34.0-46.0) % Chloride (98-107) mmol/L BUN (7-17) mg/dL Creatinine (0.52-1.04) mg/dL Glucose (74-99) mg/dL POC Glucose (mg/dL) 132 H 183 H 182 H (75-99) mg/dL Total Protein (6.3-8.2) g/dL Albumin (3.5-5.0) g/dL 04/17/21 04/17/21 04/17/21 Range/Units 06:01 07:18 07:18 RBC 2.72 L (3.80-5.40) m/uL Hgb 8.1 L (11.4-16.0) gm/dL Hct 25.7 L (34.0-46.0) % Chloride 111 H (98-107) mmol/L BUN 27 H (7-17) mg/dL Creatinine 1.08 H (0.52-1.04) mg/dL Glucose 130 H (74-99) mg/dL POC Glucose (mg/dL) 139 H (75-99) mg/dL Total Protein 5.2 L (6.3-8.2) g/dL Albumin 3.2 L (3.5-5.0) g/dL Assessment and Plan Plan: 1 Symptomatic multivessel coronary artery disease, status post three-vessel bypass grafting with MENESES to the LAD, SVG to the RCA, and SVG to the OM 1, with endoscopic vein harvest in bilateral lower extremities, and exclusion of the left atrial appendage and intraoperative CHANDRA, postop day #4 2 Routine postoperative ventilator management, extubated at 21:55 04/13/2021. Currently on RA 3 Postoperative blood loss anemia, current hemoglobin is stable at 8.1 4 New-onset atrial fibrillation with rapid ventricular response, expected outcome of surgery, converted to an oral amiodarone today, continued on beta blockers 5 Diabetes mellitus type II, insulin drip off at 10 PM last night, currently on the before meals at bedtime sliding scale 6 Hyperlipidemia 7 Urinary tract infection, preop, E. coli, currently on Cipro 7 Lifetime nonsmoker, preop FEV1 was 1.96 L or 106% of predicted, normal PFT 8 History of familial early onset coronary artery disease Plan: Chest x-ray and labs reviewed Encouraged increased use the incentive spirometer Increase her activity as tolerated Continue heparin for DVT prophylaxis Continue bronchodilators No active pulmonary issues. Her overall pulmonary status is stable. She is on room air oxygen. We'll follow. Encourage ambulation and activity. We will continue to follow and make further recommendations based on her clinical status
[2021-04-17 11:50] LABS: Glucose,Whole Blood 129 mg/dL (75-99)
[2021-04-17] MEDS: LOSARTAN 25 MG TAB PO SCH (12:34)
--- NOTE | 2021-04-17 13:41 | P.PN ---
Subjective Progress Note Date: 04/17/21 This is an 80-year-old female patient with a past medical history significant for diabetes and hypertension and dyslipidemia who I follow in the office regularly who was diagnosed recently was obstructive triple-vessel coronary artery disease. She underwent coronary artery that is grafting 3 with MENESES to LAD and SVG to OM as well as SVG to PDA of the RCA. Postoperative atrial fibrillation. Patient was interviewed and examined sitting comfortably in the recliner chair. She states she did have an episode of vomiting this morning, however she was not nauseous prior. She states she just belched and vomited up her morning pills. If she continues to have nausea, and charted her to notify the nursing staff. She does have some discomfort in her chest with moving. No exertional chest heaviness. No dyspnea, orthopnea palpitations, dizziness, or lightheadedness. GENERAL: Well-appearing, well-nourished and in no acute distress. NECK: Supple without JVD or thyromegaly. LUNGS: Breath sounds clear to auscultation bilaterally. Respiration equal and unlabored. No wheezes, rales or rhonchi. HEART: Regular rate and rhythm without murmurs, rubs or gallops. S1 and S2 heard. EXTREMITIES: Normal range of motion, no edema. No clubbing or cyanosis. Peripheral pulses intact and strong. VITALS: 147/65, pulse rate 84, respiratory rate 18, temp 97.5F, SpO2 97% on room air TELEMETRY: Sinus mechanism LABS: WBC 9.9, hemoglobin 8.1, platelet 188, sodium 143, potassium 4.3, BUN 27, creatinine 1.08, AST 22, ALT 8 IMPRESSION: Coronary artery disease, status post CABG Postoperative atrial fibrillation, maintaining sinus rhythm Diabetes mellitus Hypertension Dyslipidemia PLAN: Continue current medication regimen Encourage ambulation and pulmonary hygiene Titration of amiodarone outpatient Further recommendations based on clinical course The patient has been seen and evaluated. Plan of care has been reviewed and agreed upon by Dr Junior. Objective - Vital Signs Vital signs: Vital Signs Temp 97.5 F L 04/17/21 12:33 Pulse 84 04/17/21 12:33 Resp 18 04/17/21 12:33 BP 147/65 04/17/21 12:33 Pulse Ox 97 04/17/21 12:33 Intake & Output 04/16/21 04/17/2121 18:59 06:59 18:59 Intake Total 700 800 Output Total 850 425 400 Balance -150 -425 400 Weight 85.2 kg Intake: IV 40 .9NS 40 Oral 660 800 Output: Urine 850 425 400 Other: Voiding Method Bedside Commode Toilet Toilet # Voids 1 2 # Bowel Movements 1 ABP, PAP, CO, CI - Last Documented Arterial Blood Pressure 165/67 Pulmonary Artery Pressure 32/11 Cardiac Output 5.6 Cardiac Index 3.1 - Labs CBC & Chem 7: 04/17/21 07:18 04/17/21 07:18 Labs: Abnormal Lab Results - Last 24 Hours (Table) 04/16/21 04/16/21 04/17/21 Range/Units 16:39 19:54 06:01 RBC (3.80-5.40) m/uL Hgb (11.4-16.0) gm/dL Hct (34.0-46.0) % Chloride (98-107) mmol/L BUN (7-17) mg/dL Creatinine (0.52-1.04) mg/dL Glucose (74-99) mg/dL POC Glucose (mg/dL) 183 H 182 H 139 H (75-99) mg/dL Total Protein (6.3-8.2) g/dL Albumin (3.5-5.0) g/dL 04/17/21 04/17/21 04/17/21 Range/Units 07:18 07:18 11:46 RBC 2.72 L (3.80-5.40) m/uL Hgb 8.1 L (11.4-16.0) gm/dL Hct 25.7 L (34.0-46.0) % Chloride 111 H (98-107) mmol/L BUN 27 H (7-17) mg/dL Creatinine 1.08 H (0.52-1.04) mg/dL Glucose 130 H (74-99) mg/dL POC Glucose (mg/dL) 129 H (75-99) mg/dL Total Protein 5.2 L (6.3-8.2) g/dL Albumin 3.2 L (3.5-5.0) g/dL
[2021-04-17 17:11] LABS: Glucose,Whole Blood 157 mg/dL (75-99)
[2021-04-17 20:06] VITALS: RESP 18
[2021-04-17 20:25] LABS: Glucose,Whole Blood 135 mg/dL (75-99)
[2021-04-17] MEDS: SENNOSIDES-DOCUSATE SODIUM 1 EACH TAB PO SCH (20:31)
[2021-04-18 06:19] LABS: Glucose,Whole Blood 129 mg/dL (75-99)
[2021-04-18] MEDS: INSULIN ASPART (NovoLOG) 100 UNIT/ML VIAL SQ SCH ×2 (06:24→12:34)
[2021-04-18] MEDS: metFORMIN 500 MG TAB PO SCH (06:29)
[2021-04-18] MEDS: PANTOPRAZOLE 40 MG TABLET PO SCH (06:29)
[2021-04-18] MEDS: KETOROLAC 15 MG/ML 1 ML VIAL IVP SCH (06:29)
[2021-04-18 07:08] LABS: Glucose,Whole Blood 130 mg/dL (75-99)
[2021-04-18] MEDS: ONDANSETRON 4 MG/2 ML VIAL IVP PRN (07:12)
[2021-04-18] MEDS: IPRATROPIUM-ALBUTEROL 3 ML NEB INHALATION SCH ×3 (07:15→15:23)
[2021-04-18] MEDS: ACETYLCYSTEINE 800 MG/4 ML VIAL INHALATION SCH ×3 (07:15→15:23)
[2021-04-18 08:10] VITALS: TEMP 98.1
[2021-04-18 08:10] LABS: HCT 24.8 % (34.0-46.0); HGB 8.1 gm/dL (11.4-16.0); MCH 30.5 pg (25.0-35.0); MCHC 32.5 g/dL (31.0-37.0); MCV 93.8 fL (80.0-100.0); Mean Platelet Volume 8.5; Platelet Count 210 k/uL (150-450); RBC 2.65 m/uL (3.80-5.40); RDW 15.2 % (11.5-15.5); WBC 7.4 k/uL (3.8-10.6)
[2021-04-18] MEDS: SIMETHICONE 80 MG CHEWABLE PO SCH (08:13)
[2021-04-18] MEDS: CLOPIDOGREL 75 MG TAB PO SCH (08:13)
[2021-04-18] MEDS: ATORVASTATIN 40 MG TAB PO SCH (08:13)
[2021-04-18] MEDS: CHOLECALCIFEROL 25 MCG (1000 IU) TABLET PO SCH (08:14)
[2021-04-18] MEDS: CYANOCOBALAMIN 500 MCG TAB PO SCH (08:14)
[2021-04-18] MEDS: HEPARIN SODIUM,PORCINE/PF 5,000 UNIT/0.5 ML SYRINGE SQ SCH (08:14)
[2021-04-18] MEDS: AMIODARONE 200 MG TAB PO SCH (08:14)
[2021-04-18] MEDS: METOPROLOL TARTRATE 50 MG TAB PO SCH (08:14)
[2021-04-18] MEDS: CIPROFLOXACIN HCL 500 MG TAB PO SCH (08:14)
[2021-04-18] MEDS: ASPIRIN 81 MG PO SCH (08:14)
--- NOTE | 2021-04-18 08:22 | XR ---
EXAMINATION TYPE: XR chest 1V portable DATE OF EXAM: 04/18/2021 COMPARISON: Chest x-ray 04/17/2021 HISTORY: Postop coronary artery bypass graft TECHNIQUE: Single frontal view of the chest is obtained. FINDINGS: There is no evident pneumothorax. Patient is post median sternotomy and left atrial append age clip placement. Cardiac mediastinal silhouette shows a similar appearance, heart may be enlarged, patient is rotated. Retrocardiac density is again seen. IMPRESSION: Some minimal basilar atelectasis is suspected. Difficult to exclude small effusion.
[2021-04-18 08:25] LABS: Calcium 8.6 mg/dL (8.4-10.2); Potassium 4.9 mmol/L (3.5-5.1)
--- NOTE | 2021-04-18 09:36 | P.PN ---
Subjective Progress Note Date: 04/18/21 Coronary artery disease, status post triple-vessel bypass grafting with a MENESES to the LAD, saphenous vein grafts to the RCA and OM1. 80-year-old white female patient of Dr. Shipman, overweight recently saw in consultation during her previous admission when she was hospitalized for symptoms of exertional shortness of breath that was progressive in nature. And patient had a nuclear Lexiscan Cardiolite stress test at Dr. Mercado's office on 03/16/2021 that showed abnormal myocardial perfusion imaging with evidence of partially reversible defect involving the distal anterior/apical segment of the LV. 2-D echocardiogram was completed on 03/18/2021 that showed a preserved left ventricular systolic function with an ejection fraction of 45%, mild aortic valve regurg, mild MR, and mild TR. Patient underwent cardiac catheterization by Dr. Mercado on 04/05/2021 that showed multivessel coronary artery disease, and due to the findings of the heart catheterization, patient was referred to CT surgery for myocardial revascularization surgery. On 04/13/2021 patient underwent MENESES to the LAD, SVG to the RCA, SVG to the OM 1 with endoscopic vein harvesting of bilateral lower extremities, and exclusion of the left atrial appendage and intraoperative transesophageal echocardiogram. Preop FEV1 was reviewed showing FEV1 of 1.96 L or 106% of predicted with FVC of 2.3 L or 92% of predicted, FEV1 to FVC ratio 115, and MVV of 73.5, consistent with normal spirometry. Patient is a lifetime nonsmoker, her past medical history significant for diabetes mellitus type 2, hypertension, hyperlipidemia, GERD, osteoarthritis, and previous history of DVT. Patient is seen in the postoperative period in the intensive care unit intubated and sedated. Patient is currently on assist control with a rate of 12, tidal vital was 400, FiO2 of 100% and PEEP of 8. Her rate was increased to 20 at the bedside Postoperative blood gas and chest x-ray is pending, hemodynamically patient is requiring small amount of Bladimir-Synephrine currently infusing at 0.06 mics/per kilo per minute. On nitroglycerin is at 5 mics per kilo per minute, Diprivan and is at 20 mics per kilo per minute, and 0.9 normal saline at 50 ML per hour, PA pressures 28/11, CVP is 8, cardiac output is 4.4, and cardiac index is 2.4. Intraoperatively patient received 3 L and crystalloids, 1.2 L in Cell Saver and 1.5 L of 5% albumin. Currently blood pressure is 79/38. External pacemaker set to VVI backup mode with a rate of 80, and intrinsic rhythm is sinus rhythm The patient is seen today 04/14/2021 in follow-up in the intensive care unit. She is currently sitting up in a chair at the bedside. Awake and alert in no acute distress. A and O 3. She had some issues with confusion throughout the night. Currently maintaining O2 saturations up to 100% on 10 L high flow nasal cannula. She was extubated at 21:55 PM last night. Chest x-ray does reveal some atelectasis bilaterally left greater than right. Mediastinal and left pleural chest tubes are in place. Equally at 400 ML's output. She's been afebrile. Currently hemodynamically stable. She did have some postop issues with hypotension requiring pressors and then hypertension requiring clevidipine. She was anemic with a hemoglobin of 6.9 and received 1 unit of packed red blood cells. Current hemoglobin 8.2. Cardiac output 5.0, index 3.1. PA pressures 34/14. She has her own intrinsic rhythm which is sinus mechanism currently. Pacer wires remain in place with backup pacing. White count 8.4. Hemoglobin 8.2. Platelet count 90,000. Sodium 141. Potassium 4.1. Creatinine 0.68. Glucose 121. AST 43. ALT 12. Albumin 3.5. She did receive albumin this morning. She has 0.9 normal saline at 50 MLS per hour. Clevidipine on hold. Insulin drip on hold. She is on Cipro for UTI. Remains on bronchodilators. Continue to work with the incentive spirometer. Heparin for DVT prophylaxis. The patient is seen today 04/15/2021 in follow-up in the intensive care unit. She is awake and alert in no acute distress. Alert and oriented 3 this morning. Sitting up in a chair at the bedside. Maintaining O2 saturations in the mid 90s on 4 L high flow nasal cannula. She's been afebrile. Chest x-ray reveals some perihilar interstitial airspace opacities improved compared to yesterday. There is still some left basilar airspace opacity and a small left effusion. Tiny right pleural effusion. Receiving Lasix 20 mg IVP 1. She did develop atrial fibrillation with rapid ventricular response this morning. She's been bolused with amiodarone and currently on a drip at 1 mg per minute. She is on a insulin drip currently at 5 units per hour. 0.9 normal saline at 20 ML's per hour. Cramer catheter due to come out after diuresis. Chest tubes May, today per CT services. She will remain on heparin for DVT prophylaxis. SCDs in place. Continued on bronchodilators. She needs increased encouragement regarding the incentive spirometer. Currently pulling only 500 ML's. Working with physical therapy. Up ambulating with assistance. She remains on Cipro for UTI preop. White count 12.4. Hemoglobin 8.1. Platelets 117,000. Sodium 139. Potassium 4.2. Creatinine 0.84. Glucose 104. Albumin 3.5. The patient is seen today 04/16/2021 in follow-up in the intensive care unit. She is sitting up in a chair at the bedside. Awake and alert in no acute distr ess. She is maintaining good O2 saturations in the 90s on 2 L/m per nasal cannula. Chest x-ray continues to show stable left basilar airspace opacity with small left effusion. Tiny right pleural effusion. Some patchy upper airway opacities. Pulling only approximately 750 MLS on the incentive sp irometer. She is currently in sinus rhythm. She had an episode of recurrent atrial fibrillation. She has since been converted to oral amiodarone. Her amiodarone drip was off at 7 AM this morning. Remains on beta blockers. Pacer wires remain in. Right IJ Cordis in place. 0.9 normal saline at 20 miles per hour. Insulin drip was off at approximately 10 PM. Remains on a sliding scale before meals at bedtime. White count 12.8. Hemoglobin 8.3. Platelets 144. Sodium 1:30. Potassium 4.2. Creatinine 0.90. AST 25. ALT 8. Albumin 3.1. Remains on bronchodilators. Heparin for DVT prophylaxis. 04/17/2021, the patient is being seen for a follow-up. Doing well. Using incentive spirometer. Currently on room air oxygen. Chest x-ray showed some small effusion and atelectatic changes and left lung base. No other acute abnormalities have been noted. His cardiac rhythm is back to sinus. She converted while being on amiodarone. She is currently on oral amiodarone. She is on amiodarone 400 mg by mouth twice a day and she is also metoprolol 50 mg by mouth daily. She is also on Cozaar 25 mg by mouth daily, metoprolol 50 mg by mouth twice a day. She is hemodynamically stable. Adequate urine output. Blood work from today shows a hemoglobin which is stable at 8.1. 04/18/2021, the patient is being seen for a follow-up. She is on room air oxygen. No new complaints otherwise for now. Her cardiac rhythm is sinus. She has converted while being on amiodarone. She is on amiodarone and metoprolol and she has adequate rate control.Hemoglobin stable at 8.4. The creatinine is stable at 1.05. Surgical wound site is dry clean and intact. No focal neurological deficits. No angina. No palpitations. The chest x-ray from today showing some minimal basilar atelectatic changes in the left otherwise no other acute abnormality is a been noted. Objective - Vital Signs Vital signs: Vital Signs Temp 98.1 F 04/18/21 08:09 Pulse 88 04/18/21 08:09 Resp 18 04/18/21 08:09 BP 142/71 04/18/21 08:09 Pulse Ox 98 04/18/21 08:09 Intake & Output 04/17/21 04/18/21 04/18/21 18:59 06:59 18:59 Intake Total 950 10 Output Total 800 200 Balance 150 -190 Weight 85.2 kg Intake: IV 10 0.9 10 Oral 950 Output: Urine 800 200 Other: Voiding Method Toilet Toilet Toilet # Voids 1 1 ABP, PAP, CO, CI - Last Documented Arterial Blood Pressure 165/67 Pulmonary Artery Pressure 32/11 Cardiac Output 5.6 Cardiac Index 3.1 - Exam CONSTITUTIONAL: Appears comfortable, cooperative, no acute distress RESPIRATORY: Lungs sounds diminished bilaterally. Respirations even, nonlabored. Currently on room air with oxygen saturation 97%. Able to achieve 750-1000 mL on incentive spirometry. Strong cough. CARDIOVASCULAR: S1, S2 present. Regular rate and rhythm, sinus rhythm on telemetry. Sternum stable. Palpable peripheral pulses bilaterally. No edema present. No calf pain or tenderness noted. Heart hugger in place with patient demonstrating appropriate use. Antiembolism stockings, SCDs present. GASTROINTESTINAL: Abdomen soft, nontender, nondistended. Active bowel sounds present 4 quadrants. Tolerating diet. Positive bowel movement GENITOURINARY: Continues to void INTEGUMENTARY: Skin is warm and dry with evidence of good perfusion. Anterior chest incision well approximated and covered with dry intact dressing. Bilateral EVH sites well approximated without redness or drainage. NEUROLOGIC: Cranial nerves II through XII intact MUSKULOSKELETAL: Able to move all extremities, strength equal bilaterally, gait normal PSYCHIATRIC: Alert and oriented to person place and time, appropriate affect, intact judgment and insight - Labs CBC & Chem 7: 04/18/21 07:24 04/18/21 07:24 Labs: Abnormal Lab Results - Last 24 Hours (Table) 04/17/21 04/17/21 04/17/21 Range/Units 11:46 17:07 20:24 RBC (3.80-5.40) m/uL Hgb (11.4-16.0) gm/dL Hct (34.0-46.0) % Chloride (98-107) mmol/L BUN (7-17) mg/dL Creatinine (0.52-1.04) mg/dL Glucose (74-99) mg/dL POC Glucose (mg/dL) 129 H 157 H 135 H (75-99) mg/dL 04/18/21 04/18/21 04/18/21 Range/Units 06:18 07:06 07:24 RBC 2.65 L (3.80-5.40) m/uL Hgb 8.1 L (11.4-16.0) gm/dL Hct 24.8 L (34.0-46.0) % Chloride (98-107) mmol/L BUN (7-17) mg/dL Creatinine (0.52-1.04) mg/dL Glucose (74-99) mg/dL POC Glucose (mg/dL) 129 H 130 H (75-99) mg/dL 04/18/21 Range/Units 07:24 RBC (3.80-5.40) m/uL Hgb (11.4-16.0) gm/dL Hct (34.0-46.0) % Chloride 111 H (98-107) mmol/L BUN 28 H (7-17) mg/dL Creatinine 1.05 H (0.52-1.04) mg/dL Glucose 119 H (74-99) mg/dL POC Glucose (mg/dL) (75-99) mg/dL Assessment and Plan Plan: 1 Symptomatic multivessel coronary artery disease, status post three-vessel bypass grafting with MENESES to the LAD, SVG to the RCA, and SVG to the OM 1, with endoscopic vein harvest in bilateral lower extremities, and exclusion of the left atrial appendage and intraoperative CHANDRA, postop day #5 2 Routine postoperative ventilator management, extubated at 21:55 04/13/2021. Currently on RA 3 Postoperative blood loss anemia, current hemoglobin is stable at 8.1 4 New-onset atrial fibrillation with rapid ventricular response, expected outcome of surgery, converted to an oral amiodarone today, continued on beta blockers 5 Diabetes mellitus type II, insulin drip off at 10 PM last night, currently on the before meals at bedtime sliding scale 6 Hyperlipidemia 7 Urinary tract infection, preop, E. coli, currently on Cipro 7 Lifetime nonsmoker, preop FEV1 was 1.96 L or 106% of predicted, normal PFT 8 History of familial early onset coronary artery disease Plan: Chest x-ray and labs reviewed, hemoglobin stable and the chest x-ray showing some limited atelectatic changes and left lung base. Keep same treatment Encouraged increased use the incentive spirometer Increase her activity as tolerated Continue heparin for DVT prophylaxis Continue bronchodilators No active pulmonary issues. Her overall pulmonary status is stable. She is on room air oxygen. We'll follow. Encourage ambulation and activity. Possible discharge today
--- NOTE | 2021-04-18 11:05 | P.PN ---
Subjective Progress Note Date: 04/18/21 Principal diagnosis: Symptomatic multivessel coronary artery disease with subtotal occluded left anterior descending artery and left main disease. Past medical history significant for hypertension, hyperlipidemia, type 2 diabetes, lifetime nonsmoker, remote history of DVT, family history of premature coronary artery disease with both brothers from myocardial infarction in their early 50s. Preoperative E. coli urinary tract infection. POD #5 triple-vessel coronary artery bypass grafting using the left internal mammary artery to the left anterior descending artery, reverse saphenous vein graft from the aorta to the inferior branching of the first obtuse marginal coronary artery, reverse saphenous vein graft from the aorta to the right coronary artery, exclusion of the left atrial appendage using a 35 mm AtriClip, bilateral endoscopic vein harvesting, intraoperative graft flow measurements using the [employer] system, intraoperative transesophageal echocardiogram and epi-aortic scanning Postoperative acute blood loss anemia and thrombocytopenia, expected given hemodilution and cardiopulmonary bypass pump Confusion, felt to be secondary to cardiopulmonary bypass pump versus slow to wake up from anesthesia which the patient does have a history of Paroxysmal atrial fibrillation, known common occurrence after open heart surgery The patient was seen in follow-up today 04/18/2021 at her bedside on the cardiac stepdown unit. She is currently sitting up to the bedside chair, is awake, alert and oriented 3. She denies any complaints of pain or shortness of breath at this time although is complaining of some nausea. She remained hemodynamically stable and is currently on no on appropriate pressor support. Oxygen saturations are 96% on room air and she is achieving 1000 mL on her incentive spirometry with encouragement. Patient's bedside nurse reports she has been ambulating in the stepdown unit hallway with minimal assistance from nursing staff and physical therapy. She remains afebrile the last 24 hours. Remote telemetry showing normal sinus rhythm heart rate 85 BPM. Objective - Vital Signs Vital signs: Vital Signs Temp 98.1 F 04/18/21 08:09 Pulse 88 04/18/21 08:09 Resp 18 04/18/21 08:09 BP 142/71 04/18/21 08:09 Pulse Ox 98 04/18/21 08:09 Intake & Output 04/17/21 04/18/21 04/18/21 18:59 06:59 18:59 Intake Total 950 10 Output Total 800 200 Balance 150 -190 Weight 85.2 kg Intake: IV 10 0.9 10 Oral 950 Output: Urine 800 200 Other: Voiding Method Toilet Toilet Toilet # Voids 1 1 ABP, PAP, CO, CI - Last Documented Arterial Blood Pressure 165/67 Pulmonary Artery Pressure 32/11 Cardiac Output 5.6 Cardiac Index 3.1 - Exam CONSTITUTIONAL: Sitting up to the bedside chair on the cardiac stepdown unit, appears comfortable, cooperative, no apparent acute distress. HEENT: Neck is supple, no JVD, no lymphadenopathy. RESPIRATORY: Lungs sounds essentially clear throughout, diminished to his bi lateral bases. Respirations are symmetrical and nonlabored. Currently on room air with oxygen saturations 95%. Able to achieve 1000 mL on his incentive spirometry. Strong cough. CARDIOVASCULAR: Regular rhythm and controlled rate. S1 and S2 present, negative for S3, gallop or murmur. Sternum is stable. Remote telemetry showing normal sinus rhythm heart rate 85 BPM. Palpable peripheral pulses bilaterally, No calf pain or tenderness noted. Heart hugger in place with patient demonstrating appropriate use. Knee-high LAKESHA hose and sequential compression devices in place to his bilateral lower extremities. GASTROINTESTINAL: Abdomen soft, nontender, nondistended. Active bowel sounds present 4 quadrants. Tolerating diet. Passing flatus. No guarding or rigidity. Bowel movement yesterday 04/17/2021. GENITOURINARY: Continues to void. INTEGUMENTARY: Skin is warm and dry with evidence of good perfusion. Midline sternal incision clean dry and well approximated, covered with dry intact dressing. Bilateral lower extremity EVH sites well approximated without redness or drainage. No drainage or redness is present. NEUROLOGIC: Cranial nerves II through XII intact. No focal deficits. MUSKULOSKELETAL: Able to move all extremities, strength equal bilaterally, generalized weakness. PSYCHIATRIC: Alert and oriented to person place and time, appropriate affect, intact judgment and insight. - Labs CBC & Chem 7: 04/18/21 07:24 04/18/21 07:24 Labs: Abnormal Lab Results - Last 24 Hours (Table) 04/17/21 04/17/21 04/17/21 Range/Units 11:46 17:07 20:24 RBC (3.80-5.40) m/uL Hgb (11.4-16.0) gm/dL Hct (34.0-46.0) % Chloride (98-107) mmol/L BUN (7-17) mg/dL Creatinine (0.52-1.04) mg/dL Glucose (74-99) mg/dL POC Glucose (mg/dL) 129 H 157 H 135 H (75-99) mg/dL 04/18/21 04/18/21 04/18/21 Range/Units 06:18 07:06 07:24 RBC 2.65 L (3.80-5.40) m/uL Hgb 8.1 L (11.4-16.0) gm/dL Hct 24.8 L (34.0-46.0) % Chloride (98-107) mmol/L BUN (7-17) mg/dL Creatinine (0.52-1.04) mg/dL Glucose (74-99) mg/dL POC Glucose (mg/dL) 129 H 130 H (75-99) mg/dL 04/18/21 Range/Units 07:24 RBC (3.80-5.40) m/uL Hgb (11.4-16.0) gm/dL Hct (34.0-46.0) % Chloride 111 H (98-107) mmol/L BUN 28 H (7-17) mg/dL Creatinine 1.05 H (0.52-1.04) mg/dL Glucose 119 H (74-99) mg/dL POC Glucose (mg/dL) (75-99) mg/dL Assessment and Plan Assessment: 1. Symptomatic multivessel coronary artery disease with subtotal occluded left anterior descending artery and left main disease, status post three-vessel CABG 2. Mild left ventricular dysfunction, EF 45% 3. Hypertension 4. Hyperlipidemia, treated, cholesterol 182, LDL 93 5. Type 2 diabetes, preoperative hemoglobin A1c 5.9% 6. Lifetime nonsmoker, preoperative FEV1 106% of predicted 7. Remote history of DVT 8. Family history of premature coronary artery disease with both brothers from myocardial infarction in their early 50s 9. Preoperative E. coli urinary tract infection, treated with Cipro 10. Postoperative acute blood loss anemia and thrombocytopenia, expected 11. Confusion, felt to be secondary to cardiopulmonary bypass pump versus slow to wake up from anesthesia which the patient does have a history of 12. Paroxysmal atrial fibrillation, known common occurrence after open heart surgery, currently in normal sinus rhythm Plan: 1. Continue to maximize medical therapy with low dose aspirin, statin, Plavix, beta jannette. Continue ARB for afterload reduction and blood pressure control. 2. Continue amiodarone for atrial fibrillation prophylaxis. No anticoagulation at this point. 3. Encourage incentive spirometry use 10 times every hour while awake. Bronchodilators per pulmonology. 4. Increase activity, ambulate as tolerated. PT/OT/cardiac rehab following. 5. GI/DVT prophylaxis. 6. Will monitor daily labs and chest x-rays. Electrolyte replacement per protocol. No further blood transfusions at this time. 7. Insulin management per primary care service. Patient will need tight blood sugar control to promote healing, union of sternal bone. Preoperative hemoglobin A1c 5.9% 8. Pain control with current medication regimen. Toradol discontinued. 9. Strict accurate intake and output. Daily weight. 10. Discharge planning in progress, anticipate discharge to home with home care in the next 24-48 hours. 11. More recommendations to follow based on patient's clinical course. Time with Patient: Greater than 30
[2021-04-18 11:26] VITALS: BP 144/64; PULSE 77
[2021-04-18 11:56] LABS: Glucose,Whole Blood 125 mg/dL (75-99)
[2021-04-18] MEDS: LOSARTAN 25 MG TAB PO SCH (12:35)
--- NOTE | 2021-04-18 12:48 | P.PN ---
Subjective Progress Note Date: 04/18/21 This is an 80-year-old female patient with a past medical history significant for diabetes and hypertension and dyslipidemia who I follow in the office regularly who was diagnosed recently was obstructive triple-vessel coronary artery disease. She underwent coronary artery that is grafting 3 with MENESES to LAD and SVG to OM as well as SVG to PDA of the RCA. Postoperative atrial fibrillation. Patient was interviewed and examined sitting comfortably in the recliner chair. Mild nausea again this morning. She does have some discomfort in her chest with moving. No exertional chest heaviness. No dyspnea, orthopnea palpitations, dizziness, or lightheadedness. GENERAL: Well-appearing, well-nourished and in no acute distress. NECK: Supple without JVD or thyromegaly. LUNGS: Breath sounds clear to auscultation bilaterally. Respiration equal and unlabored. No wheezes, rales or rhonchi. HEART: Regular rate and rhythm without murmurs, rubs or gallops. S1 and S2 heard. EXTREMITIES: Normal range of motion, no edema. No clubbing or cyanosis. Peripheral pulses intact and strong. VITALS: 144/64, pulse rate 77, respiratory rate 18, temp 98.1F, SpO2 98% on room air TELEMETRY: Sinus mechanism with rates in the 80's LABS: WBC 7.4, hemoglobin 8.1, platelet 188, sodium 142, potassium 4.9, BUN 28, creatinine 1.05 IMPRESSION: Coronary artery disease, status post CABG Postoperative atrial fibrillation, maintaining sinus rhythm Diabetes mellitus Hypertension Dyslipidemia PLAN: Continue current medication regimen Encourage ambulation and pulmonary hygiene Titration of amiodarone outpatient Clear to be discharged from the cardiac standpoint The patient has been seen and evaluated. Plan of care has been reviewed and agreed upon by Dr Junior. Objective - Vital Signs Vital signs: Vital Signs Temp 98.1 F 04/18/21 08:09 Pulse 77 04/18/21 11:25 Resp 18 04/18/21 11:25 BP 144/64 04/18/21 11:25 Pulse Ox 98 04/18/21 11:25 Intake & Output 04/17/21 04/18/21 04/18/21 18:59 06:59 18:59 Intake Total 950 10 Output Total 800 200 Balance 150 -190 Weight 85.2 kg Intake: IV 10 0.9 10 Oral 950 Output: Urine 800 200 Other: Voiding Method Toilet Toilet Toilet # Voids 1 1 ABP, PAP, CO, CI - Last Documented Arterial Blood Pressure 165/67 Pulmonary Artery Pressure 32/11 Cardiac Output 5.6 Cardiac Index 3.1 - Labs CBC & Chem 7: 04/18/21 07:24 04/18/21 07:24 Labs: Abnormal Lab Results - Last 24 Hours (Table) 04/17/21 04/17/21 04/18/21 Range/Units 17:07 20:24 06:18 RBC (3.80-5.40) m/uL Hgb (11.4-16.0) gm/dL Hct (34.0-46.0) % Chloride (98-107) mmol/L BUN (7-17) mg/dL Creatinine (0.52-1.04) mg/dL Glucose (74-99) mg/dL POC Glucose (mg/dL) 157 H 135 H 129 H (75-99) mg/dL 04/18/21 04/18/21 04/18/21 Range/Units 07:06 07:24 07:24 RBC 2.65 L (3.80-5.40) m/uL Hgb 8.1 L (11.4-16.0) gm/dL Hct 24.8 L (34.0-46.0) % Chloride 111 H (98-107) mmol/L BUN 28 H (7-17) mg/dL Creatinine 1.05 H (0.52-1.04) mg/dL Glucose 119 H (74-99) mg/dL POC Glucose (mg/dL) 130 H (75-99) mg/dL 04/18/21 Range/Units 11:52 RBC (3.80-5.40) m/uL Hgb (11.4-16.0) gm/dL Hct (34.0-46.0) % Chloride (98-107) mmol/L BUN (7-17) mg/dL Creatinine (0.52-1.04) mg/dL Glucose (74-99) mg/dL POC Glucose (mg/dL) 125 H (75-99) mg/dL
--- NOTE | 2021-04-18 13:19 | P.DS ---
Providers Date of admission: 04/13/21 05:34 Expected date of discharge: 04/18/21 Attending physician: Eliud Vazquez Consults: 04/13/21 14:59 Consult Physician Routine Consulting Provider: Olga Hines Consult Reason/Comments: Recovery Assistant Consult: post cardiac surgery Do you want consulting provider notified?: Yes Consult Physician Routine Consulting Provider: Mary Shipman Consult Reason/Comments: med mgmt Do you want consulting provider notified?: Yes Consult Physician Routine Consulting Provider: Frederic Mercado Consult Reason/Comments: Healthcare Liaison Consult: post cardiac surgery Do you want consulting provider notified?: Yes Primary care physician: Mary Shipman Hospital Course: FINAL DIAGNOSIS: 1. Symptomatic multivessel coronary artery disease with subtotal occluded left anterior descending artery and left main disease, status post three-vessel CABG 2. Mild left ventricular dysfunction, EF 45% 3. Hypertension 4. Hyperlipidemia, treated, cholesterol 182, LDL 93 5. Type 2 diabetes, preoperative hemoglobin A1c 5.9% 6. Lifetime nonsmoker, preoperative FEV1 106% of predicted 7. Remote history of DVT 8. Family history of premature coronary artery disease with both brothers from myocardial infarction in their early 50s 9. Preoperative E. coli urinary tract infection, treated with Cipro 10. Postoperative acute blood loss anemia and thrombocytopenia, expected 11. Confusion, felt to be secondary to cardiopulmonary bypass pump versus slow to wake up from anesthesia which the patient does have a history of 12. Paroxysmal atrial fibrillation, known common occurrence after open heart surgery, currently in normal sinus rhythm PRINCIPAL PROCEDURE: 1. Triple-vessel coronary artery bypass grafting using the left internal mammary artery to the left anterior descending artery, a reverse saphenous vein graft from the aorta to the inferior branching of the first obtuse marginal coronary artery, and a reverse saphenous vein graft from the aorta to the right coronary artery. 2. Exclusion of the left atrial appendage using a 35 mm AtriClip. 3. Bilateral endoscopic vein harvesting. 4. Intraoperative graft flow measurements using the [employer] system. 5. Intraoperative transesophageal echocardiogram and epi-aortic scanning. HISTORY OF PRESENT ILLNESS: This is an 80-year-old female patient who follows with Dr. Mary Shipman on an outpatient basis for her primary care service. She also follows with Dr. Harris [facility] for her cardiology needs. She has a past medical history significant for mild left ventricular dysfunction with an ejection fraction on 2-D echocardiogram 45%, hypertension, hyperlipidemia, diabetes mellitus type 2, remote history of DVT, history of preoperative urinary tract infection with E. coli and a family history of early onset coronary artery disease with both of her brothers from myocar dial infarctions in their early 50s. Recently, the patient has had complaints of progressive shortness of breath with walking as she is quite active and recently she has had to take frequent rest periods when on her walks. Due to her complaints of shortness of breath she underwent a nuclear Lexiscan Cardiolite stress test at Dr. Harris's office on 03/16/2021 which showed abnormal myocardial perfusion imaging with evidence of partially reversible defect involving the distal anterior/apical segment of the LV. It also showed an overall normal left ventricular systolic function with an ejection fraction of 62%. Subsequently, for further evaluation the patient underwent a 2-D echocardiogram on 03/18/2021 which demonstrated normal left ventricular size with mildly decreased systolic function with an ejection fraction of 45%, mild aortic valve regurgitation, mild mitral valve regurgitation and mild tricuspid valve regurgitation. Also during the 2-D echocardiogram demonstrated a moderately increased pulmonary artery systolic pressure of 48 mmHg. Due to the patient's complaints of progressive shortness of breath, findings on the 2-D echocardiogram and stress test and elective heart catheterization was recommended. On 04/05/2021 the patient underwent a heart catheterization which showed multivessel coronary artery disease. Dr. Eliud Vazquez was consulted after the heart catheterization was performed due to the multivessel coronary artery disease. Dr. Vazquez met with the patient and the patient's daughter, discussed treatment options including myocardial revascularization surgery. Risks and benefits including the STS risk score were discussed with the patient, and knowing and understanding the risks of myocardial revascularization surgery the patient wished to proceed with the surgical option. She was scheduled on an elective basis for surgery. HOSPITAL COURSE: On 04/14/2021 the patient was admitted to the hospital, consent was obtained, she was taken to the preoperative area, prepared in usual fashion and subsequently taken to the operating room where Dr. Eliud Vazquez performed a triple-vessel coronary artery bypass grafting using the left internal mammary artery to left anterior descending coronary artery, a reverse greater saphenous vein graft from the aorta to the inferior branching of the first obtuse marginal coronary artery and a reverse greater saphenous vein graft from the aorta to the right coronary artery. Also during the surgery exclusion of the left atrial appendage using a 35 mm Atriclip, bilateral endoscopic vein harvesting, intraoperative graft flow measurements using the [employer] system, intraoperative transesophageal echocardiogram and epi-aortic scanning. Upon completion of the surgery the patient was transferred to the cardiovascular intensive care unit where she was recovered, and monitored hemodynamically. She was extubated, all lines, tubes and supportive drips were discontinued when appropriate and she was transferred to the cardiac stepdown unit for further monitoring and rehabilitation. During her postoperative period she did experience some brief paroxysmal atrial fibrillation which is a known common occurrence after surgery and was treated accordingly. Her oxygen was titrated down, she continued to work with physical/occupational therapy, cardiac rehabilitation, she was tolerating an oral diet, her pain was well controlled and she was ready to be discharged home with [facility] care on postoperative day #5. She has received written and verbal instructions regarding her medications, activity r estrictions, signs and symptoms requiring physician notification and her follow- up appointments. COMPLICATIONS: Postoperative period was complicated by some paroxysmal atrial fibrillation which was treated accordingly. CONSULTATIONS: 1. Dr. Harris for cardiology management. 2. Dr. Shipman for medical management. 3. Dr. Hines for pulmonary and ventilator management. Plan - Discharge Summary Discharge Rx Participant: Yes New Discharge Prescriptions: New Atorvastatin [Lipitor] 40 mg PO DAILY #30 tab Clopidogrel [Plavix] 75 mg PO DAILY #30 tab Pantoprazole [Protonix] 40 mg PO AC-BRKFST #30 tablet. Amiodarone [Cordarone] 400 mg PO BID #37 tab Metoprolol Tartrate [Lopressor] 50 mg PO BID #60 tab Sennosides-Docusate Sodium [Senokot-S] 2 each PO HS #14 tab Continue Aspirin 81 mg PO HS metFORMIN HCL [Glucophage] 500 mg PO BID HYDROcodone/APAP 5-325MG [Donnelly 5-325] 1 tab PO Q6HR PRN PRN Reason: Pain Cholecalciferol [Vitamin D3 (25 Mcg = 1000 Iu)] 2,000 unit PO DAILY Cyanocobalamin (Vitamin B-12) [Vitamin B-12] 1,000 mcg PO DAILY Biotin 10,000 mcg PO DAILY Ciprofloxacin HCl [Cipro] 500 mg PO BID 2 Days #0 Valsartan [Diovan] 160 mg PO DAILY #30 tab Discontinued Simvastatin 40 mg PO HS Metoprolol Succinate [Toprol XL] 12.5 mg PO DAILY #7 tab Discharge Medication List Aspirin 81 mg PO HS 06/11/14 [History] metFORMIN HCL [Glucophage] 500 mg PO BID 06/11/14 [History] Biotin 10,000 mcg PO DAILY 08/19/20 [History] Cholecalciferol [Vitamin D3 (25 Mcg = 1000 Iu)] 2,000 unit PO DAILY 08/19/20 [History] Cyanocobalamin (Vitamin B-12) [Vitamin B-12] 1,000 mcg PO DAILY 08/19/20 [H istory] HYDROcodone/APAP 5-325MG [Donnelly 5-325] 1 tab PO Q6HR PRN 08/19/20 [History] Amiodarone [Cordarone] 400 mg PO BID #37 tab 04/18/21 [Rx] Atorvastatin [Lipitor] 40 mg PO DAILY #30 tab 04/18/21 [Rx] Ciprofloxacin HCl [Cipro] 500 mg PO BID 2 Days #0 04/18/21 [Rx] Clopidogrel [Plavix] 75 mg PO DAILY #30 tab 04/18/21 [Rx] Metoprolol Tartrate [Lopressor] 50 mg PO BID #60 tab 04/18/21 [Rx] Pantoprazole [Protonix] 40 mg PO AC-BRKFST #30 tablet. 04/18/21 [Rx] Sennosides-Docusate Sodium [Senokot-S] 2 each PO HS #14 tab 04/18/21 [Rx] Valsartan [Diovan] 160 mg PO DAILY #30 tab 04/18/21 [Rx] Follow up Appointment(s)/Referral(s): Mireya Mancera NPC [Nurse Practitioner] - 04/21/21 10:30 am (Please follow-up with Mireya at [address] [place] [address], [address] [place] [address], office number [phone].) Rehab Sathish ADAMS,Cardiac [NON-STAFF] - 4 Weeks (You will receive a phone call approximately 4-6 weeks after surgery for cardiac rehab evaluation) Mary Shipman MD [Primary Care Provider] - 1 Week (Please call to make appointment, office was closed Monday) Frederic Mercado MD [STAFF PHYSICIAN] - 04/28/21 2:00 pm Eliud Vazquez MD [STAFF PHYSICIAN] - 05/14/21 10:15 am Gino Goldman DO [Doctor of Osteopathic Medicine] - 05/12/21 2:15 pm [facility], [NON-STAFF] - 1-2 Days Ambulatory/Diagnostic Orders: Complete Blood Count w/diff [LAB.AMB] Time Frame: 03/24/21, Facility: [facility], Location: Laboratory [facility] Comprehensive Metabolic Panel [LAB.AMB] Time Frame: 03/24/21, Facility: [facility], Location: Laboratory [facility] Activity/Diet/Wound Care/Special Instructions: [employer] is supplier of glucometer and home blood sugar testing supplies. They can be contacted at [phone]. DISCHARGE INSTRUCTIONS: 1. No driving for 4 weeks, or until physician gives their ok. 2. The patient should sleep in their own bed, no medical bed needed. 3. Stairs are not an issue. If the bedroom is upstairs, it is advised that the patient go up at night and down in the morning for the first week. Go slowly, using handrail and take 1 step at a time. 4. LAKESHA hose are to be worn for 30 days or until physician discontinues. 5. Heart hugger is to be worn 100% of the time until physician discontinues.(except when showering) 6. No lifting, pushing, or pulling more than 10 pounds for 12 weeks. The physician will advise of any restriction changes. 7. The patient is expected to continue the prescribed walking program. 8. Continue pain control per as needed orders. 9. Continue with incentive spirometry and splinting/heart hugger until otherwise directed by the physician. 10. Must shower daily using liquid antibacterial soap and a separate white washcloth for each individual incision. 11. Routine sternal incision care. No powders, lotions, ointments on incisions. No dressings are necessary on incisions unless they are draining. Dermabond tape is to remain on sternal incision until surgeon follow-up. 12. Please call surgeon/QUALITY CONTROL ASSOCIATE for temp greater than 101 F or purulent drainage from incisions. 13. All prescriptions given by surgeon for 30 days. Refills need to be filled through publications production supervisor/primary care physician. 14. A Red armband has been placed on the patient. It should be worn for 30 days post surgery and will be removed by the cardiac surgeons. If an ER visit is necessary, please make sure the number on the Red armband is called. 15. You have been referred to and are expected to begin Cardiac Rehab in approximately 4-6 weeks. 16. Patient has been discharged home with a glucometer, she has been instructed to test her blood sugars before meals and at bedtime. She is to keep a record of her blood sugars and bring her recorded blood sugars to her follow-up appointment with her primary care doctor. HOME HEALTH SERVICES TO PROVIDE: RN SKILLED HOME CARE SERVICES FOR POST-OP SURGICAL PATIENTS WITH THE FOLLOWING: Coronary Artery Bypass Surgery (CABG), Mitral Valve Replacement/Repair ( MVR), Aortic Valve Replacement/Repair (AVR) RN TO CONTINUE EDUCATION FROM ``ROAD TO A HEALTH HEART PATIENT EDUCATION MANUAL (GIVEN TO PATIENT IN THE HOSPITAL) MEDICATION RECONCILIATION WITH EDUCATION NEEDED ON FIRST HOME VISIT EMPHASIZE IMPORTANCE OF WEARING BREAST SUPPORT/HEART HUGGER ENCOURAGE USE OF INCENTIVE SPIROMETER 10 X EVERY HOUR WHILE AWAKE ENCOURAGE UTILIZATION OF LOWER EXTREMITY COMPRESSION STOCKINGS/LAKESHA HOSE and ELEVATE LEGS ABOVE LEVEL OF HEART WHILE AT REST. ENCOURAGE AMBULATION 3-5x/day INCREASING TOLERATES, WHILE AVOIDING EXTREMES IN TEMPERATURE FREQUENCY: RN TO OPEN THE PATIENT WITHIN 24 HOURS OF DISCHARGE FROM THE HOSPITAL WITH TELEHEALTH [place]STALLED AT [facility] [place] VISIT 2-3 X A WEEK FOR 4 WEEKS ESTABLISHED BY PATIENT NEEDS. LABORATORY: CBC, CMP TO BE DRAWN ON THE THIRD DAY HOME, (RAN STAT) FAX RESULTS TO [phone]. TELEHEALTH PARAMETERS: WEIGHT: NOTIFY MD OF WEIGHT GAIN OF 2 LBS IN 24 HOURS OR 5 LBS IN ONE WEEK HR: NOTIFY MD OF HR <55 BPM OR HR>100 BPM BP: NOTIFY MD IF BP <90/55 OR BP>140/100 O2 SAT: NOTIFY MD IF PO2<93% ON ROOM AIR SEND TELEHEALTH REPORT TO TOOLS PROGRAMMER AND CARDIOVASCULAR SURGEON THE FIRST WEEK OF CARE AND THEN BI-WEEKLY. PLEASE ADDITIONALLY COMMUNICATE ANY ABNORMALS AND NEW FINDINGS TO THE SURGEONS OFFICE. For any questions or concerns please call tools programmer Mireya @ or Don @ Discharge Disposition: HOME WITH HOME HEALTH SERVICES
[2021-04-18 15:32] LABS: Glucose,Whole Blood 113 mg/dL (75-99)
--- NOTE | 2021-04-18 19:28 | P.PN ---
Subjective Progress Note Date: 04/17/21 80-year-old female one of my patient with a previous medical history significant for hypertension and hypertensive cardiovascular disease, hyperlipidemia, history of diabetes mellitus type 2, history of spondylosis of the cervical spine, patient developed to have a significant shortness of breath with exertion ended up seeing Dr. Mercado from cardiology who recommended to have a Lexiscan stress test which came back positive for an area of stress-induced ischemia and echocardiogram showed minimal decrease in the LV function with ejection fraction of 45%, this was followed by left heart catheterization that showed distal left main disease as well as proximal LAD disease, she was referred for coronary artery bypass grafting which was done today by Dr. Vazquez with MENESES to LAD, SVG to RCA, and SVG to the first obtuse marginal branch, and she was admitted to intensive care unit, currently is being seen in the ICU, Objective - Vital Signs Vital signs: Vital Signs Temp 98.1 F 04/17/21 08:15 Pulse 83 04/17/21 08:15 Resp 18 04/17/21 08:15 BP 162/73 04/17/21 08:15 Pulse Ox 97 04/17/21 08:15 Intake & Output 04/16/21 04/17/21 04/17/21 18:59 06:59 18:59 Intake Total 700 560 Output Total 850 425 400 Balance -150 -425 160 Weight 85.2 kg Intake: IV 40 .9NS 40 Oral 660 560 Output: Urine 850 425 400 Other: Voiding Method Bedside Commode Toilet Toilet # Voids 1 2 # Bowel Movements 1 ABP, PAP, CO, CI - Last Documented Arterial Blood Pressure 165/67 Pulmonary Artery Pressure 32/11 Cardiac Output 5.6 Cardiac Index 3.1 - Exam - Constitutional General appearance: Present: average body habitus, cooperative, no acute distress - EENT Eyes: Present: anicteric sclerae, EOMI, PERRLA, normal appearance ENT: Present: hearing grossly normal, normal oropharynx Ears: bilateral: normal - Neck Neck: Present: normal ROM. Absent: lymphadenopathy, rigidity, thyromegaly Carotids: negative: bruit present Thyroid: bilateral: normal size, negative: enlarged, nodule - Respiratory Respiratory: bilateral: CTA, negative: rales, rhonchi, wheezing - Cardiovascular Rhythm: regular Heart sounds: normal: S1, S2 Abnormal Heart Sounds: Absent: systolic murmur, diastolic murmur - Gastrointestinal General gastrointestinal: Present: normal bowel sounds, soft. Absent: distended, organomegaly, tenderness - Genitourinary Genitourinary Comment(s): deferred - Integumentary Integumentary: Present: normal turgor. Absent: jaundiced, rash, ulcer - Neurologic Neurologic: Present: CNII-XII intact. Absent: focal deficits - Musculoskeletal Musculoskeletal: Present: gait normal, strength equal bilaterally - Psychiatric Psychiatric: Present: A&O x's 3, appropriate affect, intact judgment & insight - Labs CBC & Chem 7: 04/18/21 07:24 04/18/21 07:24 Labs: Abnormal Lab Results - Last 24 Hours (Table) 04/16/21 04/16/21 04/16/21 Range/Units 11:46 16:39 19:54 RBC (3.80-5.40) m/uL Hgb (11.4-16.0) gm/dL Hct (34.0-46.0) % Chloride (98-107) mmol/L BUN (7-17) mg/dL Creatinine (0.52-1.04) mg/dL Glucose (74-99) mg/dL POC Glucose (mg/dL) 132 H 183 H 182 H (75-99) mg/dL Total Protein (6.3-8.2) g/dL Albumin (3.5-5.0) g/dL 04/17/21 04/17/21 04/17/21 Range/Units 06:01 07:18 07:18 RBC 2.72 L (3.80-5.40) m/uL Hgb 8.1 L (11.4-16.0) gm/dL Hct 25.7 L (34.0-46.0) % Chloride 111 H (98-107) mmol/L BUN 27 H (7-17) mg/dL Creatinine 1.08 H (0.52-1.04) mg/dL Glucose 130 H (74-99) mg/dL POC Glucose (mg/dL) 139 H (75-99) mg/dL Total Protein 5.2 L (6.3-8.2) g/dL Albumin 3.2 L (3.5-5.0) g/dL Assessment and Plan Assessment: 1 Symptomatic multivessel coronary artery disease, status post three-vessel bypass grafting with MENESES to the LAD, SVG to the RCA, and SVG to the OM 1, with endoscopic vein harvest in bilateral lower extremities, and exclusion of the left atrial appendage and intraoperative CHANDRA, postop day #4 2 Routine postoperative ventilator management, extubated at 21:55 04/13/2021. Currently on RA 3 Postoperative blood loss anemia, current hemoglobin is stable at 8.1 4 New-onset atrial fibrillation with rapid ventricular response, expected outcome of surgery, converted to an oral amiodarone today, continued on beta blo ckers 5 Diabetes mellitus type II, insulin drip off at 10 PM last night, currently on the before meals at bedtime sliding scale 6 Hyperlipidemia 7 Urinary tract infection, preop, E. coli, currently on Cipro 7 Lifetime nonsmoker, preop FEV1 was 1.96 L or 106% of predicted, normal PFT 8 History of familial early onset coronary artery disease
--- NOTE | 2021-04-18 19:29 | P.PN ---
Subjective Progress Note Date: 04/18/21 04/18/2021, the patient is being seen for a follow-up. She is on room air oxygen. No new complaints otherwise for now. Her cardiac rhythm is sinus. She has converted while being on amiodarone. She is on amiodarone and metoprolol and she has adequate rate control.Hemoglobin stable at 8.4. The creatinine is stable at 1.05. Surgical wound site is dry clean and intact. No focal neurological deficits. No angina. No palpitations. The chest x-ray from today showing some minimal basilar atelectatic changes in the left otherwise no other acute abnormality is a been noted. Objective - Vital Signs Vital signs: Vital Signs Temp 98.1 F 04/18/21 08:09 Pulse 77 04/18/21 11:25 Resp 18 04/18/21 11:25 BP 144/64 04/18/21 11:25 Pulse Ox 98 04/18/21 11:25 Intake & Output 04/17/21 04/18/21 04/18/21 18:59 06:59 18:59 Intake Total 950 10 240 Output Total 800 200 Balance 150 -190 240 Weight 85.2 kg Intake: IV 10 0.9 10 Oral 950 240 Output: Urine 800 200 Other: Voiding Method Toilet Toilet Toilet # Voids 1 1 ABP, PAP, CO, CI - Last Documented Arterial Blood Pressure 165/67 Pulmonary Artery Pressure 32/11 Cardiac Output 5.6 Cardiac Index 3.1 - Exam - Constitutional General appearance: Present: average body habitus, cooperative, no acute distress - EENT Eyes: Present: anicteric sclerae, EOMI, PERRLA, normal appearance ENT: Present: hearing grossly normal, normal oropharynx Ears: bilateral: normal - Neck Neck: Present: normal ROM. Absent: lymphadenopathy, rigidity, thyromegaly Carotids: negative: bruit present Thyroid: bilateral: normal size, negative: enlarged, nodule - Respiratory Respiratory: bilateral: CTA, negative: rales, rhonchi, wheezing - Cardiovascular Rhythm: regular Heart sounds: normal: S1, S2 Abnormal Heart Sounds: Absent: systolic murmur, diastolic murmur - Gastrointestinal General gastrointestinal: Present: normal bowel sounds, soft. Absent: distended, organomegaly, tenderness - Genitourinary Genitourinary Comment(s): deferred - Integumentary Integumentary: Present: normal turgor. Absent: jaundiced, rash, ulcer - Neurologic Neurologic: Present: CNII-XII intact. Absent: focal deficits - Musculoskeletal Musculoskeletal: Present: gait normal, strength equal bilaterally - Psychiatric Psychiatric: Present: A&O x's 3, appropriate affect, intact judgment & insight - Labs CBC & Chem 7: 04/18/21 07:24 04/18/21 07:24 Labs: Abnormal Lab Results - Last 24 Hours (Table) 04/17/21 04/17/21 04/18/21 Range/Units 17:07 20:24 06:18 RBC (3.80-5.40) m/uL Hgb (11.4-16.0) gm/dL Hct (34.0-46.0) % Chloride (98-107) mmol/L BUN (7-17) mg/dL Creatinine (0.52-1.04) mg/dL Glucose (74-99) mg/dL POC Glucose (mg/dL) 157 H 135 H 129 H (75-99) mg/dL 04/18/21 04/18/21 04/18/21 Range/Units 07:06 07:24 07:24 RBC 2.65 L (3.80-5.40) m/uL Hgb 8.1 L (11.4-16.0) gm/dL Hct 24.8 L (34.0-46.0) % Chloride 111 H (98-107) mmol/L BUN 28 H (7-17) mg/dL Creatinine 1.05 H (0.52-1.04) mg/dL Glucose 119 H (74-99) mg/dL POC Glucose (mg/dL) 130 H (75-99) mg/dL 04/18/21 Range/Units 11:52 RBC (3.80-5.40) m/uL Hgb (11.4-16.0) gm/dL Hct (34.0-46.0) % Chloride (98-107) mmol/L BUN (7-17) mg/dL Creatinine (0.52-1.04) mg/dL Glucose (74-99) mg/dL POC Glucose (mg/dL) 125 H (75-99) mg/dL Assessment and Plan Assessment: 1 Symptomatic multivessel coronary artery disease, status post three-vessel bypass grafting with MENESES to the LAD, SVG to the RCA, and SVG to the OM 1, with endoscopic vein harvest in bilateral lower extremities, and exclusion of the left atrial appendage and intraoperative CHANDRA, postop day #4 2 Routine postoperative ventilator management, extubated at 21:55 04/13/2021. Currently on RA 3 Postoperative blood loss anemia, current hemoglobin is stable at 8.1 4 New-onset atrial fibrillation with rapid ventricular response, expected outcome of surgery, converted to an oral amiodarone today, continued on beta blockers 5 Diabetes mellitus type II, insulin drip off at 10 PM last night, currently on the before meals at bedtime sliding scale 6 Hyperlipidemia 7 Urinary tract infection, preop, E. coli, currently on Cipro 7 Lifetime nonsmoker, preop FEV1 was 1.96 L or 106% of predicted, normal PFT 8 History of familial early onset coronary artery disease
--- NOTE | 2021-04-20 07:56 | CDI ---
Documentation Clarification Form Date: 04/15/2021 01:42:00 PM From: Patricia Membreno CCS, CCDS Admit Date: 04/13/2021 05:34:00 AM Patient Name: Елена Martinez Visit Number: [id number] Discharge Date: 04/18/2021 03:30:00 PM ATTENTION: The Clinical Documentation Specialists (CDI) and [facility] Coding Staff appreciate your assistance in clarifying documentation. Please respond to the clarification below the line at the bottom and electronically sign. The CDI & [facility] Coding staff will review the response and follow-up if needed. Please note: Queries are made part of the Legal Health Record. If you have any questions, please contact the author of this message via ITS. Dr. Olga Hines: The following is documented in the 04/14 Pulmonary/Critical Care Progress Note: She did have some postop issues with hypotension requiring pressors and then hypertension requiring Clevidipine. Assessment: Initial hypotension requiring pressors, subsequent hypertension requiring Clevidipine. History/Risk Factors per the Medical Management Consult Medical History: DM, DVT, GERD, Hyperlipidemia, Hypertension, Osteoarthritis. Clinical Indicators: Presented 04/14 for Elective Surgery: CABG x4 for Triple Vessel CAD. 04/13 Postop VS: T 96.3, P 89, R 20, BP 86/53, PO 100 initially intubated on vent. 04/13 Postop LAB: Hgb 7.0 - 6.9, Hct 20.8 - 19.3, Pl Ct 88 - 81, Lymph 1.5 - 0.8, PT 12.6, INR 1.2, APTT 32.5, Fibrinogen 193, Glucose 182, Calcium 8.1, Mag 2.8, AST 38, Alk Phos 28, Total prot 4.6, Albumin 3.2 04/13 Postop ABG Blood gas: pH 7.30, pO2 204, O2 Sat 99.8, Hct 27, Gluc 150, Lactic Acid 1.2 - 2.2, Hgb 8.9 - 7.1. Treatment 04/13: IV Heparin, IV Papaverine x1, IV Vancymycin, IV Albumin, IV Amiodarone, IV Calcium Gluconate, IV Dextrose/Water w/Amiodarone, IV Reglan, IV Clevidipine, IV Insulin, IV Nitro, IV Propofol, IV fluid 1,000 mls @ 20 mls/hr q24H, INH Duoneb, IV Cefazolin, IV Tylenol. 04/13 Transfused 1 unit PRBCs for documented Acute Blood Loss Anemia. Please clarify if the following was present: [x ] Hypovolemic Shock [ ] Cardiogenic Shock [ ] Other Shock, please specify: [ ] Other, please specify [ x] Unable to determine (Template Last Revised: January 2021) MTDD
== END 2021-04-18 15:30 | disposition home health service (06) | DRG 235 ==
LOC: 2ORMAIN 05:34 → 2SICU 15:03 → 3SCARD 04-16 15:32
PROVIDERS: ADMIT Surgery; ATTEND Surgery
PROC: 06BP4ZZ Excision of Right Saphenous Vein, Percutaneous Endoscopic Approach (ICD-10-PCS; principal; 2021-04-14)
PROC: 06BQ4ZZ Excision of Left Saphenous Vein, Percutaneous Endoscopic Approach (ICD-10-PCS; principal; 2021-04-14)
PROC: 021109W Bypass Coronary Artery, Two Arteries from Aorta with Autologous Venous Tissue, Open Approach (ICD-10-PCS; principal; 2021-04-14)
PROC: 5A1221Z Performance of Cardiac Output, Continuous (ICD-10-PCS; principal; 2021-04-14)
PROC: 02100Z9 Bypass Coronary Artery, One Artery from Left Internal Mammary, Open Approach (ICD-10-PCS; principal; 2021-04-14)
PROC: B246ZZ4 Ultrasonography of Right and Left Heart, Transesophageal (ICD-10-PCS; principal; 2021-04-14)
PROC: 02L70CK Occlusion of Left Atrial Appendage with Extraluminal Device, Open Approach (ICD-10-PCS; principal; 2021-04-14)
PROC: 3E033XZ Introduction of Vasopressor into Peripheral Vein, Percutaneous Approach (ICD-10-PCS; principal; 2021-04-14)
DX: I25.10 Atherosclerotic heart disease of native coronary artery without angina pectoris (principal); J96.00 Acute respiratory failure, unspecified whether with hypoxia or hypercapnia; G92 Toxic encephalopathy; R57.1 Hypovolemic shock; D62 Acute posthemorrhagic anemia; J98.11 Atelectasis; N39.0 Urinary tract infection, site not specified; D69.6 Thrombocytopenia, unspecified; E11.9 Type 2 diabetes mellitus without complications; E78.5 Hyperlipidemia, unspecified; I11.9 Hypertensive heart disease without heart failure; I48.0 Paroxysmal atrial fibrillation; M47.812 Spondylosis without myelopathy or radiculopathy, cervical region; B96.20 Unspecified Escherichia coli [E. coli] as the cause of diseases classified elsewhere; I08.3 Combined rheumatic disorders of mitral, aortic and tricuspid valves; E66.3 Overweight; M19.90 Unspecified osteoarthritis, unspecified site; K21.9 Gastro-esophageal reflux disease without esophagitis; Z79.02 Long term (current) use of antithrombotics/antiplatelets; Z79.82 Long term (current) use of aspirin; Z79.84 Long term (current) use of oral hypoglycemic drugs; Z79.899 Other long term (current) drug therapy; Z82.49 Family history of ischemic heart disease and other diseases of the circulatory system; Z86.718 Personal history of other venous thrombosis and embolism; Z90.710 Acquired absence of both cervix and uterus; Z96.642 Presence of left artificial hip joint; Z98.42 Cataract extraction status, left eye; Z98.41 Cataract extraction status, right eye; Z68.33 Body mass index [BMI] 33.0-33.9, adult; Z90.89 Acquired absence of other organs
CPT/HCPCS: 71045; 71046; 80048; 80053; 82330; 82805; 83735; 85025; 85027; 85384; 85520; 85610; 85730; 86850; 86891; 86900; 86901; 86920; 94002; 94640; 94760

== ENCOUNTER → 2021-07-28 | Outpatient (CLI) | payer MEDICARE, OTHER ==
--- NOTE | 2021-07-28 12:14 | XR ---
EXAMINATION TYPE: XR cervical spine w flex/ext DATE OF EXAM: 07/28/2021 TECHNIQUE: Frontal, lateral, oblique, swimmers, and open mouth view of the cervical spine are obtaine d. Flexion and extension views are also submitted. HISTORY: M47.812 COMPARISON: None FINDINGS: There is severe degenerative disc space narrowing and spondylosis extending from C4-5 throu gh C6-7. There is grade 1 anterolisthesis of 4 mm which remain stable at flexion, extension and neutr al at the C4-5 level. Bilateral neural foraminal encroachment at C4-5 and C5-6. No fracture identifie d. IMPRESSION: Stable anterior subluxation at C4-5. Advanced degenerative changes as noted.
== END | disposition home or self-care (01) ==
LOC: RADXRMAIN 10:59
PROVIDERS: ATTEND Internal Medicine
DX: M47.812 Spondylosis without myelopathy or radiculopathy, cervical region (principal); M43.5X2 Other recurrent vertebral dislocation, cervical region
CPT/HCPCS: 72052

== ENCOUNTER → 2022-05-10 | Outpatient (CLI) | payer MEDICARE, OTHER ==
--- NOTE | 2022-05-10 07:33 | US ---
EXAMINATION TYPE: US liver DATE OF EXAM: 05/10/2022 COMPARISON: US dated 05/02/2017 CLINICAL HISTORY: R79.89 OTHER SPECIFIED ABNORMAL FINDINGS OF BLOOD. EXAM MEASUREMENTS: Liver Length: 11.9 cm Gallbladder Wall: 0.2 cm CBD: 0.6 cm Right Kidney: 9.9 x 5.6 x 5.4 cm Pancreas: Obscured by bowel gas Liver: wnl Gallbladder: No stones seen Evidence for sonographic Ornelas's sign: No CBD: wnl Right Kidney: No hydronephrosis or masses seen . Simple right renal cyst noted. IMPRESSION: No acute process.
== END | disposition home or self-care (01) ==
LOC: RADUSWWP 06:36
PROVIDERS: ATTEND Internal Medicine
DX: R79.89 Other specified abnormal findings of blood chemistry (principal); N28.1 Cyst of kidney, acquired
CPT/HCPCS: 76705

== ENCOUNTER 2022-06-23 07:19 | Emergency (ER) | payer MEDICARE, OTHER ==
[2022-06-23 07:25] VITALS: RESP 18; TEMP 98.2
--- NOTE | 2022-06-23 07:49 | ED ---
General Adult HPI - General Chief complaint: Fall Stated complaint: fall, bilat hand pain Time Seen by Provider: 06/23/22 07:26 Source: patient, family, RN notes reviewed Mode of arrival: ambulatory Limitations: no limitations - History of Present Illness Initial comments: Patient is a pleasant 81-year-old female presenting to the emergency department following fall. Incident occurred 3 days ago. Patient was getting up to use the restroom in the middle the night and tripped over a small dog fence. Patient does have some impaired recollection of the event. Daughter states patient seems slightly confused just after the event. Patient did strike her nose and chin however does not have much discomfort there. Patient is still having discomfort of her bilateral hands. Patient is unclear the exact mechanism when she landed. No neck or back pain. No chest pain or dyspnea. No abdominal pain. Patient does not believe she lost consciousness. - Related Data Home Medications Medication Instructions Recorded Confirmed Aspirin 81 mg PO HS 06/11/14 04/13/21 metFORMIN HCL [Glucophage] 500 mg PO BID 06/11/14 04/13/21 Biotin 10,000 mcg PO DAILY 08/19/20 04/13/21 Cholecalciferol [Vitamin D3 (25 2,000 unit PO DAILY 08/19/20 04/13/21 Mcg = 1000 Iu)] Cyanocobalamin (Vitamin B-12) 1,000 mcg PO DAILY 08/19/20 04/13/21 [Vitamin B-12] HYDROcodone/APAP 5-325MG [[place] 1 tab PO Q6HR PRN 08/19/20 04/13/21 5-325] Previous Rx's Medication Instructions Recorded Amiodarone [Cordarone] 400 mg PO BID #37 tab 04/18/21 Atorvastatin [Lipitor] 40 mg PO DAILY #30 tab 04/18/21 Ciprofloxacin HCl [Cipro] 500 mg PO BID 2 Days #0 04/18/21 Clopidogrel [Plavix] 75 mg PO DAILY #30 tab 04/18/21 Metoprolol Tartrate [Lopressor] 50 mg PO BID #60 tab 04/18/21 Pantoprazole [Protonix] 40 mg PO JOSE-CHELLYFSTeja #30 tablet. 04/18/21 Sennosides-Docusate Sodium 2 each PO HS #14 tab 04/18/21 [Senokot-S] Valsartan [Diovan] 160 mg PO DAILY #30 tab 04/18/21 Etodolac [Lodine] 200 mg PO Q6H PRN #20 capsule 06/23/22 Allergies Allergy/AdvReac Type Severity Reaction Status Date / Time No Known Allergies Allergy Verified 04/13/21 06:08 Review of Systems ROS Statement: Those systems with pertinent positive or pertinent negative responses have been documented in the HPI. ROS Other: All systems not noted in ROS Statement are negative. Constitutional: Denies: fever Eyes: Denies: eye pain ENT: Denies: ear pain Respiratory: Denies: cough Cardiovascular: Denies: chest pain Endocrine: Denies: fatigue Gastrointestinal: Denies: abdominal pain Genitourinary: Denies: urgency Musculoskeletal: Denies: back pain Skin: Denies: rash Neurological: Reports: as per HPI. Denies: headache, weakness, confusion Past Medical History Past Medical History: Diabetes Mellitus, Deep Vein Thrombosis (DVT), GERD/Reflux, Hyperlipidemia, Hypertension, Osteoarthritis (OA) Additional Past Medical History / Comment(s): "borderline cholesterol" History of Any Multi-Drug Resistant Organisms: None Reported Past Surgical History: Appendectomy, Coronary Bypass/CABG, Hysterectomy, Joint Replacement, Orthopedic Surgery, Tonsillectomy Additional Past Surgical History / Comment(s): LT. HIP REPLACEMENT, ORIF rt ankle, Leopoldo cataracts Past Anesthesia/Blood Transfusion Reactions: Previous Problems w/ Anesthesia, Motion Sickness Additional Past Anesthesia/Blood Transfusion Reaction / Comment(s): slow to wake up Past Psychological History: No Psychological Hx Reported Smoking Status: Never smoker Past Alcohol Use History: None Reported Past Drug Use History: None Reported - Past Family History Mother Family Medical History: Myocardial Infarction ([place]) Additional Family Medical History / Comment(s): Her mother at age 69 from a [place] Brother(s) Family Medical History: Myocardial Infarction ([place]) Additional Family Medical History / Comment(s): Two of her brothers in their early 50's from [place]'s. Daughter(s) Family Medical History: CVA/TIA General Exam Limitations: no limitations General appearance: alert, in no apparent distress Eye exam: Present: normal appearance, PERRL, EOMI ENT exam: Present: normal oropharynx, other (Ecchymosis to the chin and mild to the nose without tenderness) Neck exam: Present: normal inspection. Absent: tenderness Respiratory exam: Present: normal lung sounds bilaterally Cardiovascular Exam: Present: regular rate, normal rhythm GI/Abdominal exam: Present: soft. Absent: tenderness Extremities exam: Present: normal inspection, full ROM, tenderness (Minimal tenderness left hand fourth metacarpal), other (Full range of motion. Sensation intact. Strength intact) Neurological exam: Present: alert, CN II-XII intact. Absent: motor sensory deficit Expanded Motor strength exam: RUE: 5, LUE: 5 Eye Response: (4) open spontaneously Motor Response: (6) obeys commands Verbal Response: (5) oriented Psychiatric exam: Present: normal affect, normal mood Skin exam: Present: normal color Course Vital Signs 06/23/22 07:21 Temperature 98.2 F Pulse Rate 68 Respiratory 18 Rate Blood Pressure 155/75 O2 Sat by Pulse 99 Oximetry Medical Decision Making - Medical Decision Making Patient reevaluated. Patient family updated - Radiology Data Radiology results: report reviewed (CT brain shows no acute process), image reviewed (Bilateral hand x-rays did not reveal acute abnormality) Disposition Clinical Impression: Fall, Hand strain Disposition: HOME SELF-CARE Condition: Stable Instructions (If sedation given, give patient instructions): Fall Prevention (ED) Additional Instructions: Prescription sent to pharmacy. Please do follow-up to primary care physician in the next day or 2 for recheck. Return for increased pain, weakness, confusion, falling, worsening or changing symptoms or other concerns. Prescriptions: Etodolac [Lodine] 200 mg PO Q6H PRN #20 capsule PRN Reason: Pain Is patient prescribed a controlled substance at d/c from ED?: No Referrals: Mary Shipman MD [Primary Care Provider] - 1-2 days Time of Disposition: 08:30
--- NOTE | 2022-06-23 08:11 | CT ---
EXAMINATION TYPE: CT brain wo con DATE OF EXAM: 06/23/2022 COMPARISON: 09/12/2016 HISTORY: 81-year-old female Fall and pain TECHNIQUE: Examination was done in axial plane without intravenous contrast. Coronal and sagittal r econstructions performed. CT DLP: 1119.4 mGycm Automated exposure control for dose reduction was used. FINDINGS: There is no evidence of acute intracranial hemorrhage, acute ischemic changes, mass, mass-effect, or extra-axial fluid collection. There is no effacement of cerebral sulci or basal subarachnoid cister ns. There is no hydrocephalus. There is no midline shift. Rosario-white matter distinction is preserv ed. Moderate patchy white matter hypodensities redemonstrated in both cerebral hemispheres. Mild age-rela [place] cerebral cortical volume loss. Rightward nasal septal deviation. Paranasal sinuses and mastoid air cells well pneumatized. Orbits an d globes are intact. IMPRESSION: No acute intracranial abnormality seen. Similar moderate patchy burden of chronic small vessel ischem ic disease and mild age-related cerebral atrophy.
--- NOTE | 2022-06-23 08:16 | XR ---
EXAMINATION TYPE: XR hand complete bilateral DATE OF EXAM: 06/23/2022 COMPARISON: NONE HISTORY: 81-year-old female fall and bilateral hand pain TECHNIQUE: 3 views each side FINDINGS: On the right, there is severe degenerative change of the first CMC joint with loss of joint space, jones bchondral sclerosis, and bulky marginal spurring. Moderate degenerative change triscaphe joint. Moder ate to severe degenerative change first MCP joint and mild scattered within the IP joints. More moder ate at the second and third DIP joints. Osteopenia. No acute fracture or dislocation seen. On the left, similar severe degenerative change first CMC joint. Mild degenerative change triscaphe j oint. Mild to moderate at the first MCP joint and moderate at the second and third DIP joints. Mild a t the second MCP joint. No acute fracture or dislocation. Osteopenia. IMPRESSION: Hands without acute osseous abnormality seen. There is osteoarthritic change, severe at the base of t he thumb on both sides and scattered throughout the DIP joints as above. Slightly greater on the righ t.
[2022-06-23] MEDS ORDERED: traMADol 50 MG STARTER PACK 3 TAB BTL PO STA (08:24)
[2022-06-23] MEDS ORDERED: IBUPROFEN 400 MG TAB PO STA (08:25)
[2022-06-23 08:43] VITALS: BP 125/79; PULSE 75
== END 2022-06-23 08:43 | disposition home or self-care (01) ==
LOC: EC 07:19
DX: S66.911A Strain of unspecified muscle, fascia and tendon at wrist and hand level, right hand, initial encounter (principal); S66.912A Strain of unspecified muscle, fascia and tendon at wrist and hand level, left hand, initial encounter; E11.9 Type 2 diabetes mellitus without complications; K21.9 Gastro-esophageal reflux disease without esophagitis; E78.5 Hyperlipidemia, unspecified; I10 Essential (primary) hypertension; M19.90 Unspecified osteoarthritis, unspecified site; I82.409 Acute embolism and thrombosis of unspecified deep veins of unspecified lower extremity; Z79.82 Long term (current) use of aspirin; W01.0XXA Fall on same level from slipping, tripping and stumbling without subsequent striking against object, initial encounter
CPT/HCPCS: 70450; 99284

== ENCOUNTER → 2022-08-05 | Outpatient (CLI) | payer OTHER ==
--- NOTE | 2022-08-05 12:38 | US ---
EXAMINATION TYPE: US kidneys/renal and bladder DATE OF EXAM: 08/05/2022 COMPARISON: US 2017 CLINICAL HISTORY: N18.9 CHR KIDNEY DISEASE. EXAM MEASUREMENTS: Right Kidney: 10.8 x 4.9 x 5.0 cm Left Kidney: 10.7 x 4.9 x 4.3 cm Right Kidney: Anechoic area seen medially: 2.0 x 2.2 x 2.2 cm. Anechoic area seen upper pole versus possibly dilated collecting system: 2.6 x 1.2 x 1.3 cm. Left Kidney: Anechoic area seen medially: 2.2 x 1.2 x 2.0 cm. Hyperechoic focus seen: 0.4 x 0.4 x 0.2 cm. Bladder: Appears anechoic. Bilateral Jets seen: Yes IMPRESSION: 1. Bilateral renal cysts. 2. Mild hydronephrosis upper pole right kidney. 3. Nonobstructing renal stone inferior pole left kidney
== END | disposition home or self-care (01) ==
LOC: RADUSWWP 10:56
PROVIDERS: ATTEND Internal Medicine
DX: N20.2 Calculus of kidney with calculus of ureter (principal)
CPT/HCPCS: 76770

== ENCOUNTER → 2023-03-01 | Outpatient (CLI) | payer MEDICARE ==
--- NOTE | 2023-03-01 11:40 | MR ---
EXAMINATION TYPE: MR cervical spine wo con DATE OF EXAM: 03/01/2023 COMPARISON: MR cervical spine 08/13/2020, 04/12/2018, cervical spine radiographs 01/19/23, 07/28/2021 HISTORY: Neck pain into rt arm/fingers TECHNIQUE: Multiplanar, multisequence images of the cervical spine were acquired without contrast. Patient refus ed intravenous contrast. FINDINGS: Evaluation is limited due to the lack of intravenous contrast. Persistent nonhealed transverse fracture to the base of the odontoid redemonstrated. Vertebral alignm ent is stable. Grade 1 anterior listhesis of C4 on C5 and grade 1 retrolisthesis of C6 on C7 redemons trated. Cervical spinal cord is of normal signal. Vertebral body heights remain normal. Mild edema i nvolving the C5 and C6 vertebral bodies. Moderate multilevel disc space narrowing and spurring at C5- C6 and C6-C7 redemonstrated. Additional mild to moderate multilevel anterior spurring noted. Bone mar row signal intensity is within normal limits. Multilevel disc desiccation. C2-C3: No disc bulge/herniation or protrusion. No Canal stenosis. Foramina are patent bilaterally. C3-C4: No disc bulge/herniation or protrusion. Uncovertebral joint hypertrophy and facet degenerative changes bilaterally with no central or neuroforaminal stenosis. C4-C5: Spondylolisthesis are demonstrated with uncovertebral joint and facet degenerative changes german aterally with left greater than right. Broad-based right paracentral disc protrusion redemonstrated. Effacement of the anterior thecal sac. Mild left greater than right bilateral neural foraminal narrow ing. C5-C6: Broad based posterior disc protrusion with effacement of the anterior thecal sac causing moder ate to advanced bilateral neural foraminal narrowing. Similar to prior exam. C6-C7: Spondylosis with broad-based posterior disc protrusion with effacement of ventral thecal sac a nd moderate left and mild right neural foraminal narrowing. No significant change from prior. C7-T1: No disc bulge/herniation or protrusion. No Canal stenosis. Foramina are patent bilaterally. Stable 2 cm posterior lower cervical well-defined fat density lesion favored to be benign subcutaneou s lipoma. IMPRESSION: Overall stable examination with multilevel degenerative disc disease and osteoarthritic changes most pronounced at C5-C6 and C6-C7.
== END | disposition home or self-care (01) ==
LOC: RADMRIMAIN 10:19
PROVIDERS: ATTEND Internal Medicine
DX: M50.322 Other cervical disc degeneration at C5-C6 level (principal); M47.812 Spondylosis without myelopathy or radiculopathy, cervical region
CPT/HCPCS: 72141

== ENCOUNTER → 2023-04-03 | Outpatient (CLI) | payer MEDICARE ==
[2023-04-03 12:25] VITALS: BP 143/81; PULSE 62; RESP 18; TEMP 97.9
--- NOTE | 2023-04-03 13:36 | P.PAINPG ---
PQRS Measure Charge Sheet Comment: A 82 yr old female with a history of severe and chronic neck pain secondary to cervical DDD and spondylosis with facet arthropathy without myelopathy presents today for neck pain. Pt had a R RFA C4-C5, C5-C6 and admits to 90% pain relief x 4 mo s/p procedure. Pain level is provoked at 8 /10 in intensity, constant, localized in the cervical spine, achy/ sharp in character w shooting towards the R shoulder. Pain is provoked by lifting and hyperextension. Pain is alleviated with PT weekly x 10 wks in 2021, massage therapy x 2 sessions in 2021, injections, heat, ice, medications, topical, repositioning and rest. Interventional pain procedures completed include R C4-C6 RFA (Dec 2020) Patient is currently on Noroc, Ibu Patient denies any side effects of the medication(s), denies excessive drowsiness or sleepiness, denies suicidal ideation and reports that the current pain medication is helping to control the pain and improve activities of daily living. Patient denies any motor or sensory deficits. Patient denies any fever or night sweats, denies any change in the bowel movements or urination. Physical Examination: -Constitutional: Cooperative. Not in acute distress . - Neurologic: Cranial nerve II to XII intact. No focal neurological deficits. - Psychatric: Alert & oriented x 3. Matching mood & appropriate affect. Judgment and insight intact. - Musculoskeletal: Cervical spine: Muscle bulk/ tone/ strength in the bilateral upper extremities normal Vertebral body tenderness to palpation over C6 Spurling test positive of C6 Distraction test positive Facet loading test positive TTP Thoracic spine Muscle bulk / tone/ strength in the bilateral paraspinal muscles normal Vertebral body tender to palpation over Facet loading test positive TTP Lumbar spine: Motor bulk/ tone/ strength lower extremities , thigh and legs : 5/5 Deep tendon reflexes : Normal Knee Jerk. Normal Ankle Jerk . Vertebral body tenderness to palpation over Lumbar Facet Loading Test positive Straight Leg Raise: positive at 30 degrees right side/ left side Gaenslen's Test positive Sacral spine : Severe tenderness over the Sacroiliac joint: right side / left side Range of motion: Flexion of the lumbar spine <60 degrees Range of motion: Extension of the lumbar spine <20 degrees Gaenslen's Test positive R / L Elizabeth test: positive right side / left side Thigh Thrust Test positive R / L Sacral Thrust Test positive R/ L Assessment and plan: Chronic neck pain secondary to cervical DDD, spondylosis with facet arthropathy without myelopathy Recommendation of R paramedian KAREY C6-C7 #1. May need a series of injections for optimal pain relief. Risks, benefits of procedure discussed and pt verbalized understanding. Admits to anticoagulant use or medical history of diabetes. Protocol for discontinuation/ continuation of medications marilin procedure discussed. Minimal anesthesia provided per pt preference consisting of Versed and Fentanyl. All questions answered. I have spent less than 30 minutes on patient care today. Dr Butler was available by phone for the evaluation of this patient. The time was used to review the medical records including relevant urine studies and Prescription history (MAPs), review of the available imaging, evaluation and examination of the patient, coordination of care with the medical staff and if applicable referring physicians, as well as creation of the medical record PQRS Narrative: Smoking Status Never smoker Hx Alcohol Use (MH) No Home Medications: Ambulatory Orders Aspirin 81 mg PO HS 06/11/14 metFORMIN HCL [Glucophage] 500 mg PO BID 06/11/14 Biotin 10,000 mcg PO DAILY 08/19/20 Cholecalciferol [Vitamin D3 (25 Mcg = 1000 Iu)] 2,000 unit PO DAILY 08/19/20 Cyanocobalamin (Vitamin B-12) [Vitamin B-12] 1,000 mcg PO DAILY 08/19/20 HYDROcodone/APAP 5-325MG [[place] 5-325] 1 tab PO Q6HR PRN 08/19/20 Amiodarone [Cordarone] 400 mg PO BID #37 tab 04/18/21 Atorvastatin [Lipitor] 40 mg PO DAILY #30 tab 04/18/21 Ciprofloxacin HCl [Cipro] 500 mg PO BID 2 Days #0 04/18/21 Clopidogrel [Plavix] 75 mg PO DAILY #30 tab 04/18/21 Metoprolol Tartrate [Lopressor] 50 mg PO BID #60 tab 04/18/21 Pantoprazole [Protonix] 40 mg PO AC-BRKFST #30 tablet. 04/18/21 Sennosides-Docusate Sodium [Senokot-S] 2 each PO HS #14 tab 04/18/21 Valsartan [Diovan] 160 mg PO DAILY #30 tab 04/18/21 Etodolac [Lodine] 200 mg PO Q6H PRN #20 capsule 06/23/22 Controlled Substance Measures - Controlled Substance Measures Is patient prescribed a controlled substance at discharge?: No
== END ==
LOC: PNWHC3 10:19
PROVIDERS: ATTEND Specialist
DX: M50.323 Other cervical disc degeneration at C6-C7 level (principal); M47.812 Spondylosis without myelopathy or radiculopathy, cervical region; G89.29 Other chronic pain; Z79.82 Long term (current) use of aspirin
CPT/HCPCS: 99211

== ENCOUNTER 2023-06-15 07:23 | Day surgery (SDC) | payer MEDICARE ==
[2023-06-12 16:08] VITALS: BMI 27.4
[2023-06-15] MEDS ORDERED: LACTATED RINGERS 1,000 ML IV SCH (07:51)
[2023-06-15 07:59] VITALS: RESP 16; TEMP 97.5
[2023-06-15 08:35] LABS: Glucose,Whole Blood 110 mg/dL (70-110)
[2023-06-15] MEDS ORDERED: IOPAMIDOL M200 10 ML VIAL ONE (08:45)
[2023-06-15] MEDS ORDERED: DEXAMETHASONE SOD PHOSPHATE 10 MG/ML 1 ML VIAL ONE (08:45)
--- NOTE | 2023-06-15 08:52 | P.PCN ---
Date of Procedure: 06/15/23 Procedure(s) Performed: . PROCEDURE 1. Cervical epidural steroid injection under fluoroscopic guidance, C6-7 (fluoroscopy images available in the radiology department ) 2. Cervical epidurogram. PREOPERATIVE DIAGNOSIS: 1- Cervical Degenerative Disc Diseases 2-cervical spondylosis with cervical Facet arthropathy without myelopathy.4-cervical spinal stenosis POSTOPERATIVE DIAGNOSIS: : 1- Cervical Degenerative Disc Diseases , 2-cervical spondylosis with cervical Facet arthropathy without myelopathy. 4-cervical spinal stenosis ANESTHESIA: Local anesthesia with lidocaine 1% 3 ml only EBL 0 PROCEDURE INDICATION: The patient with neck pain and radiculitis unresponsive to conservative treatment consents for procedure. PROCEDURE DESCRIPTION / TECHNIQUE: The patient was seen and identified in the preoperative area. Risks, benefits, complications, including but not limited to infections ,bleeding , allergic reactions to the medications ,and not complete pain releife, and alternatives were discussed with the patient, the patient agreed to proceed with the procedure and signed the consent. Patient was taken to the OR and time out was completed. The patient was placed in the prone position on the procedure table. A pillow was placed under the patients chest to increase the cervical interlaminar space. The cervical area was prepped and draped in the usual sterile fashion. Vital signs were closely monitored during the procedure. Using anterior-posterior fluoroscopy, the C6-7 interlaminar space was identified and the skin over this site was marked and then infiltrated with 1% lidocaine subcutaneously. Subsequently, a 20-gauge 3-1/2-inch Tuohy epidural needle was inserted ( right paramedial )and advanced toward the epidural space by means of the ``hanging-drop technique and guided by AP and lateral fluoroscopy. The correct needle position in the epidural space was verified with the injection of 2 mL of the water soluble contrast dye [id number]-[id number] and observing an excellent epidurogram with the epidural spread of the dye, after negative aspiration for blood and CSF and in the absence of paresthesias. then, mixture containing 10 mg Dexamethasone and 2 ml of preservative-free normal saline injected and a washout of epidurogram was seen. Needle was withdrawn intact, skin was cleansed, and bandages were applied. Complications= none. Disposition= patient was placed in supine position and transferred to the recovery room area in stable condition and there was no evidence of upper or lower extremity motor or sensory deficit after the procedure patient was discharged from recovery room after discharge criteria met and home discharge instructions was given by the staff and patient will follow with the pain clinic in 2-4 weeks
[2023-06-15 08:55] VITALS: BP 146/69; PULSE 66
--- NOTE | 2023-06-15 10:27 | FL ---
Intraoperative/procedural fluoroscopic services were provided. Total fluoroscopy time is 2. seconds w ith a total of 1 submitted images to PACS. Please see the operative/procedural note for further detai ls. DAP: [id number] mGym2
== END 2023-06-15 09:07 | disposition home or self-care (01) ==
LOC: ORPAIN 07:23
PROVIDERS: ATTEND Specialist
DX: M50.123 Cervical disc disorder at C6-C7 level with radiculopathy (principal); M47.22 Other spondylosis with radiculopathy, cervical region; M48.02 Spinal stenosis, cervical region
CPT/HCPCS: 62321; J1100; Q9966

== ENCOUNTER → 2023-07-10 | Outpatient (CLI) | payer MEDICARE ==
[2023-07-10 12:14] VITALS: BP 156/87; PULSE 77; RESP 15; TEMP 98.3
--- NOTE | 2023-07-10 14:16 | P.PAINPG ---
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 Pt had a KAREY C6-C7 and admits to 0% pain relief x 3 wks s/p procedure. Pt recalls a R RFA of the C3-C4, C4-C5, C5-C6 in Dec 2020 where she experienced 85% pain relief x 8 mo s/p procedure. Pain level is provoked at 6 /10 in intensity, constant, localized in the cervical spine, achy/ sharp in character w shooting towards the R shoulder and R hand. Pain is provoked by lifting and hyperextension. Pain is alleviated with PT weekly x 10 wks in 2021, massage therapy x 2 sessions in 2021, injections, heat, ice, medications, topical, repositioning and rest. Oswestry axial pain score of 9. Interventional pain procedures completed include R C4-C6 RFA (Dec 2020) Patient is currently on Noroc, Ibu Patient denies any side effects of the medication(s), denies excessive drowsiness or sleepiness, denies suicidal ideation and reports that the current pain medication is helping to control the pain and improve activities of daily living. Patient denies any motor or sensory deficits. Patient denies any fever or night sweats, denies any change in the bowel movements or urination. Physical Examination: -Constitutional: Cooperative. Not in acute distress . - Neurologic: Cranial nerve II to XII intact. No focal neurological deficits. - Psychatric: Alert & oriented x 3. Matching mood & appropriate affect. Judgment and insight intact. - Musculoskeletal: Cervical spine: Muscle bulk/ tone/ strength in the bilateral upper extremities normal Vertebral body tenderness to palpation Spurling test positive Distraction test positive Facet loading test positive TTP over R C4-C5, C5-C6 Thoracic spine Muscle bulk / tone/ strength in the bilateral paraspinal muscles normal Vertebral body tender to palpation over Facet loading test positive TTP Lumbar spine: Motor bulk/ tone/ strength lower extremities , thigh and legs : 5/5 Deep tendon reflexes : Normal Knee Jerk. Normal Ankle Jerk . Vertebral body tenderness to palpation over Lumbar Facet Loading Test positive Straight Leg Raise: positive at 30 degrees right side/ left side Gaenslen's Test positive Sacral spine : Severe tenderness over the Sacroiliac joint: right side / left side Range of motion: Flexion of the lumbar spine <60 degrees Range of motion: Extension of the lumbar spine <20 degrees Gaenslen's Test positive R / L Elizabeth test: positive right side / left side Thigh Thrust Test positive R / L Sacral Thrust Test positive R/ L Assessment and plan: Chronic neck pain secondary to cervical DDD, spondylosis with facet arthropathy without myelopathy Recommendation of R RFA C4-C5, C5-C6. Pt exhibited substantial pain relief w prior RFA of cervical area from Dec 2020. Risks, benefits of procedure discussed and pt verbalized understanding. Admits to anticoagulant use or medical history of diabetes. Protocol for discontinuation/ continuation of medications marilin procedure discussed. Minimal anesthesia provided per pt preference consisting of Versed and Fentanyl. All questions answered. I have spent less than 30 minutes on patient care today. Dr Butler was available by phone for the evaluation of this patient. The time was used to review the medical records including relevant urine studies and Prescription history (MAPs), review of the available imaging, evaluation and examination of the patient, coordination of care with the medical staff and if applicable referring physicians, as well as creation of the medical record PQRS Narrative: Smoking Status Never smoker Hx Alcohol Use (MH) No Home Medications: Ambulatory Orders Aspirin 81 mg PO HS 06/11/14 metFORMIN HCL [Glucophage] 500 mg PO BID 06/11/14 Cholecalciferol [Vitamin D3 (25 Mcg = 1000 Iu)] 2,000 unit PO DAILY 08/19/20 Cyanocobalamin (Vitamin B-12) [Vitamin B-12] 1,000 mcg PO DAILY 08/19/20 Metoprolol Tartrate [Lopressor] 50 mg PO BID #60 tab 04/18/21 Valsartan [Diovan] 160 mg PO DAILY 04/25/23 Atorvastatin [Lipitor] 80 mg PO DAILY 06/12/23 Ezetimibe [Zetia] 10 mg PO DAILY 06/12/23 Controlled Substance Measures - Controlled Substance Measures Is patient prescribed a controlled substance at discharge?: No
== END ==
LOC: PNWHC3 10:54
PROVIDERS: ATTEND Specialist
DX: M50.322 Other cervical disc degeneration at C5-C6 level (principal); G89.29 Other chronic pain; M47.816 Spondylosis without myelopathy or radiculopathy, lumbar region; Z79.82 Long term (current) use of aspirin
CPT/HCPCS: 99211

== ENCOUNTER 2023-08-29 09:05 | Day surgery (SDC) | payer MEDICARE ==
[~2023-08-29 09:05] MED LIST changes: -ALBUMIN HUMAN 25% 50 ML IV ONE; -ALBUMIN HUMAN 5% 500 ML IVPB ONE; -ASPIRIN 325 MG TAB PO ONE; -ATORVASTATIN 10 MG TAB PO ONE; -CALCIUM CHLORIDE 100 MG/ML 10 ML SYRINGE IV ONE; -CHLORHEXIDINE GLUCONATE 15 ML CUP MUCOUS MEM ONE; -CLEVIDIPINE BUTYRATE 25 MG in EMPTY BAG 1 BAG IV ONE; -ELECTROLYTE-A SOLUTION 1,000 ML with POTASSIUM CHLORIDE 100 MEQ, MAGNESIUM SULFATE 16 M... IV SCH; -HEPARIN SODIUM 1,000 UN/ML (10ML VL) IV ONE; -HEPARIN SODIUM,PORCINE 5,000 UNIT in SODIUM CHLORIDE 0.9% 500 ML 500 ML IV ONE; -INSULIN REGULAR 100 UNIT in SODIUM CHLORIDE 0.9% 100 ML IV ONE; -LACTATED RINGERS 1,000 ML IV ONE; +LACTATED RINGERS 1,000 ML IV SCH; -MAGNESIUM SULFATE MG 500 MG/ML IV ONE; -MANNITOL 25% 12.5 GM/50 ML VIAL IV ONE; -METOPROLOL TARTRATE 12.5 MG TAB PO ONE; -NITROGLYCERIN SL TABS 0.4 MG TAB SUBLINGUAL ONE; -NITROGLYCERIN-D5W PMX 25 MG/250 ML BTL IV ONE; -NITROGLYCERIN-D5W PMX 50 MG in DEXTROSE/WATER 1 250ML.BAG IV ONE; -NOREPINEPHRINE 4 MG in SODIUM CHLORIDE 0.9% 250 ML IV ONE; -PAPAVERINE 360 MG in SODIUM CHLORIDE 0.9% 90 ML IV ONE; -PHENYLEPHRINE 10 MG/ML VIAL IV ONE; -PHENYLEPHRINE 40 MG in SODIUM CHLORIDE 0.9% 250 ML IV ONE; -PROTAMINE SULFATE 10 MG/ML 25 ML VIAL IV ONE; -PROTAMINE SULFATE 250 MG in EMPTY BAG 1 BAG IV ONE; -SODIUM BICARB 8.4% 50 ML SYR (1 MEQ/ML) IV ONE; -SODIUM CHLORIDE 0.9% 1,000 ML IV ONE; -TRANEXAMIC ACID 2,000 MG in SODIUM CHLORIDE 0.9% 80 ML IV ONE; -propofoL 1,000 MG/100 ML VIAL IV ONE
[2023-08-29 09:21] LABS: Glucose,Whole Blood 126 mg/dL (70-110)
[2023-08-29 09:31] VITALS: TEMP 96.5
[2023-08-29] MEDS ORDERED: MIDAZOLAM 2 MG/2 ML VIAL ONE (09:43)
[2023-08-29] MEDS ORDERED: DEXAMETHASONE SOD PHOSPHATE 10 MG/ML 1 ML VIAL ONE (09:43)
[2023-08-29] MEDS ORDERED: ROPIVACAINE 5MG/ML 20ML VIAL ONE (09:43)
--- NOTE | 2023-08-29 10:06 | P.PCN ---
Date of Procedure: 08/29/23 Description of Procedure: PREOPERATIVE DIAGNOSIS: Cervical Facet syndrome /cervical spondylosis. POSTOPERATIVE DIAGNOSIS: Cervical Facet syndrome /cervical spondylosis. PROCEDURES: Bilateral cervical C4-C5, and C5-C6 medial branch injections, with fluoroscopic guidance, SURGEON: Laquita Bejarano ANESTHESIA: 4ml of Local lidocaine 1% , and IV sedation with : versed 1 MG +1 MG Sedation supervision timings: 1002 EBL: None Specimen removed: None Fluoroscopic image: Saved to electronic medical records. PROCEDURE INDICATION: Patient had chronic neck pain. He tried conservative therapy with minimal benefits. Came here for intervention procedure. PROCEDURE DESCRIPTION: The patient was seen and identified in the preoperative area. Risks, benefits, complications, and alternatives were discussed with the patient. The patient agreed to pursue with the procedure and signed the consent. IV was started and vital signs were stable. Patient was taken to the procedure room and time out was completed. The patient was placed in the prone position on the procedure table and cervical area was prepped with ChloraPrep 2 and draped in the usual sterile fashion. Critical pause was taken. Vital signs were closely monitored during the procedure. Using AP fluoroscopy, right side the waists of lateral margins of C4, C5, and C6 were identified and localized with 1% lidocaine. We used 22-gauge 3-1/2 inch spinal needles 3 used for the procedure. Using the posterior approach, spinal cannulas were guided by anterior posterior fluoroscopy to the waists of the lateral masses of C4, C5, and C6. Needle tip position was confirmed at the centroid of the trapezoids of C4, C5, and C6 with lateral fluoroscopy. After negative aspiration of CSF and blood and with no paresthesias 0.5 mL of block solution injected at each site. Block solution contained 10 MG of dexamethasone and 4 mL of preservative-free ropivacaine 0.5%. [place] were removed intact. Entire procedure repeated on the left side . [place] removed intact. Skin was cleansed and bandages were applied. COMPLICATIONS: None. DISPOSITION / PLANS: The patient was placed in a supine position and transferred to the recovery area in a stable condition for observation and was discharged from the recovery room after meeting discharge criteria. Home discharge instructions given to the patient by the staff. The patient was reexamined prior to discharge. Scheduled to follow up with the pain clinic in 2- 4 weeks duration.
[2023-08-29] MEDS ORDERED: LACTATED RINGERS 1,000 ML IV ONE (10:10)
--- NOTE | 2023-08-29 10:17 | FL ---
Intraoperative/procedural fluoroscopic services were provided for bilateral cervical facet block. Tot al fluoroscopy time is 23.1 seconds with a total of 5 submitted images to PACS. Total DAP 0.45973 mGy m2. Please see the operative note for further details.
[2023-08-29 10:36] VITALS: BP 131/73; PULSE 57; RESP 16
== END 2023-08-29 10:38 | disposition home or self-care (01) ==
LOC: ORPAIN 09:05
DX: M47.812 Spondylosis without myelopathy or radiculopathy, cervical region (principal); M53.82 Other specified dorsopathies, cervical region; I10 Essential (primary) hypertension; E78.5 Hyperlipidemia, unspecified; E11.9 Type 2 diabetes mellitus without complications; M19.90 Unspecified osteoarthritis, unspecified site; Z79.82 Long term (current) use of aspirin; Z79.84 Long term (current) use of oral hypoglycemic drugs; Z79.899 Other long term (current) drug therapy
CPT/HCPCS: 64490; 64491 ×2; J2250; J1100; J2795

== ENCOUNTER → 2023-09-25 | Outpatient (CLI) | payer MEDICARE ==
[2023-09-25 11:20] VITALS: BP 156/85; PULSE 64; RESP 15; TEMP 98.6
--- NOTE | 2023-09-25 13:48 | P.PAINPG ---
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 Pt admits she experienced 80% pain relief s/p procedure. Pain level is provoked at 0 /10 in intensity. Pain is alleviated with injections, PT weekly x 10 wks in 2021, massage therapy x 2 sessions in 2021, injections, heat, ice, medications, topical, repositioning and rest. Oswestry axial pain score of 9. Interventional pain procedures completed include R C4-C6 RFA (Dec 2020, Aug 2023), BL MBB C4-C6 x1 Patient is currently on Noroc, Ibu Patient denies any side effects of the medication(s), denies excessive drowsiness or sleepiness, denies suicidal ideation and reports that the current pain medication is helping to control the pain and improve activities of daily living. Patient denies any motor or sensory deficits. Patient denies any fever or night sweats, denies any change in the bowel movements or urination. Physical Examination: -Constitutional: Cooperative. Not in acute distress . - Neurologic: Cranial nerve II to XII intact. No focal neurological deficits. - Psychatric: Alert & oriented x 3. Matching mood & appropriate affect. Judgment and insight intact. - Musculoskeletal: Cervical spine: Muscle bulk/ tone/ strength in the bilateral upper extremities normal Vertebral body tenderness to palpation Spurling test positive Distraction test positive Facet loading test positive TTP over BL C4-C5, C5-C6 Thoracic spine Muscle bulk / tone/ strength in the bilateral paraspinal muscles normal Vertebral body tender to palpation over Facet loading test positive TTP Lumbar spine: Motor bulk/ tone/ strength lower extremities , thigh and legs : 5/5 Deep tendon reflexes : Normal Knee Jerk. Normal Ankle Jerk . Vertebral body tenderness to palpation over Lumbar Facet Loading Test positive Straight Leg Raise: positive at 30 degrees right side/ left side Gaenslen's Test positive Sacral spine : Severe tenderness over the Sacroiliac joint: right side / left side Range of motion: Flexion of the lumbar spine <60 degrees Range of motion: Extension of the lumbar spine <20 degrees Gaenslen's Test positive R / L Elizabeth test: positive right side / left side Thigh Thrust Test positive R / L Sacral Thrust Test positive R/ L Assessment and plan: Chronic neck pain secondary to cervical DDD, spondylosis with facet arthropathy without myelopathy Will manage residual pain and may RTC on an as needed basis. All questions answered. I have spent less than 30 minutes on patient care today. Dr Butler was available by phone for the evaluation of this patient. The time was used to review the medical records including relevant urine studies and Prescription history (MAPs), review of the available imaging, evaluation and examination of the patient, coordination of care with the medical staff and if applicable referring physicians, as well as creation of the medical record PQRS Narrative: Smoking Status Never smoker Hx Alcohol Use (MH) No Home Medications: Ambulatory Orders Aspirin 81 mg PO HS 06/11/14 metFORMIN HCL [Glucophage] 500 mg PO BID 06/11/14 Cholecalciferol [Vitamin D3 (25 Mcg = 1000 Iu)] 2,000 unit PO QAM 08/19/20 Cyanocobalamin (Vitamin B-12) [Vitamin B-12] 1,000 mcg PO QAM 08/19/20 Metoprolol Tartrate [Lopressor] 50 mg PO BID #60 tab 04/18/21 Valsartan [Diovan] 160 mg PO QAM 04/25/23 Atorvastatin [Lipitor] 80 mg PO QAM 06/12/23 Ezetimibe [Zetia] 10 mg PO QAM 06/12/23 Controlled Substance Measures - Controlled Substance Measures Is patient prescribed a controlled substance at discharge?: No
== END ==
LOC: PNWHC3 10:27
PROVIDERS: ATTEND Specialist
DX: M50.321 Other cervical disc degeneration at C4-C5 level (principal); M50.322 Other cervical disc degeneration at C5-C6 level; G89.29 Other chronic pain; M47.812 Spondylosis without myelopathy or radiculopathy, cervical region; Z79.82 Long term (current) use of aspirin
CPT/HCPCS: 99211

== ENCOUNTER → 2025-04-08 | Outpatient (CLI) | payer MEDICARE ==
[2025-04-08 08:48] LABS: African American GFR (CKD) 81 (>60 ml/min/1.73 sqM); Blood Urea Nitrogen 20 mg/dL (7-17); Non-African American GFR(CKD) 71 (>60 ml/min/1.73 sqM)
--- NOTE | 2025-04-08 09:41 | CT ---
EXAMINATION TYPE: CT chest abdomen w con DATE OF EXAM: 04/08/2025 9:16 AM COMPARISON: Chest radiograph 01/06/2025 CLINICAL INDICATION: Female, 84 years old with history of R07.81 PLEURODYNIA; PHH, left side rib pain Technique: CT chest and abdomen after IV contrast administration. Delayed images through the kidneys. Multiple axial images were obtained. Two-dimensional coronal and sagittal reconstructions were obtai an. Contrast used:100 ml mL of Isovue 300 with IV Contrast, Oral contrast used: with Oral Contrast CT DLP: 1119 mGycm, Automated exposure control for dose reduction was used. Findings: CHEST: Median sternotomy wires with post-CABG clips. Heart normal size without pericardial effusion. Aorta normal caliber with conventional arch vessel branching anatomy. Borderline to mildly enlarged caliber main right and left pulmonary arteries up to 2.6 cm suggest und erlying pulmonary hypertension. No thoracic lymph adenopathy by CT size criteria. Moderate emphysematous change. No consolidation or pleural effusion. 6 mm subpleural pulmonary nodule posterior left upper lung. 4 mm medial right lower lobe pulmonary nodule, axial image 29. ABDOMEN: Small hiatal hernia. Hypodense lesion right hepatic dome measuring 4.5 cm with some peripheral calcifications. Some vague patchy internal enhancement on delayed scan. A couple tiny cysts are present on the right measuring u p to 6 mm. Portal venous system is patent. No biliary ductal dilatation. Layering tiny stones/gravel within the nondistended gallbladder. Adrenal glands, spleen, and mildly atrophic pancreas show no gross abnormality. There is bilateral renal cortical thinning suggesting chronic medical renal disease. Benign 1.8 cm co rtical cyst anterior right kidney and underlying parapelvic cysts measuring up to 2.2 cm. No dilated small bowel, free fluid, or free air. No mesenteric or retroperitoneal lymphadenopathy. Scattered mild to moderate stool. A few left-sided colonic diverticulosis. No pericolonic inflammator y change. Mild atherosclerotic calcifications abdominal aorta. PELVIS Not imaged. 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 [facility] mid and lower tho racic spine. IMPRESSION: 1. COPD with [id number] emphysema and a couple pulmonary nodules measuring up to 6 mm. Per Fle ischner guidelines, CT at 6-12 months, then CT at 18-24 months. 2. Possible underlying pulmonary arterial hypertension. Post-CABG changes. 3. Small hiatal hernia. 4. An indeterminate 4.5 cm hypodense lesion right hepatic dome, suspected to represent a sclerosed he patic hemangioma. Recommend three-month follow-up liver ultrasound to ensure stability. 5. Cholelithiasis and scattered left-sided colonic diverticulosis. 6. Severe degenerative change lumbar spine and DISH within the thoracic spine. [facility], , 04/08/2025 9:39 AM
== END | disposition home or self-care (01) ==
LOC: RADCTMAIN 08:00
PROVIDERS: ATTEND Internal Medicine
DX: K44.9 Diaphragmatic hernia without obstruction or gangrene (principal); J44.9 Chronic obstructive pulmonary disease, unspecified; J43.9 Emphysema, unspecified; R91.8 Other nonspecific abnormal finding of lung field; Z95.1 Presence of aortocoronary bypass graft; K80.20 Calculus of gallbladder without cholecystitis without obstruction; K57.30 Diverticulosis of large intestine without perforation or abscess without bleeding; M47.816 Spondylosis without myelopathy or radiculopathy, lumbar region; M48.14 Ankylosing hyperostosis [Forestier], thoracic region
CPT/HCPCS: 82565; 84520; 71260; 74160; 36415; Q9967